=== PATIENT | female | born 1955 | race Caucasian/White ===

== ENCOUNTER 2017-06-24 15:02 | Emergency (ER) | payer MEDICARE, OTHER ==
[~2017-06-24] VITALS: Ht 167.6 cm; Wt 83.9 kg
[~2017-06-24 15:02] MED LIST: ADVAIR 250/501 EA INH; ALPRAZOLAM; GUIATUSS AC SY120 ML PO; LORTAB 7.51 EA GT; MEDROL4 MG PO; OMEPRAZOLE40 MG PO; PLAQUENIL200 MG PO; PREVACID30 M2 PO; PROAIR HFA8.5 G1 INH; Z.0.AMBIEN10 MG PO; Z.0.KEFLEX500 MG PO; Z.0.SINGULAIR10 MG PO; Z.0.VALTREX500 MG PO; Z.0.XANAX0.25 MG PO; ZITHROMAX500 MG PO
--- OUTSIDE RECORDS SUMMARY | 2017-06-24 15:05 | XMS REPORT ---
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 Allergies, Adverse Reactions, Alerts This patient has no known allergies or adverse reactions. Medications This patient has no known medications. Results Test Description Test Time Test Comments Text Results Atomic Results Result Comments RESPIRATORY PANEL [facility] 2016-10-18 18:22:00 HUMAN METAPNEUMOVIRUS (BEAKER) (test cajk=6703) Not detected Not detected, Inconclusive RHINOVIRUS (BEAKER) (test xqdq=0366) Not detected Not detected, Inconclusive INFLUENZA A (BEAKER) (test jzzo=2345) Not detected Not detected, Inconclusive INFLUENZA A SUBTYPE H1 (BEAKER) (test nojq=1737) Not detected Not detected, Inconclusive INFLUENZA A SUBTYPE H3 (BEAKER) (test axkc=4758) Not detected Not detected, Inconclusive INFLUENZA A SUBTYPE H1-2009 (BEAKER) (test xjlb=1434) Not detected Not detected, Inconclusive INFLUENZA B (BEAKER) (test iexq=9915) Not detected Not detected, Inconclusive RESPIRATORY SYNCYTIAL VIRUS (BEAKER) (test nrby=0953) Not detected Not detected, Inconclusive PARAINFLUENZA VIRUS 1 (BEAKER) (test fsaz=8292) Not detected Not detected, Inconclusive PARAINFLUENZA VIRUS 2 (BEAKER) (test lphm=9990) Not detected Not detected, Inconclusive PARAINFLUENZA VIRUS 3 (BEAKER) (test iuwp=7661) Not detected Not detected, Inconclusive PARAINFLUENZA VIRUS 4 (BEAKER) (test mquy=0536) Not detected Not detected, Inconclusive ADENOVIRUS (BEAKER) (test npls=6894) Not detected Not detected, Inconclusive CORONAVIRUS 229E (BEAKER) (test dexd=2874) Not detected Not detected, Inconclusive CORONAVIRUS HKU1 (BEAKER) (test ceup=4899) Not detected Not detected, Inconclusive CORONAVIRUS NL63 (BEAKER) (test cliu=3444) Not detected Not detected, Inconclusive CORONAVIRUS OC43 (BEAKER) (test ngmj=4331) Not detected Not detected, Inconclusive BORDETELLA PERTUSSIS (BEAKER) (test qdgt=1813) Not detected Not detected, Inconclusive CHLAMYDOPHILA PNEUMONIAE (BEAKER) (test xfrf=8802) Not detected Not detected , Inconclusive MYCOPLASMA PNEUMONIAE (BEAKER) (test kdkt=3590) Not detected Not detected, Inconclusive CHEST [address] [facility] [address] [address] Patient Name: BOBBI BILL MR #: [id number] : 1955 Age/Sex: 62/F Req #: [id number] Adm Physician: Ordered by: BRYANNA RUIZ MD Report #: [id number] Location: [facility] Room/Bed: Procedure: [id number] DX/ CHEST 2 VIEWS Exam Date: 04/26/17 Exam Time: 1000 REPORT STATUS: Signed PROCEDURE: Frontal and lateral views of the chest. COMPARISON: [facility], DX, CHEST SINGLE (PORTABLE), 04/10/2016, 9:58. INDICATIONS: BRONCHITIS FINDINGS: Lines /tubes: None. Lungs: The lungs are well inflated. Patchy bibasilar and infrahilar opacities, right greater than left. Mild bronchial wall thickening in the lower lobes. There is no evidence of consolidation or pulmonary edema. Pleura: There is no pleural effusion or pneumothorax. Heart and mediastinum: The heart and the mediastinum are normal. Bones: No acute bony abnormality. IMPRESSION: 1. mild bronchial wall thickening in the lower lobes, likely represent bronchitis. Patchy bibasilar and infrahilar opacities may reflect atelectasis or developing pneumonia. Recommend chest PA and lateral 4-6 weeks after appropriate treatment to document resolution. Jomar River M.D. Dictated by: Jomar River M.D. on 04/26/2017 at 12:12 Electronically approved by: Jomar River M.D. on 04/26/2017 at 12:12 Dictated By: JOMAR RIVER MD 1212 Transcribed By: KOLBY on 04/26/17 1212 COPY TO: BRYANNA RUIZ MD
[2017-06-24] MEDS ORDERED: KETOROLAC TROMETHAMINE 60 MG/2 ML VIAL IM ONE (16:00)
[2017-06-24 19:44] VITALS: BP 155/90
== END 2017-06-24 16:20 | disposition home or self-care (01) ==
LOC: FSED 15:02
DX: M54.2 Cervicalgia (principal); M62.838 Other muscle spasm; R03.0 Elevated blood-pressure reading, without diagnosis of hypertension
CPT/HCPCS: 99282; J1885

== ENCOUNTER → 2017-08-06 | Outpatient (CLI) | payer MEDICARE, OTHER ==
--- NOTE | 2017-08-06 16:30 | Diagnostic Imaging Report ---
PROCEDURE: Frontal and lateral views of the chest. COMPARISON: Patients [facility], , CHEST 2 VIEWS, 04/26/2017, 9:41. INDICATIONS: COUGH, COPD FINDINGS: Lines/tubes: None. Lungs: The lungs are well inflated. Improved previously visualized lower lobe bronchial wall thickening. There is no evidence of consolidation or pulmonary edema. Pleura: There is no pleural effusion or pneumothorax. Heart and mediastinum: Cardiac silhouette is borderline enlarged. Pulmonary vasculature is normal. Bones: No acute bony abnormality. IMPRESSION: 1. borderline enlarged cardiac silhouette, without acute cardiopulmonary abnormalities. Nino River M.D. Dictated by: Nino River M.D. on 08/06/2017 at 16:30 Electronically approved by: Nino River M.D. on 08/06/2017 at 16:30
== END ==
LOC: RAD 15:34
PROVIDERS: ATTEND Internal Medicine Pulmonary Disease
DX: J44.9 Chronic obstructive pulmonary disease, unspecified (principal)
CPT/HCPCS: 71046

== ENCOUNTER 2017-08-07 10:27 | Inpatient (IN) | payer MEDICARE, OTHER ==
[~2017-08-07] VITALS: Ht 167.6 cm; Wt 90.9 kg
--- OUTSIDE RECORDS SUMMARY | 2017-08-07 10:31 | XMS REPORT ---
Author Organization Unknown Address [address] [place] [address] Phone [phone] Care Team Providers [facility] [employer] Name Role Phone BRYANNA RUIZ MD 114 [phone] GUALBERTO DOVE MD 121 [phone] JARROD CERVANTES MD 105 [phone] BRYANNA HERRING MD 2 [phone] DIPIKA BEATTY MD 183 [phone] ERIC BOTELLO MD 3 [phone] Allergies Code Code System Name Reaction Severity Status Onset Declomycin Active 8640 RxNorm Prednisone Active Medications Name Status Start Date Stop Date acetaminophen 300 mg-codeine 30 mg tablet Active Not available acyclovir 5 % topical ointment apply tid prn Active Not available Adacel (Tdap Adolesn/Adult)(PF)2 Lf-(2.5-5-3-5)-5 Lf/0.5 mL IM syringe Completed 11/07/2016 Adacel (Tdap Adolesn/Adult)(PF)2Lf-(2.5-5-3-5mcg)-5 Lf/0.5 mL IM susp Completed 01/31/2016 Advair Diskus 250 mcg-50 mcg/dose powder for inhalation Active Not available albuterol sulfate 2 mg tablet Active Not available alprazolam 0.5 mg tablet Active Not available amlodipine 2.5 mg tablet Completed 01/31/2016 amoxicillin 500 mg capsule Take 1 capsule 3 times a day by oral route. Completed 08/28/2016 azithromycin 250 mg tablet TAKE 2 TABLETS (500 MG) BY ORAL ROUTE ONCE DAILY FOR 1 DAY THEN 1 TABLET (250 MG) BY ORAL ROUTE ONCE DAILY FOR 4 DAYS Active Not available betamethasone dipropionate 0.05 % topical cream Completed 07/12/2016 bupropion HCl XL 150 mg 24 hr tablet, extended release Active Not available Cheratussin AC 10 mg-100 mg/5 mL oral liquid Take 10 mL every 4 hours by oral route. Active Not available clindamycin HCl 300 mg capsule Completed 04/22/2017 clobetasol 0.05 % topical ointment applt twice daily prn Completed 07/12/2016 cyclobenzaprine 5 mg tablet 1 tablet prn Completed 07/12/2016 dextroamphetamine-amphetamine 20 mg tablet Take 1 tablet every day by oral route as needed. Active Not available fluocinonide 0.05 % topical ointment apply daily as needed Completed 04/22/2017 fluticasone 50 mcg/actuation nasal spray,suspension 2 sprays each nostril once daily prn Active Not available furosemide 20 mg tablet Active Not available gabapentin 300 mg capsule Active Not available gentamicin 0.3 % eye drops Completed 01/31/2016 hydrochlorothiazide 12.5 mg capsule Take 1 capsule every day by oral route for 90 days. Completed 05/21/2016 hydroxychloroquine 200 mg tablet Take 2 tablets every day by oral route for 30 days. Completed 05/21/2016 IBU 800 mg tablet Active Not available Kenalog 40 mg/mL suspension for injection Take 40 mg by injection route. Completed 03/14/2017 ketoconazole 2 % topical cream apply daily prn Completed 07/12/2016 ketorolac 30 mg/mL (1 mL) injection solution Inject 2 mL by intramuscular route. Completed 04/22/2017 ketorolac 60 mg/2 mL intramuscular solution 2 ml Completed 07/16/2017 Klor-Con Sprinkle 10 mEq capsule,extended release Active Not available Lasix 40 mg tablet Take 1 tablet every other day by oral route. Completed 07/12/2016 levocetirizine 5 mg tablet once daily Completed 07/12/2016 levofloxacin 500 mg tablet Take 1 tablet every day by oral route. Completed 10/26/2016 lidocaine 5 % topical ointment Completed 01/31/2016 lorazepam 1 mg tablet TAKE 1 TABLET 1-1 1/2 tablets BY ORAL ROUTE 3 TIMES PER DAY NEEDED Completed 07/12/2016 Lyrica 50 mg capsule Completed 08/28/2016 Medrol (Johnny) 4 mg tablets in a dose pack takes as needed Completed 07/12/2016 meloxicam 15 mg tablet TAKE ONE TABLET DAILY NEEDED FOR PAIN Completed 04/22/2017 methocarbamol 500 mg tablet Active Not available methocarbamol 750 mg tablet QD PRN Active Not available methylprednisolone 4 mg tablet Active Not available metronidazole 1 % topical gel Completed 01/31/2016 montelukast 10 mg tablet Active Not available mupirocin 2 % topical ointment Completed 07/12/2016 naproxen 500 mg tablet Completed 07/17/2016 Nitro-Bid 2 % transdermal ointment Apply 1 inch as needed by transdermal route. Completed 11/07/2016 Nuvail 16 % nail film solution Completed 01/31/2016 omeprazole 40 mg capsule,delayed release Active Not available oseltamivir 75 mg capsule Completed 06/25/2017 potassium chloride ER 10 mEq tablet,extended release(part/cryst) Completed 07/12/2016 Premarin 0.3 mg tablet Active Not available ProAir HFA 90 mcg/actuation aerosol inhaler Active Not available promethazine 25 mg/mL injection solution Take 25 mg by injection route. Completed 02/21/2017 sumatriptan 100 mg tablet one tablet at onset of headache, one tablet 2 hours later if needed Completed 04/22/2017 terbutaline 2.5 mg tablet Take 1 tablet 3 times a day by oral route for 30 days. Completed 2016 tizanidine 2 mg tablet Completed 07/17/2016 tizanidine 4 mg tablet Completed 04/22/2017 tramadol 50 mg tablet take one tablet tid prn Completed 05/21/2016 triamcinolone acetonide 0.1 % dental paste Active Not available triamcinolone acetonide 0.1 % topical cream Completed 05/21/2016 triamcinolone acetonide 0.5 % topical ointment APPLY A THIN LAYER TO THE AFFECTED AREA(S) BY TOPICAL ROUTE 2 TIMES PER DAY Active Not available Tudorza Pressair 400 mcg/actuation breath activated Active Not available valacyclovir 500 mg tablet Active Not available Zofran 8 mg tablet Take 1 tablet twice a day by oral route as needed for 3 days. Completed zolpidem 10 mg tablet Active Not available Zostavax (PF) 19,400 unit/0.65 mL subcutaneous suspension Completed 2016 Notes: LOW DOSE IRON QD Cervical Injections Some medications listed in Document: #[id number] could not be added to this patient 's chart. Please review this document and add these medications to the patient' s chart manually as needed. 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 Please review this document and add these problems to the patient's chart manually as needed. Procedures Date Name Performed by Appendectomy Information not available Knee Surgery Information not available Cholecystectomy Information not available Eye Surgery Information not available Hysterectomy (Partial) Information not available Gastrointestinal Surgery Information not available 05/21/2016 MAMMO, Screening, Digital, Bilateral [facility] [address] [place] [address] (Work Place) 05/21/2016 Bone Density [facility] [address] [place] [address] (Work Place) 07/17/2016 XR, Cervical Spine [facility] [address] [address] (Work Place) 08/28/2016 XR, Shoulder [facility] [address] [address] (Work Place) 10/18/2016 MRI, Shoulder, W/o Contrast [facility] [address] [facility] [address] [place] [address] (Work Place) 10/18/2016 MRI, Cervical Spine, W/o Contrast [facility] [address] [facility] [address] [place] [address] (Work Place) 03/14/2017 XR, Chest, 2 View [facility] [address] [place] [address] (Work Place) 03/14/2017 Electrocardiogram [facility] [address] [place] [address] (Work Place) Lab Results Date Name Specimen Result Interpretation Description Value Range Status Address 04/22/2017 CMP, Serum or Plasma Alt 16 U/L 0-55 U/L Final [facility]: [address] Ast 15 U/L 5-34 U/L Final [facility]: [address] Bun 13.2 mg/dL 9.8-20.1 mg/dL Final [facility]: [address] Alk Phos 88 unit/L 40-150 unit/L Final [facility]: [address] High Glucose 109 mg/dL 70-99 mg/dL Final [facility]: [address] Albumin 3.5 g/dL 3.5-5.0 g/dL Final [facility]: [address] Creatinine 0.76 mg/dL 0.57-1.11 mg/dL Final [facility]: [address] eGFR Non- >60 mL/min/1.73m2 >60 mL/min/ 1.73m2 Final [facility]: [address] Total Bilirubin 0.2 mg/dL 0.2-1.2 mg/dL Final [facility]: [address] eGFR - >60 mL/min/1.73m2 >60 mL/min/1.73m2 Final [facility]: [address] Sodium 141 mEq/L 136-145 mEq/L Final [facility]: [address] Potassium 4.2 mEq/L 3.5-5.1 mEq/L Final [facility]: [address] Chloride 103 mmol/L 98-107 mmol/L Final [facility]: [address] Total Protein 6.6 g/dL 6.4-8.3 g/dL Final [facility]: [address] Calcium 9.9 mg/dL 8.4-10.2 mg/dL Final [facility]: [address] Co2 30.5 mmol/L 23.0-31.0 mmol/L Final [facility]: [address] Anion Gap 8 calc Final [facility]: [address] [place] [address], [place] 04/22/2017 Lipid Panel, Serum High Hdl 72 mg/dL 40-60 mg/dL Final [facility]: [address] Triglyceride 109 mg/dL 0-149 mg/dL Final [facility]: [address] VLDL Calc. 22 mg/dL Final [facility]: [address] cholesterol/HDL Ratio 2.9 mg/dL Final [facility]: [address] non-HDL Cholesterol Calc. 135 mg/dL 0-160 mg/dL Final [facility]: [address] High Cholesterol 207 mg/dL 0-199 mg/dL Final [facility]: [address] LDL Calc. 113 mg/dL 0-130 mg/dL Final [facility]: [address] [address], [place] 04/22/2017 TSH, Serum or Plasma Tsh 2.425 uIU/mL 0.350-4.940 uIU /mL Final [facility]: [address] [place] [address], [place] 10/18/2015 CBC W/ Auto Diff No observation recorded. 12/30/2014 Iron Panel, Serum or Plasma No observation recorded. 12/28/2014 CBC W/ Auto Diff No observation recorded. Electrocardiogram No observation recorded. [facility] : [address] [place] [address] Past Encounters 08/05/2017 Acute Exacerbation of Chronic Obstructive Airways Disease; Impairment of Balance Julio Bansal MD: [address] [place] [phone], Ph. 07/16/2017 Neck Pain; Spinal Stenosis in Cervical Region; Renewal of Prescription Eric Alva MD: [address] [place] [phone], Ph. 06/25/2017 Spinal Stenosis in Cervical Region; Undifferentiated Connective Tissue Disease; Chronic Obstructive Lung Disease; Atherosclerosis of Aorta; Moderate Depression Eric Alva MD: [address] [place] [phone], Ph. 05/27/2017 Lateral Epicondylitis; Impingement Syndrome of Shoulder Region Eric Alva MD: [address] [place] [phone], Ph. 04/22/2017 Adult Health Examination; Stenosis of Spinal Canal Due to Intervertebral Disc; Depression Screening; Insomnia; Advance Directive Discussed with Patient; Body Mass Index 25-29 - Overweight; Rotator Cuff Syndrome; Chronic Obstructive Lung Disease Eric Alva MD: [address] [place] [phone], Ph. [phone] 03/14/2017 Thoracic Back Pain; Spinal Stenosis in Cervical Region; Pain Radiating to Left Side of Chest Ashley Contreras [employer]: [address] [place] [phone], Ph. [phone] 02/21/2017 Impingement Syndrome of Shoulder Region Eric Alva MD: [address] [place] [phone], Ph. 02/04/2017 Migraine; Stenosis of Spinal Canal Due to Intervertebral Disc; Rotator Cuff Syndrome; Atherosclerosis of Aorta; Influenza Vaccination Eric Alva MD: [address] [place] [address], Ph. [phone] 01/01/2017 Migraine Eric Alva MD: [address] [place] [phone], Ph. [phone] 11/26/2016 Rotator Cuff Syndrome; Spinal Stenosis in Cervical Region Eric Alva MD: [address] [place] [phone], Ph. [phone] 11/12/2016 Rotator Cuff Syndrome; Prolapsed Cervical Intervertebral Disc; Stenosis of Spinal Canal Due to Intervertebral Disc; Chronic Obstructive Lung Disease; Body Mass Index 25-29 - Overweight; Adult Health Examination Cheryl Sood MD: [address] [place] [address], Ph. 11/07/2016 Ulcer of Mouth; Shoulder Joint Pain; Neck Pain; Pruritic Rash Ericgladys Alva MD: [address] [place] [phone], Ph. [phone] 10/26/2016 Lateral Epicondylitis; Undifferentiated Connective Tissue Disease Afia Michel MD: [address] [place] [phone], Ph. 10/22/2016 Lateral Epicondylitis; Undifferentiated Connective Tissue Disease Eric Alva MD: [address] [place] [address], Ph. [phone] 10/18/2016 Shoulder Joint Pain; Neck Pain Eric Alva MD: [address] [place] [phone], Ph. [phone] 10/10/2016 Bilateral Shoulder Joint Pain; Strain of Neck Muscle; Edema of Lower Extremity Ericgladys Alva MD: [address] [place] [phone], Ph. 08/28/2016 Neck Pain; Cervical Spondylosis; Chronic Obstructive Lung Disease; Gastroesophageal Reflux Disease; Raynaud's Phenomenon; Insomnia; Shoulder Joint Pain Eric Alva MD: [address] [place] [phone], Ph. 07/31/2016 Neck Pain; Cervical Spondylosis Eric Alva MD: [address] [place] [phone], Ph. 07/17/2016 Neck Pain Ericgladys Alva MD: [address] [place] [phone], Ph. 07/12/2016 Edema of Lower Extremity; Neck Pain; Shoulder Joint Pain Eric Alva MD: [address] [place] [phone], Ph. 05/21/2016 Ulcer of Mouth; Degenerative Joint Disease Involving Multiple Joints; Edema of Lower Extremity; Screening Mammography; Screening for Osteoporosis Ericgladys Alva MD: [address] [place] [phone], Ph. 01/31/2016 Atopic Dermatitis; Ulcer of Mouth; Influenza Vaccination Eric Alva MD: [address] [place] [phone], Ph. [phone] Social History Smoking Status Former Smoker (1 1/2 PPD) Notes: quit 12 yrears ago Vaccine List Vaccine Type Influenza, injectable, MDCK, preservative free, quadrivalent 01/31/20160.5 mL influenza, injectable, quadrivalent 01/28/2015 influenza, unspecified formulation 02/05/2017 pneumococcal conjugate PCV 13 02/22/2017 Pneumococcal Conjugate, unspecified formulation 05/13/2014 Tdap 12/12/2015 zoster 02/11/2016 Plan of Care Patient Instructions Screening Recommendations 1. Vaccines Pneumococcal: discussed today and information sent with patient in their [facility] health folder Influenza: discussed today and information sent with patient in their [facility] health folder Shingles: discussed today and information sent with patient in their [facility] health folder Tetanus: discussed today and information sent with patient in their [facility] health folder 2. Mammography Screening: discussed today and information sent with patient in their [facility] health folder 3. Colorectal cancer Screening Colonoscopy: discussed today and information sent with patient in their [facility] health folder Fecal Occult Blood: discussed today and information sent with patient in their [facility] health folder 4. Bone Mass Measurement: discussed today 5. Pap test / Pelvic Exam Screening: discussed today 6. Eye Exam Screening: discussed today 7. Cholesterol Screening: discussed today 8. Diabetes Screening: discussed today It was good to see you in the office today for your Medicare Annual Wellness Visit. You have been provided some information on healthy nutrition, including a diet rich in fruits and vegetables, minimizing simple carbohydrates, salt, and saturated fats. I want to encourage regular cardiovascular exercise such as walking at least 30 minutes daily, 5 times per week. Please remember to schedule any preventive health measures that we talked about today. You have also been provided education on fall prevention and community- based lifestyle interventions to help reduce health risks and promote healthy living in your [facility] folder. Reminders Provider Appointments None recorded. Lab None recorded. Referral None recorded. Procedures None recorded. Surgeries None recorded. Imaging None recorded. Vitals 08/05/2017 02:45PM Est Patient Height Weight Blood Pressure 5 ft 7 in 136/74 mm[Hg] 07/16/2017 09:00AM Est Patient Height Weight Blood Pressure 5 ft 7 in 116/72 mm[Hg] 06/25/2017 01:45PM Work In Same Day Height Weight Blood Pressure 5 ft 7 in 116/72 mm[Hg] 05/27/2017 04:00PM Est Patient Height Weight Blood Pressure 5 ft 7 in 130/70 mm[Hg] 04/22/2017 08:15AM Est Patient Height Weight BMI Blood Pressure 5 ft 7 in 180 lbs 28.2 kg/m2 124/70 mm[Hg] 03/14/2017 03:15PM Est Patient Height Weight BMI Blood Pressure 5 ft 7 in 180 lbs 28.2 kg/m2 (1) 160/90 mm[Hg] (2) 162/86 mm[Hg] 02/21/2017 04:15PM Est Patient Height Weight BMI Blood Pressure 5 ft 7 in 179 lbs 28 kg/m2 (1) 144/78 mm[Hg] (2) 126/72 mm[Hg] 02/04/2017 08:15AM Est Patient Height Weight BMI Blood Pressure 5 ft 7 in 181 lbs 28.3 kg/m2 130/80 mm[Hg] 01/01/2017 10:15AM Est Patient Height Weight BMI Blood Pressure 5 ft 7 in 180 lbs 28.2 kg/m2 120/70 mm[Hg] 11/26/2016 04:00PM Est Patient Height Weight BMI Blood Pressure 5 ft 7 in 190 lbs 29.8 kg/m2 134/84 mm[Hg] 11/12/2016 01:45PM Work In Same Day Height Weight BMI Blood Pressure 5 ft 7 in 188 lbs 29.4 kg/m2 134/82 mm[Hg] 11/07/2016 11:00AM Est Patient Height Weight BMI Blood Pressure 5 ft 7 in 186 lbs 29.1 kg/m2 136/78 mm[Hg] 10/26/2016 11:00AM Est Patient Height Weight Blood Pressure 5 ft 7 in 120/68 mm[Hg] 10/22/2016 10:15AM Work In Same Day Height Weight BMI Blood Pressure 5 ft 7 in 193 lbs 30.2 kg/m2 138/80 mm[Hg] 10/18/2016 04:30PM Est Patient Height Weight Blood Pressure 5 ft 7 in 118/68 mm[Hg] 10/10/2016 03:30PM Work In Same Day Height Weight BMI Blood Pressure 5 ft 7 in 195 lbs 30.5 kg/m2 (1) 150/92 mm[Hg] (2) 146/88 mm[Hg] 08/28/2016 09:00AM Est Patient Height Weight BMI Blood Pressure 5 ft 7 in 188 lbs 29.4 kg/m2 118/70 mm[Hg] 07/31/2016 11:30AM Est Patient Height Weight BMI Blood Pressure 5 ft 7 in 194 lbs 30.4 kg/m2 132/78 mm[Hg] 07/17/2016 04:15PM Est Patient Height Weight Blood Pressure 5 ft 7 in 139/85 mm[Hg] 07/12/2016 04:15PM Est Patient Height Weight BMI Blood Pressure 5 ft 7 in 192 lbs 30.1 kg/m2 127/89 mm[Hg] 05/21/2016 11:15AM Est Patient Height Weight BMI Blood Pressure 5 ft 7 in 186 lbs 29.1 kg/m2 131/77 mm[Hg] 01/31/2016 08:00AM Est Patient Height Weight BMI Blood Pressure 5 ft 7 in 183 lbs 28.7 kg/m2 127/86 mm[Hg]
--- OUTSIDE RECORDS SUMMARY | 2017-08-07 10:31 | XMS REPORT | Clinical Summary ---
Author Author STEPHANIE [facility] Address Unknown Phone Unavailable Care Team Providers Care Crystallographer Name Role Phone PCP Unavailable Allergies Active Allergy Reactions Severity Noted Date Comments Prednisone Other (See Comments) High 02/08/2016 Pt states "I get really crazy, hallucinations" Demeclocycline Hives 02/08/2016 Current Medications Prescription Sig. Disp. Refills Start End Date Status Date albuterol HFA (VENTOLIN Inhale 2 puffs by mouth Active HFA) 90 mcg/actuation via inhaler every 4 inhaler (four) hours as needed for Wheezing. fluticasone-salmeterol Inhale 1 puff by mouth Active (ADVAIR DISKUS) 250-50 via inhaler every 12 mcg/dose diskus inhaler (twelve) hours. montelukast (SINGULAIR) Take 10 mg by mouth Active 10 mg tablet nightly. albuterol (ACCUNEB) 0.63 Take 1 ampule by Active mg/3 mL nebulizer nebulization every 6 solution (six) hours as needed for Wheezing. omeprazole (PRILOSEC) 40 Take 40 mg by mouth Active MG capsule daily. estrogens, conjugated, Take 0.3 mg by mouth 3 Active (PREMARIN) 0.3 MG tablet (three) times a week . zolpidem (AMBIEN) 10 mg Take 10 mg by mouth every Active tablet night as needed for Insomnia. ALPRAZolam (XANAX) 0.5 MG Take 0.5 mg by mouth 3 Active tablet (three) times daily as needed for Anxiety. Missing or Non-Formulary Nitrogel applied to Active Medication fingers. aclidinium (TUDORZA) 400 Inhale 1 puff by mouth Active mcg/actuation powder via inhaler 2 (two) times inhaler daily. dextroamphetamine-ampheta Take 5 mg by mouth daily. Active mine (AMPHETAMINE-DEXTROAMPHET AMINE) 10 mg Tab tablet meloxicam (MOBIC) 15 MG Take 15 mg by mouth as Active tablet needed for Pain. albuterol (PROVENTIL) 2 Take 2 mg by mouth 3 Active MG tablet (three) times daily. mupirocin (BACTROBAN) 2 % Apply 1 application Active ointment topically 2 (two) times daily. furosemide (LASIX) 20 MG Take 20 mg by mouth Active tablet daily. tiZANidine (ZANAFLEX) 4 Take 4 mg by mouth every Active MG tablet 8 (eight) hours as needed. levoFLOXacin (LEVAQUIN) Take 500 mg by mouth 10/19/19 10/18/19 Discontin 500 MG tablet daily. 17 17 ued levoFLOXacin (LEVAQUIN) Take 1 tablet (500 mg 7 tablet 0 10/19/19 500 MG tablet total) by mouth daily for 17 17 7 days. Active Problems Not on file Encounters Date Type Specialty Care Team Description 01/15/2017 Telephone Transplant Hazel Gill Appointment 01/11/2017 Orders Only Transplant Celestino So, TERRIE Centrilobular emphysema (HCC) (Primary Dx) 11/19/2016 Telephone Transplant Celestino So, TERRIE Follow-up (Lung txp eval) 10/19/2016 Telephone Transplant Bailey Monte RN Labs Only; Medication Management 10/17/2016 Hospital Respiratory Therapy Afia Berger MD Encounter 10/17/2016 Office Visit Transplant Afia Berger MD Fever, unspecified fever Liang Burr MD cause (Primary Dx);Chronic obstructive pulmonary disease, unspecified COPD type (HCC);Physical deconditioning 10/01/2016 Telephone Transplant Hazel Gill Appointment 09/21/2016 Telephone Transplant Hazel Gill Appointment after 08/06/2016 Social History Tobacco Use Types Packs/Day Years Used Date Former Smoker Cigarettes 1.5 05/13/1969 - 05/13/2005 Alcohol Use Drinks/Week oz/Week Comments No Sex Assigned at Date Recorded Not on file Last Filed Vital Signs Vital Sign Reading Time Taken Blood Pressure 140/80 10/17/2016 1:17 PM CDT Pulse 118 10/17/2016 1:50 PM CDT Temperature 37.6 C (99.6 F) 10/17/2016 1:17 PM CDT Respiratory Rate 16 10/17/2016 1:17 PM CDT Oxygen Saturation 96% 10/17/2016 1:50 PM CDT Inhaled Oxygen - - Concentration Weight 88.6 kg (195 lb 6.4 oz) 10/17/2016 1:17 PM CDT Height 165.1 cm (5' 5") 10/17/2016 1:17 PM CDT Body Mass Index 32.52 10/17/2016 1:17 PM CDT Plan of Treatment Health Maintenance Due Date Last Done Comments INFLUENZA VACCINE 02/10/2017 Results * PULMONARY FUNCTION - SCAN (10/26/2016 1:02 PM) * Respiratory Panel [facility] (10/17/2016 3:28 PM) Component Value Ref Range Human Metapneumovirus Not detected Not detected, Inconclusive Rhinovirus Not detected Not detected, Inconclusive Influenza A Not detected Not detected, Inconclusive Influenza A subtype H1 Not detected Not detected, Inconclusive Influenza A Subtype H3 Not detected Not detected, Inconclusive Influenza A Subtype Not detected Not detected, H1-2009 Inconclusive Influenza B Not detected Not detected, Inconclusive Respiratory Syncytial Not detected Not detected, Virus Inconclusive Parainfluenza Virus 1 Not detected Not detected, Inconclusive Parainfluenza Virus 2 Not detected Not detected, Inconclusive Parainfluenza virus 3 Not detected Not detected, Inconclusive Parainfluenza Virus 4 Not detected Not detected, Inconclusive Adenovirus Not detected Not detected, Inconclusive Coronavirus 229E Not detected Not detected, Inconclusive Coronavirus HKU1 Not detected Not detected, Inconclusive Coronavirus NL63 Not detected Not detected, Inconclusive Coronavirus OC43 Not detected Not detected, Inconclusive Bordetella Pertussis Not detected Not detected, Inconclusive Chlamydophila Pneumoniae Not detected Not detected, Inconclusive Mycoplasma Pneumoniae Not detected Not detected, Inconclusive Specimen Performing Laboratory Nasal - Nasal, Right [address] [address] after 08/06/2016
--- OUTSIDE RECORDS SUMMARY | 2017-08-07 10:31 | XMS REPORT | Continuity of Care Document ---
Author Author [facility] Organization [facility] Address [address] [place] [address] Phone Unavailable Care Team Providers Care Banking Specialist Name Role Phone NONSTAFF PCP Unavailable Insurance Providers Guarantor Hui Galvez Address [address] [place] [address] Email Payer [facility] Policy Number [id number] Subscriber's Name Hui Galvez Relationship 18 Self / Same As Patient Group Number PLANN Group Name RETIRED Effective Date 13 Payer Medicare A & B Policy Number [id number] Subscriber's Name Hui Galvez Relationship 18 Self / Same As Patient Group Number [id number] Group Name RETIRED Effective Date 11 Advance Directives Directive Response Recorded Date/Time Does the patient have an advance directive? Yes 01/27/16 3:43pm If yes, is advance directive on file with [facility]? No 11/27/12 11:00pm If not on file with [facility] will patient provide a copy? Yes 04/26/17 9:47am Do you have a Directive to Physician? No 06/24/17 3:14pm Do you have a Medical Power of Bolt Threader? No 06/24/17 3:14pm Do you have an out of hospital Do Not Resuscitate Order? No 06/24/17 3:14pm Do you have any special needs we should be aware of? No 06/24/17 3:14pm Do you have a support person here with you today? Yes 06/24/17 3:14pm Did patient receive Notice of Privacy Practices? Yes 06/24/17 3:14pm Did patient receive patient rights and responsibilities? Yes 06/24/17 3:14pm Problems No problem information available. Medications Current Home Medications Medication Dose Units Route Directions Days Qty Instructions Start Date Albuterol Sulfate (Proair Hfa) 8.5 Gm Hfa.aer.ad 2 Inh Inhalation as needed Alprazolam (Xanax) 0.25 Mg Tablet 0.25 Mg Oral As Needed Hydroxychloroquine Sulfate (Plaquenil) 200 Mg Tab 200 Mg Oral Bedtime Methylprednisolone (Medrol) 4 Mg Tablet 4 Mg Oral Daily Montelukast Sodium (Singulair) 10 Mg Tablet 10 Mg Oral Bedtime Salmeterol Xinaf/Fluticasone (Advair 250/50) 1 Ea Disk 1 Ea Inhalation Twice A Day Zolpidem Tartrate (Ambien) 10 Mg Tablet 10 Mg Oral Bedtime Past Home Medications Medication Directions Ordered Status Acetaminophen/Hydrocodone (Lortab 7.5) 1 Ea Tab, 1 Ea G Tube Every 4 Hours as needed Discontinued Azithromycin (Zithromax) 500 Mg Tablet, 500 Mg Oral Daily Discontinued Cephalexin Monohydrate (Keflex) 500 Mg Capsule, 500 Mg Oral Three Times A Day Discontinued Guaifenesin/Codeine Phosphate (Robitussin Ac) 120 Ml Liquid, 10 Ml Oral Three Times A Day Discontinued Lansoprazole (Prevacid) 30 Mg Tab.rap.dr, 30 Mg Oral Daily Discontinued Omeprazole 40 Mg Capsule.dr, 40 Mg Oral Daily Discontinued Valacyclovir Hcl (Valtrex) 500 Mg Tablet, 500 Mg Oral Daily Discontinued Social History Social History Problem Response Recorded Date/Time Onset Date Status Hx Psychiatric Problems Yes 11/27/2012 11:00pm Not Applicable Not Applicable Hx Eating Disorder No 11/27/2012 11:00pm Not Applicable Not Applicable Hx Substance Use Disorder No 11/27/2012 11:00pm Not Applicable Not Applicable Hx Depression Y - when SOB 11/27/2012 11:00pm Not Applicable Not Applicable Smoking Status Start Date Stop Date Former smoker Hospital Discharge Instructions No hospital discharge instruction information available. Plan of Care Discharge Date 06/24/17 4:20pm Disposition HOME, SELF-CARE Condition at Discharge Stable Prescriptions See Medication Section Additional Instructions/Education Return to the closest emergency room if symptoms worsen. Drink plenty of fluids and stay well hydrated. Alternate with water and sports drink (Gatorade and Powerade etc.) You know you are well hydrated when your urine is clear. Ice muscle for 20 minutes, every 2 hours while awake. Massage muscles. Take medication as prescribed. Fill your prescription immediately after leaving the ER. Do not drive or operate any heavy machinery while taking your muscle relaxant prescriptions. Follow up with Primary Care Physician tomorrow. Functional Status No functional status information available. Allergies, Adverse Reactions, Alerts Allergen Type Severity Reaction Status Last Updated Prednisone Allergy Intermediate MAKES HER MEAN Active 06/24/17 Demeclocycline Allergy Intermediate HIVES Active 06/24/17 Immunizations No immunization information available. Vital Signs Acute Vital Signs Vital Response Date/Time Height 5 ft 6 in 06/24/2017 3:18pm Weight 185 lb 06/24/2017 3:18pm Body Mass Index 29.9 kg/m^2 06/24/2017 3:18pm Results No relevant diagnostic test, laboratory data and/or discharge summary information available. Procedures Procedure Status Date Provider(s) X-ray of chest, two views Active 04/26/17 BRYANNA RUIZ MD Encounters Encounter Location Arrival/Admit Date Discharge/Depart Date Attending Provider Departed Emergency Room [facility] 06/24/17 3:02pm 4:20pm GRIS GAMBINO MD Registered Clinic [facility] 04/26/17 9:49am BRYANNA RUIZ MD Discharged Recurring [facility] 12/12/16 9:19am 01/10/17 11:59pm BRYANNA RUIZ MD Discharged Rec[facility]ring [facility] 11/21/16 9:15am 12/10/16 11:59pm BRYANNA RUIZ MD Discharged [facility] 10/12/16 9:28am 11/09/16 11:59pm BRYANNA RUIZ MD Discharged [facility]ring [facility] 09/12/16 9:25am 10/10/16 11:59pm BRYANNA RUIZ MD Discharged [facility]ring [facility] 08/15/16 10:22am 11:59pm BRYANNA RUIZ MD
[2017-08-07] MEDS ORDERED: ALBUTEROL/IPRATROPIUM 3 ML NEB NEB ONE (10:45)
--- NOTE | 2017-08-07 11:23 | Diagnostic Imaging Report ---
PROCEDURE: Frontal and lateral views of the chest. COMPARISON: None. INDICATIONS: COUGH/SHORTNESS OF BREATH FINDINGS: Lines/tubes: None. Lungs: Bibasilar airspace opacities. No parenchymal mass. Pleura: There is no pleural effusion or pneumothorax. Heart and mediastinum: The heart and the mediastinum are normal. Bones: No acute bony abnormality. Degenerative changes in thoracic spine. IMPRESSION: Bibasilar airspace opacities may represent atelectasis or developing pneumonia. Dictated by: Jay Rocha M.D. on 08/07/2017 at 11:23 Electronically approved by: Jay Rocha M.D. on 08/07/2017 at 11:23
[2017-08-07 12:08] LABS: BASOPHILS % 0.5 % (0.0-1.0); EOSINOPHILS # (AUTO) 0.2 (0.0-0.4); EOSINOPHILS % 2.7 % (0.0-6.0); HEMATOCRIT 38.7 % (34.2-44.1); HEMOGLOBIN 11.9 g/dL (12.0-16.0); LYMPHOCYTES # (AUTO) 0.7 (1.0-3.2); LYMPHOCYTES % 10.7 % (18.0-39.1); MEAN CORPUSCULAR HEMOGLOBIN 29.2 pg (28-32); MEAN CORPUSCULAR HGB CONC 30.7 g/dL (31-35); MEAN CORPUSCULAR VOLUME 95.1 fL (81-99); MONOCYTES # (AUTO) 0.5 (0.2-0.8); MONOCYTES % 8.7 % (4.4-11.3); NEUTROPHILS # (AUTO) 4.8 (2.1-6.9); NEUTROPHILS % 76.9 % (38.7-80.0); PLATELET COUNT 210 x10e3/uL (140-360); RED BLOOD COUNT 4.07 x10e6/uL (3.6-5.1); RED CELL DISTRIBUTION WIDTH 15.6 % (11.7-14.4)
[2017-08-07 12:27] LABS: ALANINE AMINOTRANSFERASE 25 IU/L (0-55); ALBUMIN 3.7 g/dL (3.5-5.0); ALBUMIN/GLOBULIN RATIO 1.1 (0.8-2.0); ALKALINE PHOSPHATASE 83 IU/L (40-150); ANION GAP 13.2 mmol/L (8-16); BLOOD UREA NITROGEN 12 mg/dL (7-26); BUN/CREATININE RATIO 13 (6-25); CALCIUM 9.7 mg/dL (8.4-10.2); CARBON DIOXIDE 30 mmol/L (22-29); CHLORIDE 101 mmol/L (98-107); CREATINE KINASE 104 IU/L (29-168); CREATININE, SERUM 0.91 mg/dL (0.57-1.11); EST GLOMERULAR FILTRATION RATE > 60 ML/MIN (60-); GLUCOSE 112 mg/dL (74-118); POTASSIUM 4.2 mmol/L (3.5-5.1); SODIUM 140 mmol/L (136-145)
[2017-08-07] MEDS ORDERED: LEVOFLOXACIN 500MG/D5W 100ML IV SCH (13:00)
[2017-08-07] MEDS: ALBUTEROL/IPRATROPIUM 3 ML NEB NEB SCH ×2 (13:39→19:30)
[2017-08-07] MEDS ORDERED: METHYLPREDNISOLONE SOD SUCC 125 MG/2ML VIAL IV SCH ×3 (14:00→22:00)
[2017-08-07] MEDS: LEVOFLOXACIN 500MG/D5W 100ML 100 ML IV SCH (14:12)
--- OUTSIDE RECORDS SUMMARY | 2017-08-07 15:53 | XMS REPORT | Clinical Summary ---
Author Author STEPHANIE [facility] Address Unknown Phone Unavailable Care Team Providers Care Infertility Medical Assistant Name Role Phone PCP Unavailable Allergies Active [...] Specimen Performing Laboratory Nasal - Nasal, Right [address] [address] after 08/06/2016
[2017-08-07] MEDS ORDERED: ACETAMINOPHEN 325 MG TAB PO PRN (18:15)
[2017-08-07] MEDS ORDERED: ACETAMINOPHEN/CODEINE 300MG - 30MG TAB PO PRN (18:15)
[2017-08-07] MEDS ORDERED: MAGNESIUM HYDROXIDE 30 ML UDC PO PRN (18:15)
[2017-08-07] MEDS ORDERED: DEXTROSE 50% SYRINGE 50 ML IV PRN (18:15)
[2017-08-07] MEDS: CEFEPIME HCL 1 GM VIAL IV SCH (18:42)
[2017-08-07] MEDS: SALMETEROL/FLUTICASONE 250/50 INH SCH (19:00)
[2017-08-07 20:00] VITALS: BP 158/76
--- NOTE | 2017-08-07 20:17 | History and Physical ---
HISTORY: A charming but unfortunate 62-year-old woman with history of end-stage COPD, history of chronic edema, history of depression, history of severe gastroesophageal reflux, hypertension, edema, lupus, arthritis, insomnia, and Raynaud's phenomenon. She is admitted with cough approximately 4 days duration, at first productive. She was treated with Zithromax apparently without improvement. She is dyspneic on slight exertion, usually she is active. She has history of radicular pain at times, . FAMILY HISTORY: Positive for diabetes, coronary artery disease and strokes. She is retired, disabled, , but now remarried. Ex-smoker. Quit over 10 years ago. PAST SURGICAL HISTORY: She has had appendectomy, cataract surgery, gastric segmentation, hysterectomy. ALLERGIES: NO KNOWN DRUG ALLERGIES. PHYSICAL EXAMINATION: HEENT: Head is normocephalic and atraumatic. Extraocular movements intact. LUNGS: Wheezing in all lung bella. CARDIOVASCULAR: Heart regular rhythm. RESPIRATORY: Wheezing all lung bella. ABDOMEN: Nontender. EXTREMITIES: Trace edema. IMPRESSION: Acute exacerbation of chronic obstructive pulmonary disease, vague bibasilar infiltrates or scars. PLAN: The plan is to resume her home medications, antibiotics and corticosteroids. She uses Trilogy at home, albuterol tablets p.r.n., Xanax, amlodipine, Bupropion, iron, Lasix, Motrin, DuoNeb, Robaxin p.r.n., , Nitro-Bid, omeprazole, ProAir, Trilogy. She has supplemental oxygen at home. She also uses Ambien 10. She is admitted for therapy. Job#: [id number]
[2017-08-07 20:30] VITALS: BP 117/73
[2017-08-07] MEDS: INSULIN LISPRO 100 UNIT/1 ML 3ML VIAL SQ SCH (20:42)
[2017-08-07] MEDS ORDERED: HYDROXYCHLOROQUINE SULFATE 200 MG TAB PO SCH (21:00)
[2017-08-07] MEDS: ALPRAZOLAM 0.25 MG TAB PO PRN (21:52)
[2017-08-07] MEDS: METHYLPREDNISOLONE SOD SUCC 40 MG/ML VIAL IV SCH (21:52)
[2017-08-07] MEDS: ZOLPIDEM TARTRATE 10 MG TAB PO SCH (21:52)
[2017-08-07] MEDS: MONTELUKAST SODIUM 10 MG TAB PO SCH (21:52)
[2017-08-07] MEDS: HEPARIN SOD (PORCINE) 5,000 UNIT/ML VIAL SC SCH (21:53)
[2017-08-07 22:35] VITALS: BP 117/73
[2017-08-08] VITALS (7 sets, daily range): BP systolic 136–168; BP diastolic 69–79
[2017-08-08] MEDS: METHYLPREDNISOLONE SOD SUCC 40 MG/ML VIAL IV SCH ×3 (05:05→18:22)
[2017-08-08] MEDS: ESTROGENS CONJUGATED 0.3 MG TAB PO SCH (05:06)
[2017-08-08] MEDS: CEFEPIME HCL 1 GM VIAL IV SCH ×2 (05:48→17:31)
--- NOTE | 2017-08-08 06:11 | Diagnostic Imaging Report ---
CHEST SINGLE (PORTABLE), 08/08/2017 7:00 AM Technique: CHEST SINGLE (PORTABLE) Comparison: None available. Clinical history: Shortness of breath Findings: See Impression Impression: Somewhat limited by portable technique and motion artifact. 1. Normal cardiomediastinal silhouette. 2. Mild bibasilar opacity which could be due to vascular crowding/atelectasis. 3. No effusion or pneumothorax. Signed by: Dr Adelaide West MD on 08/08/2017 6:08 AM
[2017-08-08 07:12] LABS: HEMATOCRIT 32.7 % (34.2-44.1); HEMOGLOBIN 10.2 g/dL (12.0-16.0); LYMPHOCYTES # (AUTO) 0.4 (1.0-3.2); LYMPHOCYTES % 8.3 % (18.0-39.1); MEAN CORPUSCULAR HEMOGLOBIN 29.8 pg (28-32); MEAN CORPUSCULAR HGB CONC 31.2 g/dL (31-35); MEAN CORPUSCULAR VOLUME 95.6 fL (81-99); MONOCYTES # (AUTO) 0.2 (0.2-0.8); MONOCYTES % 3.6 % (4.4-11.3); NEUTROPHILS # (AUTO) 4.1 (2.1-6.9); NEUTROPHILS % 87.7 % (38.7-80.0); PLATELET COUNT 220 x10e3/uL (140-360); RED BLOOD COUNT 3.42 x10e6/uL (3.6-5.1); RED CELL DISTRIBUTION WIDTH 15.1 % (11.7-14.4)
[2017-08-08 07:33] LABS: ANION GAP 12.6 mmol/L (8-16); BLOOD UREA NITROGEN 11 mg/dL (7-26); BUN/CREATININE RATIO 15 (6-25); CALCIUM 9.5 mg/dL (8.4-10.2); CARBON DIOXIDE 31 mmol/L (22-29); CHLORIDE 103 mmol/L (98-107); CREATININE, SERUM 0.72 mg/dL (0.57-1.11); EST GLOMERULAR FILTRATION RATE > 60 ML/MIN (60-); GLUCOSE 150 mg/dL (74-118); POTASSIUM 4.6 mmol/L (3.5-5.1); SODIUM 142 mmol/L (136-145)
[2017-08-08] MEDS: ALBUTEROL/IPRATROPIUM 3 ML NEB NEB SCH ×5 (07:43→23:00)
[2017-08-08] MEDS: INSULIN LISPRO 100 UNIT/1 ML 3ML VIAL SQ SCH ×4 (08:00→20:39)
[2017-08-08] MEDS: SALMETEROL/FLUTICASONE 250/50 INH SCH ×2 (08:00→20:30)
[2017-08-08] MEDS: AMLODIPINE BESYLATE 5 MG TAB PO SCH (09:00)
[2017-08-08] MEDS: PANTOPRAZOLE SOD 40 MG TABEC PO SCH (09:02)
[2017-08-08] MEDS: GABAPENTIN 300 MG CAP PO SCH ×2 (09:04→18:22)
[2017-08-08] MEDS: BUPROPION HCL 150 MG TABCR PO SCH (09:04)
[2017-08-08] MEDS: HEPARIN SOD (PORCINE) 5,000 UNIT/ML VIAL SC SCH ×2 (09:05→22:43)
[2017-08-08] MEDS: ALPRAZOLAM 0.25 MG TAB PO PRN ×2 (10:20→19:54)
[2017-08-08] MEDS: LEVOFLOXACIN 500MG/D5W 100ML 100 ML IV SCH (13:30)
[2017-08-08 14:59] LABS: % IRON SATURATION 12 % (15-50); IRON 39 ug/dL (50-170); TOTAL IRON BINDING CAPACITY 323 ug/dL (261-478); TRANSFERRIN 231 mg/dL (180-382)
[2017-08-08] MEDS ORDERED: SODIUM CHLORIDE 0.9% 250ML 0 ML ONE (16:52)
[2017-08-08] MEDS: GUAIFENESIN/CODEINE 10 ML CUP PO PRN (18:22)
[2017-08-08] MEDS: ZOLPIDEM TARTRATE 10 MG TAB PO SCH (22:23)
[2017-08-08] MEDS: MONTELUKAST SODIUM 10 MG TAB PO SCH (22:23)
[2017-08-09] VITALS (8 sets, daily range): BP systolic 139–171; BP diastolic 67–98
[2017-08-09] MEDS: GUAIFENESIN/CODEINE 10 ML CUP PO PRN ×3 (00:32→16:21)
[2017-08-09] MEDS: CEFEPIME HCL 1 GM VIAL IV SCH ×2 (01:52→15:13)
[2017-08-09] MEDS: ALBUTEROL/IPRATROPIUM 3 ML NEB NEB SCH ×6 (03:00→23:50)
[2017-08-09] MEDS: ESTROGENS CONJUGATED 0.3 MG TAB PO SCH (05:40)
[2017-08-09] MEDS: INSULIN LISPRO 100 UNIT/1 ML 3ML VIAL SQ SCH ×4 (07:30→20:27)
[2017-08-09] MEDS: SALMETEROL/FLUTICASONE 250/50 INH SCH ×2 (07:45→20:16)
[2017-08-09] MEDS: GABAPENTIN 300 MG CAP PO SCH ×2 (10:16→16:21)
[2017-08-09] MEDS: AMLODIPINE BESYLATE 5 MG TAB PO SCH (10:16)
[2017-08-09] MEDS: PANTOPRAZOLE SOD 40 MG TABEC PO SCH (10:16)
[2017-08-09] MEDS: BUPROPION HCL 150 MG TABCR PO SCH (10:16)
[2017-08-09] MEDS: METHYLPREDNISOLONE SOD SUCC 40 MG/ML VIAL IV SCH ×2 (10:16→16:20)
[2017-08-09] MEDS: HEPARIN SOD (PORCINE) 5,000 UNIT/ML VIAL SC SCH ×2 (10:22→21:00)
[2017-08-09] MEDS ORDERED: ALBUTEROL SULFATE HFA 8GM INHALATION AEROSOL INH PRN (10:30)
[2017-08-09] MEDS: ACETYLCYSTEINE 20% INHAL SOLN 30 ML VIAL INH SCH ×2 (13:00→20:16)
[2017-08-09] MEDS: ZOLPIDEM TARTRATE 10 MG TAB PO SCH (20:59)
[2017-08-09] MEDS: ALPRAZOLAM 0.25 MG TAB PO PRN (20:59)
[2017-08-09] MEDS: MONTELUKAST SODIUM 10 MG TAB PO SCH (20:59)
[2017-08-10] VITALS (7 sets, daily range): BP systolic 128–159; BP diastolic 64–78
[2017-08-10] MEDS: CEFEPIME HCL 1 GM VIAL IV SCH ×2 (02:44→13:39)
[2017-08-10] MEDS: GUAIFENESIN/CODEINE 10 ML CUP PO PRN ×3 (03:27→22:42)
[2017-08-10] MEDS: ALBUTEROL/IPRATROPIUM 3 ML NEB NEB SCH ×6 (04:06→23:10)
[2017-08-10] MEDS: ACETYLCYSTEINE 20% INHAL SOLN 30 ML VIAL INH SCH ×5 (06:30→23:10)
[2017-08-10] MEDS: SALMETEROL/FLUTICASONE 250/50 INH SCH ×2 (06:30→19:19)
[2017-08-10] MEDS: INSULIN LISPRO 100 UNIT/1 ML 3ML VIAL SQ SCH ×4 (07:30→21:43)
[2017-08-10] MEDS: GABAPENTIN 300 MG CAP PO SCH ×2 (08:31→16:27)
[2017-08-10] MEDS: ESTROGENS CONJUGATED 0.3 MG TAB PO SCH (08:31)
[2017-08-10] MEDS: PANTOPRAZOLE SOD 40 MG TABEC PO SCH (08:31)
[2017-08-10] MEDS: BUPROPION HCL 150 MG TABCR PO SCH (08:31)
[2017-08-10] MEDS: AMLODIPINE BESYLATE 5 MG TAB PO SCH (08:31)
[2017-08-10] MEDS: METHYLPREDNISOLONE SOD SUCC 40 MG/ML VIAL IV SCH ×2 (08:31→16:27)
[2017-08-10] MEDS: HEPARIN SOD (PORCINE) 5,000 UNIT/ML VIAL SC SCH ×2 (08:32→21:46)
[2017-08-10] MEDS: ALPRAZOLAM 0.25 MG TAB PO PRN (19:53)
[2017-08-10] MEDS: MONTELUKAST SODIUM 10 MG TAB PO SCH (21:41)
[2017-08-10] MEDS: ZOLPIDEM TARTRATE 10 MG TAB PO SCH (21:41)
[2017-08-11] VITALS (8 sets, daily range): BP systolic 113–149; BP diastolic 61–82
[2017-08-11] MEDS: ALBUTEROL/IPRATROPIUM 3 ML NEB NEB SCH ×6 (02:50→23:55)
[2017-08-11] MEDS: CEFEPIME HCL 1 GM VIAL IV SCH ×2 (03:48→14:54)
[2017-08-11] MEDS: ESTROGENS CONJUGATED 0.3 MG TAB PO SCH (06:10)
[2017-08-11] MEDS: ACETYLCYSTEINE 20% INHAL SOLN 30 ML VIAL INH SCH ×3 (06:30→19:35)
[2017-08-11] MEDS: SALMETEROL/FLUTICASONE 250/50 INH SCH ×2 (07:00→19:35)
[2017-08-11] MEDS: INSULIN LISPRO 100 UNIT/1 ML 3ML VIAL SQ SCH ×4 (07:30→20:49)
[2017-08-11] MEDS: AMLODIPINE BESYLATE 5 MG TAB PO SCH (08:31)
[2017-08-11] MEDS: BUPROPION HCL 150 MG TABCR PO SCH (08:31)
[2017-08-11] MEDS: GABAPENTIN 300 MG CAP PO SCH ×2 (08:31→16:44)
[2017-08-11] MEDS: PANTOPRAZOLE SOD 40 MG TABEC PO SCH (08:31)
[2017-08-11] MEDS: METHYLPREDNISOLONE SOD SUCC 40 MG/ML VIAL IV SCH (08:31)
[2017-08-11] MEDS: ALPRAZOLAM 0.25 MG TAB PO PRN (08:32)
[2017-08-11] MEDS: HEPARIN SOD (PORCINE) 5,000 UNIT/ML VIAL SC SCH ×2 (08:38→21:16)
[2017-08-11] MEDS ORDERED: ALBUTEROL SULFATE HFA 8GM INHALATION AEROSOL INH PRN (14:00)
[2017-08-11] MEDS: ZOLPIDEM TARTRATE 10 MG TAB PO SCH (21:15)
[2017-08-11] MEDS: MONTELUKAST SODIUM 10 MG TAB PO SCH (21:15)
[2017-08-12] VITALS: BP 147/76
[2017-08-12 04:00] VITALS: BP 105/67
[2017-08-12] MEDS: CEFEPIME HCL 1 GM VIAL IV SCH (04:31)
[2017-08-12] MEDS: ESTROGENS CONJUGATED 0.3 MG TAB PO SCH (05:46)
[2017-08-12 06:59] LABS: BASOPHILS % 0.4 % (0.0-1.0); EOSINOPHILS # (AUTO) 0.1 (0.0-0.4); EOSINOPHILS % 0.8 % (0.0-6.0); HEMATOCRIT 34.3 % (34.2-44.1); HEMOGLOBIN 10.5 g/dL (12.0-16.0); LYMPHOCYTES # (AUTO) 1.8 (1.0-3.2); LYMPHOCYTES % 21.4 % (18.0-39.1); MEAN CORPUSCULAR HEMOGLOBIN 28.8 pg (28-32); MEAN CORPUSCULAR HGB CONC 30.6 g/dL (31-35); MEAN CORPUSCULAR VOLUME 94.2 fL (81-99); MONOCYTES # (AUTO) 0.7 (0.2-0.8); MONOCYTES % 8.9 % (4.4-11.3); NEUTROPHILS # (AUTO) 5.5 (2.1-6.9); NEUTROPHILS % 66.1 % (38.7-80.0); PLATELET COUNT 230 x10e3/uL (140-360); RED BLOOD COUNT 3.64 x10e6/uL (3.6-5.1); RED CELL DISTRIBUTION WIDTH 15.2 % (11.7-14.4)
[2017-08-12] MEDS: ALBUTEROL/IPRATROPIUM 3 ML NEB NEB SCH (07:15)
[2017-08-12] MEDS: ACETYLCYSTEINE 20% INHAL SOLN 30 ML VIAL INH SCH (07:15)
[2017-08-12] MEDS: SALMETEROL/FLUTICASONE 250/50 INH SCH (07:15)
[2017-08-12 07:18] VITALS: BP 105/59
[2017-08-12 07:28] VITALS: BP 105/59
[2017-08-12] MEDS: INSULIN LISPRO 100 UNIT/1 ML 3ML VIAL SQ SCH (07:30)
[2017-08-12 07:32] LABS: ANION GAP 10.4 mmol/L (8-16); BLOOD UREA NITROGEN 20 mg/dL (7-26); BUN/CREATININE RATIO 24 (6-25); CALCIUM 9.5 mg/dL (8.4-10.2); CARBON DIOXIDE 36 mmol/L (22-29); CHLORIDE 99 mmol/L (98-107); CREATININE, SERUM 0.84 mg/dL (0.57-1.11); EST GLOMERULAR FILTRATION RATE > 60 ML/MIN (60-); GLUCOSE 95 mg/dL (74-118); POTASSIUM 4.4 mmol/L (3.5-5.1); SODIUM 141 mmol/L (136-145)
[2017-08-12] MEDS: AMLODIPINE BESYLATE 5 MG TAB PO SCH (09:00)
[2017-08-12] MEDS ORDERED: METHYLPREDNISOLONE SOD SUCC 40 MG/ML VIAL IV SCH (09:00)
[2017-08-12] MEDS: PANTOPRAZOLE SOD 40 MG TABEC PO SCH (09:08)
[2017-08-12] MEDS: GABAPENTIN 300 MG CAP PO SCH (09:08)
[2017-08-12] MEDS: BUPROPION HCL 150 MG TABCR PO SCH (09:08)
[2017-08-12] MEDS: HEPARIN SOD (PORCINE) 5,000 UNIT/ML VIAL SC SCH (09:56)
[2017-08-12 11:12] VITALS: BP 142/72
--- NOTE | 2017-08-13 10:58 | Discharge Summary ---
FINAL DIAGNOSES 1. Chronic obstructive pulmonary disease exacerbation. 2. Severe chronic obstructive pulmonary disease. 3. Hypertension. 4. Coronary artery disease. ADMISSION HISTORY AND HOSPITAL COURSE: Ms. Galvez is a regular patient of Dr. Armin Little. She is a 62 year old admitted with COPD exacerbation. She has end-stage COPD. She is on home oxygen. IV steroids and IV antibiotics were started. The patient started feeling better. She was near baseline. She has home oxygen and nebulizer treatment at home. She will be discharged home to follow up with Dr. Armin Little. DISCHARGE MEDICATIONS: Include nebulizer treatment. The patient does not need prescription for Medrol Dosepak as she has steroids at home. She will be taking it. She will follow up with Dr. Little in 1-2 weeks. LATA JAMES MD Job#: [id number] [place]
== END 2017-08-12 12:25 | disposition home or self-care (01) | DRG 190 ==
LOC: ER 10:27 → ERHOLD 15:51 → OBSVTOIN 18:17 → IMCU 19:37
PROVIDERS: ADMIT Internal Medicine Pulmonary Disease; ATTEND Internal Medicine Pulmonary Disease
DX: J44.1 Chronic obstructive pulmonary disease with (acute) exacerbation (principal); J96.20 Acute and chronic respiratory failure, unspecified whether with hypoxia or hypercapnia; Z99.81 Dependence on supplemental oxygen; I10 Essential (primary) hypertension; E11.9 Type 2 diabetes mellitus without complications; I25.10 Atherosclerotic heart disease of native coronary artery without angina pectoris
CPT/HCPCS: 36415; 71045; 71046; 80048; 80053; 82550; 82553; 82948; 83540; 83880; 84466; 84484; 85025; 87040; 87070; 87205; 93005; 94640; 94667; 99284; J0692; J1644; J1956; J2920; J2930; J7050

== ENCOUNTER 2017-08-21 21:27 | Emergency (ER) | payer MEDICARE, OTHER ==
[~2017-08-21] VITALS: Ht 170.2 cm; Wt 86.2 kg
--- OUTSIDE RECORDS SUMMARY | 2017-08-21 21:30 | XMS REPORT | Continuity of Care Document ---
Author Author [facility] Organization [facility] Address [address] [place] [address] Phone Unavailable Care Team Providers Care Land Surveying Party Chief Name Role Phone NONSTAFF PCP Unavailable Insurance Providers Guarantor Hui Galvez Address [address] [address] Email [email or web address] Payer [employer] Policy Number [id number] Subscriber's Name Hui Galvez Relationship 18 Self / Same As Patient Group Number PLANN Group Name RETIRED Effective Date 13 Payer Medicare A & B Policy Number [id number] Subscriber's Name Hui Galvez Relationship 18 Self / Same As Patient Group Number [id number] Group Name RETIRED Effective Date 11 Advance Directives Directive Response Recorded Date/Time Does the patient have an advance directive? No 08/07/17 8:01pm If yes, is advance directive on file with [facility]? No 08/07/17 8:01pm If not on file with [facility] will patient provide a copy? Yes 08/07/17 8:01pm Do you have a Directive to Physician? No 08/07/17 11:27am Do you have a Medical Power of Mill Roll Rewinder? No 08/07/17 11:27am Do you have an out of hospital Do Not Resuscitate Order? No 08/07/17 11:27am Do you have any special needs we should be aware of? No 08/07/17 11:27am Do you have a support person here with you today? Yes 08/07/17 11:27am Did patient receive Notice of Privacy Practices? Yes 08/07/17 11:27am Did patient receive patient rights and responsibilities? Yes 08/07/17 11:27am Problems No problem information available. Medications Current [...] Onset Date Status Hx Psychiatric Problems Yes 08/07/2017 8:01pm Not Applicable Not Applicable Hx Eating Disorder No 08/07/2017 8:01pm Not Applicable Not Applicable Hx Substance Use Disorder No 08/07/2017 8:01pm Not Applicable Not Applicable Hx Depression Y - when SOB 08/07/2017 8:01pm Not Applicable Not Applicable Smoking Status Start Date Stop Date Former smoker Hospital Discharge Instructions No hospital discharge instruction information available. Plan of Care Discharge Date 08/12/17 12:25pm Disposition HOME, SELF-CARE Instructions/Education Provided COPD Prescriptions See Medication Section Referrals BRYANNA RUIZ MD (Pulmonary) Order Date: 3 Weeks Entered Date: 08/12/2017 11:45am Address: [address] [place] [address] [place] [address] Functional Status Query Response Date Recorded FUNCTIONAL STATUS . August 08, 2017 11:49am Assistive Devices None August 07, 2017 8:30pm Ambulation Ability Standby Assistance August 07, 2017 8:30pm Toileting Ability Independent August 07, 2017 8:30pm Allergies, Adverse Reactions, Alerts Allergen Type Severity Reaction Status Last Updated Prednisone Allergy Intermediate MAKES HER MEAN Active 06/24/17 Demeclocycline Allergy Intermediate HIVES Active 06/24/17 Immunizations No immunization information available. Vital Signs Acute Vital Signs Vital Response Date/Time Temperature (Fahrenheit) 97.8 degrees F (97.6 - 99.5) 08/12/2017 11:12am Pulse Pulse Rate (adult) 81 bpm (60 - 90) 08/12/2017 11:12am Respiratory Rate 19 bpm (12 - 24) 08/12/2017 11:12am Blood Pressure 142/72 mm Hg 08/12/2017 11:12am Height 5 ft 6 in 08/07/2017 10:34am Weight 200.38 lb 08/12/2017 12:31am Body Mass Index 32.3 kg/m^2 08/12/2017 12:31am Results Laboratory Results Test Name Result Units Flags Reference Collection Date/Time Result Date/ Time Comments White Blood Count 8.33 x10e3/uL # 4.8-10.8 08/12/2017 6:20am 08/12/2017 7 :03am Red Blood Count 3.64 x10e6/uL 3.6-5.1 08/12/2017 6:20am 08/12/2017 7: 03am Hemoglobin 10.5 g/dL L 12.0-16.0 08/12/2017 6:20am 08/12/2017 7:03am Hematocrit 34.3 % 34.2-44.1 08/12/2017 6:08/12/2017 7:03am Mean Corpuscular Volume 94.2 fL 81-99 08/12/2017 6:08/12/2017 7: 03am Mean Corpuscular Hemoglobin 28.8 pg 28-32 08/12/2017 6:08/12/2017 7:03am Mean Corpuscular Hemoglobin Concent 30.6 g/dL L 31-35 08/12/2017 6:08/12/2017 7:03am Red Cell Distribution Width 15.2 % H 11.7-14.4 08/12/2017 6:2017 7:03am Platelet Count 230 x10e3/uL 140-360 08/12/2017 6:08/12/2017 7: 03am Neutrophils (%) (Auto) 66.1 % 38.7-80.0 08/12/2017 6:08/12/2017 7: 03am Lymphocytes (%) (Auto) 21.4 % 18.0-39.1 08/12/2017 6:08/12/2017 7: 03am Monocytes (%) (Auto) 8.9 % 4.4-11.3 08/12/2017 6:08/12/2017 7: 03am Eosinophils (%) (Auto) 0.8 % 0.0-6.0 08/12/2017 6:08/12/2017 7: 03am Basophils (%) (Auto) 0.4 % 0.0-1.0 08/12/2017 6:08/12/2017 7:03am IM GRANULOCYTES % 2.4 % H 0.0-1.0 08/12/2017 6:08/12/2017 7:03am Neutrophils # (Auto) 5.5 2.1-6.9 08/12/2017 6:am 08/12/2017 7:03am Lymphocytes # (Auto) 1.8 1.0-3.2 08/12/2017 6:08/12/2017 7:03am Monocytes # (Auto) 0.7 0.2-0.8 08/12/2017 6:am 08/12/2017 7:03am Eosinophils # (Auto) 0.1 0.0-0.4 08/12/2017 6:20am 08/12/2017 7:03am Basophils # (Auto) 0.0 0.0-0.1 08/12/2017 6:20am 08/12/2017 7:03am Absolute Immature Granulocyte (auto 0.20 x10e3/uL H 0-0.1 08/12/2017 6: 20am 08/12/2017 7:03am Sodium Level 141 mmol/L 136-145 08/12/2017 6:20am 08/12/2017 7:33am Potassium Level 4.4 mmol/L 3.5-5.1 08/12/2017 6:20am 08/12/2017 7:33am Chloride Level 99 mmol/L 98-107 08/12/2017 6:20am 08/12/2017 7:33am Carbon Dioxide Level 36 mmol/L H 22-29 08/12/2017 6:20am 08/12/2017 7: 33am Anion Gap 10.4 mmol/L 8-16 08/12/2017 6:20am 08/12/2017 7:33am Blood Urea Nitrogen 20 mg/dL 7-08/12/2017 6:2008/12/2017 7:33am Creatinine 0.84 mg/dL 0.57-1.11 08/12/2017 6:20am 08/12/2017 7:33am BUN/Creatinine Ratio 24 6-25 08/12/2017 6:20am 08/12/2017 7:33am Estimat Glomerular Filtration Rate > 60 ML/MIN 60- 08/12/2017 6:20am 7:33am Ranges were taken from the National Kidney Disease Education Program and the National Kidney Foundation literature. Reference ranges: 60 or greater: Normal 16-59 (for 3 consecutive months): Chronic kidney disease 15 or less: Kidney failure Glucose Level 95 mg/dL 74-118 08/12/2017 6:20am 08/12/2017 7:33am Calcium Level 9.5 mg/dL 8.4-10.2 08/12/2017 6:20am 08/12/2017 7:33am Bedside Glucose 89 mg/dL 70-120 08/12/2017 7:0108/12/2017 7:20am Meter ID: [id number] Iron Level 39 ug/dL L 50-170 08/08/2017 6:25am 08/08/2017 3:01pm Total Iron Binding Capacity 323 ug/dL 261-478 08/08/2017 6:25am 2017 3:01pm Percent Iron Saturation 12 % L 15-50 08/08/2017 6:25am 08/08/2017 3: 01pm Transferrin 231 mg/dL 180-382 08/08/2017 6:25am 08/08/2017 3:01pm Total Bilirubin < 0.3 mg/dL 0.2-1.2 08/07/2017 12:00pm 08/07/2017 12: 27pm Aspartate Amino Transf (AST/SGOT) 28 IU/L 5-34 08/07/2017 12:00pm 08/07 12:27pm Alanine Aminotransferase (ALT/SGPT) 25 IU/L 0-55 08/07/2017 12:00pm 12:27pm Total Protein 7.1 g/dL 6.5-8.1 08/07/2017 12:00pm 08/07/2017 12:27pm Albumin 3.7 g/dL 3.5-5.0 08/07/2017 12:00pm 08/07/2017 12:27pm Globulin 3.4 g/dL 2.3-3.5 08/07/2017 12:00pm 08/07/2017 12:27pm Albumin/Globulin Ratio 1.1 0.8-2.0 08/07/2017 12:00pm 08/07/2017 12: 27pm Alkaline Phosphatase 83 IU/L 40-150 08/07/2017 12:00pm 08/07/2017 12: 27pm B-Type Natriuretic Peptide 26.9 pg/mL 0-100 08/07/2017 12:00pm 2017 12:30pm Creatine Kinase 104 IU/L 29-168 08/07/2017 12:00pm 08/07/2017 12:27pm Creatine Kinase MB 5.60 ng/mL H 0-5.0 08/07/2017 12:00pm 08/07/2017 12: 33pm Troponin I 0.006 ng/mL 0-0.300 08/07/2017 12:00pm 08/07/2017 12:33pm Microbiology Results Procedure Source Organism/Result Collection Date/Time Result Date/Time Result Status Blood Culture Blood NO GROWTH AFTER 72 HOURS 1:10pm 08/10/2017 1:35pm Preliminary Procedures Procedure Status Date Provider(s) X-ray of chest, two views Active 04/26/17 BRYANNA RUIZ MD X-ray of chest, two views Active 08/06/17 BRYANNA RUIZ MD X-ray of chest, two views Active 08/07/17 JESSE DILLARD MD Encounters Encounter Location Arrival/Admit Date Discharge/Depart Date Attending Provider Discharged Inpatient [facility] 08/07/17 6:17pm 08/12/17 12:25pm BRYANNA RUIZ MD Registered Clinic [facility] 08/06/17 3:34pm BRYANNA RUIZ MD Departed Emergency Room [facility] 06/24/17 3:02pm 4:20pm GRIS GAMBINO MD Registered Clinic [facility] 04/26/17 9:49am BRYANNA RUIZ MD Discharged Recurring [facility] 12/12/16 9:19am 01/10/17 11:59pm BRYANNA RUIZ MD Discharged [facility]ring [facility] 11/21/16 9:15am 12/10/16 11:59pm BRYANNA RUIZ MD Discharged [facility]ring [facility] 10/12/16 9:28am 11/09/16 11:59pm BRYANNA RUIZ MD
--- OUTSIDE RECORDS SUMMARY | 2017-08-21 21:30 | XMS REPORT ---
Author Organization Unknown Address [address] [place] [address] Phone [phone] Care Team Providers Care Ladies' Hat Trimmer Name Role Phone BRYANNA RUIZ MD 114 [phone] GUALBERTO DOVE MD 121 [phone] JARROD CERVANTES MD 105 [phone] BRYANNA HERRING MD 2 [phone] DIPIKA BEATTY MD 183 [phone] ERIC BOTELLO MD 3 [phone] Allergies Code Code System Name Reaction Severity [...] ORAL ROUTE ONCE DAILY FOR 4 DAYS Completed 08/20/2017 betamethasone dipropionate 0.05 % topical cream Completed 07/12/2016 bupropion HCl XL 150 mg 24 hr tablet, extended release Active Not available ceftriaxone 1 gram solution for injection Take 1 g by injection route. Active Not available Cheratussin AC 10 mg-100 mg/5 mL oral liquid Take 10 mL every 4 hours by oral route. Active Not available clindamycin HCl 300 mg capsule Completed 04/22/2017 clobetasol 0.05 % topical ointment applt twice daily prn Completed 07/12/2016 cyclobenzaprine 5 mg tablet 1 tablet prn Completed 07/12/2016 Depo-Medrol 80 mg/mL suspension for injection Take 1 mL by injection route. Completed 08/20/2017 dextroamphetamine-amphetamine 20 mg tablet Take 1 tablet [...] Cervical Injections Some medications listed in Document: #[id number] could not be added to this patient [...] Cuff Syndrome Active 11/12/2016 Migraine Active 01/01/2017 Moderate Major Depression Active 08/09/2017 Atherosclerosis of Aorta Active 08/09/2017 Notes: Some problems listed in Document: #[id number] could not be added to this patient's chart. Please review this document and add these problems to the patient's chart manually as needed. Procedures Date Name Performed by Appendectomy Information not available Knee Surgery Information not available Cholecystectomy Information not available Eye Surgery Information not available Hysterectomy (Partial) Information not available Gastrointestinal Surgery Information not available 05/21/2016 MAMMO, Screening, Digital, Bilateral [facility] [address] [place] [address] (Work [address]) 05/21/2016 Bone Density [facility] [address] [place] [address] (Work Place) 07/17/2016 XR, Cervical Spine [facility] [address] [address] (Work Place) 08/28/2016 XR, Shoulder [facility] [address] [address] (Work Place) 10/18/2016 MRI, Shoulder, W/o Contrast [facility] [address] [facility] [address] [place] [address] (Work Place) 10/18/2016 MRI, Cervical Spine, W/o Contrast [facility] [address] [place] [address] (Work Place) 03/14/2017 XR, Chest, 2 View [facility] [place] [facility] [address] [place] [address] (Work Place) 03/14/2017 Electrocardiogram [facility] [address] [place] [address] (Work Place) Lab Results Date Name Specimen Result Interpretation Description Value Range Status Address 04/22/2017 CMP, Serum or Plasma Alt 16 U/L 0-55 U/L Final [facility]: [address] [place] [address], [place] Ast 15 U/L 5-34 U/L Final [facility]: [address] Bun 13.2 mg/dL 9.8-20.1 mg/dL Final [facility]: [address] Alk Phos 88 unit/L 40-150 unit/L Final [facility]: [address] [place] [address], [place] High Glucose 109 mg/dL 70-99 mg/dL Final [facility]: [address] [place] [address], [place] Albumin 3.5 g/dL 3.5-5.0 g/dL Final [facility]: [address] Creatinine 0.76 mg/dL 0.57-1.11 mg/dL Final [facility]: [address] eGFR Non- >60 mL/min/1.73m2 >60 mL/min/ 1.73m2 Final [facility]: [address] Total Bilirubin 0.2 mg/dL 0.2-1.2 mg/dL Final [facility]: [address] eGFR - >60 mL/min/1.73m2 >60 mL/min/1.73m2 Final [facility] Laboratory: [address] Sodium 141 mEq/L 136-145 mEq/L Final [facility]: [address] Potassium 4.2 mEq/L 3.5-5.1 mEq/L Final [facility] Laboratory: [address] Chloride 103 mmol/L 98-107 mmol/L Final [facility] Laboratory: [address] Total Protein 6.6 g/dL 6.4-8.3 g/dL Final [facility] Laboratory: [address] Calcium 9.9 mg/dL 8.4-10.2 mg/dL Final [facility] Laboratory: [address] Co2 30.5 mmol/L 23.0-31.0 mmol/L Final [facility] Laboratory: [address] Anion Gap 8 calc Final [facility]: [address] 04/22/2017 Lipid Panel, Serum High Hdl 72 mg/dL 40-60 mg/dL Final [facility] Laboratory: [address] Triglyceride 109 mg/dL 0-149 mg/dL Final [facility] Laboratory: [address] VLDL Calc. 22 mg/dL Final [facility] Laboratory: [address] cholesterol/HDL Ratio 2.9 mg/dL Final [facility] Laboratory: [address] non-HDL Cholesterol Calc. 135 mg/dL 0-160 mg/dL Final [facility] Laboratory: [address] High Cholesterol 207 mg/dL 0-199 mg/dL Final [facility] Laboratory: [address] LDL Calc. 113 mg/dL 0-130 mg/dL Final [facility] Laboratory: [address] [place] [address], [place] 04/22/2017 TSH, Serum or Plasma Tsh 2.425 uIU/mL 0.350-4.940 uIU /mL Final [facility] Laboratory: [address] 10/18/2015 CBC W/ Auto Diff No observation recorded. 12/30/2014 Iron Panel, Serum or Plasma No observation recorded. 12/28/2014 CBC W/ Auto Diff No observation recorded. Electrocardiogram No observation recorded. [facility] : [address] [facility] Past Encounters 08/20/2017 Cervical Radiculopathy Thelma Carter MD: [address], [address] [address], Ph. [phone] 08/05/2017 Acute Exacerbation of Chronic Obstructive Airways Disease; Impairment of Balance Julio Bansal MD: [address] [place] [address], Ph. 07/16/2017 Neck Pain; Spinal Stenosis in Cervical Region; Renewal of Prescription Eric Alva MD: [address] [place] [phone], Ph. 06/25/2017 Spinal Stenosis in Cervical Region; Undifferentiated Connective Tissue Disease; Chronic Obstructive Lung Disease; Atherosclerosis of Aorta; Moderate Depression Eric Alva MD: [address] [place] [phone], Ph. 05/27/2017 Lateral Epicondylitis; Impingement Syndrome of Shoulder Region Eric Alva MD: [address] [place] [address], Ph. 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 [phone] 03/14/2017 Thoracic Back Pain; Spinal Stenosis in Cervical Region; Pain Radiating to Left Side of Chest Ashley Contreras LAWN TECHNICIAN: [address] [place] [address], Ph. 02/21/2017 Impingement Syndrome of Shoulder Region Eric Alva MD: [address] [place] [address], Ph. 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 01/01/2017 Migraine Ericgladys Alva MD: [address] [place] [address], Ph. [phone] 11/26/2016 Rotator Cuff Syndrome; Spinal Stenosis in Cervical Region Ericgladys Alva MD: [address] [place] [address], Ph. 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 11/07/2016 Ulcer of Mouth; Shoulder Joint Pain; Neck Pain; Pruritic Rash Ericgladys Alva MD: [address] [place] [phone], Ph. 10/26/2016 Lateral Epicondylitis; Undifferentiated Connective Tissue Disease Afia Michel MD: [address] [place] [phone], Ph. 10/22/2016 Lateral Epicondylitis; Undifferentiated Connective Tissue Disease Eric Roxana Alva MD: [address] [place] [phone], Ph. 10/18/2016 Shoulder Joint Pain; Neck Pain Eric Alva MD: [address] [place] [address], Ph. [phone] 10/10/2016 Bilateral Shoulder Joint Pain; Strain of Neck Muscle; Edema of Lower Extremity Ericgladys Alva MD: [address] [place] [address], Ph. [phone] 08/28/2016 Neck Pain; Cervical Spondylosis; Chronic Obstructive Lung Disease; Gastroesophageal Reflux Disease; Raynaud's Phenomenon; Insomnia; Shoulder Joint Pain Eric Alva MD: [address] [place] [phone], Ph. 07/31/2016 Neck Pain; Cervical Spondylosis Eric Alva MD: [address] [place] [address], Ph. [phone] 07/17/2016 Neck Pain Eric Alva MD: [address] [place] [address], Ph. [phone] 07/12/2016 Edema of Lower Extremity; Neck Pain; Shoulder Joint Pain Eric Alva MD: [address] [place] [phone], Ph. 05/21/2016 Ulcer of Mouth; Degenerative Joint Disease Involving Multiple Joints; Edema of Lower Extremity; Screening Mammography; Screening for Osteoporosis Eric Alva MD: [address] [place] [address], Ph. [phone] 01/31/2016 Atopic Dermatitis; Ulcer of Mouth; Influenza Vaccination Eric Alva MD: [address] [place] [phone], Ph. [phone] Social History Smoking Status Former Smoker (1 [...] and information sent with patient in their [facility] health folder Influenza: discussed today and information sent with patient in their [facility] health folder Shingles: discussed today and information sent with patient in their [facility] health folder Tetanus: discussed today and information sent with patient in their [facility] health folder 2. Mammography Screening: discussed today and information sent with patient in their [facility] health folder 3. Colorectal cancer Screening Colonoscopy: discussed today and information sent with patient in their [facility] health folder Fecal Occult Blood: discussed today and information sent with patient in their [facility] health folder 4. Bone Mass Measurement: discussed [...] risks and promote healthy living in your [facility] folder. Reminders Provider Appointments None recorded. Lab None recorded. Referral None recorded. Procedures None recorded. Surgeries None recorded. Imaging None recorded. Vitals 08/20/2017 09:45AM Work In Same Day Height Weight BMI Blood Pressure 5 ft 5.5 in 195 lbs 32 kg/m2 132/86 mm[Hg] 08/05/2017 02:45PM Est Patient Height Weight Blood [...]
--- OUTSIDE RECORDS SUMMARY | 2017-08-21 21:30 | XMS REPORT | Clinical Summary ---
Author Author STEPHANIE [facility] Address Unknown Phone Unavailable Care Team Providers Care Temperature Control Inspector Name Role Phone PCP Unavailable Allergies Active [...] 09/21/2016 Telephone Transplant Hazel Gill Appointment after 08/20/2016 Social History Tobacco Use Types Packs/Day Years [...] Due Date Last Done Comments INFLUENZA VACCINE 02/10/2018 Results * PULMONARY FUNCTION - SCAN (10/26/2016 [...] Specimen Performing Laboratory Nasal - Nasal, Right [address] [address] after 08/20/2016
[2017-08-21] MEDS ORDERED: PEPCID20 MG PO (21:57)
[2017-08-21] MEDS ORDERED: KETOROLAC TROME10 MG PO (21:57)
[2017-08-21] MEDS ORDERED: ROBAXIN-750750 MG PO (21:58)
[2017-08-21] MEDS ORDERED: KETOROLAC TROMETHAMINE 60 MG/2 ML VIAL IM ONE (22:00)
== END 2017-08-21 22:07 | disposition home or self-care (01) ==
LOC: FSED 21:27
DX: S16.1XXA Strain of muscle, fascia and tendon at neck level, initial encounter (principal); M50.10 Cervical disc disorder with radiculopathy, unspecified cervical region; J44.9 Chronic obstructive pulmonary disease, unspecified; Z88.8 Allergy status to other drugs, medicaments and biological substances
CPT/HCPCS: 96372; 99282

== ENCOUNTER 2017-08-22 18:45 | Emergency (ER) | payer MEDICARE, OTHER ==
[~2017-08-22] VITALS: Ht 170.2 cm; Wt 89.6 kg
[~2017-08-22 18:45] MED LIST changes: +KETOROLAC TROME10 MG PO; +PEPCID20 MG PO; +ROBAXIN-750750 MG PO
[2017-08-22] MEDS ORDERED: KETOROLAC TROMETHAMINE 60 MG/2 ML VIAL IM ONE (19:30)
== END 2017-08-22 19:35 | disposition home or self-care (01) ==
LOC: FSED 18:45
DX: S16.1XXA Strain of muscle, fascia and tendon at neck level, initial encounter (principal); M50.10 Cervical disc disorder with radiculopathy, unspecified cervical region; J44.9 Chronic obstructive pulmonary disease, unspecified; V43.02XA Car driver injured in collision with other type car in nontraffic accident, initial encounter; Y93.89 Activity, other specified; Y92.410 Unspecified street and highway as the place of occurrence of the external cause
CPT/HCPCS: 96372; 99282; J1885

== ENCOUNTER → 2018-04-09 | Outpatient (CLI) | payer MEDICARE, OTHER ==
[2018-04-09 11:28] LABS: ABG HCO3 31 mmol/L (23-28); ABG PCO2 49 mmHg (41-51); ABG PH 7.41 (7.31-7.41); ABG PO2 83 mmHg (80-105)
== END ==
LOC: RESP 10:16
PROVIDERS: ATTEND Internal Medicine Pulmonary Disease
DX: R06.02 Shortness of breath (principal)
CPT/HCPCS: 36415; 82805

== ENCOUNTER 2018-09-17 12:30 | Emergency (ER) | payer OTHER, MEDICARE ==
--- OUTSIDE RECORDS SUMMARY | 2018-09-17 12:36 | XMS REPORT | Clinical Summary ---
Author Author STEPHANIE [facility] Address Unknown Phone Unavailable Care Team Providers Care Departmental Secretary Name Role Phone Armin Little MD PCP Allergies Comments Active Allergy Reactions Severity Noted Date Demeclocycline Hives 02/08/2016 Prednisolone 04/01/2018 Pt states "I get really crazy, hallucinations" Prednisone Other (See High 02/08/2016 Comments) Medications End Date Status Medication Sig Dispensed Refills Start Date Active albuterol HFA (VENTOLIN Inhale 2 0 HFA) 90 mcg/actuation puffs by inhaler mouth via inhaler every 4 (four) hours as needed for Wheezing. Active montelukast (SINGULAIR) Take 10 mg by 0 10 mg tablet mouth nightly. Active omeprazole (PRILOSEC) 40 Take 40 mg by 0 MG capsule mouth daily. Active zolpidem (AMBIEN) 10 mg Take 10 mg by 0 tablet mouth every night as needed for Insomnia. Active ALPRAZolam (XANAX) 0.5 MG Take 0.5 mg 0 tablet by mouth as needed for Anxiety . Active Missing or Non-Formulary Nitrogel 0 Medication applied to fingers. Active albuterol (PROVENTIL) 2 Take 4 mg by 0 MG tablet mouth daily . Active furosemide (LASIX) 20 MG Take 20 mg by 0 tablet mouth daily. Active amLODIPine (NORVASC) 2.5 Take 2.5 mg 0 MG tablet by mouth 2 (two) times daily . Active buPROPion (WELLBUTRIN XL) Take 150 mg 0 150 MG 24 hr tablet by mouth daily. Active gabapentin (NEURONTIN) Take 600 mg 0 600 MG tablet by mouth nightly. Active methocarbamol (ROBAXIN) Take 500 mg 0 500 MG tablet by mouth every 8 (eight) hours as needed. Active acetaminophen-codeine Take 1 tablet 0 (TYLENOL #3) 300-30 mg by mouth per tablet every 8 (eight) hours as needed for Pain. Active potassium chloride SA Take 10 mEq 0 (K-DUR,KLOR-CON) 20 MEQ by mouth tablet daily . Active methylPREDNISolone Take 4 mg by 0 (MEDROL) 4 MG tablet mouth 2 (two) times daily as needed. Active valGANciclovir (VALCYTE) Take 500 mg 0 450 mg tablet by mouth daily On , , and sat . Active triamcinolone (KENALOG) Use as 0 0.1 % dental paste directed in the mouth or throat as needed. Active tiotropium Br/olodaterol Inhale 1 puff 0 HCl (STIOLTO RESPIMAT by mouth via INHL) inhaler 2 (two) times daily. Active ferrous sulfate 325 (65 Take 325 mg 0 FE) MG tablet by mouth daily with breakfast. Active vit A/vit C/vit Take 1 0 E/zinc/copper (ICAPS capsule by AREDS ORAL) mouth 2 (two) times daily. 03/12/2018 Discontinued fluticasone-salmeterol Inhale 1 puff 0 (ADVAIR DISKUS) 250-50 by mouth via mcg/dose diskus inhaler inhaler every 12 (twelve) hours. 04/01/2018 Discontinued albuterol (ACCUNEB) 0.63 Take 1 ampule 0 mg/3 mL nebulizer by solution nebulization every 6 (six) hours as needed for Wheezing. 04/01/2018 Discontinued estrogens, conjugated, Take 0.3 mg 0 (PREMARIN) 0.3 MG tablet by mouth 3 (three) times a week . 12/11/2017 Discontinued aclidinium (TUDORZA) 400 Inhale 1 puff 0 mcg/actuation powder by mouth via inhaler inhaler 2 (two) times daily. 03/12/2018 Discontinued dextroamphetamine-ampheta Take 5 mg by 0 mine mouth daily. (AMPHETAMINE-DEXTROAMPHET AMINE) 10 mg Tab tablet 03/12/2018 Discontinued meloxicam (MOBIC) 15 MG Take 15 mg by 0 tablet mouth as needed for Pain. 04/01/2018 Discontinued mupirocin (BACTROBAN) 2 % Apply 1 0 ointment application topically 2 (two) times daily. 04/01/2018 Discontinued tiZANidine (ZANAFLEX) 4 Take 4 mg by 0 MG tablet mouth every 8 (eight) hours as needed. 05/28/2018 Discontinued takvnbbnkyb-nnvlisuwc-flv Inhale by 0 anter (TRELEGY ELLIPTA) mouth via 100-62.5-25 mcg DsDv inhaler daily. Active Problems Problem Noted Date Knee pain 05/28/2018 Allergic rhinitis 05/28/2018 Anxiety state 05/28/2018 Cough 05/28/2018 Dyspnea 05/28/2018 Edema of lower extremity 05/28/2018 Physical deconditioning 12/11/2017 Pre-transplant evaluation for lung transplant 12/11/2017 Obesity (BMI 30-39.9) 12/11/2017 Hardening of the aorta (main artery of the heart) 08/09/2017 Moderate major depression 08/09/2017 Migraine 01/01/2017 Intervertebral disc stenosis of neural canal 11/12/2016 Prolapsed cervical intervertebral disc 11/12/2016 Rotator cuff syndrome 11/12/2016 Carcinoma of skin of lower extremity 05/30/2016 Chronic obstructive lung disease 01/31/2016 Gastroesophageal reflux disease 01/31/2016 Insomnia 01/31/2016 Raynaud's phenomenon 01/31/2016 Encounters Care Team Description Date Type Specialty Rocky Daley RN Follow-up 08/19/2018 Telephone Transplant Penny Ahumada Appointment 07/28/2018 Telephone Transplant Penny Ahumada Appointment 06/26/2018 Telephone Transplant Trent Ramirez Alexis Edward, MD Panlobular emphysema (HCC) (Primary Dx) 05/28/2018 Office Visit Transplant Armin Little MD Kao, Christina C, MD Centrilobular emphysema (HCC) (Primary Dx) 05/28/2018 Office Visit Transplant Enoch Luther MD Centrilobular emphysema (HCC); Pre-transplant evaluation for lung transplant 05/28/2018 Orders Only Lab Afia Berger MD Centrilobular emphysema (HCC) 05/28/2018 Hospital Respiratory Therapy Encounter Afai Berger MD Centrilobular emphysema (HCC) 05/28/2018 Hospital Respiratory Therapy Encounter Enoch Luther MD Centrilobular emphysema (HCC); Pre-transplant evaluation for lung transplant 04/25/2018 Hospital Radiology Encounter Enoch Luther MD Centrilobular emphysema (HCC); Pre-transplant evaluation for lung transplant 04/25/2018 Hospital Radiology Encounter Enoch Luther MD Centrilobular emphysema (HCC); Pre-transplant evaluation for lung transplant 04/25/2018 Hospital Encounter Enoch Luther MD Centrilobular emphysema (HCC); Pre-transplant evaluation for lung transplant 04/25/2018 Hospital Encounter Enoch Luther MD Centrilobular emphysema (HCC); Pre-transplant evaluation for lung transplant 04/25/2018 Hospital Encounter Alina Lopez 04/25/2018 Documentation Transplant Enoch Luther MD Centrilobular emphysema (HCC); Pre-transplant evaluation for lung transplant 04/24/2018 Hospital Cardiology Encounter Enoch Luther MD Centrilobular emphysema (HCC); Pre-transplant evaluation for lung transplant 04/24/2018 Hospital Cardiology Encounter Liang Burr MD Lung transplant candidate 04/24/2018 Hospital Radiology Encounter Enoch Luther MD Centrilobular emphysema (HCC); Pre-transplant evaluation for lung transplant 04/24/2018 Hospital Radiology Encounter Liang Burr MD Centrilobular emphysema (HCC); Pre-transplant evaluation for lung transplant 04/24/2018 Hospital Respiratory Therapy Encounter Enoch Luther MD Manson, Melissa J, [facility] Celestino So RN Blanchard, Kathryn S, [facility] Mima Maloney, RD Alina Lopez Osteopenia, unspecified location (Primary Dx); Centrilobular emphysema (HCC); Pre-transplant evaluation for lung transplant; Screening cholesterol level; Bleeding disorder (HCC); Diabetes mellitus screening; Need for hepatitis B screening test; Lung transplant planned 04/24/2018 Office Visit Transplant Enoch Luther MD 04/24/2018 Outside Orders Celestino So RN Lung transplant candidate (Primary Dx) 04/09/2018 Orders Only Transplant Thor Morales MD R & L CATH / CORONARY ANGIOS / PCI 04/01/2018 Surgery Thor Morales MD Obesity (BMI 30-39.9); Pre-transplant evaluation for lung transplant 04/01/2018 Hospital Encounter Penny Ahumada Appointment 03/17/2018 Telephone Transplant Liang Burr MD Centrilobular emphysema (HCC) 03/12/2018 Hospital Respiratory Therapy Encounter Liang Burr MD Centrilobular emphysema (HCC) 03/12/2018 Hospital Respiratory Therapy Encounter Liang Burr MD Dronavalli, Goutham, MD Centrilobular emphysema (HCC) (Primary Dx); Pre-transplant evaluation for lung transplant; Exercise hypoxemia; Physical deconditioning; Left knee pain, unspecified chronicity; Obesity (BMI 30.0-34.9) 03/12/2018 Office Visit Transplant Celestino So RN 03/12/2018 Abstract Transplant Celestino So RN Centrilobular emphysema (HCC) (Primary Dx) 03/10/2018 Orders Only Transplant Liang Burr MD Centrilobular emphysema (HCC) 12/11/2017 Hospital Respiratory Therapy Encounter Liang Burr MD Centrilobular emphysema (HCC) 12/11/2017 Hospital Respiratory Therapy Encounter Liang Burr MD Pre-transplant evaluation for lung transplant (Primary Dx); Centrilobular emphysema (HCC); Physical deconditioning; Obesity (BMI 30-39.9) 12/11/2017 Office Visit Transplant Celestino So RN Centrilobular emphysema (HCC) (Primary Dx) 11/20/2017 Orders Only Transplant after 09/16/2017 Social History Date Tobacco Use Types Packs/Day Years Used 05/13/1969 - 05/13/2005 Former Smoker Cigarettes 1.5 Smokeless Tobacco: Never Used Alcohol Use Drinks/Week oz/Week Comments No Sex Assigned at Date Recorded Not on file Industry Job Start Date Occupation Not on file Not on file Not on file Travel End Travel History Travel Start No recent travel history available. Last Filed Vital Signs Time Taken Vital Sign Reading 05/28/2018 3:12 PM [employer] Blood Pressure 142/77 05/28/2018 3:12 PM [employer] OFFICER Pulse 103 05/28/2018 3:12 PM [employer]ANCE OFFICER Temperature 37.1 C (98.8 F) 05/28/2018 3:12 PM [employer]ANCE OFFICER Respiratory Rate 16 05/28/2018 3:12 PM [employer]ANCE OFFICER Oxygen Saturation 94% 04/24/2018 8:20 AM [employer]ANCE OFFICER Inhaled Oxygen 21% Concentration 05/28/2018 3:12 PM [employer]ANCE OFFICER Weight 96.5 kg (212 lb 11.2 oz) 05/28/2018 3:12 PM [employer]AL[employer]ANCE OFFICER Height 165.1 cm (5' 5") 05/28/2018 3:12 PM [employer]AL[employer] ASS[employer]ANCE OFFICER Body Mass Index 35.4 Plan of Treatment Care Team Description Date Type Specialty 10/08/2018 Appointment Respiratory Therapy 10/08/2018 Appointment Respiratory Therapy Alina Solitario RN 10/08/2018 Office Visit Transplant Liang Burr MD [address] [address] [phone] 10/08/2018 Office Visit Transplant Procedures Comments Procedure Name Priority Date/Time Associated Diagnosis VASCULAR DIAGRAM -SCAN 08/20/2018 12:25 PM CDT PULMONARY FUNCTION - SCAN 06/02/2018 8:00 AM [employer]ANCE OFFICER SPIROMETRY Routine 05/28/2018 Centrilobular emphysema 4:01 PM DAIRY QUALITY ASSURANCE OFFICER ([facility]) CREATININE CLEARANCE Routine 05/28/2018 Centrilobular emphysema 1:45 PM DAIRY QUALITY ASSURANCE OFFICER (HCC) Pre-transplant evaluation for lung transplant CREATININE Routine 05/28/2018 Centrilobular emphysema 1:45 PM DAIRY QUALITY ASSURANCE OFFICER (HCC) Pre-transplant evaluation for lung transplant PROTEIN, 24 HOUR URINE Routine 05/28/2018 Centrilobular emphysema 1:45 PM DA[employer] QUALITY ASSURANCE OFFICER (HCC) Pre-transplant evaluation for lung transplant TRANSFUSION SERVICE 04/25/2018 REPORT - SCAN 5:54 PM [employer] ASS[employer]ANCE OFFICER FL ESOPHAGUS PHARNYX Routine 04/25/2018 Centrilobular emphysema AND/OR CERVICAL 11:59 AM DA[employer] QUAL[employer] ASSURANCE OFFICER (HCC) Pre-transplant evaluation for lung transplant XR CHEST 2 VIEWS Routine 04/25/2018 Centrilobular emphysema 11:30 AM DA[employer] QUAL[employer] ASSURANCE OFFICER (HCC) Pre-transplant evaluation for lung transplant XR MANDIBLE MIN 4 VIEWS Routine 04/25/2018 Centrilobular emphysema 11:25 AM DAIRY QUALITY ASSURANCE OFFICER ([facility]) Pre-transplant evaluation for lung transplant CT CHEST WITHOUT IV Routine 04/25/2018 Centrilobular emphysema CONTRAST 11:17 AM DAIRY QUALITY ASSURANCE OFFICER ([facility]) Pre-transplant evaluation for lung transplant CT ABDOMEN/PELVIS WITHOUT Routine 04/25/2018 Centrilobular emphysema IV CONTRAST 11:17 AM DA[employer] QUAL[employer] ASSURANCE OFFICER ([facility]) Pre-transplant evaluation for lung transplant ECHOCARDIOGRAM REPORT - 04/24/2018 SCAN 6:20 PM [employer] ASS[employer]ANCE OFFICER CAROTID DOPPLER BILATERAL Routine 04/24/2018 Centrilobular emphysema 4:46 PM DAIRY QUALITY ASSURANCE OFFICER ([facility]) Pre-transplant evaluation for lung transplant ECHO W CONTRAST & DOPPLER Routine 04/24/2018 Centrilobular emphysema 3:53 PM DAIRY QUALITY ASSURANCE OFFICER ([facility]) Pre-transplant evaluation for lung transplant PUL QUANT DIFFERENTIAL Routine 04/24/2018 Centrilobular emphysema FUNCT VENT/PERF 3:37 PM DA[employer] QUAL[employer] ASSURANCE OFFICER ([facility]) Pre-transplant evaluation for lung transplant FL SNIFF TEST Routine 04/24/2018 Lung transplant candidate 2:42 PM [employer]ANCE OFFICER BLOOD TYPING, AUTOMATED Routine 04/24/2018 Centrilobular emphysema 9:54 AM DAIRY QUALITY ASSURANCE OFFICER ([facility]) Pre-transplant evaluation for lung transplant HLA TYPING CII Routine 04/24/2018 Centrilobular emphysema 9:35 AM DA[employer] QUAL[employer] ASSURANCE OFFICER (HCC) Pre-transplant evaluation for lung transplant HLA TYPING CI Routine 04/24/2018 Centrilobular emphysema 9:35 AM DA[employer] QUAL[employer] ASSURANCE OFFICER (HCC) Pre-transplant evaluation for lung transplant T SPOT TB Routine 04/24/2018 Centrilobular emphysema 9:35 AM DAIR[employer] QUAL[employer] ASSURANCE OFFICER (HCC) Pre-transplant evaluation for lung transplant URINALYSIS W/ MICROSCOPIC STAT 04/24/2018 Centrilobular emphysema 9:35 AM DA[employer] QUAL[employer] ASSURANCE OFFICER (HCC) Pre-transplant evaluation for lung transplant DRUG SCREEN, URINE, Routine 04/24/2018 Centrilobular emphysema TRANSPLANT 9:35 AM DAIRY QUALITY ASSURANCE OFFICER ([facility]) Pre-transplant evaluation for lung transplant CBC W/PLT COUNT & AUTO Routine 04/24/2018 Centrilobular emphysema DIFFERENTIAL 9:34 AM DAIRY QUALITY ASSURANCE OFFICER ([facility]) Pre-transplant evaluation for lung transplant TYPE AND SCREEN, STAT 04/24/2018 Centrilobular emphysema AUTOMATED 9:34 AM DAIRY QUALITY ASSURANCE OFFICER ([facility]) Pre-transplant evaluation for lung transplant AB SPECIFICITY CLASS II Routine 04/24/2018 Centrilobular emphysema 9:34 AM DAIRY QUALITY ASSURANCE OFFICER ([facility]) Pre-transplant evaluation for lung transplant FLOW PRA CLASS II WITH Routine 04/24/2018 Centrilobular emphysema REFLEX TO ANTIBODY 9:34 AM DA[employer] QUAL[employer] ASSURANCE OFFICER ([facility]) SPECIFICITY Pre-transplant evaluation for lung transplant FLOW PRA CLASS I WITH Routine 04/24/2018 Centrilobular emphysema REFLEX TO ANTIBODY 9:34 AM DA[employer] QUAL[employer] ASSURANCE OFFICER ([facility]) SPECIFICITY Pre-transplant evaluation for lung transplant HEPATITIS B SURFACE Routine 04/24/2018 Centrilobular emphysema ANTIBODY 9:34 AM DAIRY QUALITY ASSURANCE OFFICER ([facility]) Pre-transplant evaluation for lung transplant HIV-1 ANTIGEN WITH Routine 04/24/2018 Centrilobular emphysema HIV-1/2 ANTIBODY 9:34 AM DA[employer] QUAL[employer] ASSURANCE OFFICER ([facility]) Pre-transplant evaluation for lung transplant VARICELLA ZOSTER STAT 04/24/2018 Centrilobular emphysema ANTIBODY, IGG 9:34 AM DAIR[employer] QUAL[employer] ASSURANCE OFFICER ([facility]) Pre-transplant evaluation for lung transplant TSH/FREE T4 IF INDICATED Routine 04/24/2018 Centrilobular emphysema 9:34 AM DAIR[employer] QUALITY ASSURANCE OFFICER ([facility]) Pre-transplant evaluation for lung transplant TOXOPLASMA GONDII Routine 04/24/2018 Centrilobular emphysema ANTIBODY, IGG 9:34 AM DAIRY QUALITY ASSURANCE OFFICER ([facility]) Pre-transplant evaluation for lung transplant PT/APTT Routine 04/24/2018 Centrilobular emphysema 9:34 AM DAIR[employer] QUAL[employer] ASSURANCE OFFICER (HCC) Pre-transplant evaluation for lung transplant LIPID PANEL Routine 04/24/2018 Centrilobular emphysema 9:34 AM DA[employer] QUALITY ASSURANCE OFFICER (HCC) Pre-transplant evaluation for lung transplant HEPATITIS B CORE Routine 04/24/2018 Centrilobular emphysema ANTIBODY, TOTAL 9:34 AM DA[employer]AL[employer] ASSURANCE OFFICER (HCC) Pre-transplant evaluation for lung transplant HEPATITIS PANEL, ACUTE Routine 04/24/2018 Centrilobular emphysema 9:34 AM DA[employer] QUAL[employer] ASSURANCE OFFICER (HCC) Pre-transplant evaluation for lung transplant HEMOGLOBIN A1C Routine 04/24/2018 Centrilobular emphysema 9:34 AM DA[employer] QUAL[employer] ASSURANCE OFFICER (HCC) Pre-transplant evaluation for lung transplant EBV ANTIBODY, IGG Routine 04/24/2018 Centrilobular emphysema 9:34 AM DA[employer] QUALITY ASSURANCE OFFICER (HCC) Pre-transplant evaluation for lung transplant CYTOMEGALOVIRUS ANTIBODY, Routine 04/24/2018 Centrilobular emphysema IGG 9:34 AM DA[employer] QUAL[employer] ASSURANCE OFFICER (HCC) Pre-transplant evaluation for lung transplant COMPREHENSIVE METABOLIC Routine 04/24/2018 Centrilobular emphysema PANEL 9:34 AM DA[employer] QUAL[employer] ASSURANCE OFFICER (HCC) Pre-transplant evaluation for lung transplant CBC W/PLT COUNT & AUTO Routine 04/24/2018 Centrilobular emphysema DIFFERENTIAL 9:34 AM DA[employer] QUAL[employer] ASSURANCE OFFICER (HCC) Pre-transplant evaluation for lung transplant RPR Routine 04/24/2018 Centrilobular emphysema 9:33 AM DAIR[employer] QUALITY ASSURANCE OFFICER (HCC) Pre-transplant evaluation for lung transplant BLOOD GAS, ARTERIAL Routine 04/24/2018 Centrilobular emphysema 8:20 AM DA[employer] QUALITY ASSURANCE OFFICER (HCC) Pre-transplant evaluation for lung transplant VASCULAR DIAGRAM -SCAN 04/02/2018 1:13 PM DA[employer] ASSURANCE OFFICER CARDIAC CATH REPORT - 04/02/2018 SCAN 1:13 PM DA[employer] QUAL[employer] ASSURANCE OFFICER R & L CATH / CORONARY 04/01/2018 Encounter for ANGIOS / PCI 5:01 PM [employer]ANCE OFFICER pre-transplant evaluation for lung transplant Case Notes POP6 BLOOD GAS, ARTERIAL STAT 04/01/2018 4:07 PM DA[employer] QUAL[employer] ASSURANCE OFFICER PT/APTT STAT 04/01/2018 10:56 AM DAIR[employer] QUAL[employer] ASSURANCE OFFICER CBC W/PLT COUNT & AUTO STAT 04/01/2018 DIFFERENTIAL 10:01 AM DAIR[employer] QUAL[employer] ASSURANCE OFFICER CBC W/PLT COUNT & AUTO STAT 04/01/2018 DIFFERENTIAL 10:01 AM DA[employer] QUAL[employer] ASSURANCE OFFICER BASIC METABOLIC PANEL (7) STAT 04/01/2018 10:00 AM DAIR[employer] QUALITY ASSURANCE OFFICER ECG 12-LEAD Routine 04/01/2018 9:19 AM DAIRY QUALITY ASSURANCE OFFICER Procedure Note - Interface, External Ris In - 04/01/2018 9:28 AM DA[employer] QUALITY ASSURANCE OFFICER Ventricula r Rate 90 BPM Atrial Rate 90 BPM P-R Interval 160 ms QRS Duration 86 ms Q-T Interval 382 ms QTC Calculatio n(Bazett) 467 ms P Napoleon 73 degrees R Napoleon 60 degrees T Napoleon 69 degrees Normal sinus rhythm Normal ECG No previous ECGs available ECG 12-LEAD Routine 04/01/2018 9:19 AM DAIR[employer] QUALITY ASSURANCE OFFICER PULMONARY FUNCTION - SCAN 03/24/2018 2:00 PM DA[employer] QUAL[employer] ASSURANCE OFFICER PULMONARY FUNCTION - SCAN 03/13/2018 2:51 PM CDT SPIROMETRY Routine 03/12/2018 Centrilobular emphysema 1:58 PM CDT ([facility]) 6 MINUTE WALK(FOR LUNG Routine 03/12/2018 Centrilobular emphysema TRANSPLANT ONLY) 1:58 PM CDT (HCC) PULMONARY FUNCTION - SCAN 12/13/2017 11:40 AM CDT 6 MINUTE WALK(FOR LUNG Routine 12/11/2017 Centrilobular emphysema TRANSPLANT ONLY) 2:02 PM CDT ([facility]) LUNG VOLUMES Routine 12/11/2017 Centrilobular emphysema 1:08 PM CDT ([facility]) after 09/16/2017 Results * VASCULAR DIAGRAM -SCAN (08/20/2018 12:25 PM CDT) Only the most recent of 2 results within the time period is included. Narrative Performed At * PULMONARY FUNCTION - SCAN (06/02/2018 8:00 AM [employer] ASSURANCE OFFICER) Only the most recent of 4 results within the time period is included. Narrative Performed At * Pulmonary Funct Lab Spirometry (05/28/2018 4:01 PM DAIRY QUALITY ASSURANCE OFFICER) Narrative Performed At Toma Jenkins RRT, RACKER OCTAVE BOARD 05/28/20184:03 PM [facility] PFT CHARTING REPORT Infection Control/Hand Hygiene procedures followed throughout the encounter with patient: Yes Patient Identification Method: Patient name verified on armband, and Medical record on armband, Is the order complete?: Yes Account ID#: [id number] Patient Name: Hui Galvez Birthdate: 1955 Age: 63 y.o.Sex: female Admission Date: 05/28/2018Patient Status: Outpatient Reasons/Symptom for having the Test?: the need of pre-op transplant evaluation Type of study/treatment ordered by physician: Spirometry, Patient refused 6 minute walk due to injury Lab Results Component Value Date HGB 11.3 04/24/2018 Ranges: Adult Male 13 - 16.8 g/dlAdult Female 12 - 15 g/dl 6 Minute Walk (read only) 04/01/2018 04/01/2018 05/28/2018 BP Pre - - - Start Time - - - Edmundo Perceived Exertion Scale Pre - - - Ordering Physician - - - Interval - - - Pulse 95 98 103 SpO2 - - 94 Supplemental O2 Flow Activity - - - Activity - - - Total Distance (in mts) - - - BP Post - - - Tank Pulled? - - - Tank Carried? - - - End Time - - - Edmundo Perceived Exertion Scale Post - - - Study Date: 05/28/2018Study Time: 1544 ASSESSMENT History & Physical Mode of Arrival: Wheel chair Pulse: 103 Resp: 20SPO2: 95 %on 3LPM NC Pain Assessment Pain:None TESTING/THERAPEUTICS Medications ordered or required for procedure: N/A PT EDUCATION/INSTRUCTIONS Barriers to learning: No known barriers to learning. Learning need identified: Yes, Patient/Family/Guradian was informed of the ordered study by the physician Barriers to performing study or treatment: Patient has no known disability to perform the study or treatment. DISCHARGE The study was completed in accordance with the physician's order and patient released from the lab without adverse outcome. without adverse outcome * Creatinine clearance (24hr Urine) (05/28/2018 1:45 PM [employer]AL[employer] ASSURANCE OFFICER) Creatinine Clearance 52.0 (L) 70.0 - 140.0 mL/min [facility] Volume, Urine 1,900 ml [facility] Creatinine, Ur 37.0 mg/dL [facility] Patient Height 165.1 cm [facility] Patient Weight 92.200 kg [facility] Specimen Urine Performing Organization Address City/[facility] Phone Number [facility] [address] [place] [address] [phone] * Protein, 24 hour urine (05/28/2018 1:45 PM DA[employer] QUAL[employer] ASSURANCE OFFICER) Protein, 24hr Urine <133 0 - 300 mg/24hr [facility] Volume, Urine 1,900 ml [facility] Protein, Urine <7 0 - 14 mg/dL [facility] Specimen Urine Performing Organization Address [facility] [place] [phone] * Creatinine Serum (05/28/2018 1:45 PM DAIRY QUALITY ASSURANCE OFFICER) Creatinine 0.79 0.57 - 1.25 mg/dL [facility] EGFR 73Comment: ESTIMATED GFR IS mL/min/1.73 sq m [facility] NOT ACCURATE CREATININE [facility] CLEARANCE IN PREDICTING GLOMERULAR FILTRATION RATE. ESTIMATED GFR IS NOT APPLICABLE FOR DIALYSIS PATIENTS. Specimen Blood Performing Organization Address [facility] Phone Number [address] [address] [phone] [place] [address] * TRANSFUSION SERVICE REPORT - SCAN (04/25/2018 5:54 PM DAIRY QUALITY ASSURANCE OFFICER) Narrative Performed At * FL esophagus (04/25/2018 11:59 AM DAIRY QUALITY ASSURANCE OFFICER) Specimen Narrative Performed At [facility]. History: Lung transplant evaluation. Discussion: The patient was given air crystals, thick barium, and thin barium to drink in upright and prone positions. Multiple images of the hypopharynx, esophagus, and proximal stomach were obtained. Fluoro Time: 63 sec. 16 films are obtained. The valleculae and piriform sinuses are normal. There is moderate esophageal dysmotility. Otherwise, the esophagus is normal in appearance without evidence of mucosal abnormality, stricture, or hernia.No reflux was visualized during the examination. The stomach fundus is normal. IMPRESSION: Moderate esophageal dysmotility. Otherwise, normal esophagram. Signed: Annette Patel MD Report Verified Date/Time:04/25/2018 12:25:11 Reading Location: [address] Radiology Reading Room Procedure Note Interface, External Ris In - 04/25/2018 12:27 PM DAIRY QUALITY ASSURANCE OFFICER FINAL REPORT Esophagram. History: Lung transplant evaluation. Discussion: The patient was given air crystals, thick barium, and thin barium to drink in upright and prone positions. Multiple images of the hypopharynx, esophagus, and proximal stomach were obtained. Fluoro Time: 63 sec. 16 films are obtained. The valleculae and piriform sinuses are normal. There is moderate esophageal dysmotility. Otherwise, the esophagus is normal in appearance without evidence of mucosal abnormality, stricture, or hernia. No reflux was visualized during the examination. The stomach fundus is normal. IMPRESSION: Moderate esophageal dysmotility. Otherwise, normal esophagram. Signed: Annette Patel MD Report Verified Date/Time: 04/25/2018 12:25:11 Reading Location: [address] Radiology Reading Room Performing Organization Address City/State/Zipcode Phone Number GE RIS * XR chest 2 views (04/25/2018 11:30 AM DAIRY QUALITY ASSURANCE OFFICER) Specimen Narrative Performed At FINAL REPORT GE Recorded Future Chest, PA and lateral. History: Lung transplant evaluation. Comparison: None available. Discussion:The cardiomediastinal silhouette and pulmonary vasculature are within normal limits. The lungs are clear without evidence of consolidation or effusion.There are no acute osseous abnormalities. The soft tissues are unremarkable. IMPRESSION: No acute cardiopulmonary abnormality. Signed: Annette Patel MD Report Verified Date/Time:04/25/2018 12:32:38 Reading Location: [address] Radiology Reading Room Procedure Note Interface, External Ris In - 04/25/2018 12:34 PM DAIRY QUALITY ASSURANCE OFFICER FINAL REPORT Chest, PA and lateral. History: Lung transplant evaluation. Comparison: None available. Discussion: The cardiomediastinal silhouette and pulmonary vasculature are within normal limits. The lungs are clear without evidence of consolidation or effusion. There are no acute osseous abnormalities. The soft tissues are unremarkable. IMPRESSION: No acute cardiopulmonary abnormality. Signed: Annette Patel MD Report Verified Date/Time: 04/25/2018 12:32:38 Reading Location: [address] Radiology Reading Room Performing Organization Address [facility] Phone Number GE RIS * XR mandible 4 views min (04/25/2018 11:25 AM DAIRY QUALITY ASSURANCE OFFICER) Specimen Narrative Performed At FINAL REPORT GE RIS Mandible series, five images HISTORY: Lung transplant evaluation COMPARISON: None IMPRESSION: Suboptimal positioning. No fracture. Temporomandibular joints intact. Soft tissues appear unremarkable. No evidence for lytic or blastic lesion. Signed: Annette Patel MD Report Verified Date/Time:04/25/2018 12:20:57 Reading Location: [address] Radiology Reading Room Procedure Note Interface, External Ris In - 04/25/2018 12:23 PM DAIRY QUALITY ASSURANCE OFFICER FINAL REPORT Mandible series, five images HISTORY: Lung transplant evaluation COMPARISON: None IMPRESSION: Suboptimal positioning. No fracture. Temporomandibular joints intact. Soft tissues appear unremarkable. No evidence for lytic or blastic lesion. Signed: Annette Patel MD Report Verified Date/Time: 04/25/2018 12:20:57 Reading Location: [address] Radiology Reading Room Performing Organization Address [facility] Phone Number GE RIS * CT chest without IV contrast (04/25/2018 11:17 AM DAIRY QUALITY ASSURANCE OFFICER) Specimen Narrative Performed At FINAL REPORT [facility] Exam: CT chest, abdomen and pelvis without contrast. Date: 04/25/2018 History: Lung transplant evaluation Comparison: CT chest, 02/08/2016 Technique: Multidetector helical CT imaging of the chest, abdomen and pelvis was performed without intravenous contrast. Oral contrast was utilized. Sagittal and coronal reconstructions were created from the axial data set. This examination was performed in accordance with a departmental dose optimization program which includes automated exposure control, adjustment of the mA and/or kV according to patient size, and use of iterative reconstruction techniques. Findings: No axillary or mediastinal adenopathy. Cardiac chambers normal in size. Thoracic aorta normal in caliber. Coronary and thoracic aortic atherosclerosis. Central airways patent. Emphysematous changes and basilar scarring. No worrisome nodule or mass. No effusions. Solid abdominal organs unremarkable. Gallbladder absent. No biliary ductal dilatation. Aortoiliac atherosclerosis. Renal artery calcifications are noted. Large and small bowel unremarkable. Appendix is normal. Uterus absent. No adnexal lesions. Urinary bladder decompressed. No worrisome skeletal findings. Impression: No acute findings. Signed: Annette Patel MD Report Verified Date/Time:04/25/2018 17:29:59 Reading Location: [address] Radiology Reading Room Procedure Note Interface, External Ris In - 04/25/2018 5:32 PM DAIRY QUALITY ASSURANCE OFFICER FINAL REPORT Exam: CT chest, abdomen and pelvis without contrast. Date: 04/25/2018 History: Lung transplant evaluation Comparison: CT chest, 02/08/2016 Technique: Multidetector helical CT imaging of the chest, abdomen and pelvis was performed without intravenous contrast. Oral contrast was utilized. Sagittal and coronal reconstructions were created from the axial data set. This examination was performed in accordance with a departmental dose optimization program which includes automated exposure control, adjustment of the mA and/or kV according to patient size, and use of iterative reconstruction techniques. Findings: No axillary or mediastinal adenopathy. Cardiac chambers normal in size. Thoracic aorta normal in caliber. Coronary and thoracic aortic atherosclerosis. Central airways patent. Emphysematous changes and basilar scarring. No worrisome nodule or mass. No effusions. Solid abdominal organs unremarkable. Gallbladder absent. No biliary ductal dilatation. Aortoiliac atherosclerosis. Renal artery calcifications are noted. Large and small bowel unremarkable. Appendix is normal. Uterus absent. No adnexal lesions. Urinary bladder decompressed. No worrisome skeletal findings. Impression: No acute findings. Signed: Annette Patel MD Report Verified Date/Time: 04/25/2018 17:29:59 Reading Location: [address] Radiology Reading Room Performing Organization Address City/State/Zipcode Phone Number Recorded Future * CT abdomen pelvis without contrast (04/25/2018 11:17 AM DAIRY QUALITY ASSURANCE OFFICER) Specimen Narrative Performed At FINAL REPORT [facility] Exam: CT chest, abdomen and pelvis without contrast. Date: 04/25/2018 History: Lung transplant evaluation Comparison: CT chest, 02/08/2016 Technique: Multidetector helical CT imaging of the chest, abdomen and pelvis was performed without intravenous contrast. Oral contrast was utilized. Sagittal and coronal reconstructions were created from the axial data set. This examination was performed in accordance with a departmental dose optimization program which includes automated exposure control, adjustment of the mA and/or kV according to patient size, and use of iterative reconstruction techniques. Findings: No axillary or mediastinal adenopathy. Cardiac chambers normal in size. Thoracic aorta normal in caliber. Coronary and thoracic aortic atherosclerosis. Central airways patent. Emphysematous changes and basilar scarring. No worrisome nodule or mass. No effusions. Solid abdominal organs unremarkable. Gallbladder absent. No biliary ductal dilatation. Aortoiliac atherosclerosis. Renal artery calcifications are noted. Large and small bowel unremarkable. Appendix is normal. Uterus absent. No adnexal lesions. Urinary bladder decompressed. No worrisome skeletal findings. Impression: No acute findings. Signed: Annette Patel MD Report Verified Date/Time:04/25/2018 17:29:59 Reading Location: [address] Radiology Reading Room Procedure Note Interface, External Ris In - 04/25/2018 5:32 PM DAIRY QUALITY ASSURANCE OFFICER FINAL REPORT Exam: CT chest, abdomen and pelvis without contrast. Date: 04/25/2018 History: Lung transplant evaluation Comparison: CT chest, 02/08/2016 Technique: Multidetector helical CT imaging of the chest, abdomen and pelvis was performed without intravenous contrast. Oral contrast was utilized. Sagittal and coronal reconstructions were created from the axial data set. This examination was performed in accordance with a departmental dose optimization program which includes automated exposure control, adjustment of the mA and/or kV according to patient size, and use of iterative reconstruction techniques. Findings: No axillary or mediastinal adenopathy. Cardiac chambers normal in size. Thoracic aorta normal in caliber. Coronary and thoracic aortic atherosclerosis. Central airways patent. Emphysematous changes and basilar scarring. No worrisome nodule or mass. No effusions. Solid abdominal organs unremarkable. Gallbladder absent. No biliary ductal dilatation. Aortoiliac atherosclerosis. Renal artery calcifications are noted. Large and small bowel unremarkable. Appendix is normal. Uterus absent. No adnexal lesions. Urinary bladder decompressed. No worrisome skeletal findings. Impression: No acute findings. Signed: Annette Patel MD Report Verified Date/Time: 04/25/2018 17:29:59 Reading Location: [address] Radiology Reading Room Performing Organization Address City/State/Zipcode Phone Number GE RIS * ECHOCARDIOGRAM REPORT - SCAN (04/24/2018 6:20 PM DAIRY QUALITY ASSURANCE OFFICER) Narrative Performed At * Carotid doppler bilateral (04/24/2018 4:46 PM DAIRY QUALITY ASSURANCE OFFICER) Ejection Fraction [facility] Specimen Impressions Performed At Right Impression [facility] 1. There is <50% diameter reduction (approximately 29% by 2-D measurement) MKCK[facility]ON CPACS in the internal carotid artery with a peak velocity of 88.4 cm/sec and heterogeneous plaque. 2. The external carotid artery is within normal limits. 3. There is non-occluding plaque in the common carotid artery. 4. The vertebral artery flow is antegrade and normal. 5. The subclavian artery is within normal limits where visualized. Left Impression 1. There is <50% diameter reduction (approximately 16% by 2-D measurement) in the internal carotid artery with a peak velocity of 104 cm/sec and heterogeneous plaque. 2. There is non-occluding plaque in the external carotid artery. 3. There is non-occluding plaque in the common carotid artery. 4. The vertebral artery flow is antegrade and normal. 5. The subclavian artery is within normal limits where visualized. Conclusions Summary Carotid duplex scanning and color flow imaging were performed bilaterally. The arteries were adequately visualized. The bilateral internal carotid arteries had <50% hemodynamically insignificant stenosis (approximately 29% by 2-D measurement on the right, approximately 16% by 2-D measurement on the left) with heterogeneous plaque. The vertebral artery flow was antegrade and normal bilaterally. The subclavian arteries were patent with normal flow bilaterally where visualized. Signature Velocities are measured in cm/s ; Diameters are measured in cm Carotid Right Measurements + +----+----+-----+ + + + !Location !PSV !EDV !Angle!%Stenosis 2D!%Stenosis Doppler!Tortuosity ! + +----+----+-----+ + + + !Prox CCA !125 !32.4!60 !! ! ! + +----+----+-----+ + + + !Dist CCA !87.4!29.5!60 !! ! ! + +----+----+-----+ + + + !Prox ICA !88.4!27.5!60 !! ! ! + +----+----+-----+ + + + !Dist ICA !87.4!32.4!60 !! ! ! + +----+----+-----+ + + + !Prox ECA !100 !25.5!60 !! ! ! + +----+----+-----+ + + + !Vertebral!58!23.5!60 !! ! ! + +----+----+-----+ + + + !Prox Subclavian!145 !0 !60 !! ! ! + +----+----+-----+ + + + - There is antegrade vertebral flow noted on the right side. - Additional Measurements:ICAPSV/CCAPSV 1.01.ICAEDV/CCAEDV 1. Carotid Left Measurements + +----+----+-----+ + + + !Location !PSV !EDV !Angle!%Stenosis 2D!%Stenosis Doppler!Tortuosity ! + +----+----+-----+ + + + !Prox CCA !138 !40.3!60 !! ! ! + +----+----+-----+ + + + !Dist CCA !98.5!35.2!60 !! ! ! + +----+----+-----+ + + + !Prox ICA !70.4!22.3!60 !! ! ! + +----+----+-----+ + + + !Dist ICA !104 !38.5!60 !! ! ! + +----+----+-----+ + + + !Prox ECA !190 !48.5!60 !! ! ! + +----+----+-----+ + + + !Vertebral!88.8!34.6!60 !! ! ! + +----+----+-----+ + + + !Prox Subclavian!190 !0 !60 !! ! ! + +----+----+-----+ + + + - There is antegrade vertebral flow noted on the left side. - Additional Measurements:ICAPSV/CCAPSV 1.06.ICAEDV/CCAEDV 0.96. Narrative Performed At [facility] - Carotid Duplex Study [facility] Demographics [facility] CPA Patient NameHUI GALVEZ Date of Study04/24/2018 LENARD Age63 Visit [id number] Gender Female Date of Birth1955 Referring [facility] Room Number Physician Enoch MD Geologic Technician Rita Horvath T Interpreting Sabino Cooper Procedure Type of Study: Cerebral: Carotid, CAROTID DOPPLER, BILATERAL. Indications for Study:Lung transplant evaluation . Patient Status:Routine. Study Location:Vascular Lab. Technical Quality:Adequate visualization. Risk Factors History of Disease + +----+ + !Diagnosis !Date!Comments! + +----+ + !History/Risk Factors: !!COPD, Raynauds, SLE ! + +----+ + Procedure Note Interface, External Ris In - 04/25/2018 7:26 AM [facility] - Carotid Duplex Study Demographics Patient Name HUI GALVEZ Date of Study 04/24/2018 LENARD Age 63 Visit Number [id number] Gender Female Accession Number [id number] Date of 1955 Referring [facility] Room Number Physician Enoch MD Geologic Technician Rita Horvath T Interpreting Alina Rosenthal, Physician Procedure Type of Study: Cerebral: Carotid, CAROTID DOPPLER, BILATERAL. Indications for Study:Lung transplant evaluation . Patient Status:Routine. Study Location:Vascular Lab. Technical Quality:Adequate visualization. Risk Factors History of Disease + +----+ + !Diagnosis !Date!Comments ! + +----+ + !History/Risk Factors: ! !COPD, Raynauds, SLE ! + +----+ + Impressions Right Impression 1. There is <50% diameter reduction (approximately 29% by 2-D measurement) in the internal carotid artery with a peak velocity of 88.4 cm/sec and heterogeneous plaque. 2. The external carotid artery is within normal limits. 3. There is non-occluding plaque in the common carotid artery. 4. The vertebral artery flow is antegrade and normal. 5. The subclavian artery is within normal limits where visualized. Left Impression 1. There is <50% diameter reduction (approximately 16% by 2-D measurement) in the internal carotid artery with a peak velocity of 104 cm/sec and heterogeneous plaque. 2. There is non-occluding plaque in the external carotid artery. 3. There is non-occluding plaque in the common carotid artery. 4. The vertebral artery flow is antegrade and normal. 5. The subclavian artery is within normal limits where visualized. Conclusions Summary Carotid duplex scanning and color flow imaging were performed bilaterally. The arteries were adequately visualized. The bilateral internal carotid arteries had <50% hemodynamically insignificant stenosis (approximately 29% by 2-D measurement on the right, approximately 16% by 2-D measurement on the left) with heterogeneous plaque. The vertebral artery flow was antegrade and normal bilaterally. The subclavian arteries were patent with normal flow bilaterally where visualized. Signature Velocities are measured in cm/s ; Diameters are measured in cm Carotid Right Measurements + +----+----+-----+ + + + !Location !PSV !EDV !Angle!%Stenosis 2D!%Stenosis Doppler!Tortuosity ! + +----+----+-----+ + + + !Prox CCA !125 !32.4!60 ! ! ! ! + +----+----+-----+ + + + !Dist CCA !87.4!29.5!60 ! ! ! ! + +----+----+-----+ + + + !Prox ICA !88.4!27.5!60 ! ! ! ! + +----+----+-----+ + + + !Dist ICA !87.4!32.4!60 ! ! ! ! + +----+----+-----+ + + + !Prox ECA !100 !25.5!60 ! ! ! ! + +----+----+-----+ + + + !Vertebral !58 !23.5!60 ! ! ! ! + +----+----+-----+ + + + !Prox Subclavian!145 !0 !60 ! ! ! ! + +----+----+-----+ + + + - There is antegrade vertebral flow noted on the right side. - Additional Measurements:ICAPSV/CCAPSV 1.01.ICAEDV/CCAEDV 1. Carotid Left Measurements + +----+----+-----+ + + + !Location !PSV !EDV !Angle!%Stenosis 2D!%Stenosis Doppler!Tortuosity ! + +----+----+-----+ + + + !Prox CCA !138 !40.3!60 ! ! ! ! + +----+----+-----+ + + + !Dist CCA !98.5!35.2!60 ! ! ! ! + +----+----+-----+ + + + !Prox ICA !70.4!22.3!60 ! ! ! ! + +----+----+-----+ + + + !Dist ICA !104 !38.5!60 ! ! ! ! + +----+----+-----+ + + + !Prox ECA !190 !48.5!60 ! ! ! ! + +----+----+-----+ + + + !Vertebral !88.8!34.6!60 ! ! ! ! + +----+----+-----+ + + + !Prox Subclavian!190 !0 !60 ! ! ! ! + +----+----+-----+ + + + - There is antegrade vertebral flow noted on the left side. - Additional Measurements:ICAPSV/CCAPSV 1.06.ICAEDV/CCAEDV 0.96. Performing Organization Address City/State/Zipcode Phone Number [facility] * ECHO W CONTRAST & DOPPLER (04/24/2018 3:53 PM DAIRY QUALITY ASSURANCE OFFICER) Ejection Fraction [facility] Specimen Narrative Performed At Transthoracic Echocardiography Report (TTE) [facility] Demographics [facility] Patient Name Ching GALVEZ of Study 04/24/2018 LENARD [id number] Female Visit Number [id number] [id number] Room Number Number Date of Birth4Referring Physician Homa Kendall MD Age63 year(s)Geologic Technician Arik Flores [facility] AnalystAlex Joceline InterpretingRaPhysician MELIDA Walker Procedure Type of Study TTE procedure:2DECHO W/CONTRAST & DOPPLER (Routine) Indications:Lung transplant evaluation . Clinical History COPD, RAYNAUDS DISEASE,PCI 04/01/18, HX OF SMOKING, OBESE, O2 USE Contrast Medium: Definity. Amount - 2 ml Height: 65 inches Weight: 90.72 kg (200 lbs) BSA: 1.98 m^2 BMI: 33.28 kg/m^2 HR: 87 bpm BP: 156/77 mmHg Summary LV endocardium is adequately visualized with IV ultrasound enhancing agent. The left ventricle is chamber size (by vol index) is small. Normal LV wall thickness. All of the LV segments contract normally . Estimated LVEF by qualitative assessment is normal (>60%) . Grade 1 diastolic dysfunction (impaired relaxation and low-normal LA pressure). Normal right ventricle structure and function. A trace of tricuspid regurgitation. Unable to estimate peak systolic PA pressure; inadequate TR velocity signal. IV saline contrast injection was negative for a PFO (patent foramen ovale) at rest and post Valsalva . IV saline contrast with delayed imaging is negative for intra pulmonic shunting. Signature Findings Left Ventricle LV endocardium is adequately visualized with IV ultrasound enhancing agent. The left ventricle is chamber size (by vol index) is small. Normal LV wall thickness. All of the LV segments contract normally . Estimated LVEF by qualitative assessment is normal (>60%) . Grade 1 diastolic dysfunction (impaired relaxation and low-normal LA pressure). Left AtriumLA size is normal . Right VentricleNormal right ventricle structure and function. Right Atrium Normal right atrium. Atrial SeptumIV saline contrast injection was negative for a PFO (patent foramen ovale) at rest and post Valsalva . IV saline contrast with delayed imaging is negative for intra pulmonic shunting. Aortic Valve Normal AoV structure. Mitral Valve Normal MV structure. Tricuspid ValveA trace of tricuspid regurgitation. Unable to estimate peak systolic PA pressure; inadequate TR velocity signal. Pulmonic Valve PV is not well visualized. AortaAortic root size (SInus of Valsalva diameter) is normal . PericardiumNo evidence of pericardial effusion. IVC/SVC/PA/PV/PleuralThe estimated RA pressure by IVC dynamics 0-5mmHg . Chambers/Structures Left Atrium LA Dimension: 2.83 cmLA Area: 20.45 cm^2 LA Volume: 61.71 ml LA Vol. Index: 31 ml/m^2 Left Ventricle LVIDd: 3.68 cm LV Septum Diastolic: 1.01 cm LV PW Diastolic: 1.03 cm LVEDV Morales's:54.38 ml LVEDVI: 27 ml/m^2 LVOT Diameter: 2.09 cm Aorta Ao Root S of Evelia.: 3.12 cm Doppler/Quantitative Measurements LVOT Peak Velocity: 1.1 m/sPeak Gradient: 4.81 mmHg Mean Velocity: 0.58 m/s Mean Gradient: 1.78 mmHg LVOT Diameter: 2.09 cmLVOT VTI: 18.36 cm LVOT Area: 3.43 cm^2LVOT SV:62.96 ml LVOT CO: 5.48 l/min LVOT CI: 2.77 l/min/m^2 Procedure Note Interface, External Ris In - 04/24/2018 5:47 PM DAIRY QUALITY ASSURANCE OFFICER Transthoracic Echocardiography Report (TTE) Demographics Patient Name HUI GALVEZ Date of Study 04/24/2018 LENARD Gender Female Visit Number [id number] Race Unknown Room Number Number Date of 1955 Referring Physician Homa Kendall MD Age 63 year(s) Geologic Technician Arik Flores [facility] Jacquard Card Lacer Eulalio Car Interpreting Physician MELIDA Humphreys Procedure Type of Study TTE procedure:2DECHO W/CONTRAST & DOPPLER (Routine) Indications:Lung transplant evaluation . Clinical History COPD, RAYNAUDS DISEASE,PCI 04/01/18, HX OF SMOKING, OBESE, O2 USE Contrast Medium: Definity. Amount - 2 ml Height: 65 inches Weight: 90.72 kg (200 lbs) BSA: 1.98 m^2 BMI: 33.28 kg/m^2 HR: 87 bpm BP: 156/77 mmHg Summary LV endocardium is adequately visualized with IV ultrasound enhancing agent. The left ventricle is chamber size (by vol index) is small. Normal LV wall thickness. All of the LV segments contract normally . Estimated LVEF by qualitative assessment is normal (>60%) . Grade 1 diastolic dysfunction (impaired relaxation and low-normal LA pressure). Normal right ventricle structure and function. A trace of tricuspid regurgitation. Unable to estimate peak systolic PA pressure; inadequate TR velocity signal. IV saline contrast injection was negative for a PFO (patent foramen ovale) at rest and post Valsalva . IV saline contrast with delayed imaging is negative for intra pulmonic shunting. Signature Findings Left Ventricle LV endocardium is adequately visualized with IV ultrasound enhancing agent. The left ventricle is chamber size (by vol index) is small. Normal LV wall thickness. All of the LV segments contract normally . Estimated LVEF by qualitative assessment is normal (>60%) . Grade 1 diastolic dysfunction (impaired relaxation and low-normal LA pressure). Left Atrium LA size is normal . Right Ventricle Normal right ventricle structure and function. Right Atrium Normal right atrium. Atrial Septum IV saline contrast injection was negative for a PFO (patent foramen ovale) at rest and post Valsalva . IV saline contrast with delayed imaging is negative for intra pulmonic shunting. Aortic Valve Normal AoV structure. Mitral Valve Normal MV structure. Tricuspid Valve A trace of tricuspid regurgitation. Unable to estimate peak systolic PA pressure; inadequate TR velocity signal. Pulmonic Valve PV is not well visualized. Aorta Aortic root size (SInus of Valsalva diameter) is normal . Pericardium No evidence of pericardial effusion. IVC/SVC/PA/PV/Pleural The estimated RA pressure by IVC dynamics 0-5mmHg . Chambers/Structures Left Atrium LA Dimension: 2.83 cm LA Area: 20.45 cm^2 LA Volume: 61.71 ml LA Vol. Index: 31 ml/m^2 Left Ventricle LVIDd: 3.68 cm LV Septum Diastolic: 1.01 cm LV PW Diastolic: 1.03 cm LVEDV Morales's:54.38 ml LVEDVI: 27 ml/m^2 LVOT Diameter: 2.09 cm Aorta Ao Root S of Evelia.: 3.12 cm Doppler/Quantitative Measurements LVOT Peak Velocity: 1.1 m/s Peak Gradient: 4.81 mmHg Mean Velocity: 0.58 m/s Mean Gradient: 1.78 mmHg LVOT Diameter: 2.09 cm LVOT VTI: 18.36 cm LVOT Area: 3.43 cm^2 LVOT SV:62.96 ml LVOT CO: 5.48 l/min LVOT CI: 2.77 l/min/m^2 Performing Organization Address City/State/Zipcode Phone Number [facility] * NM Pul quant diff funct vent/perf (04/24/2018 3:37 PM DAIRY QUALITY ASSURANCE OFFICER) Specimen Narrative Performed At FINAL REPORT [facility] PROCEDURE: V/Q LUNG SCAN w/differential function (xenon) CPT CODE:[id number] INDICATION:Lung transplant evaluation PROTOCOL:10.1 mCi ofXe-133 gas was administered by inhalation. Single breath and rebreathing images and washout images were obtained in the anterior and the posterior projections.4.2 mCi of Tc-99m MAA was then injected intravenously, and static perfusion images were obtained in multiple projections.Relative tracer distributions were determined using the geometric mean method for the anterior and posterior projections. FINDINGS: Ventilation:Initial tracer distribution is decreased in the mid lung zones. Tracer is divided 48% to the left lung (18, 21, and 9% to the upper, mid, and lower lung bella respectively) and 52% to the right lung (17, 23, and 12% to the upper, mid, and lower lung bella respectively). Washout is delayed in the mid lung zones. Perfusion: Tracer distribution is decreased in the mid lung zones. Pulmonary artery flow is divided 45% to the left lung (13, 21, and 11% to the upper, mid, and lower lung bella respectively) and 55% to the right lung (14, 24, and 17% to the upper, mid, and lower lung bella respectively). IMPRESSION: Lung function as described above. Signed: Juventino Coughlin MD Report Verified Date/Time:04/24/2018 15:49:00 Reading Location: [address] Reading Room Procedure Note Interface, External Ris In - 04/24/2018 3:51 PM DAIRY QUALITY ASSURANCE OFFICER FINAL REPORT PROCEDURE: V/Q LUNG SCAN w/differential function (xenon) CPT CODE: [id number] INDICATION: Lung transplant evaluation PROTOCOL: 10.1 mCi of Xe-133 gas was administered by inhalation. Single breath and rebreathing images and washout images were obtained in the anterior and the posterior projections. 4.2 mCi of Tc-99m MAA was then injected intravenously, and static perfusion images were obtained in multiple projections. Relative tracer distributions were determined using the geometric mean method for the anterior and posterior projections. FINDINGS: Ventilation: Initial tracer distribution is decreased in the mid lung zones. Tracer is divided 48% to the left lung (18, 21, and 9% to the upper, mid, and lower lung bella respectively) and 52% to the right lung (17, 23, and 12% to the upper, mid, and lower lung bella respectively). Washout is delayed in the mid lung zones. Perfusion: Tracer distribution is decreased in the mid lung zones. Pulmonary artery flow is divided 45% to the left lung (13, 21, and 11% to the upper, mid, and lower lung bella respectively) and 55% to the right lung (14, 24, and 17% to the upper, mid, and lower lung bella respectively). IMPRESSION: Lung function as described above. Signed: Juventino Coughlin MD Report Verified Date/Time: 04/24/2018 15:49:00 Reading Location: [facility] Reading Room Performing Organization Address City/State/Zipcode Phone Number [facility] * [place] sniff test (04/24/2018 2:42 PM DAIRY QUALITY ASSURANCE OFFICER) Specimen Narrative Performed At FINAL REPORT Recorded Future Fluoroscopy sniff test Technique: Fluoroscopy was utilized to visualized the movement of the diaphragm real-time with routine respiration, during deep inspiration and expiration, and during sniffing. Total fluoroscopy time: 0.3 minutes Total number of films: 2 Findings: There is symmetric movement of the bilateral hemidiaphragms upon deep and shallow respiration. There is no paradoxical movement upon sniffing. Impression: 1. No diaphragmatic paralysis. Signed: Jarrod Alcazar MD Report Verified Date/Time:04/24/2018 14:40:07 Reading Location: [facility] B1 C013X [facility] Consult Reading Room Procedure Note Interface, External Ris In - 04/24/2018 2:47 PM DAIRY QUALITY ASSURANCE OFFICER FINAL REPORT Fluoroscopy sniff test Technique: Fluoroscopy was utilized to visualized the movement of the diaphragm real-time with routine respiration, during deep inspiration and expiration, and during sniffing. Total fluoroscopy time: 0.3 minutes Total number of films: 2 Findings: There is symmetric movement of the bilateral hemidiaphragms upon deep and shallow respiration. There is no paradoxical movement upon sniffing. Impression: 1. No diaphragmatic paralysis. Signed: Jarrod Alcazar MD Report Verified Date/Time: 04/24/2018 14:40:07 Reading Location: [facility] B1 C013X Orth[facility] Consult Reading Room Performing Organization Address City/State/Zipcode Phone Number GE RIS * Blood typing, automated (04/24/2018 9:54 AM DAIRY QUALITY ASSURANCE OFFICER) ABO/RH AUTOMATED (BEAKER) A POSITIVE [facility] Specimen Blood Performing Organization Address City/[facility] Phone Number [facility] [address] [place] [address] [facility] * HLA TYPING CII (04/24/2018 9:35 AM DAIRY QUALITY ASSURANCE OFFICER) HLA-DR AG1 17 [facility] HLA-DR AG2 4 [facility] HLA-DR AG3-1 52 [facility] HLA-DR AG3-2 [facility] HLA-DR AG4-1 [facility] HLA-DR AG4-2 53 [facility] HLA-DR AG5-1 [facility] HLA-DR AG5-2 [facility] HLA-DQA1 AG 1-1 05 [facility] HLA-DQA1 AG 1-2 03 [facility] HLA-DQB1 AG 1-1 2 [facility] HLA-DQB1 AG 1-2 8 [facility] HLA-DPA1 AG 1-1 02 [facility] HLA-DPA1 AG 1-2 02 [facility] HLA-DPB1 AG 1-1 01:01 [facility] HLA-DPB1 AG 1-2 05:01 [facility] HLA-AG Notes [facility] HLA-AG Report Comments [facility] Specimen Blood Narrative Performed At Disclaimer: [facility] This test was developed and its performance characteristics determined by the [facility] Laboratory. It has not been cleared or approved by the U.S. Food and Drug Administration. The FDA has determined that such clearance or approval is not necessary. This test is used for clinical purposes. It should not be regarded as investigational or for research. This laboratory is certified under the Clinical Laboratory Improvement Amendments of 1988 (CLIA-88) as qualified to perform high complexity clinical laboratory testing. Performing Organization Address City/State/[facility] Phone Number [facility] ONE Esteban Anastasiia, MS: [id number], [place] [address] CLIA#[id number] CAP#[id number] UNOS#[id number] * HLA TYPING CI (04/24/2018 9:35 AM DAIRY QUALITY ASSURANCE OFFICER) HLA-A AG1 1 [facility] HLA-A AG2 31 [facility] HLA-B AG1 8 [facility] HLA-B AG2 60 [facility] HLA-C AG1 7 [facility] HLA-C AG2 10 [facility] HLA-B BW1 6 [facility] HLA-B BW2 6 [facility] HLA-AG Notes [facility] HLA-AG Report Comments [facility] Specimen Blood Narrative Performed At Disclaimer: [facility] This test was developed and its performance characteristics determined by the [facility] Laboratory. It has not been cleared or approved by the U.S. Food and Drug Administration. The FDA has determined that such clearance or approval is not necessary. This test is used for clinical purposes. It should not be regarded as investigational or for research. This laboratory is certified under the Clinical Laboratory Improvement Amendments of 1988 (CLIA-88) as qualified to perform high complexity clinical laboratory testing. Performing Organization Address City/State/Zipcode Phone Number [facility] ONE Esteban Laurent, MS: [id number], [place] [address] CLIA#[id number] CAP#[id number] [facility]#[id number] * Drug screen, urine, transplant (04/24/2018 9:35 AM DAIRY QUALITY ASSURANCE OFFICER) Specimen Urine Narrative Performed At Performing Organization Address City/State/Zipcode Phone Number [address] [phone] * T Spot TB (04/24/2018 9:35 AM DAIRY QUALITY ASSURANCE OFFICER) T-Spot TB Negative [facility] Neg Ctrl Spot Count 0 [facility] Panel A Spot 0 [facility] Panel B Spot 0 [facility] Pos Ctrl Spot Ct 0 [facility] Scan Result [facility] Specimen Blood Narrative Performed At Performing Organization Address City/State/Zipcode Phone Number [facility] [address] [place] [address] LABORATORIES 100 * Urinalysis, Routine (04/24/2018 9:35 AM DAIRY QUALITY ASSURANCE OFFICER) Color, UA Light Yellow [facility] Clarity, UA Clear [facility] Specific [place], UA 1.008 1.001 - 1.035 [facility] pH, UA 7.5 5.0 - 8.0 [facility] Protein, UA Negative Negative [facility] Glucose, UA Negative Negative [facility] Ketones, UA Negative Negative [facility] Bilirubin, UA Negative Negative [facility] Blood, UA Negative Negative [facility] Nitrite, UA Negative Negative [facility] Leukocytes, UA Negative Negative [facility] Urobilinogen, UA 0.2 0.2 - 1.0 mg/dL [facility] RBC, UA 0 /HPF [facility] WBC, UA 1 /HPF [facility] Squam Epithel, UA <1 /HPF [facility] Specimen Source [facility] Specimen Urine Performing Organization Address City/State/[facility] Phone Number [facility] [address] [place] [address] [facility] * FLOW PRA CLASS II WITH REFLEX TO ANTIBODY SPECIFICITY (04/24/2018 9:34 AM DAIRY QUALITY ASSURANCE OFFICER) Flow Class II Percent 13 [facility] Positive Flow Class Report [facility] Comments Specimen Blood Narrative Performed At Disclaimer: [facility] This test was developed and its performance characteristics determined by the [facility] Laboratory. It has not been cleared or approved by the U.S. Food and Drug Administration. The FDA has determined that such clearance or approval is not necessary. This test is used for clinical purposes. It should not be regarded as investigational or for research. This laboratory is certified under the Clinical Laboratory Improvement Amendments of 1988 (CLIA-88) as qualified to perform high complexity clinical laboratory testing. Performing Organization Address City/State/[facility] Phone Number [facility] Esteban Laurent, MS: [id number], [place] [address] CLIA#[id number] CAP#[id number] [facility]#[id number] * FLOW PRA CLASS I WITH REFLEX TO ANTIBODY SPECIFICITY (04/24/2018 9:34 AM DAIRY QUALITY ASSURANCE OFFICER) Flow Class I Percent 0 [facility] Positive Flow Class Report [facility] Comments Specimen Blood Narrative Performed At Disclaimer: [facility] This test was developed and its performance characteristics determined by the [facility] Laboratory. It has not been cleared or approved by the U.S. Food and Drug Administration. The FDA has determined that such clearance or approval is not necessary. This test is used for clinical purposes. It should not be regarded as investigational or for research. This laboratory is certified under the Clinical Laboratory Improvement Amendments of 1988 (CLIA-88) as qualified to perform high complexity clinical laboratory testing. Performing Organization Address [facility] Phone Number [facility] ONE Esteban Laurent, MS: [id number], [place] [address] CLIA#[id number] CAP#[id number] [facility]#[id number] * AB SPECIFICITY CLASS II (04/24/2018 9:34 AM DAIRY QUALITY ASSURANCE OFFICER) AB Specificity Class II NO CLASS II ANTIBODY DETECTED [facility] WITH MFIs > 4000 AB Specificity Titr Class [facility] Report Specimen Blood Narrative Performed At Disclaimer: [facility] This test was developed and its performance characteristics determined by the [facility] Laboratory. It has not been cleared or approved by the U.S. Food and Drug Administration. The FDA has determined that such clearance or approval is not necessary. This test is used for clinical purposes. It should not be regarded as investigational or for research. This laboratory is certified under the Clinical Laboratory Improvement Amendments of 1988 (CLIA-88) as qualified to perform high complexity clinical laboratory testing. Performing Organization Address [facility] Phone Number [facility] Esteban Laurent, MS: [id number], [place] [address] CLIA#[id number] CAP#[id number] [facility]#[id number] * Type and screen, automated (04/24/2018 9:34 AM DAIRY QUALITY ASSURANCE OFFICER) ABO/RH AUTOMATED (BEAKER) A POSITIVE [facility] Ab Scrn NEGATIVE [facility] Specimen Blood Performing Organization Address City/[facility] Phone Number [address] [address] [facility] * TSH/T4 if indicated (04/24/2018 9:34 AM DAIRY QUALITY ASSURANCE OFFICER) TSH 0.98 0.35 - 4.94 uIU/mL [facility] Specimen Blood Performing Organization Address [facility] Phone Number [address] [address] [facility] * PT/PTT (04/24/2018 9:34 AM DAIRY QUALITY ASSURANCE OFFICER) Only the most recent of 2 results within the time period is included. Protime 13.1 11.7 - 14.7 seconds [facility] INR 1.0 <=5.9 [facility] PTT 24.2 22.5 - 36.0 seconds [facility] Specimen Blood Narrative Performed At RECOMMENDED COUMADIN/WARFARIN INR THERAPY RANGES [facility] STANDARD DOSE: 2.0 - 3.0 Includes: PROPHYLAXIS for venous thrombosis, [facility] systemic embolization; TREATMENT for venous thrombosis and/or pulmonary embolus. HIGH RISK: Target INR is 2.5-3.5 for patients with mechanical heart valves. Performing Organization Address [facility] Phone Number [address] [address] [facility] * HIV-1 Antigen with HIV-1/2 Antibody (04/24/2018 9:34 AM DAIRY QUALITY ASSURANCE OFFICER) HIV-1 Antigen with HIV NON-REACTIVE Nonreactive [facility] 1&2 Antibody [facility] Specimen Blood Performing Organization Address [facility] Phone Number [address] [address] [facility] * CBC with platelet count + automated diff (04/24/2018 9:34 AM DAIRY QUALITY ASSURANCE OFFICER) Only the most recent of 2 results within the time period is included. WBC 7.1 3.5 - 10.5 K/L [facility] RBC 4.00 3.93 - 5.22 M/L [facility] Hemoglobin 11.3 11.2 - 15.7 GM/DL [facility] Hematocrit 39.0 34.1 - 44.9 % [facility] MCV 97.5 (H) 79.4 - 94.8 fL [facility] MCH 28.3 25.6 - 32.2 pg [facility] MCHC 29.0 (L) 32.2 - 35.5 GM/DL [facility] RDW 16.0 (H) 11.7 - 14.4 % [facility] Platelets 259 150 - 450 K/CU MM [facility] MPV 9.8 9.4 - 12.3 fL [facility] nRBC 0 0 - 0 /100 WBC [facility] % Neutros 91 % [facility] % Lymphs 6 % [facility] % Monos 3 % [facility] % Eos 0 % [facility] % Baso 0 % [facility] # Neutros 6.38 (H) 1.56 - 6.13 K/L [facility] # Lymphs 0.40 (L) 1.18 - 3.74 K/L [facility] # Monos 0.20 (L) 0.24 - 0.36 K/L [facility] # Eos 0.00 (L) 0.04 - 0.36 K/L [facility] # Baso 0.02 0.01 - 0.08 K/L [facility] Immature 1 0 - 1 % [facility] Granulocytes-Relative [facility] Specimen Blood Performing Organization Address City/[facility]/Zipcode Phone Number [address] [place] [address] * Hepatitis panel (04/24/2018 9:34 AM DAIRY QUALITY ASSURANCE OFFICER) Hep A IgM HEPATITIS A TEST NEGATIVE Nonreactive [facility] Hep B C IgM NON-REACTIVE Nonreactive [facility] Hepatitis C Ab NON-REACTIVE Nonreactive [facility] hepatitis B Surface Ag NON-REACTIVE Nonreactive [facility] Specimen Blood Performing Organization Address City/[facility] Phone Number [address] * EBV-VCA antibody, IgG (04/24/2018 9:34 AM DAIRY QUALITY ASSURANCE OFFICER) TAMIKA FELDER VIRAL CAPSID Positive (A) Negative, Equivocal [facility] ANTIGEN IGG [facility] Specimen Blood Narrative Performed At Tamika Felder Viral Capsid Antigen IgG Result Interpretation: [facility] </=0.8 Al Negative [facility] 0.9-1.0 Al Equivocal >/=1.1 Al Positive Performing Organization Address City/[facility]/Zipcode Phone Number [address] [place] [address] * Hepatitis B core, total (04/24/2018 9:34 AM DAIRY QUALITY ASSURANCE OFFICER) Hep B Core Total Ab NON-REACTIVE Nonreactive [facility] Specimen Blood Performing Organization Address City/[facility]/Zipcode Phone Number [address] [place] [address] * Toxoplasma gondii antibody, IgG (04/24/2018 9:34 AM DAIRY QUALITY ASSURANCE OFFICER) TOXOPLASMA GONDII IGG <3.0 <10.0 IU/mL [facility] QUANTITATIVE [facility] Specimen Blood Narrative Performed At Toxoplasma Gondii IgG Result Interpretation: [facility] </=9.9 IU/mLNormal [facility] 10-11 IU/mLEquivocal >/=12 IU/mL Positive Performing Organization Address City/[facility] Phone Number [address] * Hepatitis B surface antibody (04/24/2018 9:34 AM DAIRY QUALITY ASSURANCE OFFICER) Hep B S Ab <8.0 <8.0 mIU/mL [facility] Specimen Blood Performing Organization Address City/[facility] Phone Number [phone] [place] [address] [phone] * Cytomegalovirus antibody, IgG (04/24/2018 9:34 AM DAIRY QUALITY ASSURANCE OFFICER) CYTOMEGALOVIRUS, IGG Positive (A) Negative, Equivocal [facility] Specimen Blood Narrative Performed At CMV IgG Result Interpretation: [facility] </=0.8 Al Negative [facility] 0.9-1.0 Al Equivocal >/=1.1 AlPositive Performing Organization Address [facility] Phone Number [phone] [place] [address] * Varicella zoster antibody, IgG (04/24/2018 9:34 AM DAIRY QUALITY ASSURANCE OFFICER) Varicella IgG 4.9 [facility] Specimen Blood Narrative Performed At VARICELLA ZOSTER RESULT INTERPRETATIONS: [facility] <=0.8 AlNonreactive:Presumed non-immune to VZV [facility] 0.9-1.0 AlEquivocal >=1.1 AlReactive:Presumed immune to VZV Performing Organization Address City/[facility] Phone Number [phone] [place] [address] * Hemoglobin A1c (04/24/2018 9:34 AM DAIRY QUALITY ASSURANCE OFFICER) Hemoglobin A1C 6.1 4.3 - 6.1 % [facility] Specimen Blood Performing Organization Address City/[facility] Phone Number [phone] [facility] * Lipid panel (04/24/2018 9:34 AM DAIRY QUALITY ASSURANCE OFFICER) Triglycerides 128 mg/dL [facility] Cholesterol 215 mg/dL [facility] HDL 71 mg/dL [facility] LDL Calculated 118 mg/dL [facility] Specimen Blood Narrative Performed At Triglyceride Reference Range: [facility] Low Risk <150 [facility] [id number] High Risk 200-499 Very High Risk>=500 Cholesterol Reference Range: Low Risk <200 [id number] High Risk>240 HDL Cholesterol Reference Range: Low Risk >=60 High Risk <40 LDL Cholesterol Reference Range: Optimal<100 Near [id number] [id number] Very High >=190 Performing Organization Address City/State/Zipcode Phone Number [address] [address] [facility] * Comprehensive metabolic panel (04/24/2018 9:34 AM DAIRY QUALITY ASSURANCE OFFICER) Protein, Total 7.1 6.0 - 8.3 gm/dL [facility] Albumin 4.1 3.5 - 5.0 g/dL [facility] Alkaline Phosphatase 90 40 - 150 U/L [facility] Total Bilirubin 0.3 0.2 - 1.2 mg/dL [facility] Sodium 139 136 - 145 meq/L [facility] Potassium 4.5 3.5 - 5.1 meq/L [facility] Chloride 102 98 - 107 meq/L [facility] CO2 29 22 - 29 meq/L [facility] BUN 12 7 - 21 mg/dL [facility] Creatinine 0.82 0.57 - 1.25 mg/dL [facility] Glucose 130 (H) 70 - 105 mg/dL [facility] Calcium 9.8 8.4 - 10.2 mg/dL [facility] AST 15 5 - 34 U/L [facility] ALT 19 6 - 55 U/L [facility] EGFR 70Comment: ESTIMATED GFR IS mL/min/1.73 sq m [facility] NOT ACCURATE CREATININE [facility] CLEARANCE IN PREDICTING GLOMERULAR FILTRATION RATE. ESTIMATED GFR IS NOT APPLICABLE FOR DIALYSIS PATIENTS. Specimen Blood Performing Organization Address City/[facility] Phone Number [address] [address] [facility] * RPR (04/24/2018 9:33 AM DAIRY QUALITY ASSURANCE OFFICER) RPR Nonreactive Nonreactive [facility] Specimen Blood Performing Organization Address City/[facility] Phone Number [address] [address] [facility] * Blood gas, arterial (04/24/2018 8:20 AM DAIRY QUALITY ASSURANCE OFFICER) Only the most recent of 2 results within the time period is included. pH, Arterial 7.40 7.35 - 7.45 [facility] pCO2, Arterial 45 35 - 45 mmHg [facility] pO2, Arterial 62 (L) 80 - 90 mmHg [facility] O2 Sat, Arterial 91.6 (L) 96.0 - 97.0 % [facility] HCO3, Arterial 28 21 - 29 mmol/L [facility] Base Excess, Arterial 2.4 -2.0 - 3.0 mmol/L [facility] Patient Temperature 37.0 C [facility] FIO2 21.0 % [facility] Specimen Blood, Arterial Performing Organization Address City/[facility] Phone Number [place] [phone] [place] [address] [facility] * CARDIAC CATH REPORT - SCAN (04/02/2018 1:13 PM DAIRY QUALITY ASSURANCE OFFICER) Narrative Performed At * Basic Metabolic Panel (04/01/2018 10:00 AM DAIRY QUALITY ASSURANCE OFFICER) Sodium 141 136 - 145 meq/L [facility] Potassium 3.9 3.5 - 5.1 meq/L [facility] Chloride 104 98 - 107 meq/L [facility] CO2 31 (H) 22 - 29 meq/L [facility] BUN 13 7 - 21 mg/dL [facility] Creatinine 0.79 0.57 - 1.25 mg/dL [facility] Glucose 132 (H) 70 - 105 mg/dL [facility] Calcium 9.6 8.4 - 10.2 mg/dL [facility] EGFR 73Comment: ESTIMATED GFR IS mL/min/1.73 sq m [facility] NOT ACCURATE CREATININE [facility] CLEARANCE IN PREDICTING GLOMERULAR FILTRATION RATE. ESTIMATED GFR IS NOT APPLICABLE FOR DIALYSIS PATIENTS. Specimen Blood Performing Organization Address City/State/Zipcode Phone Number [facility] [address] [place] [address] MEDICAL CENTER * ECG 12 lead (04/01/2018 9:19 AM DAIRY QUALITY ASSURANCE OFFICER) Specimen Narrative Performed At Ventricular Rate 90 BPM GE MUSE Atrial Rate 90 BPM P-R Interval 160 ms QRS Duration 86 ms Q-T Interval 382 ms QTC Calculation(Bazett) 467 ms P Napoleon 73 degrees R Napoleon 60 degrees T Napoleon 69 degrees Normal sinus rhythm Normal ECG No previous ECGs available Confirmed by MD Bingham Mahboob ([id number]) on 04/01/2018 1:24:05 PM Procedure Note Interface, External Ris In - 04/01/2018 1:24 PM DAIRY QUALITY ASSURANCE OFFICER Ventricular Rate 90 BPM Atrial Rate 90 BPM P-R Interval 160 ms QRS Duration 86 ms Q-T Interval 382 ms QTC Calculation(Bazett) 467 ms P Napoleon 73 degrees R Napoleon 60 degrees T Napoleon 69 degrees Normal sinus rhythm Normal ECG No previous ECGs available Confirmed by MD Bingham Mahboob ([id number]) on 04/01/2018 1:24:05 PM Performing Organization Address City/State/Zipcode Phone Number GE MUSE * 6 MINUTE WALK(FOR LUNG TRANSPLANT ONLY) (03/12/2018 1:58 PM CDT) Narrative Performed At Gary Calhoun, TRACK REPAIR LABORER, [employer] 03/12/20182:36 PM [facility] PFT CHARTING REPORT Infection Control/Hand Hygiene procedures followed throughout the encounter with patient: Yes Patient Identification Method: Patient name verified on armband, and Medical record on armband, Is the order complete?: Yes Account ID#: [id number] Patient Name: Hui Galvez Birthdate: 1955 Age: 63 y.o.Sex: female Admission Date: 03/12/2018Patient Status: Outpatient Reasons/Symptom for having the Test?: post transplant protocol Type of study/treatment ordered by physician: Spirometry No results found for: HGB Ranges: Adult Male 13 - 16.8 g/dlAdult Female 12 - 15 g/dl 6 Minute Walk (read only) 12/11/2017 12/11/2017 03/12/2018 BP Pre - - - Start Time - - - Edmundo Perceived Exertion Scale Pre - - - Ordering Physician - - - Interval 12 - - Pulse 108 - 104 SpO2 91 - 97 Supplemental O2 Flow Activity 3 - - Activity Standing - - Total Distance (in mts) 330 - - BP Post 174/105 124/92 - Tank Pulled? Y - - Tank Carried? N - - End Time1:44 PM - - Edmundo Perceived Exertion Scale Post 10 - - Study Date: 03/12/2018Study Time: 1358 ASSESSMENT History & Physical Mode of Arrival: Wheel chair Pulse: 103Resp: 18SPO2: 96 %On 3 LPM/ FiO2 Pain Assessment Pain:None TESTING/THERAPEUTICS Medications ordered or required for procedure: N/A PT EDUCATION/INSTRUCTIONS Barriers to learning: No known barriers to learning. Learning need identified: Yes, Patient/Family/Guradian was informed of the ordered study by the physician Barriers to performing study or treatment: Patient has no known disability to perform the study or treatment. DISCHARGE The study was completed in accordance with the physician's order and patient released from the lab without adverse outcome. * Pulmonary Funct Lab Spirometry (03/12/2018 1:58 PM CDT) Narrative Performed At Gary Calhoun RRT, [facility] 03/12/20182:36 PM [facility] PFT CHARTING REPORT Infection Control/Hand Hygiene procedures followed throughout the encounter with patient: Yes Patient Identification Method: Patient name verified on armband, and Medical record on armband, Is the order complete?: Yes Account ID#: [id number] Patient Name: Hui Galvez Birthdate: 1955 Age: 63 y.o.Sex: female Admission Date: 03/12/2018Patient Status: Outpatient Reasons/Symptom for having the Test?: post transplant protocol Type of study/treatment ordered by physician: Spirometry No results found for: HGB Ranges: Adult Male 13 - 16.8 g/dlAdult Female 12 - 15 g/dl 6 Minute Walk (read only) 12/11/2017 12/11/2017 03/12/2018 BP Pre - - - Start Time - - - Edmundo Perceived Exertion Scale Pre - - - Ordering Physician - - - Interval 12 - - Pulse 108 - 104 SpO2 91 - 97 Supplemental O2 Flow Activity 3 - - Activity Standing - - Total Distance (in mts) 330 - - BP Post 174/105 124/92 - Tank Pulled? Y - - Tank Carried? N - - End Time1:44 PM - - Edmundo Perceived Exertion Scale Post 10 - - Study Date: 03/12/2018Study Time: 1358 ASSESSMENT History & Physical Mode of Arrival: Wheel chair Pulse: 103Resp: 18SPO2: 96 %On 3 LPM/ FiO2 Pain Assessment Pain:None TESTING/THERAPEUTICS Medications ordered or required for procedure: N/A PT EDUCATION/INSTRUCTIONS Barriers to learning: No known barriers to learning. Learning need identified: Yes, Patient/Family/Guradian was informed of the ordered study by the physician Barriers to performing study or treatment: Patient has no known disability to perform the study or treatment. DISCHARGE The study was completed in accordance with the physician's order and patient released from the lab without adverse outcome. * 6 MINUTE WALK(FOR LUNG TRANSPLANT ONLY) (12/11/2017 2:02 PM CDT) Narrative Performed At Toma Jenkins RRT, [facility] 12/11/20172:02 PM [facility] PFT CHARTING REPORT Infection Control/Hand Hygiene procedures followed throughout the encounter with patient: Yes Patient Identification Method: Patient name verified on armband, and Medical record on armband, Is the order complete?: Yes Account ID#: [id number] Patient Name: Hui Galvez Birthdate: 1955 Age: 62 y.o.Sex: female Admission Date: 12/11/2017Patient Status: Outpatient Reasons/Symptom for having the Test?: the need of pre-op transplant evaluation Type of study/treatment ordered by physician: 6 minute walk No results found for: HGB Ranges: Adult Male 13 - 16.8 g/dlAdult Female 12 - 15 g/dl 6 Minute Walk (read only) 12/11/2017 12/11/2017 12/11/2017 BP Pre 136/89 - - Start Time1:38 PM - - Edmundo Perceived Exertion Scale Pre 3 - - Ordering Physician Leno - - Interval S 12 - Pulse 102 108 - SpO2 94 91 - Supplemental O2 Flow Activity 0 3 - Activity Standing Standing - Total Distance (in mts) - 330 - BP Post - 174/105 124/92 Tank Pulled? - Y - Tank Carried? - N - End Time -1:44 PM - Edmundo Perceived Exertion Scale Post - 10 - Study Date: 12/11/2017Study Time: 1338 ASSESSMENT History & Physical Mode of Arrival: Ambulatory Pulse: 102Resp: 20SPO2: 94 %On R/A Pain Assessment Pain:None TESTING/THERAPEUTICS Medications ordered or required for procedure: N/A PT EDUCATION/INSTRUCTIONS Barriers to learning: No known barriers to learning. Learning need identified: Yes, Patient/Family/Guradian was informed of the ordered study by the physician Barriers to performing study or treatment: Patient has no known disability to perform the study or treatment. DISCHARGE The study was completed in accordance with the physician's order and patient released from the lab without adverse outcome. without adverse outcome after 09/16/2017 Insurance Payer Benefit Subscriber ID Type Phone Address Plan / Group MEDICARE MEDICARE A xxxxxxxxxxx Medicare B [facility] SUPPLEMENT/INDIVIDUAL KITTERY xxxxxxxxx Comm LAO Advance Directives For more information, please contact: [facility] [address] [place] [address] Date Inactivated Comments Code Status Date Activated Full Code 04/01/2018 8:31 AM This code status was determined by: Patient
--- OUTSIDE RECORDS SUMMARY | 2018-09-17 12:38 | XMS REPORT ---
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 Are you a:: former smoker , How long has it been since you last smoked?: 5-10 years Apr 01, 2014 Caffeine: yes. frequency:, 1-5 Apr 01, 2014 Exercise: no. Apr 01, 2014 Alcohol: no. Apr 01, 2014 Occupation: . Retired with disability. Apr 01, 2014 Summary Purpose eClinicalWorks Submission
--- OUTSIDE RECORDS SUMMARY | 2018-09-17 12:38 | XMS REPORT ---
Author Author Yony Palomares [facility] eClinicalWorks Address Unknown Phone Unavailable Care Team Providers Care Actimize Architect Name Role Phone Yony Palomares CP Unavailable Encounters Encounter Location Date 6M f/u Yony Palomares MD Apr 01, 2014 Unknown Yony Palomares MD September 30, 2014 Refill- Plaquenil Yony Palomares MD October 11, 2014 Unknown Yony Palomares MD October 21, 2014 6M FU with DEXA Yony Palomares MD September 29, 2013 REFILLS ANITA Palomares MD Apr 30, 2014 Refill Yony Palomares MD May 17, 2014 6M f/u Yony Palomares MD September 30, 2014 Elijahl Yony Palomares MD Jan 03, 2015 Problems Problem Type Condition ICD-9 Code Onset Dates Condition Status Problem Unspecified diffuse connective tissue disease 710.9 Active Problem Polyarthralgia 719.49 Active Problem Raynaud's syndrome 443.0 Active Medications Medication Code System Code Instructions Start Date End Date Status Dosage Plaquenil MEDISPAN [address]-89 200 MG Orally bid Jan 09, 2015 Active 1 tablet with food or milk Social History Social History Element Qualifiers Date Reported Tobacco Use: . Are you a:: former smoker , How long has it been since you last smoked?: 5-10 years September 30, 2014 Caffeine: yes. frequency:, 1-5 September 30, 2014 Exercise: no. September 30, 2014 Alcohol: no. September 30, 2014 Occupation: . Retired with disability. September 30, 2014 Summary Purpose eClinicalWorks Submission
--- OUTSIDE RECORDS SUMMARY | 2018-09-17 12:38 | XMS REPORT ---
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 [address]-50 600 MG Orally as needed Active [address] [facility] [address]-39 Orally as needed Active 1 capsule as needed Estrogens Conj Synthetic [facility] [address]-47 0.625 MG Orally Active as directed Advair Diskus MEDISPAN [address]-49 250-50 MCG/DOSE Inhalation Twice a day Active [address] [facility] [address]-48 0.5 MG Orally twice a day Active 1 tablet [facility] [address]-68 10 MG Orally Once a day Active 1 tablet at bedtime as needed ProAir HFA [facility] [address]-26 108 (90 Base) MCG/ACT Inhalation as needed Active [address] [facility] [address]-23 10 MG Orally Once a day Active 1 tablet in the evening Lasix MEDIAN [address]-19 40 MG Orally Once a day Active 1 tablet Plaquenil MEDISPAN [address]-19 200 MG Orally Twice a day Active 1 tablet with food or milk Social History Social History Element Qualifiers Date Reported Tobacco Use: . Are you a:: former smoker , How long has it been since you last smoked?: 5-10 years September 29, 2013 Caffeine: yes. frequency:, 1-5 September 29, 2013 Exercise: no. September 29, 2013 Alcohol: no. September 29, 2013 Occupation: . Retired with disability. September 29, 2013 Vital Signs Date/Time: September 29, 2013 Weight 179 lbs Height 67 in Temperature 97.7 F Cardiac Monitoring Heart Rate 80 /min Blood Pressure Diastolic 96 mm Hg Blood Pressure Systolic 144 mm Hg Summary Purpose eClinicalWorks Submission
--- OUTSIDE RECORDS SUMMARY | 2018-09-17 12:38 | XMS REPORT | Continuity of Care Document ---
Author Author [facility] Interface Address Unknown Phone Unavailable Problems Problem Status Onset Date Classification Date Reported Comments Source POLYARTHRALGIA/ RAYNAUDS SYNDROME Active 05/03/2015 [facility] Unspecified diffuse connective tissue disease Active Problem 08/17/2017 Alfredo Palomares Polyarthralgia Active Problem 08/17/2017 Alfredo Palomares Other fpc drug therapy Active Problem 08/17/2017 Alfredo Palomares Fatigue Active Problem 08/17/2017 Alfredo Palomares Anemia Active Problem 08/17/2017 Alfredo Palomares Vitamin D deficiency, unspecified Active Problem 08/17/2017 Alfredo Palomares Bursitis of hip, right Active Problem 08/17/2017 Alfredo Palomares Raynauds disease Active Problem 08/17/2017 Alfredo Palomares Bursitis of hip Active Problem 08/17/2017 Alfredo Palomares Knee pain Active Problem 08/17/2017 Alfredo Palomares Raynaud's syndrome Active Problem 02/09/2017 Alfredo Palomares Polyarthralgia Active Problem 02/09/2017 Alfredo Palomares Unspecified diffuse connective tissue disease Active Problem 02/09/2017 Alfredo Palomares PAIN IN UNSPECIFIED JOINT Active [facility] Medications Medication Details Route Status Patient Instructions Ordering Provider Order Date Source Vitamin D (Ergocalciferol) 1 capsule Orally Active 76967 UNIT Orally once a week Yin 08/03/2016 Alfredo Palomares Cyanocobalamin 1 ml Injection Active 1000 MCG/ML Injection once a month Yin 04/03/2016 Alfredo Palomares Hydroxychloroquine Sulfate 1 tablet with food or milk Orally Active 200 MG Orally Twice a day Yin 03/29/2016 Alfredo Palomares Norvasc 1 tablet Orally Active 2.5 MG Orally twice a day Yin 03/07/2016 Alfredo Palomares Potassium Chloride 1 capsule with food Orally Active 10 MEQ Orally Once a day Yin 01/30/2016 Alfredo Palomares Hydroxychloroquine Sulfate TAKE 2 TABLET BY MOUTH TWICE A DAY WITH FOOD OR MILK Orally Active 200 MG Orally Once a day Palomares 11/07/2015 Alfredo Palomares Nitroglycerin ointment apply to fingers apply to finger arriola Active 0.5% apply to finger arriola every 6 hours Yin 10/13/2015 Alfredo Palomares Nitroglycerin ointment apply to fingers apply to finger arriola Active 0.5% apply to finger arriola every 6 hours Yin 10/13/2015 Alfredo Palomares Hydroxychloroquine Sulfate 1 tablet with food or milk Orally Active 200 MG Orally Twice a day Yin 08/30/2015 Alfredo Palomares Norvasc 1 tablet Orally Active 2.5 MG Orally Once a day [place] 06/02/2015 Alfredo Palomares Hydroxychloroquine Sulfate 1 tablet with food or milk Orally Active 200 MG Orally twice a day Yin 04/12/2015 Alfredo Palomares Plaquenil 1 tablet with food or milk Orally Active 200 MG Orally bid [place] 01/09/2015 Alfredo Palomares Hydroxychloroquine Sulfate 2 tablets Orally Active 200 MG Orally Once a day [place] 09/28/2014 Alfredo Palomares Albuterol 2 tablet Orally Active 2 MG Orally once a day Yin Alfredo Palomares Alprazolam 1 tablet Orally Active 0.5 MG Orally as needed Yin Alfredo Palomares Zolpidem Tartrate 1 tablet at bedtime as needed Orally Active 10 MG Orally Once a day Yin Alfredo Palomares Estrogens Conj Synthetic A as directed Orally Active 0.03MG Orally Yin Alfredo Palomares Potassium Chloride 1 capsule with food Orally Active 10 MEQ Orally Once a day Yin Alfredo Palomares Tizanidine HCl 1 tablet as needed Orally Active 4 MG Orally twice a day Yin Alfredo Palomares ProAir HFA 2 puffs Inhalation Active 108 (90 Base) MCG/ACT Inhalation as needed Yin Alfredo Palomares Tylenol/Codeine #3 1 tablet as needed Orally Active 300-30 MG Orally every 4 hours as needed Yin Alfredo Palomares Singulair 1 tablet in the evening Orally Active 10 MG Orally Once a day Yin Alfredo Palomares Meloxicam 1 tablet Orally Active 15 MG Orally Once a day Yin Alfredo Palomares Lasix 1 tablet Orally Active 20 mg Orally every other day Yin Alfredo Palomares Melatonin 1 tablet at bedtime as needed with food Orally Active OTC Orally at bedtime Yin Alfredo Palomares Advair Diskus 1 puff Inhalation Active 250-50 MCG/DOSE Inhalation Twice a day Yin Alfredo Palomares Ibuprofen 1 tablet Orally Active 600 MG Orally as needed Yin Alfredo Palomares Fiorinal 1 capsule as needed Orally Active Orally as needed Yin Alfredo Palomares Plaquenil 1 tablet with food or milk Orally Active 200 MG Orally Twice a day Rocky Palomares Hydroxychloroquine Sulfate 1 tablet with food or milk Orally Active 200 MG Orally Twice a day Yin Alfredo Palomares Ultram as directed Orally Active 50 MG Orally PRN Yin Alfredo Palomares Terbutaline Sulfate 1 tablet every 6 hours while awake Orally Active 2.5 MG Orally every 6 hrs Yin Alfredo Palomares Medrol (Johnny) as directed Orally Active 4 MG Orally Yin Alfredo Palomares Hydroxychloroquine Sulfate 2 tablet with food or milk Orally Active 200 MG Orally once a day Yin Alfredo Palomares Ativan 1 tablet as needed Orally Active 1 MG Orally Twice a day Yin Alfredo Palomares Albuterol 2 tablet Orally Active 2 MG Orally once a day Yin Alfredo Palomares Norvasc 1 tablet Orally Active 2.5 MG Orally Twice a day Yin Alfredo Palomares Amoxicillin 1 capsule Orally Active 500 MG Orally every 12 hrs Yin Alfredo Palomares Lyrica 1 capsule Orally Active 50 MG Orally Three times a day Yin Alfredo Palomares Allergies, Adverse Reactions, Alerts Substance Category Reaction Severity Reaction type Status Date Reported Comments Source Prednisone Adverse Reaction Info Not Available Adverse Reaction Active 02/15/2017 Alfredo Palomares Demeclocycline Adverse Reaction hives Adverse Reaction Active 02/15/2017 Alfredo Palomares predniSONE Assertion Drug allergy Active [facility] Immunizations Immunization Date Given Site Status Last Updated Comments Source Flu Vaccine 02/07/2017 completed Alfredo Palomares Results Order Name Results Value Reference Range Date Interpretation Comments Source Vital Signs Vital Sign Value Date Comments Source Weight 178 02/15/2017 Alfredo Palomares Height 65.5 02/15/2017 Alfredo Palomares Temperature Oral (F) 98.2 F 02/15/2017 Alfredo Palomares Heart Rate 76 02/15/2017 Alfredo Palomares Diastolic (mm Hg) 72 02/15/2017 Alfredo Palomares Systolic (mm Hg) 118 02/15/2017 Alfredo Palomares Weight 181 02/07/2017 Alfredo Palomares Height 65.5 02/07/2017 Alfredo Palomares Temperature Oral (F) 97.2 F 02/07/2017 Alfredo Palomares Heart Rate 78 02/07/2017 Alfredo Palomares Diastolic (mm Hg) 76 02/07/2017 Alfredo Palomares Systolic (mm Hg) 118 02/07/2017 Alfredo Palomares Weight 196 08/01/2016 Alfredo Palomares Height 65.5 08/01/2016 Alfredo Palomares Temperature Oral (F) 97.2 F 08/01/2016 Alfredo Palomares Heart Rate 86 08/01/2016 Alfredo Palomares Diastolic (mm Hg) 78 08/01/2016 Alfredo Palomares Systolic (mm Hg) 124 08/01/2016 Alfredo Palomares Weight 180.6 04/03/2016 Alfredo Palomares Height 65 04/03/2016 Alfredo Palomares Temperature Oral (F) 97.3 F 04/03/2016 Alfredo Palomares Heart Rate 88 04/03/2016 Alfredo Palomares Diastolic (mm Hg) 78 04/03/2016 Alfredo Palomares Systolic (mm Hg) 124 04/03/2016 Alfredo Palomares Weight 178 03/26/2016 Alfredo Palomares Height 65 03/26/2016 Alfredo Palomares Temperature Oral (F) 97.5 F 03/26/2016 Alfredo Palomares Heart Rate 88 03/26/2016 Alfredo Palomares Diastolic (mm Hg) 60 03/26/2016 Alfredo Palomares Systolic (mm Hg) 100 03/26/2016 Alfredo Palomares Weight 183 03/14/2016 Alfredo Palomares Height 65.5 03/14/2016 Alfredo Palomares Temperature Oral (F) 98.4 F 03/14/2016 Alfredo Palomares Heart Rate 88 03/14/2016 Alfredo Palomares Diastolic (mm Hg) 62 03/14/2016 Alfredo Palomares Systolic (mm Hg) 112 03/14/2016 Alfredo Palomares Weight 183 03/07/2016 Alfredo Palomares Height 65 03/07/2016 Alfredo Palomares Temperature Oral (F) 97.6 F 03/07/2016 Alfredo Palomares Heart Rate 78 03/07/2016 Alfredo Palomares Diastolic (mm Hg) 70 03/07/2016 Alfredo Palomares Systolic (mm Hg) 118 03/07/2016 Alfredo Palomares Weight 183 02/13/2016 Alfredo Palomares Height 65 02/13/2016 Alfredo Palomares Temperature Oral (F) 97.5 F 02/13/2016 Alfredo Palomraes Heart Rate 84 02/13/2016 Alfredo Palomares Diastolic (mm Hg) 68 02/13/2016 Alfredo Palomares Systolic (mm Hg) 120 02/13/2016 Alfredo Palomares Weight 174 10/13/2015 Alfredo Palomares Height 65 10/13/2015 Alfredo Palomares Temperature Oral (F) 97.3 F 10/13/2015 Alfredo Palomares Height 167.64 cm 05/10/2015 [facility] BMI Calculated 29.11 05/10/2015 [facility] Weight 81.818 05/10/2015 [facility] Weight 178 04/12/2015 Alfredo Palomares Height 66 04/12/2015 Alfredo Palomares Temperature Oral (F) 98.1 F 04/12/2015 Alfredo Palomares Heart Rate 80 04/12/2015 Alfredo Palomares Diastolic (mm Hg) 72 04/12/2015 Alfredo Palomares Systolic (mm Hg) 112 04/12/2015 Alfredo Palomares Weight 172 04/01/2014 Alfredo Palomares Height 66 04/01/2014 Alfredo Palomares Temperature Oral (F) 97.1 F 04/01/2014 Alfredo Palomares Heart Rate 80 04/01/2014 Alfredo Palomares Diastolic (mm Hg) 90 04/01/2014 Alfredo Palomares Systolic (mm Hg) 140 04/01/2014 Alfredo Palomares Weight 179 09/29/2013 Alfredo Palomares Height 67 09/29/2013 Alfredo Palomares Temperature Oral (F) 97.7 F 09/29/2013 Alfredo Palomares Heart Rate 80 09/29/2013 Alfredo Palomares Diastolic (mm Hg) 96 09/29/2013 Alfredo Palomares Systolic (mm Hg) 144 09/29/2013 Alfredo Palomares Encounters Location Location Details Encounter Type Encounter Number Reason For Visit Attending Provider ADM Date DC Date Status Source Yony Palomares MD 5M FU with DEXA [id number] 09/29/2013 09/29/2013 Alfredo Palomares MD 5M FU with DEXA [id number] 09/29/2013 09/29/2013 Alfredo Palomares MD 5M FU with DEXA [id number] 09/29/2013 09/29/2013 Alfredo Palomares MD 5M FU with DEXA [id number] 09/29/2013 09/29/2013 Alfredo Palomares MD 5M FU with DEXA [id number] 09/29/2013 09/29/2013 Alfredo Palomares MD 5M FU with DEXA [id number] 09/29/2013 09/29/2013 Alfredo Palomares MD 5M FU with DEXA [id number] 09/29/2013 09/29/2013 Alfredo Palomares MD 5M FU with DEXA [id number] 09/29/2013 09/29/2013 Alfredo Palomares MD 5M FU with DEXA [id number] 09/29/2013 09/29/2013 Alfredo Palomares MD 5M FU with DEXA [id number] 09/29/2013 09/29/2013 Alfredo Palomares MD 5M FU with DEXA [id number] 09/29/2013 09/29/2013 Alfredo Palomares MD 6M FU with DEXA [id number] 09/29/2013 09/29/2013 Alfredo Palomares MD 5M FU with DEXA [id number] 09/29/2013 09/29/2013 Alfredo Palomares MD 5M FU with DEXA [id number] 09/29/2013 09/29/2013 Alfredo Palomares MD 6M FU with DEXA [id number] 09/29/2013 09/29/2013 Alfredo Palomares MD 6M FU with DEXA [id number] 09/29/2013 09/29/2013 Alfredo Palomares MD 6M FU with DEXA [id number] 09/29/2013 09/29/2013 Alfredo Palomares MD 6M FU with DEXA [id number] 09/29/2013 09/29/2013 Alfredo Palomares MD 6M FU with DEXA [id number] 09/29/2013 09/29/2013 Alfredo Palomares MD 6M FU with DEXA [id number] 09/29/2013 09/29/2013 Alfredo Palomares MD 6M FU with DEXA [id number] 09/29/2013 09/29/2013 Alfredo Palomares MD 6M FU with DEXA [id number] 09/29/2013 09/29/2013 Alfredo Palomares MD 6M FU with DEXA [id number] 09/29/2013 09/29/2013 Alfredo Palomares MD 6M FU with DEXA [id number] 09/29/2013 09/29/2013 Alfredo Palomares MD 5M FU with DEXA [id number] 09/29/2013 09/29/2013 Alfredo Palomares MD 6M FU with DEXA [id number] 09/29/2013 09/29/2013 Alfredo Palomares MD 6M FU with DEXA [id number] 09/29/2013 09/29/2013 Alfredo Palomares MD 5M FU with DEXA [id number] 09/29/2013 09/29/2013 Alfredo Palomares MD 6M FU with DEXA [id number] 09/29/2013 09/29/2013 Alfredo Palomares MD 6M FU with DEXA [id number] 09/29/2013 09/29/2013 Alfredo Palomares MD 6M f/u [id number] 04/01/2014 04/01/2014 Alfredo Palomares MD 6M f/u [id number] 04/01/2014 04/01/2014 Alfredo Palomares MD 6M f/u [id number] 04/01/2014 04/01/2014 Alfredo Palomares MD 6M f/u [id number] 04/01/2014 04/01/2014 Alfredo Palomares MD 6M f/u [id number] 04/01/2014 04/01/2014 Alfredo Palomares MD 6M f/u [id number] 04/01/2014 04/01/2014 Alfredo Palomares MD 6M f/u [id number] 04/01/2014 04/01/2014 Alfredo Palomares MD 6M f/u [id number] 04/01/2014 04/01/2014 Alfredo Palomares MD 6M f/u [id number] 04/01/2014 04/01/2014 Alfredo Palomares MD 6M f/u [id number] 04/01/2014 04/01/2014 Alfredo Palomares MD 6M f/u [id number] 04/01/2014 04/01/2014 Alfredo Palomares MD 6M f/u [id number] 04/01/2014 04/01/2014 Alfredo Palomares MD 6M f/u [id number] 04/01/2014 04/01/2014 Alfredo Palomares MD 6M f/u [id number] 04/01/2014 04/01/2014 Alfredo Palomares MD 6M f/u [id number]-kr8so49g93j2 04/01/2014 04/01/2014 Alfredo Palomares MD 6M f/u [id number] 04/01/2014 04/01/2014 Alfredo Palomares MD 6M f/u [id number] 04/01/2014 04/01/2014 Alfredo Palomares MD 6M f/u [id number] 04/01/2014 04/01/2014 Alfredo Palomares MD 6M f/u [id number] 04/01/2014 04/01/2014 Alfredo Palomares MD 6M f/u [id number] 04/01/2014 04/01/2014 Alfredo Palomares MD 6M f/u [id number] 04/01/2014 04/01/2014 Alfredo Palomares MD 6M f/u [id number] 04/01/2014 04/01/2014 Alfredo Palomares MD 6M f/u [id number] 04/01/2014 04/01/2014 Alfredo Palomares MD 6M f/u [id number]-dr4m7915y30w 04/01/2014 04/01/2014 Alfredo Palomares MD 6M f/u [id number] 04/01/2014 04/01/2014 Alfredo Palomares MD 6M f/u [id number] 04/01/2014 04/01/2014 Alfredo Palomares MD 6M f/u [id number] 04/01/2014 04/01/2014 Alfredo Palomares MD 6M f/u [id number] 04/01/2014 04/01/2014 Alfredo Palomares MD [employer] [id number] 04/30/2014 04/30/2014 Alfredo Palomares MD [employer] [id number] 04/30/2014 04/30/2014 Alfredo Palomares MD [employer] [id number] 04/30/2014 04/30/2014 Alfredo Palomares MD [employer] [id number] 04/30/2014 04/30/2014 Alfredo Palomares MD [employer] [id number] 04/30/2014 04/30/2014 Alfredo Palomares MD [employer] [id number]-[id number] 04/30/2014 04/30/2014 Alfredo Palomares MD [employer] [id number] 04/30/2014 04/30/2014 Alfredo Palomares MD [employer] [place] [id number] 04/30/2014 04/30/2014 Alfredo Palomares MD [employer] [place] [id number] 04/30/2014 04/30/2014 Alfredo Palomares MD [employer] [place] [id number] 04/30/2014 04/30/2014 Alfredo Palomares MD [employer] [place] [id number] 04/30/2014 04/30/2014 Alfredo Palomares MD [employer] [place] [id number]-[id number] 04/30/2014 04/30/2014 Alfredo Palomares MD [employer] [place] 76wc7rb7-4c2g-8728-q7d9-3c117soy100s 04/30/2014 04/30/2014 Alfredo Palomares MD [employer] [place] [id number] 04/30/2014 04/30/2014 Alfredo Palomares MD [employer] [place] [id number] 04/30/2014 04/30/2014 Alfredo Palomares MD [employer] [id number] 04/30/2014 04/30/2014 Alfredo Palomares MD [employer] [place] [id number] 04/30/2014 04/30/2014 Alfredo Palomares MD [employer] [id number] 04/30/2014 04/30/2014 Alfredo Palomares MD [employer] [place] [id number]-[id number] 04/30/2014 04/30/2014 Alfredo Palomares MD [employer] [id number]-[id number] 04/30/2014 04/30/2014 Alfredo Palomares MD [employer] [id number] 04/30/2014 04/30/2014 Alfredo Palomares MD [employer] [id number] 04/30/2014 04/30/2014 Alfredo Palomares MD [employer] [id number]-[id number] 04/30/2014 04/30/2014 Alfredo Palomares MD [employer] [id number]-3zvs-[id number] 04/30/2014 04/30/2014 Alfredo Palomares MD [employer] [id number] 04/30/2014 04/30/2014 Alfredo Palomares MD [employer] [id number] 04/30/2014 04/30/2014 Alfredo Palomares MD [employer] [id number]-[id number] 04/30/2014 04/30/2014 Alfredo Palomares MD [employer] [id number] 04/30/2014 04/30/2014 Alfredo Palomares MD [employer] [id number] 04/30/2014 04/30/2014 Alfredo Palomares MD Refill [id number] 05/17/2014 05/17/2014 Alfredo Palomares MD Refill [id number] 05/17/2014 05/17/2014 Alfredo Palomares MD Refill [id number] 05/17/2014 05/17/2014 Alfredo Palomares MD Refill [id number] 05/17/2014 05/17/2014 Alfredo Palomares MD Refill [id number] 05/17/2014 05/17/2014 Alfredo Palomares MD Refill [id number] 05/17/2014 05/17/2014 Alfredo Palomares MD Refill [id number] 05/17/2014 05/17/2014 Alfredo Palomares MD Refill [id number] 05/17/2014 05/17/2014 Alfredo Palomares MD Refill [id number] 05/17/2014 05/17/2014 Alfredo Palomares MD Refill [id number] 05/17/2014 05/17/2014 Alfredo Palomares MD Refill [id number] 05/17/2014 05/17/2014 Alfredo Palomares MD Refill [id number] 05/17/2014 05/17/2014 Alfredo Palomares MD Refill [id number] 05/17/2014 05/17/2014 Alfredo Palomares MD Refill [id number] 05/17/2014 05/17/2014 Alfredo Palomares MD Refill [id number] 05/17/2014 05/17/2014 Alfredo Palomares MD Refill [id number] 05/17/2014 05/17/2014 Alfredo Palomares MD Refill [id number] 05/17/2014 05/17/2014 Alfredo Palomares MD Refill [id number] 05/17/2014 05/17/2014 Alfredo Palomares MD Refill [id number] 05/17/2014 05/17/2014 Alfredo Palomares MD Refill [id number] 05/17/2014 05/17/2014 Alfredo Palomares MD Refill [id number] 05/17/2014 05/17/2014 Alfredo Palomares MD Refill [id number] 05/17/2014 05/17/2014 Alfredo Palomares MD Refill [id number] 05/17/2014 05/17/2014 Alfredo Palomares MD Refill [id number] 05/17/2014 05/17/2014 Alfredo Palomares MD Refill [id number] 05/17/2014 05/17/2014 Alfredo Palomares MD Refill [id number] 05/17/2014 05/17/2014 Alfredo Palomares MD Refill [id number] 05/17/2014 05/17/2014 Alfredo Palomares MD Refill [id number] 05/17/2014 05/17/2014 Alfredo Palomares MD 5M f/u [id number] 09/30/2014 09/30/2014 Alfredo Palomares MD 5M f/u [id number]-[id number] 09/30/2014 09/30/2014 Alfredo Palomares MD 5M f/u [id number]-[id number] 09/30/2014 09/30/2014 Alfredo Palomares MD 5M f/u [id number] 09/30/2014 09/30/2014 Alfredo Palomares MD 5M f/u [id number]-v5boy57f0974 09/30/2014 09/30/2014 Alfredo Palomares MD 5M f/u [id number] 09/30/2014 09/30/2014 Alfredo Palomares MD 5M f/u [id number] 09/30/2014 09/30/2014 Alfredo Palomares MD 6M f/u [id number]-[id number] 09/30/2014 09/30/2014 Alfredo Palomares MD 5M f/u [id number]-[id number] 09/30/2014 09/30/2014 Alfredo Palomares MD 5M f/u [id number]-[id number] 09/30/2014 09/30/2014 Alfredo Palomares MD 6M f/u [id number]-hv56692s5xxe 09/30/2014 09/30/2014 Alfredo Palomares MD 6M f/u 0pb71lw0-024v-83u9-754o-794xb62941p2 09/30/2014 09/30/2014 Alfredo Palomares MD 6M f/u [id number]-yjb4-kyk600185c3o 09/30/2014 09/30/2014 Alfredo Palomares MD 6M f/u [id number] 09/30/2014 09/30/2014 Alfredo Palomares MD 6M f/u [id number]-yke3-2t2k3ws3f989 09/30/2014 09/30/2014 Alfredo Palomares MD 6M f/u [id number] 09/30/2014 09/30/2014 Alfredo Palomares MD 6M f/u [id number]-1n76-235lo3pi5573 09/30/2014 09/30/2014 Alfredo Palomares MD 6M f/u [id number]-0g77-yw12-jxxh1j0b86gr 09/30/2014 09/30/2014 Alfredo Palomares MD 6M f/u [id number]-n166-171j-41g3-7815d03w4795 09/30/2014 09/30/2014 Alfredo Palomares MD 6M f/u [id number]-1740-39s5632b73zb 09/30/2014 09/30/2014 Alfredo Palomares MD 6M f/u [id number]-8p0s-0268-m81e2426d968 09/30/2014 09/30/2014 Alfredo Palomares MD 6M f/u p9rox01b-5ld0-516k-h4iu-923ni30w5x76 09/30/2014 09/30/2014 Alfredo Palomares MD 6M f/u [id number]-yuv451rssc24 09/30/2014 09/30/2014 Alfredo Palomares MD 6M f/u 25lc085v-[id number]-thc1-sj9ee663d673 09/30/2014 09/30/2014 Alfredo Palomares MD 6M f/u [id number]-2n6r5i902uz2 09/30/2014 09/30/2014 Alfredo Palomares MD Unknown [id number] 09/30/2014 09/30/2014 Alfredo Palomares MD Unknown [id number] 09/30/2014 09/30/2014 Alfredo Palomares MD Unknown [id number] 09/30/2014 09/30/2014 Alfredo Palomares MD Unknown [id number] 09/30/2014 09/30/2014 Alfredo Palomares MD Unknown [id number] 09/30/2014 09/30/2014 Alfredo Palomares MD Unknown [id number] 09/30/2014 09/30/2014 Alfredo Palomares MD Unknown [id number] 09/30/2014 09/30/2014 Alfredo Palomares MD Unknown [id number] 09/30/2014 09/30/2014 Alfredo Palomares MD Unknown [id number] 09/30/2014 09/30/2014 Alfredo Palomares MD Unknown [id number] 09/30/2014 09/30/2014 Alfredo Palomares MD Unknown [id number] 09/30/2014 09/30/2014 Alfredo Palomares MD Unknown [id number] 09/30/2014 09/30/2014 Alfredo Palomares MD Unknown [id number] 09/30/2014 09/30/2014 Alfredo Palomares MD Unknown [id number] 09/30/2014 09/30/2014 Alfredo Palomares MD Unknown [id number] 09/30/2014 09/30/2014 Alfredo Palomares MD Unknown [id number] 09/30/2014 09/30/2014 Alfredo Palomares MD Unknown [id number]-[id number] 09/30/2014 09/30/2014 Alfredo Palomares MD Unknown [id number] 09/30/2014 09/30/2014 Alfredo Palomares MD Unknown [id number] 09/30/2014 09/30/2014 Alfredo Palomares MD Unknown [id number]-ws1a-9n6z-9330-aklt9mq18l18 09/30/2014 09/30/2014 Alfredo Palomares MD Unknown [id number]-[id number] 09/30/2014 09/30/2014 Alfredo Palomares MD Unknown [id number]-01hl-50b4-38yh355dio46 09/30/2014 09/30/2014 Alfredo Palomares MD Unknown [id number]-v3r5-54b9-0987-r2b9z45a1j47 09/30/2014 09/30/2014 Alfredo Palomares MD Unknown 06w7hrx7-5k24-9wrj-w4a8-4laxzj4jo34v 09/30/2014 09/30/2014 Alfredo Palomares MD Unknown [id number]-j1r8-758n-p988-pnn9613o951v 09/30/2014 09/30/2014 Alfredo Palomares MD Unknown [id number]-[id number]-b86n-83j3iyeo41no 09/30/2014 09/30/2014 Alfredo Palomares MD Refill- Plaquenil 544m7ae1-m3zi-5ja0-smb3-119may285k16 10/11/2014 10/11/2014 Alfredo Palomares MD Refill- [facility] 0ft4y989-an05-059y-1h7p-8c7e42yi0448 10/11/2014 10/11/2014 Alfredo Palomares MD Refill- [facility] 1462cjd3-54gq-5127-1596-891x0xglq3g4 10/11/2014 10/11/2014 Alfredo Palomares MD Refill- [facility] 9i0s04xo-d80r-20d7-s88v-zc9h5v303887 10/11/2014 10/11/2014 Alfredo Palomares MD Refill- [facility] 0l287uu5-8ow3-15a0-n037-4m159qn5346v 10/11/2014 10/11/2014 Alfredo Palomares MD Refill- Pl[facility] 03842476-cea4-73t6-68e1-wq62409d1150 10/11/2014 10/11/2014 Alfredo Palomares MD Refill- Pl[facility] j48328fj-2d4o-0ruo-z4u2-39u080o6d6h7 10/11/2014 10/11/2014 Alfredo Palomares MD Refill- [facility]enil z3911s36-j486-716o-o4go-82rc1ocl3yft 10/11/2014 10/11/2014 Alfredo Palomares MD Refill- [facility]en[facility] 1skm52p4-9rhb-33c8-u8t6-70v0qdi09ei7 10/11/2014 10/11/2014 Alfredo Palomares MD Refill- Pl[facility] 34e6468z-4r16-8159-p326-126267rjm538 10/11/2014 10/11/2014 Alfredo Palomares MD Refill- Plaquenil py99qc5k-x4zp-5cv9-3116-02305127w2b2 10/11/2014 10/11/2014 Alfredo Palomares MD Refill- Pl[facility]en[facility] 2y49l0zn-dok3-69m2-l555-4s8s0a4r1nln 10/11/2014 10/11/2014 Alfredo Palomares MD Refill- Plaquenil p0525xk3-4256-8a5i-1w02-6poqc98ws0c6 10/11/2014 10/11/2014 Alfredo Palomares MD Refill- Plaquenil a6e80x69-3f0g-0736-776g-8p860e64g4p8 10/11/2014 10/11/2014 Alfredo Palomares MD Refill- Plaquenil 4b24op7q-d29k-3i49-nf5k-bh6t6br3489w 10/11/2014 10/11/2014 Alfredo Palomares MD Refill- Plaquenil a9w6656t-8yd1-7146-5731-301x5v3ty1sm 10/11/2014 10/11/2014 Alfredo Palomares MD Refill- Plaquenil 48068402-zdb3-3251-8552-1101lhkfc792 10/11/2014 10/11/2014 Alfredo Palomares MD Refill- Plaquenil 11c776mg-6322-8553-1987-029tl549r2q4 10/11/2014 10/11/2014 Alfredo Palomares MD Refill- Plaquenil 4h7c80w3-6y91-7m01-7u83-38n055241vp5 10/11/2014 10/11/2014 Alfredo Palomares MD Refill- Plaquenil 7a13c4n6-682g-5g7q-18zp-at5y10w94k01 10/11/2014 10/11/2014 Alfredo Palomares MD Refill- Plaquenil yni029a0-3179-612r-fujt-1y659et5wd33 10/11/2014 10/11/2014 Alfredo Palomares MD Refill- Plaquenil 09412976-833v-7k58-7p80-97ivx54u0iz0 10/11/2014 10/11/2014 Alfredo Palomares MD Refill- Plaquenil 2syq20h8-2218-2fbb-6r94-9wiqml992246 10/11/2014 10/11/2014 Alfredo Palomares MD Refill- Plaquenil 1163c171-rf20-739v-k5pv-28ejs728l0x7 10/11/2014 10/11/2014 [facility]-0[facility]-i853-gz7845b49sx0 10/11/2014 10/11/2014 Alfredo Palomares MD Unknown [id number]-c109-7629-23v7-1n784c47ay1x 10/21/2014 10/21/2014 Alfredo Palomares MD Unknown [id number]-0635-3we14ev0-e312-3mbcj871hq74 10/21/2014 10/21/2014 Alfredo Palomares MD Unknown [id number]-86i2-828en0pfz73l 10/21/2014 10/21/2014 Alfredo Palomares MD Unknown [id number]-yy4h12x6ipk3 10/21/2014 10/21/2014 Alfredo Palomares MD Unknown [id number]-l77a10r8b94m 10/21/2014 10/21/2014 Alfredo Palomares MD Unknown [id number]-h2aw-0a86-2i5m-wcs3yg7h3k6e 10/21/2014 10/21/2014 Alfredo Palomares MD Unknown p4sw2qwg-169u-615e-t7lq-v31h4339a5pz 10/21/2014 10/21/2014 Alfredo Palomares MD Unknown [id number]-f4l7-2h1tmtu196z1 10/21/2014 10/21/2014 Alfredo Palomares MD Unknown [id number]-4174-21fo-w956352phx68 10/21/2014 10/21/2014 Alfredo Palomares MD Unknown [id number]-f56z-9635-21q2-2732o7x0m168 10/21/2014 10/21/2014 Alfredo Palomares MD Unknown [id number]-e239-[id number] 10/21/2014 10/21/2014 Alfredo Palomares MD Unknown [id number] 10/21/2014 10/21/2014 Alfredo Palomares MD Unknown [id number]-xny3-m56h378h317b 10/21/2014 10/21/2014 Alfredo Palomares MD Unknown [id number] 10/21/2014 10/21/2014 Alfredo Palomares MD Unknown [id number] 10/21/2014 10/21/2014 Alfredo Palomares MD Unknown [id number] 10/21/2014 10/21/2014 Alfredo Palomares MD Unknown [id number]-nerb-6099eneb488d 10/21/2014 10/21/2014 Alfredo Palomares MD Unknown [id number] 10/21/2014 10/21/2014 Alfredo Palomares MD Unknown [id number]-uc4v-5j0fty2t8p62 10/21/2014 10/21/2014 Alfredo Palomares MD Unknown [id number]-k0q7-07i16886244k 10/21/2014 10/21/2014 Alfredo Palomares MD Unknown [id number]-u25e-tvyw984070qs 10/21/2014 10/21/2014 Alfredo Palomares MD Unknown [id number]-0vg1-vi93-g8z7zp4k1z52 10/21/2014 10/21/2014 Alfredo Palomares MD Unknown [id number]-[id number]-142dq2q48a66 10/21/2014 10/21/2014 Alfredo Palomares MD Unknown [id number] 10/21/2014 10/21/2014 Alfredo Palomares MD Unknown [id number]-6ds2-l386bf20s89f 10/21/2014 10/21/2014 Alfredo Palomares MD [facility]en[facility] 3v6y4l4k-8397-63ad-wl9b-2x754a0c7fjw 01/03/2015 01/03/2015 Alfredo Palomares MD Plaquenil w69799xq-43rq-45kd-274i-5hqt49825612 01/03/2015 01/03/2015 Alfredo Palomares MD Plaquenil 6r748s17-g802-8410-jww3-8xqz082i1w17 01/03/2015 01/03/2015 Alfredo Palomares MD Plaquenil 48iph558-tt1e-99v2-r0bp-6w07m518ne89 01/03/2015 01/03/2015 Alfredo Palomares MD Plaquenil 4y99wp29-8026-2799-ihz1-ik177296j98o 01/03/2015 01/03/2015 Alfredo Palomares MD Plaquenil 0hm8q9zq-8os3-6p9x-683t-9z6b8y4l82d6 01/03/2015 01/03/2015 Alfredo Palomares MD Plaquenil g810fn1e-20vf-49br-ah68-7z1651jno599 01/03/2015 01/03/2015 Alfredo Palomares MD Plaquenil r93dry20-y89y-7p80-pn59-2j247z1721g8 01/03/2015 01/03/2015 Alfredo Palomares MD Plaquenil 0b0av934-w5qu-3yy2-2973-520j78ccljb9 01/03/2015 01/03/2015 Alfredo Palomares MD Plaquenil 461u1981-cjo4-526j-t798-w5fu3nng341e 01/03/2015 01/03/2015 Alfredo Palomares MD Plaquenil 6o52c583-v6um-219b-9joi-72j44k72sf40 01/03/2015 01/03/2015 Alfredo Palomares MD Plaquenil 4y0n85e5-6762-3j57-4h40-08n93u326xju 01/03/2015 01/03/2015 Alfredo Palomares MD Plaquenil o190i0e4-v39g-08l9-s1wm-dwa38js138a9 01/03/2015 01/03/2015 Alfredo Palomares MD Plaquenil 6370270z-wa61-23ow-34dw-3t4462wa50cm 01/03/2015 01/03/2015 Alfredo Palomares MD Plaquenil 55i8lz3a-4hls-779m-161p-f10p28x48js8 01/03/2015 01/03/2015 Alfredo Palomares MD Plaquenil fr92c0yn-6z19-08fa-l683-n29b58j332m6 01/03/2015 01/03/2015 Alfredo Palomares MD Plaquenil 6v857u6k-c70c-3638-s842-1196q0821248 01/03/2015 01/03/2015 Alfredo Palomares MD Plaquenil 3pho4ph2-d427-6a89-q0zy-77ogu655v9q9 01/03/2015 01/03/2015 Alfredo Palomares MD Plaquenil 59al05zc-2c7e-89w2-7l6s-31xq2056t7wt 01/03/2015 01/03/2015 Alfredo Palomares MD Plaquenil 47225j6j-a75m-86e0-6b49-4iufh7w6z6ys 01/03/2015 01/03/2015 Alfrdeo Palomares MD Plaquenil 258x93vx-5146-776l-5084-31au1032910z 01/03/2015 01/03/2015 Alfredo Palomares MD Plaquenil 0700029x-347c-546r-i2m9-386456596xf3 01/03/2015 01/03/2015 Alfredo Palomares MD Plaquenil fa9u147r-f88e-03t1-83hb-64c159688060 01/03/2015 01/03/2015 Alfredo Palomares MD Plaquenil 8u2n4qh3-9zb5-0w00-iti5-8at70618f5b8 01/03/2015 01/03/2015 Alfredo Palomares MD Plaquenil 2odc775o-6821-82bx-03m9-0p02699k0950 01/03/2015 01/03/2015 Alfredo Palomares MD Unknown [id number]-e9lo-42z4-16t8-j33qr5316b8s 03/30/2015 03/30/2015 Alfredo Palomares MD Unknown [id number]-7u8t-8g33-2556-14s0p5tw3450 03/30/2015 03/30/2015 Alfredo Palomares MD Unknown [id number]-386s-x0ho-1oc1zxe80289 03/30/2015 03/30/2015 Alfredo Palomares MD Unknown [id number]-yw3y-7g876d083769 03/30/2015 03/30/2015 Alfredo Palomares MD Unknown 201o3c40-v7ls-3y00-1n5k-vr09qh513q02 03/30/2015 03/30/2015 Alfredo Palomares MD Unknown [id number]-42fr-u8i7-xl4u4t63l225 03/30/2015 03/30/2015 Alfredo Palomares MD Unknown [id number] 03/30/2015 03/30/2015 Alfredo Palomares MD Unknown [id number]-rm52-411x9s819m4z 03/30/2015 03/30/2015 Alfredo Palomares MD Unknown [id number]-056vp04j5v5a 03/30/2015 03/30/2015 Alfredo Palomares MD Unknown [id number]-9691-c49e7b340d39 03/30/2015 03/30/2015 Alfredo Palomares MD Unknown [id number]-[id number] 03/30/2015 03/30/2015 Alfredo Palomares MD Unknown [id number]-i5mf-5ti34709h7mc 03/30/2015 03/30/2015 Alfredo Palomares MD Unknown [id number] 03/30/2015 03/30/2015 Alfredo Palomares MD Unknown [id number]-61o3-1712-p5r7136k87j1 03/30/2015 03/30/2015 Alfredo Palomares MD Unknown [id number]-3078-3081-54084c4wl4p4 03/30/2015 03/30/2015 Alfredo Palomares MD Unknown [id number]-100w-05hi-[id number] 03/30/2015 03/30/2015 Alfredo Palomares MD Unknown [id number]-q40dv71w13gn 03/30/2015 03/30/2015 Alfredo Palomares MD Unknown [id number] 03/30/2015 03/30/2015 Alfredo Palomares MD Unknown [id number] 03/30/2015 03/30/2015 Alfredo Palomares MD Unknown [id number]-sxz8-[id number] 03/30/2015 03/30/2015 Alfredo Palomares MD Unknown [id number]-9cpc-7jt5-6848-83i4qsla2e03 03/30/2015 03/30/2015 Alfredo Palomares MD Unknown [id number]-[id number] 03/30/2015 03/30/2015 Alfredo Palomares MD Unknown [id number]-ng6c515f960b 03/30/2015 03/30/2015 Alfredo Palomares MD Unknown [id number]-0a65-49i4-90m297o41oe0 03/30/2015 03/30/2015 Alfredo Palomares MD 6M f/u t918tx4d-343k-77bk-7yz6-10679bg8183c 04/12/2015 04/12/2015 Alfredo Palomares MD 6M f/u ak35584x-0vz2-097z-f14z-6371wr499uhk 04/12/2015 04/12/2015 Alfredo Palomares MD 6M f/u 6r90783w-1yq4-92i9-pl1d-87y0828325gm 04/12/2015 04/12/2015 Alfredo Palomares MD 6M f/u 3j16486x-dw15-4644-2o7n-i1l0s4639936 04/12/2015 04/12/2015 Alfredo Palomares MD 6M f/u 3551e401-056i-0561-5l55-3i15g24d97y4 04/12/2015 04/12/2015 Alfredo Palomares MD 6M f/u bf7122a0-678w-12w3-2jzf-4v3178173716 04/12/2015 04/12/2015 Alfredo Palomares MD 6M f/u 9s5d1ecl-3x8o-4181-f9ao-qw7ko2l1id65 04/12/2015 04/12/2015 Alfredo Palomares MD 6M f/u 8c91y82d-88y1-1305-9358-w6bjd4t5a27m 04/12/2015 04/12/2015 Alfredo Palomares MD 6M f/u wny01ts2-0jd3-850f-r446-278796ezx814 04/12/2015 04/12/2015 Alfredo Palomares MD 6M f/u bp3a3906-xmj2-98q8-bthf-o12c2x41pi10 04/12/2015 04/12/2015 Alfredo Palomares MD 6M f/u tu1eqya4-c3h0-1lj7-05d2-4379o5b9663f 04/12/2015 04/12/2015 Alfredo Palomares MD 6M f/u 354z8i44-5lb1-50b9-q6rd-7z5821669q6e 04/12/2015 04/12/2015 Alfredo Palomares MD 6M f/u m0a5b903-65x0-1913-0a93-kb988zfd8hd0 04/12/2015 04/12/2015 Alfredo Palomares MD 6M f/u 95540whr-1m7r-8vo0-j596-387yopi6t4s5 04/12/2015 04/12/2015 Alfredo Palomares MD 6M f/u bzc7e1zo-vq81-7g18-r1fe-54457e1nml46 04/12/2015 04/12/2015 Alfredo Palomares MD 6M f/u 9973s3c1-s007-1v08-s274-9fz8r326222y 04/12/2015 04/12/2015 Alfredo Palomares MD 6M f/u 444y0cz7-j71r-7221-m56y-2nw4nh2xh0zc 04/12/2015 04/12/2015 Alfredo Palomares MD 6M f/u w1uk2p64-h1vd-7p20-wi06-7170ia8s9ky0 04/12/2015 04/12/2015 Alfredo Palomares MD 6M f/u w5d10310-5i5t-3a42-c1yl-o884g16m1662 04/12/2015 04/12/2015 Alfredo Palomares MD 6M f/u 8di56125-2b9r-7090-k29k-5or1b4q7300y 04/12/2015 04/12/2015 Alfredo Palomares MD 6M f/u 4b82i999-3d01-9ngz-4495-12l580py865s 04/12/2015 04/12/2015 Alfredo Palomares MD 6M f/u 7o195dlc-0u84-912a-w3v5-0f2tsrx92123 04/12/2015 04/12/2015 Alfredo Palomares MD [facility] g7d7h660-9rz3-067f-5086-tj2d322533k2 04/15/2015 04/15/2015 Alfredo Palomares MD [facility] ed65rf55-018r-6278-j8n5-67lz5878m8m3 04/15/2015 04/15/2015 Alfredo Palomares MD [facility] [id number]-5v6c-4395-7z8s904r5p34 04/15/2015 04/15/2015 Alfredo Palomares MD [facility] 19e93d7p-6056-4316-nv5a-3x3x56489gfv 04/15/2015 04/15/2015 Alfredo Palomares MD [facility] [id number]-x7052926s464 04/15/2015 04/15/2015 Alfredo Palomares MD [facility] rca13t6l-928c-606x-136y-5922q86091jr 04/15/2015 04/15/2015 Alfredo Palomares MD [facility] h4b919dc-r6z6-7874-4p69-v097ee9zx8su 04/15/2015 04/15/2015 Alfredo Palomares MD [facility] [id number]8s8 04/15/2015 04/15/2015 Alfredo Palomares MD [facility] 2944z08f-a4nm-46z0-6lcp-121837poab83 04/15/2015 04/15/2015 Alfredo Palomares MD med o28ni117-1lx2-54c3-ncoi-x4mhmv07673p 04/15/2015 04/15/2015 Alfredo Palomares MD [facility] s3y10u8i-a7t5-04p7-r62l-zyc8h5114ujp 04/15/2015 04/15/2015 Alfredo Palomares MD [facility] [id number] 04/15/2015 04/15/2015 Alfredo Palomares MD [facility] [id number]-of06-258i-6y7x-6l62zx000002 04/15/2015 04/15/2015 Alfredo Palomares MD [facility] x53k8w17-2tj7-9h5m-53h1-ot4u830125pu 04/15/2015 04/15/2015 Alfredo Palomares MD [facility] x5v54ghh-z9f8-0810-d259-o07283f9207m 04/15/2015 04/15/2015 Alfredo Palomares MD [facility] 7k4is5k8-l877-7789-9p40-0r8p76r4f6fo 04/15/2015 04/15/2015 Alfredo Palomares MD [facility] h70g5k1v-x3u1-5h18-j855-7nq2954ys15g 04/15/2015 04/15/2015 Alfredo Palomares MD [facility] [id number]-lf0o-42ydwa57u25a 04/15/2015 04/15/2015 Alfredo Palomares MD [facility] [id number]-k08g-6095r28ss335 04/15/2015 04/15/2015 Alfredo Palomares MD [facility] oh992927-vw0t-8f19-87ce-i11m73205y5t 04/15/2015 04/15/2015 Alfredo Palomares MD [facility] 5f40d856-5l8r-3mb4-v4w7-2jfmp0ozsk15 04/15/2015 04/15/2015 Alfredo Palomares MD [facility] [id number]-[id number]-[id number] 04/15/2015 04/15/2015 Alfredo Palomares MD [facility] [id number]-57md-77c4-40dr9cp950w1 04/15/2015 04/15/2015 Alfredo Palomares [facility] [id number] Marta Esqueda 05/10/2015 05/11/2015 [facility] Yony Palomares MD refill 154o0q7y-vu81-35zl-p1wv-47168dpn985e 05/16/2015 05/16/2015 Alfredo Palomares MD refill 4upe80n4-t023-96xg-e2i9-0412228080n0 05/16/2015 05/16/2015 Alfreod Palomares MD refill [id number]-e3f3-vvo9997xgjk6 05/16/2015 05/16/2015 Alfredo Palomares MD refill 2wp781jo-2e09-4152-32v5-s3x4623t2dys 05/16/2015 05/16/2015 Alfredo Palomares MD refill [id number]-4m23-008i-0664rd5zl57q 05/16/2015 05/16/2015 Alfredo Palomares MD refill 24f564o6-48r1-5897-c76o-0z38gf19394t 05/16/2015 05/16/2015 Alfredo Palomares MD refill t8i318u9-su20-15ff-v8p6-42iw49n26620 05/16/2015 05/16/2015 Alfredo Palomares MD refill 573m1vbm-147a-6136-936a-08uut08fkn67 05/16/2015 05/16/2015 Alfredo Palomares MD refill 75c77p17-flkh-0q5f-0m96-2j88h7940171 05/16/2015 05/16/2015 Alfredo Palomares MD refill 927p141l-0u0h-595o-787k-fmebb64isjo0 05/16/2015 05/16/2015 Alfredo Palomares MD refill 518nm2a4-0jg6-12g8-3uh6-zj085781n9b5 05/16/2015 05/16/2015 Alfredo Palomares MD refill a6z6umc2-8ys2-5i5y-hbe0-qezc1336955h 05/16/2015 05/16/2015 Alfredo Palomares MD refill 8u7zx7t6-26e4-20w7-98a2-889np3uvy65v 05/16/2015 05/16/2015 Alfredo Palomares MD refill j7406q2l-hpnh-3075-x5ap-b41ms606899i 05/16/2015 05/16/2015 Alfredo Palomares MD refill y0xqf2o7-12ja-983g-wuj6-1045j1n3444x 05/16/2015 05/16/2015 Alfredo Palomares MD refill ht2300ri-b79g-98sc-e2jh-b7n0l6l55756 05/16/2015 05/16/2015 Alfredo Palomares MD refill [id number]-r5bv-5228-386x-2xlc45j66138 05/16/2015 05/16/2015 Alfredo Palomares MD refill [id number]-4s3l-1w698f9453q5 05/16/2015 05/16/2015 Alfredo Palomares MD refill 94h6r141-3380-0j16-qhl1-j8a2639o3z7w 05/16/2015 05/16/2015 Alfredo Palomares MD refill 0jg6u4m6-9t2a-8k45-z05a-5q1m9ryj174t 05/16/2015 05/16/2015 Alfredo Palomares MD refill h0n5n111-2518-52p0-42c5-3a218g1pqfuj 05/16/2015 05/16/2015 Alfredo Palomares MD [facility] 46he4p80-t525-1696-7407-q56383dcas1o 05/27/2015 05/27/2015 Alfredo Palomares MD [facility] 53t92pqw-z535-2l62-3m00-9c6r12g8qkm2 05/27/2015 05/27/2015 Alfredo Palomares MD [facility] -10h7-178l-e0lg-0c39u3s4m636 05/27/2015 05/27/2015 Alfredo Palomares MD [facility] as1b23sv-4367-30b3-7828-i6513qx91e81 05/27/2015 05/27/2015 Alfredo Palomares MD [facility] x57gg6ri-[id number]-12p4nk4ry616 05/27/2015 05/27/2015 Alfredo Palomares MD [facility] [id number]-n705-6l95-kz9y-d4t1437290jl 05/27/2015 05/27/2015 Alfredo Palomares MD [facility] j59fi768-nc9v-5kbf-ri72-f06o5519808e 05/27/2015 05/27/2015 Alfredo Palomares MD [facility] hu7x74zd-ig3w-50h0-a61o-ia63274t8wmw 05/27/2015 05/27/2015 [facility] 6x5gt553-6949-8030-7397-e2m0dx4055i4 05/27/2015 05/27/2015 Alfredo Palomares MD [facility] wf1vlh6z-ww1e-8w5s-7s61-9w0z4rqt1713 05/27/2015 05/27/2015 Alfredo Palomares MD [facility] 07403omm-6386-12o4-[id number] 05/27/2015 05/27/2015 Alfredo Palomares MD [facility] [id number] 05/27/2015 05/27/2015 Alfredo Palomares MD [facility] [id number] 05/27/2015 05/27/2015 Alfredo Palomares MD PLAQUIL [id number] 05/27/2015 05/27/2015 Alfredo Palomares MD [facility] [id number] 05/27/2015 05/27/2015 Alfredo Palomares MD [facility] [id number] 05/27/2015 05/27/2015 Alfredo Palomares MD [facility] [id number] 05/27/2015 05/27/2015 Alfredo Palomares MD [facility] [id number]-[id number] 05/27/2015 05/27/2015 Alfredo Palomares MD [facility] [id number] 05/27/2015 05/27/2015 Alfredo Palomares MD [facility] [id number] 05/27/2015 05/27/2015 Alfredo Palomares MD Call from Dr Mcelroy [id number] 06/02/2015 06/02/2015 Alfredo Palomares MD Call from Dr Mcelroy [id number] 06/02/2015 06/02/2015 Alfredo Palomares MD Call from Dr Mcelroy [id number] 06/02/2015 06/02/2015 Alfredo Palomares MD Call from Dr Mcelroy [id number] 06/02/2015 06/02/2015 Alfredo Palomares MD Call from Dr Mcelroy [id number] 06/02/2015 06/02/2015 Alfredo Palomares MD Call from Dr Mcelroy [id number] 06/02/2015 06/02/2015 Alfredo Palomares MD Call from Dr Mcelroy [id number] 06/02/2015 06/02/2015 Alfredo Palomares MD Call from Dr Mcelroy [id number] 06/02/2015 06/02/2015 Alfredo Palomares MD Call from Dr Mcelroy [id number] 06/02/2015 06/02/2015 Alfredo Palomares MD Call from Dr Mcelroy [id number] 06/02/2015 06/02/2015 Alfredo Palomares MD Call from Dr Mcelroy [id number] 06/02/2015 06/02/2015 Alfredo Palomares MD Call from Dr Mcelroy [id number] 06/02/2015 06/02/2015 Alfredo Palomares MD Call from Dr Mcelroy [id number] 06/02/2015 06/02/2015 Alfredo Palomares MD Call from Dr Mcelroy [id number] 06/02/2015 06/02/2015 Alfredo Palomares MD Call from Dr Mcelroy [id number] 06/02/2015 06/02/2015 Alfredo Palomares MD Call from Dr Mcelroy [id number] 06/02/2015 06/02/2015 Alfredo Palomares MD Call from Dr Mcelroy [id number] 06/02/2015 06/02/2015 Alfredo Palomares MD Call from Dr Mcelory [id number] 06/02/2015 06/02/2015 Alfredo Palomares MD Call from Dr Mcelroy [id number] 06/02/2015 06/02/2015 Alfredo Palomares MD Call from Dr Mcelroy [id number] 06/02/2015 06/02/2015 Alfredo Palomares MD rx resent [id number] 06/02/2015 06/02/2015 Alfredo Palomares MD rx resent [id number] 06/02/2015 06/02/2015 Alfredo Palomares MD rx resent [id number]-zv1s90m7l7i0 06/02/2015 06/02/2015 Alfredo Palomares MD rx resent [id number] 06/02/2015 06/02/2015 Alfredo Palomares MD rx resent [id number] 06/02/2015 06/02/2015 Alfredo Palomares MD rx resent [id number] 06/02/2015 06/02/2015 Alfredo Palomares MD rx resent [id number] 06/02/2015 06/02/2015 Alfredo Palomares MD rx resent [id number] 06/02/2015 06/02/2015 Alfredo Palomares MD rx resent [id number] 06/02/2015 06/02/2015 Alfredo Palomares MD rx resent [id number] 06/02/2015 06/02/2015 Alfredo Palomares MD rx resent [id number] 06/02/2015 06/02/2015 Alfredo Palomares MD rx resent [id number] 06/02/2015 06/02/2015 Alfredo Palomares MD rx resent [id number] 06/02/2015 06/02/2015 Alfredo Palomares MD rx resent [id number] 06/02/2015 06/02/2015 Alfredo Palomares MD rx resent [id number] 06/02/2015 06/02/2015 Alfredo Palomares MD rx resent [id number] 06/02/2015 06/02/2015 Alfredo Palomares MD rx resent [id number] 06/02/2015 06/02/2015 Alfredo Palomares MD rx resent [id number] 06/02/2015 06/02/2015 Alfredo Palomares MD rx resent [id number] 06/02/2015 06/02/2015 Alfredo Palomares MD rx resent [id number] 06/02/2015 06/02/2015 Alfredo Palomares MD Refill Req Plaquenil [id number] 08/09/2015 08/09/2015 Alfredo Palomares MD Refill Req Plaquenil [id number] 08/09/2015 08/09/2015 Alfredo Palomares MD Refill Req Plaquenil [id number] 08/09/2015 08/09/2015 Alfredo Palomares MD Refill Req Plaquenil [id number] 08/09/2015 08/09/2015 Alfredo Palomares MD Refill Req Plaquenil [id number]-[id number]-[id number] 08/09/2015 08/09/2015 Alfredo Palomares MD Refill Req Plaquenil [id number] 08/09/2015 08/09/2015 Alfredo Palomares MD Refill Req Plaquenil [id number] 08/09/2015 08/09/2015 Alfredo Palomares MD Refill Req Plaquenil [id number] 08/09/2015 08/09/2015 Alfredo Palomares MD Refill Req Plaquenil [id number] 08/09/2015 08/09/2015 Alfredo Palomares MD Refill Req Plaquenil [id number] 08/09/2015 08/09/2015 Alfredo Palomares MD Refill Req Plaquenil [id number] 08/09/2015 08/09/2015 Alfredo Palomares MD Refill Req Plaquenil [id number] 08/09/2015 08/09/2015 Alfredo Palomares MD Refill Req Plaquenil [id number] 08/09/2015 08/09/2015 Alfredo Palomares MD Refill Req Plaquenil [id number] 08/09/2015 08/09/2015 Alfredo Palomares MD Refill Req Plaquenil [id number] 08/09/2015 08/09/2015 Alfredo Palomares MD Refill Req Plaquenil [id number] 08/09/2015 08/09/2015 Alfredo Palomares MD Refill Req Plaquenil [id number] 08/09/2015 08/09/2015 Alfredo Palomares MD Plaquenil Rx [id number] 08/30/2015 08/30/2015 Alfredo Palomares MD Plaquenil Rx [id number] 08/30/2015 08/30/2015 Alfredo Palomares MD Plaquenil Rx [id number] 08/30/2015 08/30/2015 Alfredo Palomares MD Plaquenil Rx [id number] 08/30/2015 08/30/2015 Alfredo Palomares MD Plaquenil Rx [id number] 08/30/2015 08/30/2015 Alfredo Palomares MD Plaquenil Rx [id number] 08/30/2015 08/30/2015 Alfredo Palomares MD Plaquenil Rx [id number] 08/30/2015 08/30/2015 Alfredo Palomares MD Plaquenil Rx [id number] 08/30/2015 08/30/2015 Alfredo Palomares MD Plaquenil Rx [id number] 08/30/2015 08/30/2015 Alfredo Palomares MD Plaquenil Rx [id number] 08/30/2015 08/30/2015 Alfredo Palomares MD Plaquenil Rx [id number] 08/30/2015 08/30/2015 Alfredo Palomares MD [facility] [id number] 08/30/2015 08/30/2015 Alfredo Palomares MD [facility] [id number] 08/30/2015 08/30/2015 Alfredo Palomares MD [facility] [id number]-[id number] 08/30/2015 08/30/2015 Alfredo Palomares MD [facility] [id number] 08/30/2015 08/30/2015 Alfredo Palomares MD [facility] [id number]-z66nw0w7z794 08/30/2015 08/30/2015 Alfredo Palomares MD [id number] 10/13/2015 10/13/2015 Alfredo Palomares MD [id number]-[id number] 10/13/2015 10/13/2015 Alfredo Palomares MD [id number]-o833qeb7cv9i 10/13/2015 10/13/2015 Alfredo Palomares MD [id number]-i8413ojd2n67 10/13/2015 10/13/2015 Alfredo Palomares MD [id number]-2710-[id number] 10/13/2015 10/13/2015 Alfredo Palomares MD [id number]-[id number] 10/13/2015 10/13/2015 Alfredo Palomares MD [id number]-20m16u0fougw 10/13/2015 10/13/2015 Alfredo Palomares MD [id number]-[id number] 10/13/2015 10/13/2015 Alfredo Palomares MD [id number]-p998-355d-[id number]-[id number] 10/13/2015 10/13/2015 Alfredo Palomares MD [id number]-2742-f3q2-sth1a354d1wa 10/13/2015 10/13/2015 Alfredo Palomares MD FU [id number] 10/13/2015 10/13/2015 Alfredo Palomares MD [id number]-1kqo-[id number] 10/13/2015 10/13/2015 Alfredo Palomares MD [id number]-c12x-4hmae64ad42b 10/13/2015 10/13/2015 Alfredo Palomares MD [id number]-[id number] 10/13/2015 10/13/2015 Alfredo Palomares MD [id number]-[id number] 10/13/2015 10/13/2015 Alfredo Palomares MD HYDROXYCHLOROQUINE REFILL [id number]-3k3w-7o2j8w9u8nvs 12/29/2015 12/29/2015 Alfredo Palomares MD HYDROXYCHLOROQUINE REFILL [id number]-b986e48916n1 12/29/2015 12/29/2015 Alfredo Palomares MD HYDROXYCHLOROQUINE REFILL [id number]-[id number]-1qxaa84h1783 12/29/2015 12/29/2015 Alfredo Palomares MD HYDROXYCHLOROQUINE REFILL [id number]-s50i-6sn6-24x2-0hx894q2vl1j 12/29/2015 12/29/2015 Alfredo Palomares MD HYDROXYCHLOROQUINE REFILL [id number] 12/29/2015 12/29/2015 Alfredo Palomares MD HYDROXYCHLOROQUINE REFILL [id number]-[id number] 12/29/2015 12/29/2015 Alfredo Palomares MD HYDROXYCHLOROQUINE REFILL [id number] 12/29/2015 12/29/2015 Alfredo Palomares MD HYDROXYCHLOROQUINE REFILL [id number] 12/29/2015 12/29/2015 Alfredo Palomares MD HYDROXYCHLOROQUINE REFILL [id number]-[id number]-02456h21k69a 12/29/2015 12/29/2015 Alfredo Palomares MD HYDROXYCHLOROQUINE REFILL [id number] 12/29/2015 12/29/2015 Alfredo Palomares MD HYDROXYCHLOROQUINE REFILL [id number]-h6357v3j03jv 12/29/2015 12/29/2015 Alfredo Palomarse MD HYDROXYCHLOROQUINE REFILL [id number]-[id number] 12/29/2015 12/29/2015 Alfredo Palomares MD HYDROXYCHLOROQUINE REFILL [id number]-e0i5kd895mkd 12/29/2015 12/29/2015 Alfredo Palomares MD HYDROXYCHLOROQUINE REFILL [id number]-[id number]-[id number] 12/29/2015 12/29/2015 Alfredo Palomares MD refill- Hydroxychloroquine [id number]-s842-9981-bje4-3db74iym42s1 12/30/2015 12/30/2015 Alfredo Palomares MD refill- Hydroxychloroquine [id number]-9ctw-6lu1h753kjff 12/30/2015 12/30/2015 Alfredo Palomares MD refill- Hydroxychloroquine [id number]-y712-[id number] 12/30/2015 12/30/2015 Alfredo Palomares MD refill- Hydroxychloroquine [id number]-28k8-6q14-06p8396mk296 12/30/2015 12/30/2015 Alfredo Palomares MD refill- Hydroxychloroquine 52g1rfg5-3h51-203h-75nc-349568n40320 12/30/2015 12/30/2015 Alfredo Palomares MD refill- Hydroxychloroquine [id number]-[id number]-j391-n6ez75i8833y 12/30/2015 12/30/2015 Alfredo Palomares MD refill- Hydroxychloroquine [id number]-7f45-65t1-v910-681b0367q95l 12/30/2015 12/30/2015 Alfredo Palomares MD refill- Hydroxychloroquine [id number]-191o-1y84-2c7s-8sj9vc35oq9h 12/30/2015 12/30/2015 Alfredo Palomares MD refill- Hydroxychloroquine [id number]-5353-u4as-68168c8cj06h 12/30/2015 12/30/2015 Alfredo Palomares MD refill- Hydroxychloroquine [id number] 12/30/2015 12/30/2015 Alfredo Palomares MD refill- Hydroxychloroquine 6965i51i-017e-[id number]-o74n9hh9bs83 12/30/2015 12/30/2015 Alfredo Palomares MD refill- Hydroxychloroquine [id number]-34p7-3qj4778s2127 12/30/2015 12/30/2015 Alfredo Palomares MD refill- Hydroxychloroquine [id number]-w2dn5100q4e2 12/30/2015 12/30/2015 Alfredo Palomares MD Refill- Plaquenil [id number]-zsko-u04a3a7aae74 01/25/2016 01/25/2016 Alfredo Palomares MD Refill- Plaquenil [id number]-[id number] 01/25/2016 01/25/2016 Alfredo Palomares MD Refill- Plaquenil 80l4fa1z-n9t5-9i10-5129-z47uq5oa7w3b 01/25/2016 01/25/2016 Alfredo Palomares MD Refill- Plaquenil [id number]-bd0w-6tcj-o8c9-b394j9sp8f2k 01/25/2016 01/25/2016 Alfredo Palomares MD Refill- Plaquenil [id number]-[id number] 01/25/2016 01/25/2016 Alfredo Palomares MD Refill- Plaquenil [id number]-756w-k35s-s4127m3pf972 01/25/2016 01/25/2016 Alfredo Palomares MD Refill- Plaquenil [id number]-[id number]-[id number] 01/25/2016 01/25/2016 Alfredo Palomares MD Refill- Plaquenil [id number]-3d3f-5ht8-a00x563sq557 01/25/2016 01/25/2016 Alfredo Palomares MD Refill- Plaquenil [id number] 01/25/2016 01/25/2016 Alfredo Palomares MD Refill- Plaquenil [id number] 01/25/2016 01/25/2016 Alfredo Palomares MD Refill- Plaquenil [id number]-002l-x664-f7x7556859by 01/25/2016 01/25/2016 Alfredo Palomares MD Refill- Plaquenil 46092yf7-iqm8-7plj-39xv-11umc3vppx18 01/25/2016 01/25/2016 Alfredo Palomares MD low potassium [id number] 01/30/2016 01/30/2016 Alfredo Palomares MD low potassium [id number]-y28o-036fv7979343 01/30/2016 01/30/2016 Alfredo Palomares MD low potassium [id number] 01/30/2016 01/30/2016 Alfredo Palomares MD low potassium [id number]-p12w10mny652 01/30/2016 01/30/2016 Alfredo Palomares MD low potassium [id number]-37ha-24822u004dm1 01/30/2016 01/30/2016 Alfredo Palomares MD low potassium [id number]-h66i-98q27886qh45 01/30/2016 01/30/2016 Alfredo Palomares MD low potassium [id number]-9j16-i9c0-[id number] 01/30/2016 01/30/2016 Alfredo Palomares MD low potassium 6968l183-599f-71e8-3o09-zx500fdgxjcm 01/30/2016 01/30/2016 Alfredo Palomares MD low potassium 521g2c23-y620-5x1z-r7yh-9enkgq26q372 01/30/2016 01/30/2016 Alfredo Palomares MD low potassium [id number]-q568-51i2-k5mz-4j582e69p1wi 01/30/2016 01/30/2016 Alfredo Palomares MD low potassium [id number]-14f5-642g-g671-30237j7337wd 01/30/2016 01/30/2016 Alfredo Palomares MD Nitroglycerin Ointment [id number]-15q2-gr40-a0541uay428l 01/31/2016 01/31/2016 Alfredo Palomares MD Nitroglycerin Ointment 41m1hc40-1wp0-30x5-fx94-0912amb72d1g 01/31/2016 01/31/2016 Alfredo Palomares MD Nitroglycerin Ointment [id number] 01/31/2016 01/31/2016 Alfredo Palomares MD Nitroglycerin Ointment [id number]-20lq-9ok5-5hq8n6zt407q 01/31/2016 01/31/2016 Alfredo Palomaers MD Nitroglycerin Ointment [id number]-[id number] 01/31/2016 01/31/2016 Alfredo Palomares MD Nitroglycerin Ointment [id number]-435n-0o12-zbxe-hs510897txn3 01/31/2016 01/31/2016 Alfredo Palomares MD Nitroglycerin Ointment [id number] 01/31/2016 01/31/2016 Alfredo Palomares MD Nitroglycerin Ointment [id number] 01/31/2016 01/31/2016 Alfredo Palomares MD Nitroglycerin Ointment 26si5wa3-v3nj-388y-078d-r55atevke8pm 01/31/2016 01/31/2016 Alfredo Palomares MD Nitroglycerin Ointment [id number]-[id number] 01/31/2016 01/31/2016 Alfredo Palomares MD 4 mth f/u [id number]-e76b5pox68ds 02/13/2016 02/13/2016 Alfredo Palomares MD 4 mth f/u [id number]-wcue-740w4xt98q7e 02/13/2016 02/13/2016 Alfredo Palomares MD Unknown [id number] 02/13/2016 02/13/2016 Alfredo Palomares MD Unknown [id number] 02/13/2016 02/13/2016 Alfredo Palomares MD Unknown [id number] 02/13/2016 02/13/2016 Alfredo Palomares MD 4 mth f/u [id number] 02/13/2016 02/13/2016 Alfredo Palomares MD 4 mth f/u [id number]-5318-[id number] 02/13/2016 02/13/2016 Alfredo Palomares MD 4 mth f/u [id number] 02/13/2016 02/13/2016 Alfredo Palomares MD 4 mth f/u [id number]-[id number] 02/13/2016 02/13/2016 Alfredo Palomares MD 4 mth f/u [id number]-t99a-[id number] 02/13/2016 02/13/2016 Alfredo Palomares MD 4 mth f/u [id number] 02/13/2016 02/13/2016 Alfredo Palomares MD Unknown [id number] 02/13/2016 02/13/2016 Alfredo Palomares MD Unknown [id number] 02/13/2016 02/13/2016 Alfredo Palomares MD Unknown [id number] 02/13/2016 02/13/2016 Alfredo Palomares MD Unknown [id number] 02/13/2016 02/13/2016 Alfredo Palomares MD Unknown [id number] 02/13/2016 02/13/2016 Alfredo Palomares MD Unknown [id number] 02/13/2016 02/13/2016 Alfredo Palomares MD Right hip bursa inj [id number] 03/07/2016 03/07/2016 Alfredo Palomares MD Right hip bursa inj [id number] 03/07/2016 03/07/2016 Alfredo Palomares MD Right hip bursa inj [id number] 03/07/2016 03/07/2016 Alfredo Palomares MD Right hip bursa inj [id number]-[id number]-r1490s9wm9e4 03/07/2016 03/07/2016 Alfredo Palomares MD Right hip bursa inj [id number] 03/07/2016 03/07/2016 Alfredo Palomares MD Right hip bursa inj [id number] 03/07/2016 03/07/2016 Alfredo Palomares MD Right hip bursa inj [id number] 03/07/2016 03/07/2016 Alfredo Palomares MD LEFT hip bursa inj [id number] 03/14/2016 03/14/2016 Alfredo Palomares MD LEFT hip bursa inj [id number] 03/14/2016 03/14/2016 Alfredo Palomares MD LEFT hip bursa inj [id number] 03/14/2016 03/14/2016 Alfredo Palomares MD LEFT hip bursa inj [id number] 03/14/2016 03/14/2016 Alfredo Palomares MD LEFT hip bursa inj [id number] 03/14/2016 03/14/2016 Alfredo Palomares MD LEFT hip bursa inj [id number] 03/14/2016 03/14/2016 Alfredo Palomares MD RIGHT KNEE INJEC [id number] 03/26/2016 03/26/2016 Alfredo Palomares MD RIGHT KNEE INJEC [id number] 03/26/2016 03/26/2016 Alfredo Palomares MD RIGHT KNEE INJEC [id number] 03/26/2016 03/26/2016 Alfredo Palomares MD RIGHT KNEE INJEC [id number] 03/26/2016 03/26/2016 Alfredo Palomares MD RIGHT KNEE INJEC [id number] 03/26/2016 03/26/2016 Alfredo Palomares MD LEFT KNEE INJEC [id number] 04/03/2016 04/03/2016 Alfredo Palomares MD LEFT KNEE INJEC [id number] 04/03/2016 04/03/2016 Alfredo Palomares MD LEFT KNEE INJEC [id number] 04/03/2016 04/03/2016 Alfredo Palomares MD Pain in chest [id number] 04/11/2016 04/11/2016 Alfredo Palomares MD Pain in chest [id number] 04/11/2016 04/11/2016 Alfredo Palomares MD Pain in chest [id number] 04/11/2016 04/11/2016 Alfredo Palomares MD Pain in chest [id number] 04/11/2016 04/11/2016 Alfredo Palomares MD [facility] [id number] 04/27/2016 04/27/2016 Alfredo Palomares MD [facility] [id number] 04/27/2016 04/27/2016 Alfredo Palomares MD [facility] [id number] 05/01/2016 05/01/2016 Alfredo Palomares Procedures Procedure Code Date Perfomer Comments Source
--- OUTSIDE RECORDS SUMMARY | 2018-09-17 12:38 | XMS REPORT ---
Author Author Marta Esqueda [facility] eClinicalWorks Address Unknown Phone Unavailable Care Team Providers Care Chip Mucker Name Role Phone Marta Esqueda Unavailable Allergies, Adverse Reactions, Alerts Substance Reaction Event Type Prednisone Info Not Available Drug Allergy Demeclocycline hives Non Drug Allergy Problems Problem Type Condition Code Onset Dates Condition Status Problem 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 Active Problem Polyarthralgia M25.50 Active Problem Other correction (current) drug therapy Z79.899 Active Assessment Fatigue R53.83 Active Assessment Anemia D64.9 Active Problem Vitamin D deficiency, unspecified E55.9 Active Problem Fatigue R53.83 Active Problem Anemia D64.9 Active Problem Bursitis of hip, right M70.71 Active Problem Raynauds disease I73.00 Active Problem Bursitis of hip M70.70 Active Problem Knee pain M25.569 Active Medications Medication Code System Code Instructions Start Date End Date Status Dosage Vitamin D (Ergocalciferol) [facility] [address]-29 76295 UNIT Orally once a week August 03, 2016 Active 1 capsule Albuterol [facility] 0 2 MG Orally once a day Active 2 tablet Alprazolam [facility] [address]-81 0.5 MG Orally as needed Active 1 tablet Zolpidem Tartrate [facility] [address]-40 10 MG Orally Once a day Active 1 tablet at bedtime as needed Estrogens Conj Synthetic A [facility] [address]-61 0.03MG Orally Active as directed Potassium Chloride [facility] 93368081626 10 MEQ Orally Once a day Active 1 capsule with food Tizanidine HCl [facility] [address]-78 4 MG Orally twice a day Active 1 tablet as needed ProAir HFA [facility] [address]-88 108 (90 Base) MCG/ACT Inhalation as needed Active 2 puffs Tylenol/Codeine #3 [facility] [address]-25 300-30 MG Orally every 4 hours as needed Active 1 tablet as needed Nitroglycerin ointment [facility] 0 0.5% apply to finger arriola every 6 hours October 13, 2015 Active apply to fingers Singulair [facility] [address]-52 10 MG Orally Once a day Active 1 tablet in the evening Meloxicam [facility] [address]-32 15 MG Orally Once a day Active 1 tablet Lasix [facility] [address]-37 20 mg Orally every other day Active 1 tablet Melatonin [facility] [address]-18 OTC Orally at bedtime Active 1 tablet at bedtime as needed with food Advair Diskus [facility] [address]-43 250-50 MCG/DOSE Inhalation Twice a day Active 1 puff Vital Signs Date/Time: Feb 15, 2017 BMI 29.17 Index Weight 178 lbs Height 65.5 in Temperature 98.2 F Cardiac Monitoring Heart Rate 76 /min Blood Pressure Diastolic 72 mm Hg Blood Pressure Systolic 118 mm Hg Results No Known Results Summary Purpose eClinicalWorks Submission
--- OUTSIDE RECORDS SUMMARY | 2018-09-17 12:38 | XMS REPORT ---
Author Author Marta Esqueda [facility] eClinicalWorks Address Unknown Phone Unavailable Care Team Providers Care Spring Coverer Name Role Phone Marta Esqueda Unavailable Encounters Encounter Location Date 6M f/u Yony Palomares MD Apr 01, 2014 Unknown Yony Palomares MD September 30, 2014 Refill- Ketty Palomares MD October 11, 2014 Unknown Yony Palomares MD October 21, 2014 6M FU with DEXA Yony Palomares MD September 29, 2013 REFILLS KETTY Palomares MD Apr 30, 2014 Refill Yony Palomares MD May 17, 2014 Unknown Yony Palomares MD Mar 30, 2015 6M f/u Yony Palomares MD September 30, 2014 Ketty Palomares MD Jan 03, 2015 refill Yony Palomares MD May 16, 2015 med Yony Palomares MD Apr 15, 2015 6M f/u Yony Palomares MD Apr 12, 2015 Problems Problem Type Condition ICD-9 Code Onset Dates Condition Status Problem Other long-term (current) drug therapy Z79.899 Active Problem 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 Active Problem Polyarthralgia M25.50 Active Problem Polyarthralgia 719.49 Active Problem Raynaud's syndrome 443.0 Active Problem Unspecified diffuse connective tissue disease 710.9 Active Medications Medication Code System Code Instructions Start Date End Date Status Dosage Hydroxychloroquine Sulfate [facility] [address]-29 200 MG Orally twice a day Apr 12, 2015 May 12, 2015 Active 1 tablet with food or milk Social History Social History Element Qualifiers Date Reported Tobacco Use: . Are you a:: former smoker , How long has it been since you last smoked?: 5-10 years Apr 12, 2015 Caffeine: yes. frequency:, 1-5 Apr 12, 2015 Exercise: no. Apr 12, 2015 Alcohol: no. Apr 12, 2015 Occupation: . Retired with disability. Apr 12, 2015 Summary Purpose eClinicalWorks Submission
--- OUTSIDE RECORDS SUMMARY | 2018-09-17 12:38 | XMS REPORT ---
Author Author Marta Esqueda [facility] eClinicalWorks Address Unknown Phone Unavailable Care Team Providers Care Yard Assistant Name Role Phone Marta Esqueda Unavailable Allergies, Adverse Reactions, Alerts Substance Reaction Event Type Prednisone Info Not Available Drug Allergy Encounters Encounter Location Date 6M f/u Yony Palomares MD Apr 01, 2014 Unknown Yony Palomares MD September 30, 2014 Refill- Ketty Palomares MD October 11, 2014 Unknown Yony Palomares MD October 21, 2014 6M FU with DEXA Yony Palomares MD September 29, 2013 med Yony Palomares MD Apr 15, 2015 REFILLS KETTY Palomares MD Apr 30, 2014 6M f/u Yony Palomares MD Apr 12, 2015 Refill Yony Palomares MD May 17, 2014 Unknown Yoyn Palomares MD Mar 30, 2015 6M f/u Yony Palomares MD September 30, 2014 Ketty Palomares MD Jan 03, 2015 Problems Problem Type Condition ICD-9 Code Onset Dates Condition Status Assessment Raynaud's syndrome 443.0 Active Assessment Polyarthralgia M25.50 Active Assessment Other manager long term care (current) drug therapy Z79.899 Active Problem Other manager long term care (current) drug therapy Z79.899 Active Problem 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 Active Problem Polyarthralgia M25.50 Active Problem Polyarthralgia 719.49 Active Assessment 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 Active Problem Raynaud's syndrome 443.0 Active Problem Unspecified diffuse connective tissue disease 710.9 Active Medications Medication Code System Code Instructions Start Date End Date Status Dosage Ultram [facility] [address]-12 50 MG Orally every 6 hrs Active 1 tablet as needed Lasix [facility] [address]-83 40 MG Orally Once a day Active 1 tablet Advair Diskus [facility] [address]-81 250-50 MCG/DOSE Inhalation Twice a day Active 1 puff Terbutaline Sulfate [facility] [address]-09 2.5 MG Orally every 6 hrs Active 1 tablet every 6 hours while awake Hydroxychloroquine Sulfate [facility] [address]-13 200 MG Orally twice a day Apr 12, 2015 May 12, 2015 Active 1 tablet with food or milk ProAir HFA [facility] [address]-92 108 (90 Base) MCG/ACT Inhalation as needed Active 2 puffs Medrol (Johnny) [facility] [address]-65 4 MG Orally Active as directed Alprazolam [facility] [address]-17 0.5 MG Orally twice a day Active 1 tablet Fiorinal [facility] [address]-91 Orally as needed Active 1 capsule as needed Ibuprofen [facility] [address]-38 600 MG Orally as needed Active 1 tablet Estrogens Conj Synthetic A [facility] [address]-08 0.625 MG Orally Active as directed Zolpidem Tartrate [facility] [address]-22 10 MG Orally Once a day Active 1 tablet at bedtime as needed Singulair [facility] [address]-05 10 MG Orally Once a day Active 1 tablet in the evening Social History Social History Element Qualifiers Date Reported Tobacco Use: . Are you a:: former smoker , How long has it been since you last smoked?: 5-10 years Apr 12, 2015 Caffeine: yes. frequency:, 1-5 Apr 12, 2015 Exercise: no. Apr 12, 2015 Alcohol: no. Apr 12, 2015 Occupation: . Retired with disability. Apr 12, 2015 Vital Signs Date/Time: Apr 12, 2015 Weight 178 lbs Height 66 in Temperature 98.1 F Cardiac Monitoring Heart Rate 80 /min Blood Pressure Diastolic 72 mm Hg Blood Pressure Systolic 112 mm Hg Results COMPREHENSIVE METABOLIC PANEL W/EGFR CALCIUM(-8.6-10.4 mg/dL) 9.6 CARBON DIOXIDE(-19-30 mmol/L) 25 ALT(-6-29 U/L) 19 CREATININE(-0.50-0.99 mg/dL) 0.73 AST(-10-35 U/L) 21 eGFR NON-AFR. NIGERIEN(-> OR=60 mL/min/1.73m2) 89 ALKALINE PHOSPHATASE(-33-130 U/L) 69 eGFR (-> OR=60 mL/min/1.73m2) 103 BILIRUBIN, TOTAL(-0.2-1.2 mg/dL) 0.2 BUN/CREATININE RATIO(-6-22 (calc)) NOT APPLICABLE ALBUMIN/GLOBULIN RATIO(-1.0-2.5 (calc)) 1.5 SODIUM(-135-146 mmol/L) 135 GLOBULIN(-1.9-3.7 g/dL (calc)) 2.6 POTASSIUM(-3.5-5.3 mmol/L) 4.4 GLUCOSE(-65-99 mg/dL) 122 CHLORIDE(-98-110 mmol/L) 102 ALBUMIN(-3.6-5.1 g/dL) 3.8 UREA NITROGEN (BUN)(-7-25 mg/dL) 12 PROTEIN, TOTAL(-6.1-8.1 g/dL) 6.4 SED RATE BY MODIFIED [place] SED RATE BY MODIFIED [place](-< OR=30 mm/h) 28 C-REACTIVE PROTEIN C-REACTIVE PROTEIN(-<0.80 mg/dL) 0.34 CBC (INCLUDES DIFF/PLT) MCHC(-32.0-36.0 g/dL) 31.9 MCH(-27.0-33.0 pg) 27.1 PLATELET COUNT(-140-400 Thousand/uL) 216 RDW(-11.0-15.0 %) 14.9 BASOPHILS(- %) 0.3 ABSOLUTE NEUTROPHILS(-4860-3508 cells/uL) 2514 ABSOLUTE LYMPHOCYTES(-850-3900 cells/uL) 415 MPV(-7.5-11.5 fL) 8.5 ABSOLUTE BASOPHILS(-0-200 cells/uL) 9 HEMATOCRIT(-35.0-45.0 %) 33.2 NEUTROPHILS(- %) 81.1 MCV(-80.0-100.0 fL) 85.1 RED BLOOD CELL COUNT(-3.80-5.10 Million/uL) 3.90 ABSOLUTE MONOCYTES(-200-950 cells/uL) 161 ABSOLUTE EOSINOPHILS(-15-500 cells/uL) 0 HEMOGLOBIN(-11.7-15.5 g/dL) 10.6 EOSINOPHILS(- %) 0.0 WHITE BLOOD CELL COUNT(-3.8-10.8 Thousand/uL) 3.1 LYMPHOCYTES(- %) 13.4 MONOCYTES(- %) 5.2 Summary Purpose [employer] Submission
--- OUTSIDE RECORDS SUMMARY | 2018-09-17 12:38 | XMS REPORT ---
Author Author Yony Palomares Organization [employer] Address Unknown Phone Unavailable Care Team Providers Care Veneer Sorter Name Role Phone Yony Palomares CP Unavailable Allergies No Known Allergies Problems Problem Type Condition Code Onset Dates Condition Status Problem Raynaud's syndrome 443.0 Active Problem Other custodial (current) drug therapy Z79.899 Active Problem 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 Active Problem Polyarthralgia 719.49 Active Problem Unspecified diffuse connective tissue disease 710.9 Active Problem Fatigue R53.83 Active Problem Bursitis of hip M70.70 Active Problem Vitamin D deficiency, unspecified E55.9 Active Problem Raynauds disease I73.00 Active Problem Polyarthralgia M25.50 Active Problem Knee pain M25.569 Active Problem Bursitis of hip, right M70.71 Active Medications No Known Medications Results No Known Results Summary Purpose [employer] Submission
--- OUTSIDE RECORDS SUMMARY | 2018-09-17 12:38 | XMS REPORT ---
Author Author Marta Esqueda [facility] eClinicalWorks Address Unknown Phone Unavailable Care Team Providers Care Microbiology Instructor Name Role Phone Marta Esqueda Unavailable Allergies, Adverse Reactions, Alerts Substance Reaction Event Type Prednisone Info Not Available Drug Allergy Demeclocycline hives Non Drug Allergy Problems Problem Type Condition Code Onset Dates Condition Status Problem Raynaud's syndrome 443.0 Active Problem Other extermination inspector (current) drug therapy Z79.899 Active Problem 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 Active Problem Fatigue R53.83 Active Problem Bursitis of hip M70.70 Active Problem Vitamin D deficiency, unspecified E55.9 Active Problem Raynauds disease I73.00 Active Problem Polyarthralgia M25.50 Active Problem Knee pain M25.569 Active Problem Bursitis of hip, right M70.71 Active Assessment Raynauds disease I73.00 Active Assessment 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 Active Assessment Influenza vaccination administered at current visit Z23 Active Problem Polyarthralgia 719.49 Active Assessment Other extermination inspector (current) drug therapy Z79.899 Active Problem Unspecified diffuse connective tissue disease 710.9 Active Medications Medication Code System Code Instructions Start Date End Date Status Dosage Potassium Chloride [facility] 10310958624 10 MEQ Orally Once a day Active 1 capsule with food Singulair [facility] [address]-20 10 MG Orally Once a day Active 1 tablet in the evening Estrogens Conj Synthetic A [facility] [address]-61 0.03MG Orally Active as directed Tylenol/Codeine #3 [facility] [address]-97 300-30 MG Orally every 4 hours as needed Active 1 tablet as needed Melatonin [facility] [address]-01 OTC Orally at bedtime Active 1 tablet at bedtime as needed with food Advair Diskus [facility] [address]-59 250-50 MCG/DOSE Inhalation Twice a day Active 1 puff ProAir HFA [facility] [address]-79 108 (90 Base) MCG/ACT Inhalation as needed Active 2 puffs Lasix [facility] [address]-48 20 mg Orally every other day Active 1 tablet Tizanidine HCl [facility] [address]-26 4 MG Orally twice a day Active 1 tablet as needed Nitroglycerin ointment ND 0 0.5% apply to finger arriola every 6 hours October 13, 2015 Jun 07, 2017 Active apply to fingers Alprazolam [facility] [address]-98 0.5 MG Orally as needed Active 1 tablet Vitamin D (Ergocalciferol) [facility] [address]-15 11022 UNIT Orally once a week August 03, 2016 Active 1 capsule Zolpidem Tartrate [facility] [address]-21 10 MG Orally Once a day Active 1 tablet at bedtime as needed Albuterol [facility] 0 2 MG Orally once a day Active 2 tablet Meloxicam [facility] [address]-53 15 MG Orally Once a day Active 1 tablet Vital Signs Date/Time: Feb 07, 2017 BMI 29.66 Index Weight 181 lbs Height 65.5 in Temperature 97.2 F Cardiac Monitoring Heart Rate 78 /min Blood Pressure Diastolic 76 mm Hg Blood Pressure Systolic 118 mm Hg Results No Known Results Immunizations Vaccine Administration Date Flu Vaccine Feb 07, 2017 Summary Purpose eClinicalWorks Submission
--- OUTSIDE RECORDS SUMMARY | 2018-09-17 12:38 | XMS REPORT ---
Author Author Yony Palomares Organization eClinicalWorks Address Unknown Phone Unavailable Care Team Providers Care Telecommunications Field Technician Name Role Phone Yony Palomares CP Unavailable Allergies No Known Allergies Problems Problem Type Condition Code Onset Dates Condition Status Problem Other long term care social worker (current) drug therapy Z79.899 Active Problem Unspecified [...]
--- OUTSIDE RECORDS SUMMARY | 2018-09-17 12:38 | XMS REPORT ---
Author Author Marta Esqueda [facility] eClinicalWorks Address Unknown Phone Unavailable Care Team Providers Care Change Management Name Role Phone Marta Esqueda Unavailable Encounters [...] 2014 Ketty Palomares MD Jan 03, [address] Navi Palomares MD Jun 02, 2015 rx resent Yony Palomares MD Jun 02, 2015 refill Yony Palomares MD May 16, 2015 PLAQUIL Yony Palomares MD May 27, 2015 med Yony Palomares MD Apr 15, 2015 6M f/u Yony Palomares MD Apr 12, 2015 Problems Problem Type Condition ICD-9 Code Onset Dates Condition Status Problem Other extermination supervisor (current) drug therapy Z79.899 Active Problem 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
--- OUTSIDE RECORDS SUMMARY | 2018-09-17 12:38 | XMS REPORT ---
Author Author Marta Esqueda Organization eClinicalWorks Address Unknown Phone Unavailable Care Team Providers Care Kennel Aide Name Role Phone Marta Esqueda CP Unavailable Allergies No Known Allergies Problems Problem Type Condition Code Onset Dates Condition Status Problem Other [facility] (current) drug therapy Z79.899 Active Problem Unspecified [...]
--- OUTSIDE RECORDS SUMMARY | 2018-09-17 12:38 | XMS REPORT ---
Author Author Marta Esqueda [facility] eClinicalWorks Address Unknown Phone Unavailable Care Team Providers Care Community Health Outreach Worker Name Role Phone Marta Esqueda Unavailable Encounters Encounter Location Date 6M f/u Yony Palomares MD Apr 01, 2014 Unknown Yony Palomares MD September 30, 2014 Refill- Plaquenil Yony Palomares MD October 11, 2014 Unknown Yony Palomares MD October 21, 2014 6M FU with DEXA Yony Palomares MD September 29, 2013 med Yony Palomares MD Apr 15, 2015 REFILLS DWAINL Yony Palomares MD Apr 30, 2014 Refill Yony Palomares MD May 17, 2014 Unknown Yony Palomares MD Mar 30, 2015 6M f/u Yony Palomares MD September 30, 2014 Plaquenil Yony Palomares MD Jan 03, 2015 Problems Problem Type Condition ICD-9 Code Onset Dates Condition Status Problem Other intermediate (current) drug therapy Z79.899 Active Problem 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
--- OUTSIDE RECORDS SUMMARY | 2018-09-17 12:38 | XMS REPORT ---
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
--- OUTSIDE RECORDS SUMMARY | 2018-09-17 12:38 | XMS REPORT ---
Author Author Yony Palomares [facility] eClinicalWorks Address Unknown Phone Unavailable Care Team Providers Care Esl Teacher Name Role Phone Yony Palomares CP Unavailable Encounters Encounter Location Date 6M f/u Yony Palomares MD Apr 01, 2014 Unknown Yony Palomares MD September 30, 2014 6M FU with DEXA Yony Palomares MD September 29, 2013 REFILLS [place]QU[place] Yony Palomares MD Apr 30, 2014 Refill Yony Palomares MD May 17, 2014 Problems Problem Type Condition ICD-9 Code Onset Dates Condition Status Problem Unspecified diffuse connective tissue disease 710.9 Active Problem Polyarthralgia 719.49 Active Problem Raynaud's syndrome 443.0 Active Assessment Polyarthralgia 719.49 Active Social History Social History Element Qualifiers [...]
--- OUTSIDE RECORDS SUMMARY | 2018-09-17 12:38 | XMS REPORT ---
Author Author Yony Palomares eClinicalWorks Address Unknown Phone Unavailable Care Team Providers Care Principal Android Developer Name Role Phone Yony Palomares CP Unavailable [...] Active Problem Raynaud's syndrome 443.0 Active Assessment 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 Active Social History Social History Element Qualifiers [...]
--- OUTSIDE RECORDS SUMMARY | 2018-09-17 12:38 | XMS REPORT ---
Author Author Yony Palomares [facility] eClinicalWorks Address Unknown Phone Unavailable Care Team Providers Care Oil Tester Name Role Phone Yony Palomares Unavailable Allergies, Adverse Reactions, Alerts Substance Reaction [...] disease 710.9 Active Assessment Polyarthralgia 719.49 Active Assessment Raynaud's syndrome 443.0 Active Medications Medication Code System Code Instructions Start Date End Date Status Dosage ProAir HFA [facility] [address]-13 108 (90 Base) MCG/ACT Inhalation as needed Active 2 puffs Estrogens Conj Synthetic A [facility] [address]-91 0.625 MG Orally Active as directed Fiorinal [facility] [address]-86 Orally as needed Active 1 capsule as needed Alprazolam [facility] [address]-98 0.5 MG Orally twice a day Active 1 tablet Advair Diskus [facility] [address]-88 250-50 MCG/DOSE Inhalation Twice a day Active 1 puff Singulair [facility] [address]-27 10 MG Orally Once a day Active 1 tablet in the evening Lasix [facility] [address]-27 40 MG Orally Once a day Active 1 tablet Hydroxychloroquine Sulfate [facility] [address]-47 200 MG Orally Once a day September 28, 2014 Active 2 tablets Zolpidem Tartrate [facility] [address]-70 10 MG Orally Once a day Active 1 tablet at bedtime as needed Ibuprofen [facility] [address]-81 600 MG Orally as needed Active 1 tablet Social History Social History Element Qualifiers Date Reported Tobacco Use: . Are you a:: former smoker , How long has it been since you last smoked?: 5-10 years Apr 01, 2014 Caffeine: yes. frequency:, 1-5 Apr 01, 2014 Exercise: no. Apr 01, 2014 Alcohol: no. Apr 01, 2014 Occupation: . Retired with disability. Apr 01, 2014 Vital Signs Date/Time: Apr 01, 2014 Weight 172 lbs Height 66 in Temperature 97.1 F Cardiac Monitoring Heart Rate 80 /min Blood Pressure Diastolic 90 mm Hg Blood Pressure Systolic 140 mm Hg Results COMPREHENSIVE METABOLIC PANEL W/EGFR CALCIUM(-8.6-10.4 mg/dL) 8.7 CARBON DIOXIDE(-19-30 mmol/L) 25 ALT(-6-29 U/L) 16 CREATININE(-0.50-0.99 mg/dL) 0.84 AST(-10-35 U/L) 19 eGFR NON-AFR. CANADIAN(-> OR=60 mL/min/1.73m2) 76 ALKALINE PHOSPHATASE(-33-130 U/L) 67 eGFR (-> OR=60 mL/min/1.73m2) 88 BILIRUBIN, TOTAL(-0.2-1.2 mg/dL) 0.3 BUN/CREATININE RATIO(-6-22 (calc)) NOT APPLICABLE ALBUMIN/GLOBULIN RATIO(-1.0-2.5 (calc)) 1.8 SODIUM(-135-146 mmol/L) 141 GLOBULIN(-1.9-3.7 g/dL (calc)) 2.1 POTASSIUM(-3.5-5.3 mmol/L) 3.7 GLUCOSE(-65-99 mg/dL) 92 CHLORIDE(-98-110 mmol/L) 107 ALBUMIN(-3.6-5.1 g/dL) 3.7 UREA NITROGEN (BUN)(-7-25 mg/dL) 11 PROTEIN, TOTAL(-6.1-8.1 g/dL) 5.8 SED RATE BY MODIFIED WESTERGREN SED RATE BY MODIFIED WESTERGREN(-< OR=30 mm/h) 15 C-REACTIVE PROTEIN C-REACTIVE PROTEIN(-<0.80 mg/dL) 0.70 CBC (INCLUDES DIFF/PLT) MCHC(-32.0-36.0 g/dL) 32.4 MCH(-27.0-33.0 pg) 29.1 PLATELET COUNT(-140-400 Thousand/uL) 192 RDW(-11.0-15.0 %) 15.5 ABSOLUTE LYMPHOCYTES(-850-3900 cells/uL) 1225 ABSOLUTE MONOCYTES(-200-950 cells/uL) 377 ABSOLUTE NEUTROPHILS(-6448-3963 cells/uL) 2994 NEUTROPHILS(- %) 61.1 HEMATOCRIT(-35.0-45.0 %) 36.1 LYMPHOCYTES(- %) 25.0 MCV(-80.0-100.0 fL) 89.9 RED BLOOD CELL COUNT(-3.80-5.10 Million/uL) 4.02 ABSOLUTE EOSINOPHILS(-15-500 cells/uL) 279 ABSOLUTE BASOPHILS(-0-200 cells/uL) 25 HEMOGLOBIN(-11.7-15.5 g/dL) 11.7 BASOPHILS(- %) 0.5 WHITE BLOOD CELL COUNT(-3.8-10.8 Thousand/uL) 4.9 MONOCYTES(- %) 7.7 EOSINOPHILS(- %) 5.7 Summary Purpose eClinicalWorks Submission
--- OUTSIDE RECORDS SUMMARY | 2018-09-17 12:38 | XMS REPORT ---
Author Author Yony Palomares Organization eClinicalWorks Address Unknown Phone Unavailable Care Team Providers Care Plant Protection Officer Name Role Phone Yony Palomares CP Unavailable Allergies No Known Allergies Problems Problem Type Condition Code Onset Dates Condition Status Problem 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 Active Problem Other snf (current) drug therapy Z79.899 Active Problem Polyarthralgia M25.50 Active Problem Vitamin D deficiency, unspecified E55.9 Active Problem Fatigue R53.83 Active Problem Anemia D64.9 Active Problem Bursitis of hip, right M70.71 Active Problem Raynauds disease I73.00 Active Problem Bursitis of hip M70.70 Active Problem Knee pain M25.569 Active Medications No Known Medications Results No Known Results Summary Purpose eClinicalWorks Submission
--- OUTSIDE RECORDS SUMMARY | 2018-09-17 12:38 | XMS REPORT ---
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
--- OUTSIDE RECORDS SUMMARY | 2018-09-17 12:38 | XMS REPORT ---
Author Author Yony Palomares [facility] eClinicalWorks Address Unknown Phone Unavailable Care Team Providers Care Block Tester Name Role Phone Yony Palomares Unavailable Encounters Encounter Location Date 6M FU with DEXA Yony Palomares MD September 29, 2013 REFILLS [place] Yony Palomares MD Apr 30, 2014 Problems Problem Type Condition ICD-9 Code Onset Dates Condition Status Problem Unspecified diffuse connective tissue disease 710.9 Active Problem Polyarthralgia 719.49 Active Problem Raynaud's syndrome 443.0 Active Medications Medication Code System Code Instructions Start Date End Date Status Dosage Hydroxychloroquine Sulfate [facility] [address]-02 200 MG Orally Once a day September [...]
--- OUTSIDE RECORDS SUMMARY | 2018-09-17 12:39 | XMS REPORT ---
Author Author Marta Esqueda [facility] eClinicalWorks Address Unknown Phone Unavailable Care Team Providers Care Mixologist Name Role Phone Marta Esqueda Unavailable Allergies, Adverse Reactions, Alerts Substance Reaction Event Type Prednisone Info Not Available Drug Allergy Demeclocycline hives Non Drug Allergy Encounters Encounter Location Date Unknown Yony Palomares MD Mar 30, 2015 Refill Req Ketty Palomares MD August 09, 2015 Plaquenil Rx Yony Palomares MD August 30, [address] Navi Palomares MD Jun 02, 2015 rx resent Yony Palomares MD Jun 02, 2015 refill Yony Palomares MD May 16, 2015 PLAQUIL Yony Palomares MD May 27, 2015 med Yony Palomares MD Apr 15, 2015 6M f/u Yony Palomares MD Apr 12, 2015 FU Yony Palomares MD October 13, 2015 6M f/u Yony Palomares MD Apr 01, 2014 Serenity Palomares MD September 30, 2014 Refill- Ketty Palomares MD October 11, 2014 Serenity Palomares MD October 21, 2014 6M FU with DEXA Yony Palomares MD September 29, 2013 REFILLS KETTY Palomares MD Apr 30, 2014 Refill Yony Palomares MD May 17, 2014 refill- Hydroxychloroquine Yony Palomares MD Dec 30, 2015 HYDROXYCHLOROQUINE REFILL Yony Palomares MD Dec 29, 2015 6M f/u Yony Palomares MD September 30, 2014 Ketty Palomares MD Jan 03, 2015 4 mth f/u Yony Palomares MD Feb 13, 2016 Right hip bursa inj Yony Palomares MD Mar 07, 2016 LEFT hip bursa inj Yony Palomares MD Mar 14, 2016 RIGHT KNEE INJEC Yony Palomares MD Mar 26, 2016 Refill- Plaquenil Yony Palomares MD Jan 25, 2016 low potassium Yony Palomares MD Jan 30, 2016 Nitroglycerin Ointment Yony Palomares MD Jan 31, 2016 Unknown Yony Palomares MD Feb 13, 2016 Problems Problem Type Condition ICD-9 Code Onset Dates Condition Status Problem Polyarthralgia 719.49 Active Problem Raynaud's syndrome 443.0 Active Problem Unspecified diffuse connective tissue disease 710.9 Active Assessment 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 Active Assessment Knee pain M25.569 Active Problem Knee pain M25.569 Active Problem Bursitis of hip, right M70.71 Active Problem Bursitis of hip M70.70 Active Problem 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.899 Active Problem 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 Active Problem Raynauds disease I73.00 Active Problem Polyarthralgia M25.50 Active Medications Medication Code System Code Instructions Start Date End Date Status Dosage Hydroxychloroquine Sulfate [facility] [address]-80 200 MG Orally once a day Active 2 tablet with food or milk Albuterol Unknown 0 2 MG Orally once a day Active 2 tablet ProAir HFA [facility] [address]-12 108 (90 Base) MCG/ACT Inhalation as needed Active 2 puffs Melatonin [facility] [address]-67 OTC Orally at bedtime Active 1 tablet at bedtime as needed with food Advair Diskus [facility] [address]-03 250-50 MCG/DOSE Inhalation Twice a day Active 1 puff Nitroglycerin ointment Unknown 0 0.5% apply to finger arriola every 6 hours October 13, 2015 Active apply to fingers Norvasc [facility] [address]-73 2.5 MG Orally twice a day Mar 07, 2016 Active 1 tablet Lasix [facility] [address]-06 40 MG Orally once a day as needed Active 1 tablet Estrogens Conj Synthetic A [facility] [address]-51 0.03MG Orally Active as directed [facility] [address]-18 4 MG Orally prn Active as directed Ultram [facility] [address]-91 50 MG Orally PRN Active as directed Zolpidem Tartrate [facility] [address]-13 10 MG Orally Once a day Active 1 tablet at bedtime as needed Singulair [facility] [address]-17 10 MG Orally Once a day Active 1 tablet in the evening Ativan [facility] [address]-73 1 MG Orally Twice a day Active 1 tablet as needed Social History Social History Element Qualifiers Date Reported Tobacco Use: . Are you a:: former smoker , How long has it been since you last smoked?: 5-10 years Apr 03, 2016 Caffeine: yes. frequency:, 1-5 Apr 03, 2016 Exercise: no. Apr 03, 2016 Alcohol: no. Apr 03, 2016 Occupation: . Retired with disability. Apr 03, 2016 Vital Signs Date/Time: Mar 26, 2016 Weight 178 lbs Height 65 in Temperature 97.5 F Cardiac Monitoring Heart Rate 88 /min Blood Pressure Diastolic 60 mm Hg Blood Pressure Systolic 100 mm Hg Summary Purpose eClinicalWorks Submission
--- OUTSIDE RECORDS SUMMARY | 2018-09-17 12:39 | XMS REPORT ---
Author Author Yony Palomares eClinicalWorks Address Unknown Phone Unavailable Care Team Providers Care Surgical Instrument Repair Specialist Name Role Phone Yony Palomares CP Unavailable [...] Unknown Yony Palomares MD Mar 30, 2015 refill- Hydroxychloroquine Yony Palomares MD Dec 30, 2015 HYDROXYCHLOROQUINE REFILL Yony Palomares MD Dec 29, 2015 6M f/u Yony Palomares MD September 30, 2014 Plaquenil Yony Palomares MD Jan 03, 2015 Refill Req Nikanil Yony Palomares MD August 09, 2015 Plaquenil Rx Yony Palomares MD August 30, [address] Navi Palomares MD Jun 02, 2015 rx resent Yony Palomares MD Jun 02, 2015 Refill- Plaquenil Yony Palomares MD Jan 25, 2016 refill Yony Palomares MD May 16, 2015 low potassium Yony Palomares MD Jan 30, 2016 PLAQUIL Yoyn Palomares MD May 27, 2015 med Yony Palomares MD Apr 15, 2015 6M f/u Yony Palomares MD Apr 12, 2015 FU Yony Palomares MD October 13, 2015 Problems Problem Type Condition ICD-9 Code Onset Dates Condition Status Problem Polyarthralgia M25.50 Active Problem Other [facility]p (current) drug therapy Z79.899 Active Problem Raynauds disease I73.00 Active Problem Unspecified diffuse connective tissue disease 710.9 Active Problem Polyarthralgia 719.49 Active Problem 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 Active Problem Raynaud's syndrome 443.0 Active Medications Medication Code System Code Instructions Start Date End Date Status Dosage Potassium Chloride [facility] [address]-92 10 MEQ Orally Once a day Jan 30, 2016 Feb 29, 2016 Active 1 capsule with food Social History Social History Element Qualifiers Date Reported Tobacco Use: . Are you a:: former smoker , How long has it been since you last smoked?: 5-10 years October 13, 2015 Caffeine: yes. frequency:, 1-5 October 13, 2015 Exercise: no. October 13, 2015 Alcohol: no. October 13, 2015 Occupation: . Retired with disability. October 13, 2015 Summary Purpose eClinicalWorks Submission
--- OUTSIDE RECORDS SUMMARY | 2018-09-17 12:39 | XMS REPORT ---
Author Author Yony Palomares eClinicalWorks Address Unknown Phone Unavailable Care Team Providers Care Appliance Mechanic Name Role Phone Yony Palomares CP Unavailable Encounters Encounter Location Date 6M f/u Yony Palomares MD Apr 01, 2014 Unknown Yony Palomares MD September 30, 2014 Refill- Nikanil Yony Palomares MD October 11, 2014 Unknown Yony Palomares MD October 21, 2014 6M FU with DEXA Yony Palomares MD September 29, 2013 REFILLS KETTY Palomares MD Apr 30, 2014 Refill Yony Palomares MD May 17, 2014 Unknown Yony Palomares MD Mar 30, 2015 6M f/u Yony Palomares MD September 30, 2014 Plaquelila Palomares MD Jan 03, 2015 Refill Req Ketty Palomares MD August 09, [address] Navi Palomares MD Jun 02, 2015 rx resent Yony Palomares MD Jun 02, 2015 refill Yony Palomares MD May 16, 2015 PLAQUIL Yony Palomares MD May 27, 2015 med Yony Palomares MD Apr 15, 2015 6M f/u Yony Palomares MD Apr 12, 2015 Problems Problem Type Condition ICD-9 Code Onset Dates Condition Status Problem Other retirement (current) drug therapy Z79.899 Active Problem 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 Active Problem Polyarthralgia M25.50 Active Problem Polyarthralgia 719.49 Active Problem Raynaud's syndrome 443.0 Active Problem Unspecified diffuse connective tissue disease 710.9 Active Medications Medication Code System Code Instructions Start Date End Date Status Dosage Hydroxychloroquine Sulfate [facility] [address]-01 200 MG Orally Once a day November 07, 2015 Active TAKE 2 TABLET BY MOUTH TWICE A DAY WITH FOOD OR MILK Social History Social History Element Qualifiers Date [...]
--- OUTSIDE RECORDS SUMMARY | 2018-09-17 12:39 | XMS REPORT ---
Author Author Yony Palomares eClinicalWorks Address Unknown Phone Unavailable Care Team Providers Care Flight Attendant Ramp Name Role Phone Yony Palomares CP Unavailable [...] Palomares MD Jan 03, 2015 Refill Req Plaquenil Yony Palomares MD August 09, 2015 Plaquenil Rx Yony Palomares MD August 30, [address] Navi Palomares MD Jun 02, 2015 rx resent Yony Palomares MD Jun 02, 2015 Refill- Plaquenil Yony Palomares MD Jan 25, 2016 refill Yony Palomares MD May 16, 2015 low potassium Yony Palomares MD Jan 30, 2016 PLAQUIL Yony Palomares MD May 27, 2015 Nitroglycerin Ointment Yony Palomares MD Jan 31, 2016 med Yony Palomares MD Apr 15, 2015 6M f/u Yony Palomares MD Apr 12, 2015 FU Yony Palomares MD October 13, 2015 Problems Problem Type Condition ICD-9 Code Onset Dates Condition Status Problem Polyarthralgia M25.50 Active Problem 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
--- OUTSIDE RECORDS SUMMARY | 2018-09-17 12:39 | XMS REPORT ---
Author Author Yony Palomares eClinicalWorks Address Unknown Phone Unavailable Care Team Providers Care Conveyor Belt Operator Name Role Phone Yony Palomares CP Unavailable [...] Status Problem Polyarthralgia M25.50 Active Problem Other terminal gauger (current) drug therapy Z79.899 Active Problem Raynauds disease I73.00 Active Problem Unspecified diffuse connective tissue disease 710.9 Active Problem Polyarthralgia 719.49 Active Problem 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 Active Problem Raynaud's syndrome 443.0 Active Medications Medication Code System Code Instructions Start Date End Date Status Dosage Hydroxychloroquine Sulfate [facility] [address]-91 200 MG Orally Twice a day Mar 29, 2016 Active 1 tablet with food or milk [...]
--- OUTSIDE RECORDS SUMMARY | 2018-09-17 12:39 | XMS REPORT ---
Author Author Marta Esqueda [facility] eClinicalWorks Address Unknown Phone Unavailable Care Team Providers Care Distribution Engineering Technologist Name Role Phone Marta Esqueda Unavailable Allergies, Adverse Reactions, Alerts Substance Reaction Event Type Prednisone Info Not Available Drug Allergy Demeclocycline hives Non Drug Allergy Encounters Encounter Location Date Unknown Yony Palomares MD Mar 30, 2015 LEFT KNEE INJEC Yony Palomares MD Apr 03, 2016 Pain in chest Yony Palomares MD Apr 11, 2016 Refill Req Ketty Palomares MD August 09, [...] Yony Palomares MD September 30, 2014 Refill- Elijahl Yony Palomares MD October 11, 2014 Unknown [...] Active Problem Raynaud's syndrome 443.0 Active Problem Bursitis of hip M70.70 Active Problem Knee pain M25.569 Active Problem Fatigue R53.83 Active Problem Polyarthralgia M25.50 Active Problem Other snf (current) drug therapy Z79.899 Active Problem Bursitis of hip, right M70.71 Active Problem Raynauds disease I73.00 Active Assessment Raynauds disease I73.00 Active Assessment 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 Active Assessment Knee pain M25.569 Active Assessment Fatigue R53.83 Active Problem Polyarthralgia 719.49 Active Medications Medication Code System Code Instructions Start Date End Date Status Dosage Estrogens Conj Synthetic A [facility] [address]-96 0.03MG Orally Active as directed [facility]air [facility] [address]-14 250-50 MCG/DOSE Inhalation Twice a day Active [address] [facility] [address]-13 OTC Orally at bedtime Active 1 tablet at bedtime as needed with food Cyanocobalamin [facility] [address]-69 1000 MCG/ML Injection once a month Apr 03, 2016 May 03, 2016 Active 1 ml ProAir HFA [facility] [address]-92 108 (90 Base) MCG/ACT Inhalation as needed Active [address] [facility] [address]-46 2.5 MG Orally twice a day Mar 07, 2016 Active [address] [facility] [address]-96 10 MG Orally Once a day Active 1 tablet in the evening Albuterol Unknown 0 2 MG Orally once a day Active [address] [facility] [address]-01 1 MG Orally Twice a day Active 1 tablet as needed Ultram [facility] [address]-35 50 MG Orally PRN Active as directed Zolpidem Tartrate [facility] [address]-48 10 MG Orally Once a day Active 1 tablet at bedtime as needed Medrol (Johnny) [facility] [address]-28 4 MG Orally Active as directed Lasix [facility] [address]-31 40 MG Orally once a day as needed Active 1 tablet Nitroglycerin ointment Unknown 0 0.5% apply to finger arriola every 6 hours October 13, 2015 Active apply to fingers Social History Social History Element Qualifiers Date Reported Tobacco Use: . Are you a:: former smoker , How long has it been since you last smoked?: 5-10 years Apr 03, 2016 Caffeine: yes. frequency:, 1-5 Apr 03, 2016 Exercise: no. Apr 03, 2016 Alcohol: no. Apr 03, 2016 Occupation: . Retired with disability. Apr 03, 2016 Vital Signs Date/Time: Apr 03, 2016 Weight 180.6 lbs Height 65 in Temperature 97.3 F Cardiac Monitoring Heart Rate 88 /min Blood Pressure Diastolic 78 mm Hg Blood Pressure Systolic 124 mm Hg Summary Purpose eClinicalWorks Submission
--- OUTSIDE RECORDS SUMMARY | 2018-09-17 12:39 | XMS REPORT ---
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 Are you a:: former smoker , How long has it been since you last smoked?: 5-10 years Apr 03, 2016 Caffeine: yes. frequency:, 1-5 Apr 03, 2016 Exercise: no. Apr 03, 2016 Alcohol: no. Apr 03, 2016 Occupation: . Retired with disability. Apr 03, 2016 Summary Purpose eClinicalWorks Submission
--- OUTSIDE RECORDS SUMMARY | 2018-09-17 12:39 | XMS REPORT ---
Author Author Marta Esqueda [facility] [place] eClinicalWorks Address Unknown Phone Unavailable Care Team Providers Care Machine Hand Name Role Phone Marta Esqueda Unavailable Allergies, [...] inj Yony Palomares MD Mar 07, 2016 Refill- Plaquenil Yony Palomares MD Jan 25, 2016 low potassium Yony Palomares MD Jan 30, 2016 Nitroglycerin Ointment Yony Palomares MD Jan 31, 2016 Unknown Yony Palomares MD Feb 13, 2016 Problems Problem Type Condition ICD-9 Code Onset Dates Condition Status Assessment Bursitis of hip, right M70.71 Active Problem Unspecified diffuse connective tissue disease 710.9 Active Problem Polyarthralgia 719.49 Active Problem Bursitis of hip, right M70.71 Active Problem Raynauds disease I73.00 Active Problem Knee pain M25.569 Active Problem 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 Active Problem Raynaud's syndrome 443.0 Active Problem Polyarthralgia M25.50 Active Problem 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.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 Active Assessment Knee pain M25.569 Active Assessment Raynauds disease I73.00 Active Assessment Other residential (current) drug therapy Z79.899 Active Assessment Polyarthralgia M25.50 Active Medications Medication Code System Code Instructions Start Date End Date Status Dosage Advair Diskus [facility] [address]-41 250-50 MCG/DOSE Inhalation Twice a day Active 1 puff [facility] [address]-20 OTC Orally at bedtime Active 1 tablet at bedtime as needed with food Medrol (Johnny) [facility] [address]-24 4 MG Orally prn Active as directed Ultram [facility] [address]-42 50 MG Orally PRN Active as directed ProAir HFA [facility] [address]-40 108 (90 Base) MCG/ACT Inhalation as needed Active 2 puffs Hydroxychloroquine Sulfate [facility] [address]-76 200 MG Orally once a day Active 2 tablet with food or milk Norvasc [facility] [address]-45 2.5 MG Orally twice a day Mar 07, 2016 Active 1 tablet [facility]ix [facility] [address]-30 40 MG Orally once a day as needed Active 1 tablet Estrogens Conj Synthetic A [facility] [address]-98 0.03MG Orally Active as directed Ativan [facility] [address]-59 1 MG Orally Twice a day Active 1 tablet as needed Albuterol Unknown 0 2 MG Orally once a day Active 2 tablet Zolpidem Tartrate [facility] [address]-52 10 MG Orally Once a day Active 1 tablet at bedtime as needed Singulair [facility] [address]-77 10 MG Orally Once a day Active 1 tablet in the evening Nitroglycerin ointment Unknown 0 0.5% apply to finger arriola every 6 hours October 13, 2015 Active apply to fingers Social History Social History Element Qualifiers Date Reported Tobacco Use: . Are you a:: former smoker , How long has it been since you last smoked?: 5-10 years Mar 07, 2016 Caffeine: yes. frequency:, 1-5 Mar 07, 2016 Exercise: no. Mar 07, 2016 Alcohol: no. Mar 07, 2016 Occupation: . Retired with disability. Mar 07, 2016 Vital Signs Date/Time: Mar 07, 2016 Weight 183 lbs Height 65 in Temperature 97.6 F Cardiac Monitoring Heart Rate 78 /min Blood Pressure Diastolic 70 mm Hg Blood Pressure Systolic 118 mm Hg Summary Purpose eClinicalWorks Submission
--- OUTSIDE RECORDS SUMMARY | 2018-09-17 12:39 | XMS REPORT ---
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
--- OUTSIDE RECORDS SUMMARY | 2018-09-17 12:39 | XMS REPORT ---
Author Author Yony Palomares eClinicalWorks Address Unknown Phone Unavailable Care Team Providers Care Build Automation Engineer Name Role Phone Yony Palomares CP Unavailable Encounters Encounter Location Date Unknown Yony Palomares MD Mar 30, 2015 [place] Yony Palomares MD Apr 27, 2016 LEFT KNEE INJEC Yony Palomares MD Apr [...] Yony Palomares MD September 29, 2013 REFILLS ELIJAHL Yony Palomares MD Apr 30, 2014 Refill [...] Active Problem Polyarthralgia M25.50 Active Problem Other termite treater (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
--- OUTSIDE RECORDS SUMMARY | 2018-09-17 12:39 | XMS REPORT ---
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 Active Assessment Other system technologist (current) drug therapy Z79.899 Active Assessment Raynauds disease I73.00 Active Problem Polyarthralgia M25.50 Active Problem Other jail (current) drug therapy Z79.899 Active Problem Raynauds disease I73.00 Active Problem Unspecified diffuse connective tissue disease 710.9 Active Problem Polyarthralgia 719.49 Active Problem 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 Active Problem Raynaud's syndrome 443.0 Active Medications Medication Code System Code Instructions Start Date End Date Status Dosage Lasix [facility] [address]-17 40 MG Orally Once a day Active 1 tablet Estrogens Conj Synthetic A [facility] [address]-80 0.625 MG Orally Active as directed Fiorinal [facility] [address]-18 Orally as needed Active 1 capsule as needed Medrol (Johnny) [facility] [address]-58 4 MG Orally Active as directed Ibuprofen [facility] [address]-14 600 MG Orally as needed Active 1 tablet Advair Diskus [facility] [address]-86 250-50 MCG/DOSE Inhalation Twice a day Active 1 puff Nitroglycerin ointment Unknown 0 0.5% apply to finger arriola every 6 hours October 13, 2015 Active apply to hemorrhoid Zolpidem Tartrate [facility] [address]-05 10 MG Orally Once a day Active 1 tablet at bedtime as needed Norvasc [facility] [address]-30 2.5 MG Orally Twice a day Active 1 tablet Hydroxychloroquine Sulfate [facility] [address]-61 200 MG Orally Twice a day Active 1 tablet with food or milk Ultram [facility] [address]-16 50 MG Orally every 6 hrs Active 1 tablet as needed Singulair [facility] [address]-64 10 MG Orally Once a day Active 1 tablet in the evening Terbutaline Sulfate [facility] [address]-29 2.5 MG Orally every 6 hrs Active 1 tablet every 6 hours while awake ProAir HFA [facility] [address]-20 108 (90 Base) MCG/ACT Inhalation as needed Active 2 puffs Ativan [facility] [address]-22 1 MG Orally Twice a day Active [...] . Retired with disability. October 13, 2015 Vital Signs Date/Time: October 13, 2015 Weight 174 lbs Height 65 in Temperature 97.3 F Results CBC (INCLUDES DIFF/PLT) ABSOLUTE NEUTROPHILS(-2894-5397 cells/uL) 3416 MPV(-7.5-11.5 fL) 8.4 EOSINOPHILS(- %) 3.4 HEMOGLOBIN(-11.7-15.5 g/dL) 10.9 MONOCYTES(- %) 7.6 HEMATOCRIT(-35.0-45.0 %) 34.9 LYMPHOCYTES(- %) 27.4 MCV(-80.0-100.0 fL) 87.3 NEUTROPHILS(- %) 61.0 MCH(-27.0-33.0 pg) 27.3 ABSOLUTE BASOPHILS(-0-200 cells/uL) 34 MCHC(-32.0-36.0 g/dL) 31.2 BASOPHILS(- %) 0.6 ABSOLUTE EOSINOPHILS(-15-500 cells/uL) 190 RDW(-11.0-15.0 %) 16.4 WHITE BLOOD CELL COUNT(-3.8-10.8 Thousand/uL) 5.6 PLATELET COUNT(-140-400 Thousand/uL) 208 ABSOLUTE MONOCYTES(-200-950 cells/uL) 426 RED BLOOD CELL COUNT(-3.80-5.10 Million/uL) 4.00 ABSOLUTE LYMPHOCYTES(-850-3900 cells/uL) 1534 URINALYSIS, COMPLETE SQUAMOUS EPITHELIAL CELLS(-< OR=5 /HPF) 0-5 GLUCOSE(-NEGATIVE ) NEGATIVE PH(-5.0-8.0 ) 5.5 RBC(-< OR=2 /HPF) NONE SEEN KETONES(-NEGATIVE ) NEGATIVE WBC(-< OR=5 /HPF) 0-5 BILIRUBIN(-NEGATIVE ) NEGATIVE LEUKOCYTE ESTERASE(-NEGATIVE ) NEGATIVE COLOR(-YELLOW ) YELLOW HYALINE CAST(-NONE SEEN /LPF) NONE SEEN SPECIFIC GRAVITY(-1.001-1.035 ) 1.015 BACTERIA(-NONE SEEN /HPF) FEW APPEARANCE(-CLEAR ) CLEAR NITRITE(-NEGATIVE ) NEGATIVE OCCULT BLOOD(-NEGATIVE ) NEGATIVE PROTEIN(-NEGATIVE ) NEGATIVE C3, C4, COMPLEMENT COMPLEMENT COMPONENT C3C(- mg/dL) 114 COMPLEMENT COMPONENT C4C(-ADULTS: 16-47 mg/dL) 20 COMPLEMENT, TOTAL (CH50)(-31-60 U/mL) >60 C-REACTIVE PROTEIN C-REACTIVE PROTEIN(-<0.80 mg/dL) <0.10 DS DNA-Crithidia Ifa w/ Reflex DNA AB (DS) CRITHIDIA,IFA(-NEGATIVE ) NEGATIVE COMPREHENSIVE METABOLIC PANEL W/EGFR POTASSIUM(-3.5-5.3 mmol/L) 3.6 SODIUM(-135-146 mmol/L) 139 BUN/CREATININE RATIO(-6-22 (calc)) NOT APPLICABLE eGFR (-> OR=60 mL/min/1.73m2) 77 eGFR NON-AFR. LIBYAN(-> OR=60 mL/min/1.73m2) 66 CREATININE(-0.50-0.99 mg/dL) 0.93 UREA NITROGEN (BUN)(-7-25 mg/dL) 19 GLUCOSE(-65-99 mg/dL) 107 AST(-10-35 U/L) 16 GLOBULIN(-1.9-3.7 g/dL (calc)) 2.6 ALT(-6-29 U/L) 17 ALBUMIN/GLOBULIN RATIO(-1.0-2.5 (calc)) 1.4 BILIRUBIN, TOTAL(-0.2-1.2 mg/dL) 0.3 ALKALINE PHOSPHATASE(-33-130 U/L) 68 CARBON DIOXIDE(-19-30 mmol/L) 26 CALCIUM(-8.6-10.4 mg/dL) 9.2 PROTEIN, TOTAL(-6.1-8.1 g/dL) 6.2 ALBUMIN(-3.6-5.1 g/dL) 3.6 CHLORIDE(-98-110 mmol/L) 102 SED RATE BY MODIFIED WESTERGREN SED RATE BY MODIFIED WESTERGREN(-< OR=30 mm/h) 6 Summary Purpose eClinicalWorks Submission
--- OUTSIDE RECORDS SUMMARY | 2018-09-17 12:39 | XMS REPORT ---
Author Author Yony Palomares eClinicalWorks Address Unknown Phone Unavailable Care Team Providers Care Medical Information Specialist Name Role Phone Yony Palomares CP Unavailable Encounters Encounter Location Date Unknown Yony Palomares MD Mar 30, 2015 Refill Req Ktety Palomares MD August 09, 2015 Plaquenil Rx [...] October 21, 2014 6M FU with DEXA Yoyn Palomares MD September 29, 2013 REFILLS KETTY Palomares MD Apr 30, 2014 Refill Yony Palomares MD May 17, 2014 refill- Hydroxychloroquine Yony Palomares MD Dec 30, 2015 HYDROXYCHLOROQUINE REFILL Yony Palomares MD Dec 29, 2015 6M f/u Yony Palomares MD September 30, 2014 Ketty Palomares MD Jan 03, 2015 Refill- Nikanitaqueria Palomares MD Jan 25, 2016 low potassium Yony Palomares MD Jan 30, 2016 Nitroglycerin Ointment Yony Palomares MD Jan 31, 2016 Unknown Yony Palomares MD Feb 13, 2016 Problems Problem Type Condition ICD-9 Code Onset Dates Condition Status Problem Polyarthralgia 719.49 Active Problem Raynauds disease I73.00 Active Problem Polyarthralgia M25.50 Active Problem Bursitis of hip, right M70.71 Active Problem Raynaud's syndrome 443.0 Active Problem Unspecified diffuse connective tissue disease 710.9 Active Problem Other prison (current) drug therapy Z79.899 Active Problem 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 Are you a:: former smoker , How long has it been since you last smoked?: 5-10 years Feb 13, 2016 Caffeine: yes. frequency:, 1-5 Feb 13, 2016 Exercise: no. Feb 13, 2016 Alcohol: no. Feb 13, 2016 Occupation: . Retired with disability. Feb 13, 2016 Summary Purpose eClinicalWorks Submission
--- OUTSIDE RECORDS SUMMARY | 2018-09-17 12:39 | XMS REPORT ---
Author Author Marta Esqueda [facility] eClinicalWorks Address Unknown Phone Unavailable Care Team Providers Care Form Designer Name Role Phone Marta Esqueda Unavailable Allergies, [...] inj Yony Palomares MD Mar 14, 2016 Refill- Plaquenil Yony Palomares MD Jan 25, 2016 low potassium Yony Palomares MD Jan 30, 2016 Nitroglycerin Ointment Yony Palomares MD Jan 31, 2016 Unknown Yony Palomares MD Feb 13, 2016 Problems Problem Type Condition ICD-9 Code Onset Dates Condition Status Problem Polyarthralgia 719.49 Active Problem Raynaud's syndrome 443.0 Active Problem Unspecified diffuse connective tissue disease 710.9 Active Assessment Knee pain M25.569 Active Assessment Bursitis of hip M70.70 Active Problem Knee pain M25.569 Active Problem Bursitis of hip, right M70.71 Active Problem Bursitis of hip M70.70 Active Problem Other correction (current) drug therapy Z79.899 Active Problem 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 Active Problem Raynauds disease I73.00 Active Problem Polyarthralgia M25.50 Active Medications Medication Code System Code Instructions Start Date End Date Status Dosage Melatonin [facility] [address]-70 OTC Orally at bedtime Active 1 tablet at bedtime as needed with food Advair Diskus [facility] [address]-47 250-50 MCG/DOSE Inhalation Twice a day Active 1 puff Singulair [facility] [address]-14 10 MG Orally Once a day Active 1 tablet in the evening ProAir HFA [facility] [address]-34 108 (90 Base) MCG/ACT Inhalation as needed Active 2 puffs Ativan [facility] [address]-86 1 MG Orally Twice a day Active 1 tablet as needed Lasix [facility] [address]-20 40 MG Orally once a day as needed Active 1 tablet Medrol (Johnny) [facility] [address]-60 4 MG Orally prn Active as directed Hydroxychloroquine Sulfate [facility] [address]-14 200 MG Orally once a day Active 2 tablet with food or milk Albuterol Unknown 0 2 MG Orally once a day Active 2 tablet Zolpidem Tartrate [facility] [address]-60 10 MG Orally Once a day Active 1 tablet at bedtime as needed Estrogens Conj Synthetic A [facility] [address]-77 0.03MG Orally Active as directed [facility] [address]-26 50 MG Orally PRN Active as directed Nitroglycerin ointment Unknown 0 0.5% apply to finger arriola every 6 hours October 13, 2015 Active apply to fingers [facility] [address]-81 2.5 MG Orally twice a day Mar 07, 2016 Active 1 tablet Social History Social History Element Qualifiers Date Reported Tobacco Use: . Are you a:: former smoker , How long has it been since you last smoked?: 5-10 years Apr 03, 2016 Caffeine: yes. frequency:, 1-5 Apr 03, 2016 Exercise: no. Apr 03, 2016 Alcohol: no. Apr 03, 2016 Occupation: . Retired with disability. Apr 03, 2016 Vital Signs Date/Time: Mar 14, 2016 Weight 183 lbs Height 65.5 in Temperature 98.4 F Cardiac Monitoring Heart Rate 88 /min Blood Pressure Diastolic 62 mm Hg Blood Pressure Systolic 112 mm Hg Summary Purpose eClinicalWorks Submission
--- OUTSIDE RECORDS SUMMARY | 2018-09-17 12:39 | XMS REPORT ---
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
--- OUTSIDE RECORDS SUMMARY | 2018-09-17 12:39 | XMS REPORT ---
Author Author Marta Esqueda [facility] eClinicalWorks Address Unknown Phone Unavailable Care Team Providers Care Elevator Conductor Name Role Phone Matra Esqueda Unavailable Allergies, Adverse Reactions, Alerts Substance Reaction Event Type Prednisone Info Not Available Drug Allergy Encounters Encounter Location Date Unknown [...] f/u Yony Palomares MD Feb 13, 2016 Refill- Ketty Palomares MD Jan 25, 2016 low potassium Yony Palomares MD Jan 30, 2016 Nitroglycerin Ointment Yony Palomares MD Jan 31, 2016 Unknown Yony Palomares MD Feb 13, 2016 Problems Problem Type Condition ICD-9 Code Onset Dates Condition Status Assessment Raynauds disease I73.00 Active Problem Polyarthralgia 719.49 Active Assessment 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 Active Assessment Bursitis of hip, right M70.71 Active Assessment Other director of orthopedics (current) drug therapy Z79.899 Active Problem Raynauds disease I73.00 Active Problem Polyarthralgia M25.50 Active Problem Bursitis of hip, right M70.71 Active Problem Raynaud's syndrome 443.0 Active Problem Unspecified diffuse connective tissue disease 710.9 Active Problem Other director of orthopedics (current) drug therapy Z79.899 Active Problem 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 [address]-80 1 MG Orally Twice a day Active 1 tablet as needed ProAir HFA [facility] [address]-92 108 (90 Base) MCG/ACT Inhalation as needed Active 2 puffs Potassium [facility] [address]-71 10 MEQ Orally Once a day Jan 30, 2016 Feb 29, 2016 Active 1 capsule with food Estrogens Conj Synthetic A [facility] [address]-98 0.03MG Orally Active as directed Medrol (Johnny) [facility] [address]-87 4 MG Orally prn Active as directed Singulair [facility] [address]-84 10 MG Orally Once a day Active 1 tablet in the evening Advair Diskus [facility] [address]-94 250-50 MCG/DOSE Inhalation Twice a day Active [address] [facility] [address]-72 200 MG Orally Twice a day Mar 29, 2016 Active 1 tablet with food or milk Melatonin [facility] [address]-22 OTC Orally at bedtime Active 1 tablet at bedtime as needed with food Ultram [facility] [address]-27 50 MG Orally PRN Active as directed Zolpidem Tartrate [facility] [address]-71 10 MG Orally Once a day Active 1 tablet at bedtime as needed Terbutaline Sulfate [facility] [address]-93 2.5 MG Orally every 6 hrs Active 1 tablet every 6 hours while awake Lasix [facility] [address]-30 40 MG Orally Once a day Active 1 tablet Nitroglycerin ointment Unknown 0 [...] . Retired with disability. Feb 13, 2016 Vital Signs Date/Time: Feb 13, 2016 Weight 183 lbs Height 65 in Temperature 97.5 F Cardiac Monitoring Heart Rate 84 /min Blood Pressure Diastolic 68 mm Hg Blood Pressure Systolic 120 mm Hg Summary Purpose eClinicalWorks Submission
--- OUTSIDE RECORDS SUMMARY | 2018-09-17 12:39 | XMS REPORT ---
Author Author Yony Palomares Organization eClinicalWorks Address Unknown Phone Unavailable Care Team Providers Care Home Paraprofessional Name Role Phone Yony Palomares CP Unavailable Allergies No Known Allergies Problems Problem Type Condition Code Onset Dates Condition Status Problem Raynaud's syndrome 443.0 Active Problem Other [facility] (current) drug therapy Z79.899 Active Problem Unspecified [...] Bursitis of hip, right M70.71 Active Medications Medication Code System Code Instructions Start Date End Date Status Dosage Vitamin D (Ergocalciferol) [facility] [address]-45 68441 UNIT Orally once a week August 03, 2016 Active 1 capsule Results No Known Results Summary Purpose eClinicalWorks Submission
--- OUTSIDE RECORDS SUMMARY | 2018-09-17 12:39 | XMS REPORT ---
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
--- OUTSIDE RECORDS SUMMARY | 2018-09-17 12:39 | XMS REPORT ---
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
--- OUTSIDE RECORDS SUMMARY | 2018-09-17 12:39 | XMS REPORT ---
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
--- OUTSIDE RECORDS SUMMARY | 2018-09-17 12:40 | XMS REPORT ---
Author Organization Unknown Address [address] [place] [address] Phone [phone] Care Team Providers Care Textile Science Technician Name Role Phone BRYANNA RUIZ MD 114 [phone] GUALBERTO DOVE MD 121 [phone] JARROD CERVANTES MD 105 [phone] BRYANNA HERRING MD 2 [phone] DIPIKA BEATTY MD 183 [phone] ERIC BOTELLO MD 3 [phone] Allergies Code Code System Name Reaction Severity [...] oral route for 30 days. Completed 05/21/2016 tizanidine 2 mg tablet Completed 07/17/2016 tizanidine [...] route as needed for 3 days. Completed 02/21/2017 zolpidem 10 mg tablet Active Not available Zostavax (PF) 19,400 unit/0.65 mL subcutaneous suspension Completed 11/07/2016 Notes: LOW DOSE IRON QD Cervical Injections Some medications listed in Document: #[id number] could not be added to this patient's chart. Please review this document and add these medications to the patient's chart manually as needed. Problems Name Status [...] 08/09/2017 Notes: Some problems listed in Document: #[id number] could not be added to this patient's chart. Please review this document and add these problems to the patient's chart manually as needed. Procedures Date Name Performed by Appendectomy Information not available Knee Surgery Information not available Cholecystectomy Information not available Eye Surgery Information not available Hysterectomy (Partial) Information not available Gastrointestinal Surgery Information not available 05/21/2016 MAMMO, Screening, Digital, Bilateral [facility] [address] [place] [address] (Work [address]) 05/21/2016 Bone Density [facility] [address] [place] [address] (Work Place) 07/17/2016 XR, Cervical Spine [facility] [address] [address] (Work Place) 08/28/2016 XR, Shoulder [facility] [place] [address] [address] (Work Place) 10/18/2016 MRI, Shoulder, W/o Contrast [facility] [place] [address] [facility] [address] [place] [address] (Work Place) 10/18/2016 MRI, Cervical Spine, W/o Contrast [facility] [address] [place] [address] (Work Place) 03/14/2017 XR, Chest, 2 View [facility] [place] [address] [place] [address] (Work Place) 03/14/2017 Electrocardiogram [facility] [address] [place] [address] (Work Place) Lab Results Date Name Specimen Result Interpretation Description Value Range Status Address 04/22/2017 CMP, Serum or Plasma Alt 16 U/L 0-55 U/L Final [facility]: [address] [place] [address], [place] Ast 15 U/L 5-34 U/L Final [facility]: [address] Bun 13.2 mg/dL 9.8-20.1 mg/dL Final [facility]: [address] Alk Phos 88 unit/L 40-150 unit/L Final [facility]: [address] [place] [address], [place] High Glucose 109 mg/dL 70-99 mg/dL Final [facility]: [address] [place] [address], [place] Albumin 3.5 g/dL 3.5-5.0 g/dL Final [facility]: [address] Creatinine 0.76 mg/dL 0.57-1.11 mg/dL Final [facility]: [address] eGFR Non- >60 mL/min/1.73m2 >60 mL/min/1.73m2 Final [facility]: [address] Total Bilirubin 0.2 mg/dL 0.2-1.2 mg/dL Final [facility]: [address] eGFR - >60 mL/min/1.73m2 >60 mL/min/1.73m2 Final [facility]: [address] Sodium 141 mEq/L 136-145 mEq/L Final [facility]: [address] Potassium 4.2 mEq/L 3.5-5.1 mEq/L Final [facility]: [address] Chloride 103 mmol/L 98-107 mmol/L Final [facility]: [address] Total Protein 6.6 g/dL 6.4-8.3 g/dL Final [facility]: [address] Calcium 9.9 mg/dL 8.4-10.2 mg/dL Final [facility]: [address] Co2 30.5 mmol/L 23.0-31.0 mmol/L Final [facility]: [address] Anion Gap 8 calc Final [facility]: [address] 04/22/2017 Lipid Panel, Serum High Hdl 72 mg/dL 40-60 mg/dL Final [facility]: [address] Triglyceride 109 mg/dL 0-149 mg/dL Final [facility]: [address] VLDL Calc. 22 mg/dL Final [facility]: [address] cholesterol/HDL Ratio 2.9 mg/dL Final [facility]: [address] non-HDL Cholesterol Calc. 135 mg/dL 0-160 mg/dL Final [facility]: [address] High Cholesterol 207 mg/dL 0-199 mg/dL Final [facility]: [address] LDL Calc. 113 mg/dL 0-130 mg/dL Final [facility]: [address] [place] [address], [place] 04/22/2017 TSH, Serum or Plasma Tsh 2.425 uIU/mL 0.350-4.940 uIU/mL Final [facility]: [address] 10/18/2015 CBC W/ Auto Diff No observation recorded. 12/30/2014 Iron Panel, Serum or Plasma No observation recorded. 12/28/2014 CBC W/ Auto Diff No observation recorded. Electrocardiogram No observation recorded. [facility]: [address] [facility] Past Encounters 08/20/2017 Cervical Radiculopathy Thelma Carter MD: [address], [address], [place] [address], Ph. 08/05/2017 Acute Exacerbation of Chronic Obstructive Airways Disease; Impairment of Balance Julio Bansal MD: [address] [place] [phone], Ph. 07/16/2017 Neck Pain; Spinal Stenosis in Cervical Region; Renewal of Prescription Eric Alva MD: [address] [place] [phone], Ph. 06/25/2017 Spinal Stenosis in Cervical Region; Undifferentiated Connective Tissue Disease; Chronic Obstructive Lung Disease; Atherosclerosis of Aorta; Moderate Depression Eric Alva MD: [address] [place] [phone], Ph. 05/27/2017 Lateral Epicondylitis; Impingement Syndrome of Shoulder Region Eric Alva MD: [address] [place] [phone], Ph. 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 03/14/2017 Thoracic Back Pain; Spinal Stenosis in Cervical Region; Pain Radiating to Left Side of Chest Ashley Contreras ASSISTANT STORE MANAGER: [address] [place] [phone], Ph. 02/21/2017 Impingement Syndrome of Shoulder Region Eric Alva MD: [address] [place] [phone], Ph. 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 01/01/2017 Migraine Ericgladys Alva MD: [address] [place] [phone], Ph. 11/26/2016 Rotator Cuff Syndrome; Spinal Stenosis in Cervical Region Ericgladys Alva MD: [address] [place] [phone], Ph. 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 11/07/2016 Ulcer of Mouth; Shoulder Joint Pain; Neck Pain; Pruritic Rash Ericgladys Alva MD: [address] [place] [phone], Ph. 10/26/2016 Lateral Epicondylitis; Undifferentiated Connective Tissue Disease Afia Michel MD: [address] [place] [phone], Ph. 10/22/2016 Lateral Epicondylitis; Undifferentiated Connective Tissue Disease Eric Roxana Alva MD: [address] [place] [phone], Ph. 10/18/2016 Shoulder Joint Pain; Neck Pain Eric Alva MD: [address] [place] [phone], Ph. 10/10/2016 Bilateral Shoulder Joint Pain; Strain of Neck Muscle; Edema of Lower Extremity Ericgladys Alva MD: [address] [place] [phone], Ph. 08/28/2016 Neck Pain; Cervical Spondylosis; Chronic Obstructive Lung Disease; Gastroesophageal Reflux Disease; Raynaud's Phenomenon; Insomnia; Shoulder Joint Pain Eric Alva MD: [address] [place] [phone], Ph. 07/31/2016 Neck Pain; Cervical Spondylosis Eric Alva MD: [address] [place] [phone], Ph. 07/17/2016 Neck Pain Eric Alva MD: [address] [place] [phone], Ph. 07/12/2016 Edema of Lower Extremity; Neck Pain; Shoulder Joint Pain Eric Alva MD: [address] [place] [phone], Ph. 05/21/2016 Ulcer of Mouth; Degenerative Joint Disease Involving Multiple Joints; Edema of Lower Extremity; Screening Mammography; Screening for Osteoporosis Eric Alva MD: [address] [place] [phone], Ph. 01/31/2016 Atopic Dermatitis; Ulcer of Mouth; Influenza Vaccination Eric Alva MD: [address] [place] [phone], Ph. Social History Smoking Status Former Smoker (1 [...] and information sent with patient in their [facility] health folder Influenza: discussed today and information sent with patient in their [facility] health folder Shingles: discussed today and information sent with patient in their [facility] health folder Tetanus: discussed today and information sent with patient in their [facility] health folder 2. Mammography Screening: discussed today and information sent with patient in their [facility] health folder 3. Colorectal cancer Screening Colonoscopy: discussed today and information sent with patient in their [facility] health folder Fecal Occult Blood: discussed today and information sent with patient in their [facility] health folder 4. Bone Mass Measurement: discussed [...] risks and promote healthy living in your [facility] folder. Reminders Provider Appointments None recorded. Lab [...]
--- OUTSIDE RECORDS SUMMARY | 2018-09-17 12:40 | XMS REPORT ---
Author Author Admin, Powers [employer] Address Unknown Phone Unavailable Allergies, Adverse Reactions, Alerts Allergy Name Reaction Description Start Date Severity Status Provider DECLOMYCIN Mild Active Paulo Rowe MD PREDNISONE Mild Active Paulo Rowe MD Conditions or Problems Problem Name Problem Code Onset Date Status Entry Date Provider Comment Standard Description Annotate Follow-up examination, vaginal Pap smear V76.2 Active Paulo Rowe MD Screening for malignant neoplasms of the cervix [employer] Stitcher annual exam V72.3 Active Paulo Rowe MD Special investigations and examinations - Gynecological examination Medication List Medication Instructions Start Date Stop Date Generic Name NDC Status Provider Patient Instruction Drug Treatment Unknown - unknown Vital Signs Date Name Value Unit Range Description blood pressure, diastolic 80 mm[Hg] BP [place] blood pressure, systolic 124 mm[Hg] BP sys height E&M 65 [in_us] Bdy height pulse rate E&M 88 /min Heart rate respiratory rate E&M 19 /min Resp rate temperature E&M 98.2 [degF] Body temperature weight E&M 199.25 [lb_av] Weight Measured Procedures Code Procedure Name Date Entry Date Standard Description [id number] New Patient Well Exam (40 - 64 Yrs) - [address] 14:34:44 CDT
--- OUTSIDE RECORDS SUMMARY | 2018-09-17 12:40 | XMS REPORT | Encounter Summary ---
Author Organization Unknown Address [address] [place] [id number] Phone [phone] Care Team Providers Care Mr Teacher Name Role Phone Dr. Eric Russell 3 [phone] Armin Singh MD 2 [phone] Yessica Ferrell 62 [phone] Ronn Lopes MD 105 [phone] Jose De Jesus Blanton MD 107 [phone] [facility] 111 [phone] Armin Little MD 114 [phone] Paulo Rowe MD 126 [phone] Jean-Claude Doty MD 130 [phone] Reason for Visit Lumbar radiculopathy; Gastroesophageal reflux disease Instructions 1. Lumbar radiculopathy acetaminophen 300 mg-codeine 30 mg tablet 2. Fracture of humerus 3. Undifferentiated connective tissue disease 4. Gastroesophageal reflux disease 5. Atherosclerosis of aorta 6. Chronic obstructive lung disease 7. Body mass index 30+ - obesity body mass index: care instructions learning about healthy weight Discussion Note: None recorded. Plan of Care Reminders Provider Appointments Est Patient 10/27/2018 8:00AM Eric Alva MD Lab None recorded. Referral None recorded. Procedures None recorded. Surgeries None recorded. Imaging None recorded. Medications Name Start Date acetaminophen 300 mg-codeine 30 mg tablet Take 1 tablet every 8 hours by oral route as needed for 30 days. acyclovir 5 % topical ointment apply tid prn albuterol sulfate 2 mg tablet 2 tablets daily alprazolam 0.5 mg tablet Take 1 tablet every day by oral route as needed. amlodipine 2.5 mg tablet Take 1 tablet every day by oral route. bupropion HCl XL 150 mg 24 hr tablet, extended release Take 1 tablet every day by oral route. fluticasone propionate 50 mcg/actuation nasal spray,suspension 2 sprays each nostril once daily prn furosemide 20 mg tablet TAKE 1 TABLET BY MOUTH EVERY DAY gabapentin 300 mg capsule Take 2 capsules every day by oral route at bedtime. Klor-Con 10 mEq tablet,extended release TAKE 1 TABLET BY MOUTH EVERY DAY DIRECTED methocarbamol 750 mg tablet montelukast 10 mg tablet one tablet daily omeprazole 40 mg capsule,delayed release once daily Trelegy Ellipta 1 PUFF QD triamcinolone acetonide 0.1 % dental paste APPLY 4 TIMES A DAY triamcinolone acetonide 0.5 % topical ointment APPLY A THIN LAYER TO THE AFFECTED AREA(S) BY TOPICAL ROUTE 2 TIMES PER DAY valacyclovir 500 mg tablet Take 1 tablet every other day by oral route. Ventolin HFA 90 mcg/actuation aerosol inhaler 2 puffs qid zolpidem 10 mg tablet Take 1 tablet every day by oral route for 30 days. Medications Administered None recorded. Vitals Height Weight BMI Blood Pressure 5 ft 4.6 in 207 lbs 34.9 kg/m2 (1) 150/80 mm[Hg] (2) 132/74 mm[Hg] Lab Results None recorded. 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 11/12/2016 Rotator Cuff Syndrome Active 11/12/2016 Moderate Major Depression Active 08/09/2017 Atherosclerosis of Aorta Active 08/09/2017 Lumbar Radiculopathy Active 07/23/2018 Procedures Date Name Performed by 05/13/2017 Other Information not available 05/13/2013 Colonoscopy with Biopsy Information not available Appendectomy Information not available Knee Surgery Information not available Cholecystectomy (Gall Bladder Removal) Information not available Eye Surgery Information not available Hysterectomy (Partial) Information not available Gastrointestinal Surgery Information not available Vaccine List Vaccine Type Influenza, injectable, MDCK, preservative free, quadrivalent 01/31/20160.5 mL influenza, injectable, quadrivalent 01/28/2015 influenza, unspecified formulation 02/05/2017 02/10/2018 pneumococcal conjugate PCV 13 02/22/2017 Pneumococcal Conjugate, unspecified formulation 05/13/2014 Tdap 12/12/2015 zoster 02/11/2016 zoster subunit 10/15/20170.5 mL Social History Smoking Status Former Smoker (1 / PPD) Past Encounters 07/23/2018 Lumbar Radiculopathy; Fracture of Humerus; Undifferentiated Connective Tissue Disease; Gastroesophageal Reflux Disease; Atherosclerosis of Aorta; Chronic Obstructive Lung Disease; Body Mass Index 30+ - Obesity Eric Alva MD: [id number] [place] [address], Ph. History of Present Illness Note:F/u on GERD, left arm pain and cervical/lumbar radiculopathy.<div>Hx of fall in 04/29 and left humeral neck fracture. Not able to raise up the L arm. Intensity: 9/10. Pain decreases 20-30% approximately with tylenol #3. </div><div >Pt is scheduled for a lumbar epidural injection at the end of this month. </div ><div>GERD: stable. </div> Review of Systems Comprehensive General Adult ROS Reported By: Patient Cardiovascular: Cardiovascular: no chest pain, no palpitations, no lightheadedness Respiratory: Respiratory: no cough, no wheezing, shortness of breath Gastrointestinal: Gastrointestinal: no abdominal pain, no nausea, no vomiting, no constipation, no diarrhea Musculoskeletal: Musculoskeletal: arthralgias/joint pain, back pain Neurologic: Neurologic: no loss of consciousness, no headaches Physical Exam General Adult Exam (male) Reported By: Patient Constitutional: General Appearance: healthy-appearing, obese. Level of Distress: NAD. Ambulation: ambulating normally Psychiatric: Insight: good judgement. Mental Status: active and alert, normal mood, normal affect. Orientation: to time, to place, to person. Memory: recent memory normal, remote memory normal Eyes: Lids and Conjunctivae: non-injected, no discharge Neck: Neck: trachea midline, pain with motion, tender Lungs: Auscultation: breath sounds normal Cardiovascular: Heart Auscultation: RRR, normal S1, normal S2, no murmurs Musculoskeletal:: Motor Strength and Tone: normal, normal tone. Joints, Bones, and Muscles: limited ROM, tenderness. Extremities: no edema Neurologic: Gait and Station: normal gait. Reflexes: DTRs 2+ bilaterally throughout Back: Thoracolumbar Appearance: ; Tenderness in the lumbar area with muscle spasms
--- OUTSIDE RECORDS SUMMARY | 2018-09-17 12:40 | XMS REPORT ---
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 Z79.899 Active Problem Unspecified [...] diffuse connective tissue disease M35.9 Active Assessment Vitamin D deficiency, unspecified E55.9 Active Problem Polyarthralgia 719.49 Active Assessment Other 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 (current) drug therapy Z79.899 Active Problem Unspecified diffuse connective tissue disease 710.9 Active Medications Medication Code System Code Instructions Start Date End Date Status Dosage Estrogens Conj Synthetic A [facility] [address]-22 0.03MG Orally Active as directed Lasix [facility] [address]-74 20 mg Orally every other day Active 1 tablet Albuterol NDC 0 2 MG Orally once a day Active 2 tablet Tizanidine HCl [facility] [address]-50 4 MG Orally twice a day Active 1 tablet as needed Advair Diskus [facility] [address]-44 250-50 MCG/DOSE Inhalation Twice a day Active 1 puff Nitroglycerin ointment NDC 0 0.5% apply to finger arriola every 6 hours October 13, 2015 Active apply to fingers Zolpidem Tartrate [facility] [address]-18 10 MG Orally Once a day Active 1 tablet at bedtime as needed Potassium Chloride [facility] 75365393744 10 MEQ Orally Once a day Active 1 capsule with food Meloxicam [facility] [address]-61 15 MG Orally Once a day Active 1 tablet Amoxicillin [facility] [address]-35 500 MG Orally every 12 hrs Active 1 capsule Ultram [facility] [address]-36 50 MG Orally PRN Active as directed Melatonin [facility] [address]-67 OTC Orally at bedtime Active 1 tablet at bedtime as needed with food Lyrica [facility] [address]-88 50 MG Orally Three times a day Active 1 capsule Singulair [facility] [address]-55 10 MG Orally Once a day Active 1 tablet in the evening Alprazolam [facility] [address]-56 0.5 MG Orally as needed Active 1 tablet ProAir HFA [facility] [address]-32 108 (90 Base) MCG/ACT Inhalation as needed Active 2 puffs Tylenol/Codeine #3 [facility] [address]-37 300-30 MG Orally every 4 hours as needed Active 1 tablet as needed Vital Signs Date/Time: August 01, 2016 BMI 32.12 Index Weight 196 lbs Height 65.5 in Temperature 97.2 F Cardiac Monitoring Heart Rate 86 /min Blood Pressure Diastolic 78 mm Hg Blood Pressure Systolic 124 mm Hg Results Name Result Date Reference Range Unit Abnormality Flag Magnesium, Serum ----MAGNESIUM 2.3 20160801 1.5-2.5 mg/dL N COMPREHENSIVE METABOLIC PANEL W/EGFR ----GLOBULIN 2.3 20160801 1.9-3.7 g/dL (calc) N ----eGFR 81 20160801 > OR=60 mL/min/1.73m2 N ----eGFR NON-AFR. TONGAN 69 20160801 > OR=60 mL/min/1.73m2 N ----ALBUMIN 3.6 20160801 3.6-5.1 g/dL N ----SODIUM 139 20160801 135-146 mmol/L N ----PROTEIN, TOTAL 5.9 20160801 6.1-8.1 g/dL L ----BUN/CREATININE RATIO NOT APPLICABLE 20160801 (calc) ----CALCIUM 9.2 [id number] 8.6-10.4 mg/dL N ----AST 18 20160801 10-35 U/L N ----GLUCOSE 109 20160801 65-99 mg/dL H ----ALKALINE PHOSPHATASE 82 20160801 33-130 U/L N ----BILIRUBIN, TOTAL 0.3 20160801 0.2-1.2 mg/dL N ----CREATININE 0.89 20160801 0.50-0.99 mg/dL N ----ALBUMIN/GLOBULIN RATIO 1.6 20160801 1.0-2.5 (calc) N ----UREA NITROGEN (BUN) 19 20160801 7-25 mg/dL N ----CARBON DIOXIDE 30 20160801 20-31 mmol/L N ----ALT 16 20160801 6-29 U/L N ----POTASSIUM 4.3 40517275 3.5-5.3 mmol/L N ----CHLORIDE 103 20160801 98-110 mmol/L N C-REACTIVE PROTEIN ----C-REACTIVE PROTEIN 1.39 60381880 <0.80 mg/dL H CBC (INCLUDES DIFF/PLT) ----MCHC 31.2 27985363 32.0-36.0 g/dL L ----MCH 25.8 17074722 27.0-33.0 pg L ----PLATELET COUNT 240 48760532 140-400 Thousand/uL N ----RDW 16.3 62791831 11.0-15.0 % H ----BASOPHILS 0.4 23447849 % N ----ABSOLUTE NEUTROPHILS 3823 39580811 8164-7847 cells/uL N ----ABSOLUTE LYMPHOCYTES 1204 94979910 850-3900 cells/uL N ----MPV 8.0 30306776 7.5-12.5 fL N ----ABSOLUTE BASOPHILS 24 17241249 0-200 cells/uL N ----HEMATOCRIT 29.2 82301463 35.0-45.0 % L ----NEUTROPHILS 64.8 31290569 % N ----MCV 82.5 83580706 80.0-100.0 fL N ----RED BLOOD CELL COUNT 3.54 90280579 3.80-5.10 Million/uL L ----ABSOLUTE MONOCYTES 608 20160801 200-950 cells/uL N ----ABSOLUTE EOSINOPHILS 242 20160801 15-500 cells/uL N ----HEMOGLOBIN 9.1 20160801 11.7-15.5 g/dL L ----EOSINOPHILS 4.1 20160801 % N ----WHITE BLOOD CELL COUNT 5.9 20160801 3.8-10.8 Thousand/uL N ----LYMPHOCYTES 20.4 20160801 % N ----MONOCYTES 10.3 20160801 % N SED RATE BY MODIFIED WESTERGREN ----SED RATE BY MODIFIED WESTERGREN 19 20160801 < OR=30 mm/h N VITAMIN D, 25-HYDROXY, LC/MS/MS ----VITAMIN D, 25-OH, TOTAL 15 20160801 30-100 ng/mL L Summary Purpose eClinicalWorks Submission
[2018-09-17] MEDS ORDERED: TESSALON PERLE100 MG PO (15:16)
== END 2018-09-17 12:33 | disposition left against medical advice (07) ==
LOC: FSED 12:30
DX: R50.9 Fever, unspecified (principal)

== ENCOUNTER 2018-09-17 12:37 | Emergency (ER) | payer MEDICARE, OTHER ==
[~2018-09-17] VITALS: Ht 170.2 cm; Wt 90.7 kg
--- OUTSIDE RECORDS SUMMARY | 2018-09-17 12:43 | XMS REPORT | Clinical Summary ---
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 05/28/2018 Discontinued [id number] Inhale by 0 anter (TRELEGY ELLIPTA) mouth [...] emphysema (HCC) 05/28/2018 Hospital Respiratory Therapy Encounter Afia Berger MD Centrilobular emphysema (HCC) 05/28/2018 [...] transplant 04/24/2018 Hospital Respiratory Therapy Encounter Enoch uLther MD Manson, Melissa J, [facility] Celestino So RN Blanchard, Kathryn S, [facility] Mima Maloney, RD Alina Lopez Osteopenia, unspecified [...] Taken Vital Sign Reading 05/28/2018 3:12 PM CORE FILER Blood Pressure 142/77 05/28/2018 3:12 PM CORE FILER Pulse 103 05/28/2018 3:12 PM CORE FILER Temperature 37.1 C (98.8 F) 05/28/2018 3:12 PM CORE FILER Respiratory Rate 16 05/28/2018 3:12 PM CORE FILER Oxygen Saturation 94% 04/24/2018 8:20 AM CORE FILER Inhaled Oxygen 21% Concentration 05/28/2018 3:12 PM CORE FILER Weight 96.5 kg (212 lb 11.2 oz) 05/28/2018 3:12 PM CORE FILER Height 165.1 cm (5' 5") 05/28/2018 3:12 PM CORE FILER Body Mass Index 35.4 Plan of Treatment Care Team Description Date Type Specialty 10/08/2018 Appointment Respiratory Therapy 10/08/2018 Appointment Respiratory Therapy Alina Solitario RN 10/08/2018 Office Visit Transplant Liang Burr MD [address] [address] [phone] 10/08/2018 Office Visit Transplant Procedures Comments Procedure Name Priority Date/Time Associated Diagnosis VASCULAR DIAGRAM -SCAN 08/20/2018 12:25 PM CDT PULMONARY FUNCTION - SCAN 06/02/2018 8:00 AM CORE FILER SPIROMETRY Routine 05/28/2018 Centrilobular emphysema 4:01 PM CORE FILER (FORMERLY [facility]) CREATININE CLEARANCE Routine 05/28/2018 Centrilobular emphysema 1:45 PM CORE FILER (HCC) Pre-transplant evaluation for lung transplant CREATININE Routine 05/28/2018 Centrilobular emphysema 1:45 PM CORE FILER (HCC) Pre-transplant evaluation for lung transplant PROTEIN, 24 HOUR URINE Routine 05/28/2018 Centrilobular emphysema 1:45 PM CORE FILER (HCC) Pre-transplant evaluation for lung transplant TRANSFUSION SERVICE 04/25/2018 REPORT - SCAN 5:54 PM CORE FILER FL ESOPHAGUS PHARNYX Routine 04/25/2018 Centrilobular emphysema AND/OR CERVICAL 11:59 AM CORE FILER (HCC) Pre-transplant evaluation for lung transplant XR CHEST 2 VIEWS Routine 04/25/2018 Centrilobular emphysema 11:30 AM CORE FILER (HCC) Pre-transplant evaluation for lung transplant XR MANDIBLE MIN 4 VIEWS Routine 04/25/2018 Centrilobular emphysema 11:25 AM CORE FILER (FORMERLY [facility]) Pre-transplant evaluation for lung transplant CT CHEST WITHOUT IV Routine 04/25/2018 Centrilobular emphysema CONTRAST 11:17 AM CORE FILER (FORMERLY [facility]) Pre-transplant evaluation for lung transplant CT ABDOMEN/PELVIS WITHOUT Routine 04/25/2018 Centrilobular emphysema IV CONTRAST 11:17 AM CORE FILER (FORMERLY [facility]) Pre-transplant evaluation for lung transplant ECHOCARDIOGRAM REPORT - 04/24/2018 SCAN 6:20 PM CORE FILER CAROTID DOPPLER BILATERAL Routine 04/24/2018 Centrilobular emphysema 4:46 PM CORE FILER (FORMERLY [facility]) Pre-transplant evaluation for lung transplant ECHO W CONTRAST & DOPPLER Routine 04/24/2018 Centrilobular emphysema 3:53 PM CORE FILER (FORMERLY [facility]) Pre-transplant evaluation for lung transplant PUL QUANT DIFFERENTIAL Routine 04/24/2018 Centrilobular emphysema FUNCT VENT/PERF 3:37 PM CORE FILER (FORMERLY [facility]) Pre-transplant evaluation for lung transplant FL SNIFF TEST Routine 04/24/2018 Lung transplant candidate 2:42 PM CORE FILER BLOOD TYPING, AUTOMATED Routine 04/24/2018 Centrilobular emphysema 9:54 AM CORE FILER (FORMERLY [facility]) Pre-transplant evaluation for lung transplant HLA TYPING CII Routine 04/24/2018 Centrilobular emphysema 9:35 AM CORE FILER (HCC) Pre-transplant evaluation for lung transplant HLA TYPING CI Routine 04/24/2018 Centrilobular emphysema 9:35 AM CORE FILER (HCC) Pre-transplant evaluation for lung transplant T SPOT TB Routine 04/24/2018 Centrilobular emphysema 9:35 AM CORE FILER (HCC) Pre-transplant evaluation for lung transplant URINALYSIS W/ MICROSCOPIC STAT 04/24/2018 Centrilobular emphysema 9:35 AM CORE FILER (HCC) Pre-transplant evaluation for lung transplant DRUG SCREEN, URINE, Routine 04/24/2018 Centrilobular emphysema TRANSPLANT 9:35 AM CORE FILER (FORMERLY [facility]) Pre-transplant evaluation for lung transplant CBC W/PLT COUNT & AUTO Routine 04/24/2018 Centrilobular emphysema DIFFERENTIAL 9:34 AM CORE FILER (FORMERLY [facility]) Pre-transplant evaluation for lung transplant TYPE AND SCREEN, STAT 04/24/2018 Centrilobular emphysema AUTOMATED 9:34 AM CORE FILER (FORMERLY [facility]) Pre-transplant evaluation for lung transplant AB SPECIFICITY CLASS II Routine 04/24/2018 Centrilobular emphysema 9:34 AM CORE FILER (FORMERLY [facility]) Pre-transplant evaluation for lung transplant FLOW PRA CLASS II WITH Routine 04/24/2018 Centrilobular emphysema REFLEX TO ANTIBODY 9:34 AM CORE FILER (FORMERLY [facility]) SPECIFICITY Pre-transplant evaluation for lung transplant FLOW PRA CLASS I WITH Routine 04/24/2018 Centrilobular emphysema REFLEX TO ANTIBODY 9:34 AM CORE FILER (FORMERLY [facility]) SPECIFICITY Pre-transplant evaluation for lung transplant HEPATITIS B SURFACE Routine 04/24/2018 Centrilobular emphysema ANTIBODY 9:34 AM CORE FILER (FORMERLY [facility]) Pre-transplant evaluation for lung transplant HIV-1 ANTIGEN WITH Routine 04/24/2018 Centrilobular emphysema HIV-1/2 ANTIBODY 9:34 AM CORE FILER (FORMERLY [facility]) Pre-transplant evaluation for lung transplant VARICELLA ZOSTER STAT 04/24/2018 Centrilobular emphysema ANTIBODY, IGG 9:34 AM CORE FILER (FORMERLY [facility]) Pre-transplant evaluation for lung transplant TSH/FREE T4 IF INDICATED Routine 04/24/2018 Centrilobular emphysema 9:34 AM CORE FILER (FORMERLY [facility]) Pre-transplant evaluation for lung transplant TOXOPLASMA GONDII Routine 04/24/2018 Centrilobular emphysema ANTIBODY, IGG 9:34 AM CORE FILER (FORMERLY [facility]) Pre-transplant evaluation for lung transplant PT/APTT Routine 04/24/2018 Centrilobular emphysema 9:34 AM CORE FILER (HCC) Pre-transplant evaluation for lung transplant LIPID PANEL Routine 04/24/2018 Centrilobular emphysema 9:34 AM CORE FILER (HCC) Pre-transplant evaluation for lung transplant HEPATITIS B CORE Routine 04/24/2018 Centrilobular emphysema ANTIBODY, TOTAL 9:34 AM CORE FILER (HCC) Pre-transplant evaluation for lung transplant HEPATITIS PANEL, ACUTE Routine 04/24/2018 Centrilobular emphysema 9:34 AM CORE FILER (HCC) Pre-transplant evaluation for lung transplant HEMOGLOBIN A1C Routine 04/24/2018 Centrilobular emphysema 9:34 AM CORE FILER (HCC) Pre-transplant evaluation for lung transplant EBV ANTIBODY, IGG Routine 04/24/2018 Centrilobular emphysema 9:34 AM CORE FILER (HCC) Pre-transplant evaluation for lung transplant CYTOMEGALOVIRUS ANTIBODY, Routine 04/24/2018 Centrilobular emphysema IGG 9:34 AM CORE FILER (HCC) Pre-transplant evaluation for lung transplant COMPREHENSIVE METABOLIC Routine 04/24/2018 Centrilobular emphysema PANEL 9:34 AM CORE FILER (HCC) Pre-transplant evaluation for lung transplant CBC W/PLT COUNT & AUTO Routine 04/24/2018 Centrilobular emphysema DIFFERENTIAL 9:34 AM CORE FILER (HCC) Pre-transplant evaluation for lung transplant RPR Routine 04/24/2018 Centrilobular emphysema 9:33 AM CORE FILER (HCC) Pre-transplant evaluation for lung transplant BLOOD GAS, ARTERIAL Routine 04/24/2018 Centrilobular emphysema 8:20 AM CORE FILER (HCC) Pre-transplant evaluation for lung transplant VASCULAR DIAGRAM -SCAN 04/02/2018 1:13 PM CORE FILER CARDIAC CATH REPORT - 04/02/2018 SCAN 1:13 PM CORE FILER R & L CATH / CORONARY 04/01/2018 Encounter for ANGIOS / PCI 5:01 PM CORE FILER pre-transplant evaluation for lung transplant Case Notes POP6 BLOOD GAS, ARTERIAL STAT 04/01/2018 4:07 PM CORE FILER PT/APTT STAT 04/01/2018 10:56 AM CORE FILER CBC W/PLT COUNT & AUTO STAT 04/01/2018 DIFFERENTIAL 10:01 AM CORE FILER CBC W/PLT COUNT & AUTO STAT 04/01/2018 DIFFERENTIAL 10:01 AM CORE FILER BASIC METABOLIC PANEL (7) STAT 04/01/2018 10:00 AM CORE FILER ECG 12-LEAD Routine 04/01/2018 9:19 AM CORE FILER Procedure Note - Interface, External Ris In - 04/01/2018 9:28 AM CORE FILER Ventricula r Rate 90 BPM Atrial Rate 90 BPM P-R Interval 160 ms QRS Duration 86 ms Q-T Interval 382 ms QTC Calculatio n(Bazett) 467 ms P [place] 73 degrees R [place] 60 degrees T [place] 69 degrees Normal sinus rhythm Normal ECG No previous ECGs available ECG 12-LEAD Routine 04/01/2018 9:19 AM CORE FILER PULMONARY FUNCTION - SCAN 03/24/2018 2:00 PM CORE FILER PULMONARY FUNCTION - SCAN 03/13/2018 2:51 PM CDT SPIROMETRY Routine 03/12/2018 Centrilobular emphysema 1:58 PM CDT (FORMERLY [facility]) 6 MINUTE WALK(FOR LUNG Routine 03/12/2018 Centrilobular emphysema TRANSPLANT ONLY) 1:58 PM CDT (HCC) PULMONARY FUNCTION - SCAN 12/13/2017 11:40 AM CDT 6 MINUTE WALK(FOR LUNG Routine 12/11/2017 Centrilobular emphysema TRANSPLANT ONLY) 2:02 PM CDT (FORMERLY [facility]) LUNG VOLUMES Routine 12/11/2017 Centrilobular emphysema 1:08 PM CDT (FORMERLY [facility]) after 09/16/2017 Results * VASCULAR DIAGRAM -SCAN (08/20/2018 12:25 PM CDT) Only the most recent of 2 results within the time period is included. Narrative Performed At * PULMONARY FUNCTION - SCAN (06/02/2018 8:00 AM CORE FILER) Only the most recent of 4 results within the time period is included. Narrative Performed At * Pulmonary Funct Lab Spirometry (05/28/2018 4:01 PM CORE FILER) Narrative Performed At Toma Jenkins RRT, DISTANCE LEARNING COORDINATOR 05/28/20184:03 PM [facility] PFT CHARTING REPORT Infection Control/Hand Hygiene procedures followed throughout the encounter with patient: Yes Patient Identification Method: Patient name verified on armband, and Medical record on armband, Is the order complete?: Yes Account ID#: [id number] Patient Name: Hui Galvez Birthdate: 1955 Age: [...] Creatinine clearance (24hr Urine) (05/28/2018 1:45 PM CORE FILER) Creatinine Clearance 52.0 (L) 70.0 - 140.0 mL/min [facility] Volume, Urine 1,900 ml [facility] Creatinine, Ur 37.0 mg/dL [facility] Patient Height 165.1 cm [facility] Patient Weight 92.200 kg [facility] Specimen Urine Performing Organization Address City/[facility] Cent[facility] Phone Number [facility] [address] [place] [address] [phone] * Protein, 24 hour urine (05/28/2018 1:45 PM CORE FILER) Protein, 24hr Urine <133 0 - 300 mg/24hr [facility] Volume, Urine 1,900 ml [facility] Protein, Urine <7 0 - 14 mg/dL [facility] Specimen Urine Performing Organization Address [facility] Phone Number [place] [phone] * Creatinine Serum (05/28/2018 1:45 PM CORE FILER) Creatinine 0.79 0.57 - 1.25 mg/dL [facility] EGFR 73Comment: ESTIMATED GFR IS mL/min/1.73 sq m [facility] NOT ACCURATE CREATININE [facility] CLEARANCE IN PREDICTING GLOMERULAR FILTRATION RATE. ESTIMATED GFR IS NOT APPLICABLE FOR DIALYSIS PATIENTS. Specimen Blood Performing Organization Address [facility] Centercomi Phone Number [address] [address] [phone] [place] [address] * TRANSFUSION SERVICE REPORT - SCAN (04/25/2018 5:54 PM CORE FILER) Narrative Performed At * FL esophagus (04/25/2018 11:59 AM CORE FILER) Specimen Narrative Performed At FINAL REPORT GE [facility] Esophagram. History: Lung transplant evaluation. Discussion: The [...] MD Report Verified Date/Time:04/25/2018 12:25:11 Reading Location: [address] Radiology Reading Room Procedure Note Interface, External Ris In - 04/25/2018 12:27 PM CORE FILER FINAL REPORT Esophagram. History: Lung transplant evaluation. [...] Report Verified Date/Time: 04/25/2018 12:25:11 Reading Location: [address] Radiology Reading Room Performing Organization Address City/State/Zipcode Phone Number GE RIS * XR chest 2 views (04/25/2018 11:30 AM CORE FILER) Specimen Narrative Performed At FINAL REPORT GE [facility] Chest, PA and lateral. History: Lung transplant evaluation. Comparison: None available. Discussion:The cardiomediastinal silhouette and pulmonary vasculature are within normal limits. The lungs are clear without evidence of consolidation or effusion.There are no acute osseous abnormalities. The soft tissues are unremarkable. IMPRESSION: No acute cardiopulmonary abnormality. Signed: Annette Patel MD Report Verified Date/Time:04/25/2018 12:32:38 Reading Location: [address] Radiology Reading Room Procedure Note Interface, External Ris In - 04/25/2018 12:34 PM CORE FILER FINAL REPORT Chest, PA and lateral. History: Lung transplant evaluation. Comparison: None available. Discussion: The cardiomediastinal silhouette and pulmonary vasculature are within normal limits. The lungs are clear without evidence of consolidation or effusion. There are no acute osseous abnormalities. The soft tissues are unremarkable. IMPRESSION: No acute cardiopulmonary abnormality. Signed: Annette Patel MD Report Verified Date/Time: 04/25/2018 12:32:38 Reading Location: [address] Radiology Reading Room Performing Organization Address [facility] CenterJuxta Labsmi Phone Number [facility] * XR mandible 4 views min (04/25/2018 11:25 AM CORE FILER) Specimen Narrative Performed At FINAL REPORT GE [facility] Mandible series, five images HISTORY: Lung transplant evaluation COMPARISON: None IMPRESSION: Suboptimal positioning. No fracture. Temporomandibular joints intact. Soft tissues appear unremarkable. No evidence for lytic or blastic lesion. Signed: Annette Patel MD Report Verified Date/Time:04/25/2018 12:20:57 Reading Location: [address] Radiology Reading Room Procedure Note Interface, External Ris In - 04/25/2018 12:23 PM CORE FILER FINAL REPORT Mandible series, five images HISTORY: Lung transplant evaluation COMPARISON: None IMPRESSION: Suboptimal positioning. No fracture. Temporomandibular joints intact. Soft tissues appear unremarkable. No evidence for lytic or blastic lesion. Signed: Annette Patel MD Report Verified Date/Time: 04/25/2018 12:20:57 Reading Location: [address] Radiology Reading Room Performing Organization Address [facility] Phone Number [facility] * CT chest without IV contrast (04/25/2018 11:17 AM CORE FILER) Specimen Narrative Performed At FINAL REPORT [employer] Exam: CT chest, abdomen and pelvis without [...] MD Report Verified Date/Time:04/25/2018 17:29:59 Reading Location: [address] Radiology Reading Room Procedure Note Interface, External Ris In - 04/25/2018 5:32 PM CORE FILER FINAL REPORT Exam: CT chest, abdomen and [...] Report Verified Date/Time: 04/25/2018 17:29:59 Reading Location: [address] Radiology Reading Room Performing Organization Address City/State/Zipcode Phone Number [facility] * CT abdomen pelvis without contrast (04/25/2018 11:17 AM CORE FILER) Specimen Narrative Performed At FINAL REPORT [employer] Exam: CT chest, abdomen and pelvis without [...] MD Report Verified Date/Time:04/25/2018 17:29:59 Reading Location: [address] Radiology Reading Room Procedure Note Interface, External Ris In - 04/25/2018 5:32 PM CORE FILER FINAL REPORT Exam: CT chest, abdomen and [...] Report Verified Date/Time: 04/25/2018 17:29:59 Reading Location: [address] Radiology Reading Room Performing Organization Address City/State/Zipcode Phone Number GE [facility] * ECHOCARDIOGRAM REPORT - SCAN (04/24/2018 6:20 PM CORE FILER) Narrative Performed At * Carotid doppler bilateral (04/24/2018 4:46 PM CORE FILER) Ejection Fraction [facility] MKCKESSON CPACS Specimen Impressions Performed At Right Impression [facility] 1. There is <50% diameter [...] At PV LAB - Carotid Duplex Study [facility] Demographics MKCKESSSERA CPA Patient NameHUI GALVEZ Date of Study04/24/2018 LENARD Age63 Visit [id number] Gender Female Date of Birth1955 Referring [facility] Room Number Physician Enoch MD Hr Clerk Rita Horvath T Interpreting Sabino Cooper Procedure Type of Study: Cerebral: Carotid, CAROTID DOPPLER, BILATERAL. Indications for Study:Lung transplant evaluation . Patient Status:Routine. Study Location:Vascular Lab. Technical Quality:Adequate visualization. Risk Factors History of Disease + +----+ + !Diagnosis !Date!Comments! + +----+ + !History/Risk Factors: !!COPD, Raynauds, SLE ! + +----+ + Procedure Note Interface, External Ris In - 04/25/2018 7:26 AM [facility] PV LAB - Carotid Duplex Study Demographics Patient Name HUI GALVEZ Date of Study 04/24/2018 LENARD Age 63 Visit Number [id number] Gender Female Accession Number [id number] Date of 1955 Referring [facility] Room Number Physician Enoch MD Hr Clerk Rita Horvath T Interpreting Alina Rosenthal, Physician [...] 0.96. Performing Organization Address City/State/Zipcode Phone Number [facility] * ECHO W CONTRAST & DOPPLER (04/24/2018 3:53 PM CORE FILER) Ejection Fraction [facility] Specimen Narrative Performed At Transthoracic Echocardiography Report (TTE) [facility] Demographics [facility] Patient Name Ching GALVEZ of Study 04/24/2018 LENARD [id number] Female Visit Number [id number] [id number] Room Number Number Date of Birth4Referring Physician Homa Kendall MD Age63 year(s)Hr Clerk Arik Flores [facility] AnalystAlex Joceline InterpretingRaPhysician MELIDA Walker [...] External Ris In - 04/24/2018 5:47 PM CORE FILER Transthoracic Echocardiography Report (TTE) Demographics Patient Name HUI GALVEZ Date of Study 04/24/2018 LENARD Gender Female Visit Number [id number] Race Unknown Room Number Number Date of 1955 Referring Physician Homa Kendall MD Age 63 year(s) Hr Clerk Arik Flores [facility] 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 PROCEDURE: V/Q LUNG SCAN w/differential function (xenon) CPT CODE:79085 INDICATION:Lung transplant evaluation PROTOCOL:10.1 mCi ofXe-133 gas [...] MD Report Verified Date/Time:04/24/2018 15:49:00 Reading Location: [address] Reading Room Procedure Note Interface, External Ris In - 04/24/2018 3:51 PM CORE FILER FINAL REPORT PROCEDURE: V/Q LUNG SCAN w/differential function (xenon) CPT CODE: [id number] INDICATION: Lung transplant evaluation PROTOCOL: 10.1 mCi [...] Report Verified Date/Time: 04/24/2018 15:49:00 Reading Location: [facility] [address] [employer] Reading Room Performing Organization Address City/State/Zipcode Phone Number GE [facility] * FL sniff test (04/24/2018 2:42 PM CORE FILER) Specimen Narrative Performed At FINAL REPORT [facility] Fluoroscopy sniff test Technique: Fluoroscopy was utilized [...] MD Report Verified Date/Time:04/24/2018 14:40:07 Reading Location: [facility] B1 C013X [facility] Consult Reading Room Procedure Note Interface, External Ris In - 04/24/2018 2:47 PM CORE FILER FINAL REPORT Fluoroscopy sniff test Technique: Fluoroscopy [...] Report Verified Date/Time: 04/24/2018 14:40:07 Reading Location: [facility] B1 C013X Ortho Consult Reading Room Performing Organization Address City/State/Zipcode Phone Number GE [facility] * Blood typing, automated (04/24/2018 9:54 AM CORE FILER) ABO/RH AUTOMATED (BEAKER) A POSITIVE [facility] Specimen Blood Performing Organization Address City/[facility] Centercode Phone Number [facility] [address] [place] [address] [facility] * HLA TYPING CII (04/24/2018 9:35 AM CORE FILER) HLA-DR AG1 17 [facility] HLA-DR AG2 4 [facility] HLA-DR AG3-1 52 [facility] HLA-DR AG3-2 [facility] HLA-DR AG4-1 [facility] HLA-DR AG4-2 53 [facility] HLA-DR AG5-1 [facility] HLA-DR AG5-2 [facility] HLA-DQA1 AG 1-1 05 [facility] HLA-DQA1 AG 1-2 03 [facility] HLA-DQB1 AG 1-1 2 [facility] HLA-DQB1 AG 1-2 8 [facility] HLA-DPA1 AG 1-1 02 [facility] HLA-DPA1 AG 1-2 02 [facility] HLA-DPB1 AG 1-1 01:01 [facility] HLA-DPB1 AG 1-2 05:01 [facility] HLA-AG Notes [facility] HLA-AG Report Comments [facility] Specimen Blood Narrative Performed At Disclaimer: [facility] This test was developed and its performance characteristics determined by the [facility] Laboratory. It has not been cleared or [...] Address City/State/[facility] Cent[facility]ode Phone Number [facility] ONE Esteban Anastasiia, MS: [id number], [place] [address] CLIA#[id number] CAP#[id number] UNOS#[id number] * HLA TYPING CI (04/24/2018 9:35 AM CORE FILER) HLA-A AG1 1 [facility] HLA-A AG2 31 [facility] HLA-B AG1 8 [facility] HLA-B AG2 60 [facility] HLA-C AG1 7 [facility] HLA-C AG2 10 [facility] HLA-B BW1 6 [facility] HLA-B BW2 6 [facility] HLA-AG Notes [facility] HLA-AG Report Comments [facility] Specimen Blood Narrative Performed At Disclaimer: [facility] This test was developed and its performance characteristics determined by the [facility] Laboratory. It has not been cleared or [...] testing. Performing Organization Address City/State/Zipcode Phone Number [facility] ONE Esteban Laurent, MS: [id number], [place] [address] CLIA#[id number] CAP#[id number] UNOS#[id number] * Drug screen, urine, transplant (04/24/2018 9:35 AM CORE FILER) Specimen Urine Narrative Performed At Performing Organization Address City/State/Zipcode Phone Number [address] [phone] * T Spot TB (04/24/2018 9:35 AM CORE FILER) T-Spot TB Negative [facility] Neg Ctrl Spot Count 0 [facility] Panel A Spot 0 [facility] Panel B Spot 0 [facility] Pos Ctrl Spot Ct 0 [facility] Scan Result [facility] Specimen Blood Narrative Performed At Performing Organization Address City/State/Zipcode Phone Number [facility] [address] [place] [address] LABORATORIES 100 * Urinalysis, Routine (04/24/2018 9:35 AM CORE FILER) Color, UA Light Yellow [facility] Clarity, UA Clear [facility] Specific [place], UA 1.008 1.001 - 1.035 [facility] pH, UA 7.5 5.0 - 8.0 [facility] Protein, UA Negative Negative [facility] Glucose, UA Negative Negative [facility] Ketones, UA Negative Negative [facility] Bilirubin, UA Negative Negative [facility] Blood, UA Negative Negative [facility] Nitrite, UA Negative Negative [facility] Leukocytes, UA Negative Negative [facility] Urobilinogen, UA 0.2 0.2 - 1.0 mg/dL [facility] RBC, UA 0 /HPF [facility] WBC, UA 1 /HPF [facility] Squam Epithel, UA <1 /HPF [facility] Specimen Source [facility] Specimen Urine Performing Organization Address City/State/[facility] Phone Number [facility] [address] [place] [address] [facility] * FLOW PRA CLASS II WITH REFLEX TO ANTIBODY SPECIFICITY (04/24/2018 9:34 AM CORE FILER) Flow Class II Percent 13 [facility] Positive Flow Class Report [facility] Comments Specimen Blood Narrative Performed At Disclaimer: [facility] This test was developed and its performance characteristics determined by the [facility] Laboratory. It has not been cleared or [...] testing. Performing Organization Address City/State/[facility] Phone Number [facility] Esteban Laurent, MS: [id number], [place] [address] CLIA#[id number] CAP#[id number] UNOS#[id number] * FLOW PRA CLASS I WITH REFLEX TO ANTIBODY SPECIFICITY (04/24/2018 9:34 AM CORE FILER) Flow Class I Percent 0 [facility] Positive Flow Class Report [facility] Comments Specimen Blood Narrative Performed At Disclaimer: [facility] This test was developed and its performance characteristics determined by the [facility] Laboratory. It has not been cleared or [...] complexity clinical laboratory testing. Performing Organization Address [facility] Phone Number [facility] Esteban Laurent, MS: [id number], [place] [address] CLIA#[id number] CAP#[id number] UNOS#[id number] * AB SPECIFICITY CLASS II (04/24/2018 9:34 AM CORE FILER) AB Specificity Class II NO CLASS II ANTIBODY DETECTED [facility] WITH MFIs > 4000 AB Specificity Titr Class [facility] Report Specimen Blood Narrative Performed At Disclaimer: [facility] This test was developed and its performance characteristics determined by the [facility] Laboratory. It has not been cleared or [...] complexity clinical laboratory testing. Performing Organization Address [facility] Phone Number [facility] Esteban Laurent, MS: [id number], [place] [address] CLIA#[id number] CAP#[id number] UNOS#[id number] * Type and screen, automated (04/24/2018 9:34 AM CORE FILER) ABO/RH AUTOMATED (BEAKER) A POSITIVE [facility] Ab Scrn NEGATIVE [facility] Specimen Blood Performing Organization Address City/[facility] Phone Number [address] [address] [facility] * TSH/T4 if indicated (04/24/2018 9:34 AM CORE FILER) TSH 0.98 0.35 - 4.94 uIU/mL [facility] Specimen Blood Performing Organization Address [facility] Phone Number [address] [address] [facility] * PT/PTT (04/24/2018 9:34 AM CORE FILER) Only the most recent of 2 results within the time period is included. Protime 13.1 11.7 - 14.7 seconds [facility] INR 1.0 <=5.9 [facility] PTT 24.2 22.5 - 36.0 seconds [facility] Specimen Blood Narrative Performed At RECOMMENDED COUMADIN/WARFARIN INR THERAPY RANGES [facility] STANDARD DOSE: 2.0 - 3.0 Includes: PROPHYLAXIS for venous thrombosis, [facility] systemic embolization; TREATMENT for venous thrombosis and/or pulmonary embolus. HIGH RISK: Target INR is 2.5-3.5 for patients with mechanical heart valves. Performing Organization Address [facility] Phone Number [address] [address] [facility] * HIV-1 Antigen with HIV-1/2 Antibody (04/24/2018 9:34 AM CORE FILER) HIV-1 Antigen with HIV NON-REACTIVE Nonreactive [facility] 1&2 Antibody [facility] Specimen Blood Performing Organization Address [facility]ode Phone Number [address] [address] [facility] * CBC with platelet count + automated diff (04/24/2018 9:34 AM CORE FILER) Only the most recent of 2 results within the time period is included. WBC 7.1 3.5 - 10.5 K/L [facility] RBC 4.00 3.93 - 5.22 M/L [facility] Hemoglobin 11.3 11.2 - 15.7 GM/DL [facility] Hematocrit 39.0 34.1 - 44.9 % [facility] MCV 97.5 (H) 79.4 - 94.8 fL [facility] MCH 28.3 25.6 - 32.2 pg [facility] MCHC 29.0 (L) 32.2 - 35.5 GM/DL [facility] RDW 16.0 (H) 11.7 - 14.4 % [facility] Platelets 259 150 - 450 K/CU MM [facility] MPV 9.8 9.4 - 12.3 fL [facility] nRBC 0 0 - 0 /100 WBC [facility] % Neutros 91 % [facility] % Lymphs 6 % [facility] % Monos 3 % [facility] % Eos 0 % [facility] % Baso 0 % [facility] # Neutros 6.38 (H) 1.56 - 6.13 K/L [facility] # Lymphs 0.40 (L) 1.18 - 3.74 K/L [facility] # Monos 0.20 (L) 0.24 - 0.36 K/L [facility] # Eos 0.00 (L) 0.04 - 0.36 K/L [facility] # Baso 0.02 0.01 - 0.08 K/L [facility] Immature 1 0 - 1 % [facility] Granulocytes-Relative [facility] Specimen Blood Performing Organization Address City/[facility]/Zipcode Phone Number [phone] [place] [address] * Hepatitis panel (04/24/2018 9:34 AM CORE FILER) Hep A IgM HEPATITIS A TEST NEGATIVE Nonreactive [facility] Hep B C IgM NON-REACTIVE Nonreactive [facility] Hepatitis C Ab NON-REACTIVE Nonreactive [facility] hepatitis B Surface Ag NON-REACTIVE Nonreactive [facility] Specimen Blood Performing Organization Address City/[facility] Cent[facility]ode Phone Number [address] * EBV-VCA antibody, IgG (04/24/2018 9:34 AM CORE FILER) TAMIKA FELDER VIRAL CAPSID Positive (A) Negative, Equivocal [facility] ANTIGEN IGG [facility] Specimen Blood Narrative Performed At Tamika Felder Viral Capsid Antigen IgG Result Interpretation: [facility] </=0.8 Al Negative [facility] 0.9-1.0 Al Equivocal >/=1.1 Al Positive Performing Organization Address City/[facility]/Zipcode Phone Number [phone] [place] [address] * Hepatitis B core, total (04/24/2018 9:34 AM CORE FILER) Hep B Core Total Ab NON-REACTIVE Nonreactive [facility] Specimen Blood Performing Organization Address City/[facility]/Zipcode Phone Number [phone] [place] [address] * Toxoplasma gondii antibody, IgG (04/24/2018 9:34 AM CORE FILER) TOXOPLASMA GONDII IGG <3.0 <10.0 IU/mL [facility] QUANTITATIVE [facility] Specimen Blood Narrative Performed At Toxoplasma Gondii IgG Result Interpretation: [facility] </=9.9 IU/mLNormal [facility] 10-11 IU/mLEquivocal >/=12 IU/mL Positive Performing Organization Address City/[facility] Phone Number [address] * Hepatitis B surface antibody (04/24/2018 9:34 AM CORE FILER) Hep B S Ab <8.0 <8.0 mIU/mL [facility] Specimen Blood Performing Organization Address City/[facility] Phone Number [phone] [place] [address] [phone] * Cytomegalovirus antibody, IgG (04/24/2018 9:34 AM CORE FILER) CYTOMEGALOVIRUS, IGG Positive (A) Negative, Equivocal [facility] Specimen Blood Narrative Performed At CMV IgG Result Interpretation: [facility] </=0.8 Al Negative [facility] 0.9-1.0 Al Equivocal >/=1.1 AlPositive Performing Organization Address [facility] Phone Number [phone] [place] [address] * Varicella zoster antibody, IgG (04/24/2018 9:34 AM CORE FILER) Varicella IgG 4.9 [facility] Specimen Blood Narrative Performed At VARICELLA ZOSTER RESULT INTERPRETATIONS: [facility] <=0.8 AlNonreactive:Presumed non-immune to VZV [facility] 0.9-1.0 AlEquivocal >=1.1 AlReactive:Presumed immune to VZV Performing Organization Address City/[facility]ode Phone Number [phone] [place] [address] * Hemoglobin A1c (04/24/2018 9:34 AM CORE FILER) Hemoglobin A1C 6.1 4.3 - 6.1 % [facility] Specimen Blood Performing Organization Address City/[facility] Phone Number [address] [phone] [facility] * Lipid panel (04/24/2018 9:34 AM CORE FILER) Triglycerides 128 mg/dL [facility] Cholesterol 215 mg/dL [facility] HDL 71 mg/dL [facility] LDL Calculated 118 mg/dL [facility] Specimen Blood Narrative Performed At Triglyceride Reference Range: [facility] Low Risk <150 [facility] [id number] High Risk 200-499 Very High Risk>=500 Cholesterol Reference Range: Low Risk <200 [id number] High Risk>240 HDL Cholesterol Reference Range: Low Risk >=60 High Risk <40 LDL Cholesterol Reference Range: Optimal<100 Near [id number] [id number] Very High >=190 Performing Organization Address City/State/Zipcode Phone Number [address] [address] [facility] * Comprehensive metabolic panel (04/24/2018 9:34 AM CORE FILER) Protein, Total 7.1 6.0 - 8.3 gm/dL [facility] Albumin 4.1 3.5 - 5.0 g/dL [facility] Alkaline Phosphatase 90 40 - 150 U/L [facility] Total Bilirubin 0.3 0.2 - 1.2 mg/dL [facility] Sodium 139 136 - 145 meq/L [facility] Potassium 4.5 3.5 - 5.1 meq/L [facility] Chloride 102 98 - 107 meq/L [facility] CO2 29 22 - 29 meq/L [facility] BUN 12 7 - 21 mg/dL [facility] Creatinine 0.82 0.57 - 1.25 mg/dL [facility] Glucose 130 (H) 70 - 105 mg/dL [facility] Calcium 9.8 8.4 - 10.2 mg/dL [facility] AST 15 5 - 34 U/L [facility] ALT 19 6 - 55 U/L [facility] EGFR 70Comment: ESTIMATED GFR IS mL/min/1.73 sq m [facility] NOT ACCURATE CREATININE [facility] CLEARANCE IN PREDICTING GLOMERULAR FILTRATION RATE. ESTIMATED GFR IS NOT APPLICABLE FOR DIALYSIS PATIENTS. Specimen Blood Performing Organization Address City/[facility]ode Phone Number [address] [address] [facility] * RPR (04/24/2018 9:33 AM CORE FILER) RPR Nonreactive Nonreactive [facility] Specimen Blood Performing Organization Address City/[facility] Phone Number [address] [address] [facility] * Blood gas, arterial (04/24/2018 8:20 AM CORE FILER) Only the most recent of 2 results within the time period is included. pH, Arterial 7.40 7.35 - 7.45 [facility] pCO2, Arterial 45 35 - 45 mmHg [facility] pO2, Arterial 62 (L) 80 - 90 mmHg [facility] O2 Sat, Arterial 91.6 (L) 96.0 - 97.0 % [facility] HCO3, Arterial 28 21 - 29 mmol/L [facility] Base Excess, Arterial 2.4 -2.0 - 3.0 mmol/L [facility] Patient Temperature 37.0 C [facility] FIO2 21.0 % [facility] Specimen Blood, Arterial Performing Organization Address City/[facility] Cent[facility]ode Phone Number [place] [phone] [place] [address] [facility] * CARDIAC CATH REPORT - SCAN (04/02/2018 1:13 PM CORE FILER) Narrative Performed At * Basic Metabolic Panel (04/01/2018 10:00 AM CORE FILER) Sodium 141 136 - 145 meq/L [facility] Potassium 3.9 3.5 - 5.1 meq/L [facility] Chloride 104 98 - 107 meq/L [facility] CO2 31 (H) 22 - 29 meq/L [facility] BUN 13 7 - 21 mg/dL [facility] Creatinine 0.79 0.57 - 1.25 mg/dL [facility] Glucose 132 (H) 70 - 105 mg/dL [facility] Calcium 9.6 8.4 - 10.2 mg/dL [facility] EGFR 73Comment: ESTIMATED GFR IS mL/min/1.73 sq m [facility] NOT ACCURATE CREATININE [facility] CLEARANCE IN PREDICTING GLOMERULAR FILTRATION RATE. ESTIMATED GFR IS NOT APPLICABLE FOR DIALYSIS PATIENTS. Specimen Blood Performing Organization Address City/State/Zipcode Phone Number [facility] [address] [place] [address] MEDICAL CENTER * ECG 12 lead (04/01/2018 9:19 AM CORE FILER) Specimen Narrative Performed At Ventricular Rate 90 BPM GE MUSE Atrial Rate 90 BPM P-R Interval 160 ms QRS Duration 86 ms Q-T Interval 382 ms QTC Calculation(Bazett) 467 ms P [place] 73 degrees R [place] 60 degrees T [place] 69 degrees Normal sinus rhythm Normal ECG No previous ECGs available Confirmed by MD Bingham Mahboob ([id number]) on 04/01/2018 1:24:05 PM Procedure Note Interface, External Ris In - 04/01/2018 1:24 PM CORE FILER Ventricular Rate 90 BPM Atrial Rate 90 BPM P-R Interval 160 ms QRS Duration 86 ms Q-T Interval 382 ms QTC Calculation(Bazett) 467 ms P [place] 73 degrees R [place] 60 degrees T [place] 69 degrees Normal sinus rhythm Normal ECG No previous ECGs available Confirmed by MD Bingham Mahboob ([id number]) on 04/01/2018 1:24:05 PM Performing Organization Address City/State/Zipcode Phone Number GE MUSE * 6 MINUTE WALK(FOR LUNG TRANSPLANT ONLY) (03/12/2018 1:58 PM CDT) Narrative Performed At Gary Calhoun, TRAINING ADMINISTRATOR, DISTANCE LEARNING COORDINATOR 03/12/20182:36 PM [facility] PFT CHARTING REPORT Infection Control/Hand Hygiene procedures followed throughout the encounter with patient: Yes Patient Identification Method: Patient name verified on armband, and Medical record on armband, Is the order complete?: Yes Account ID#: [id number] Patient Name: Hui Galvez Birthdate: 1955 Age: [...] CDT) Narrative Performed At Gary Calhoun RRT, [facility] 03/12/20182:36 PM [facility] PFT CHARTING REPORT Infection Control/Hand Hygiene procedures followed throughout the encounter with patient: Yes Patient Identification Method: Patient name verified on armband, and Medical record on armband, Is the order complete?: Yes Account ID#: [id number] Patient Name: Hui Galvez Birthdate: 1955 Age: [...] CDT) Narrative Performed At Toma Jenkins RRT, [facility] 12/11/20172:02 PM [facility] PFT CHARTING REPORT Infection Control/Hand Hygiene procedures followed throughout the encounter with patient: Yes Patient Identification Method: Patient name verified on armband, and Medical record on armband, Is the order complete?: Yes Account ID#: [id number] Patient Name: Hui Galvez Birthdate: 1955 Age: [...] Group MEDICARE MEDICARE A xxxxxxxxxxx Medicare B [facility]/[employer] [place] xxxxxxxxx Comm TRISTANIAN Advance Directives For more information, please contact: [facility] [address] [place] [address] Date Inactivated Comments Code Status Date Activated Full Code 04/01/2018 8:31 AM This code status was determined by: Patient
--- NOTE | 2018-09-17 14:36 | Diagnostic Imaging Report ---
EXAMINATION: CXR 2 VIEW - HOPD INDICATION: None provided. COMPARISON: None FINDINGS: TUBES and LINES: None. LUNGS: Lungs are well inflated. There are patchy opacities at the lung bases, left greater than right. There is a spine sign on lateral view. PLEURA: No pleural effusion or pneumothorax. HEART AND MEDIASTINUM: The cardiomediastinal silhouette is unremarkable. BONES AND SOFT TISSUES: No acute osseous abnormality. UPPER ABDOMEN: No free air under the diaphragm. IMPRESSION: Patchy opacities in the lower lobes, which may reflect early pneumonia in the appropriate clinical setting. Suggest follow-up chest radiograph in 6-8 weeks to assess for resolution. Signed by: Dr. Karly Barboza MD on 09/17/2018 2:32 PM
[2018-09-17] MEDS ORDERED: METHYLPREDNISOLONE SOD SUCC 125 MG/2ML VIAL IV ONE (14:45)
[2018-09-17] MEDS ORDERED: TESSALON PERLE100 MG PO (15:16)
[2018-09-17 15:49] VITALS: BP 124/65
== END 2018-09-17 15:30 | disposition home or self-care (01) ==
LOC: FSED 12:37
DX: R50.9 Fever, unspecified (principal); R05 Cough; J44.1 Chronic obstructive pulmonary disease with (acute) exacerbation; J18.0 Bronchopneumonia, unspecified organism
CPT/HCPCS: 71046; 80053; 81003; 83605; 84484; 85025; 87400; 99284; J2930

== ENCOUNTER 2018-09-30 10:04 | Inpatient (IN) | payer MEDICARE, OTHER ==
[~2018-09-30] VITALS: Ht 170.2 cm; Wt 89.8 kg
[2018-09-30] MEDS: ALBUTEROL SULF 0.083% NEB SOLN 3 ML NEB NEB SCH ×3 (00:09→19:33)
[2018-09-30] MEDS: IPRATROPIUM BROMIDE 0.02% 2.5 ML NEB NEB SCH ×4 (00:09→19:33)
[~2018-09-30 10:04] MED LIST changes: +TESSALON PERLE100 MG PO
--- OUTSIDE RECORDS SUMMARY | 2018-09-30 10:09 | XMS REPORT | Clinical Summary ---
Author Author [facility] Address Unknown Phone Unavailable Care Team Providers Care Computer Sciences Professor Name Role Phone Armin Little MD PCP [...] 8 (eight) hours as needed. 05/28/2018 Discontinued hcruakzymio-mdyftksbo-pei Inhale by 0 anter (TRELEGY ELLIPTA) mouth [...] Enoch Luther MD Manson, Melissa J, [facility] Celestino So RN Blanchard, Kathryn S, [facility] Mima Maloney, RD Alina Lopez Osteopenia, [...] (Primary Dx) 11/20/2017 Orders Only Transplant after 09/29/2017 Social History Date Tobacco Use Types Packs/Day [...] Taken Vital Sign Reading 05/28/2018 3:12 PM ASSISTANT PRESS OPERATOR Blood Pressure 142/77 05/28/2018 3:12 PM ASSISTANT PRESS OPERATOR Pulse 103 05/28/2018 3:12 PM ASSISTANT PRESS OPERATOR Temperature 37.1 C (98.8 F) 05/28/2018 3:12 PM ASSISTANT PRESS OPERATOR Respiratory Rate 16 05/28/2018 3:12 PM ASSISTANT PRESS OPERATOR Oxygen Saturation 94% 04/24/2018 8:20 AM ASSISTANT PRESS OPERATOR Inhaled Oxygen 21% Concentration 05/28/2018 3:12 PM ASSISTANT PRESS OPERATOR Weight 96.5 kg (212 lb 11.2 oz) 05/28/2018 3:12 PM ASSISTANT PRESS OPERATOR Height 165.1 cm (5' 5") 05/28/2018 3:12 PM ASSISTANT PRESS OPERATOR Body Mass Index 35.4 Plan of Treatment Care Team Description Date Type Specialty 10/08/2018 Appointment Respiratory Therapy 10/08/2018 Appointment Respiratory Therapy Alina Solitario RN 10/08/2018 Office Visit Transplant Liang Burr MD [address] [address] [phone] 10/08/2018 Office Visit Transplant Procedures Comments Procedure Name Priority Date/Time Associated Diagnosis VASCULAR DIAGRAM -SCAN 08/20/2018 12:25 PM CDT PULMONARY FUNCTION - SCAN 06/02/2018 8:00 AM ASSISTANT PRESS OPERATOR SPIROMETRY Routine 05/28/2018 Centrilobular emphysema 4:01 PM ASSISTANT PRESS OPERATOR ([facility]) CREATININE CLEARANCE Routine 05/28/2018 Centrilobular emphysema 1:45 PM ASSISTANT PRESS OPERATOR (HCC) Pre-transplant evaluation for lung transplant CREATININE Routine 05/28/2018 Centrilobular emphysema 1:45 PM ASSISTANT PRESS OPERATOR (HCC) Pre-transplant evaluation for lung transplant PROTEIN, 24 HOUR URINE Routine 05/28/2018 Centrilobular emphysema 1:45 PM ASSISTANT PRESS OPERATOR (HCC) Pre-transplant evaluation for lung transplant TRANSFUSION SERVICE 04/25/2018 REPORT - SCAN 5:54 PM ASSISTANT PRESS OPERATOR FL ESOPHAGUS PHARNYX Routine 04/25/2018 Centrilobular emphysema AND/OR CERVICAL 11:59 AM ASSISTANT PRESS OPERATOR (HCC) Pre-transplant evaluation for lung transplant XR CHEST 2 VIEWS Routine 04/25/2018 Centrilobular emphysema 11:30 AM ASSISTANT PRESS OPERATOR (HCC) Pre-transplant evaluation for lung transplant XR MANDIBLE MIN 4 VIEWS Routine 04/25/2018 Centrilobular emphysema 11:25 AM ASSISTANT PRESS OPERATOR ([facility]) Pre-transplant evaluation for lung transplant CT CHEST WITHOUT IV Routine 04/25/2018 Centrilobular emphysema CONTRAST 11:17 AM ASSISTANT PRESS OPERATOR ([facility]) Pre-transplant evaluation for lung transplant CT ABDOMEN/PELVIS WITHOUT Routine 04/25/2018 Centrilobular emphysema IV CONTRAST 11:17 AM ASSISTANT PRESS OPERATOR ([facility]) Pre-transplant evaluation for lung transplant ECHOCARDIOGRAM REPORT - 04/24/2018 SCAN 6:20 PM ASSISTANT PRESS OPERATOR CAROTID DOPPLER BILATERAL Routine 04/24/2018 Centrilobular emphysema 4:46 PM ASSISTANT PRESS OPERATOR ([facility]) Pre-transplant evaluation for lung transplant ECHO W CONTRAST & DOPPLER Routine 04/24/2018 Centrilobular emphysema 3:53 PM ASSISTANT PRESS OPERATOR ([facility]) Pre-transplant evaluation for lung transplant PUL QUANT DIFFERENTIAL Routine 04/24/2018 Centrilobular emphysema FUNCT VENT/PERF 3:37 PM ASSISTANT PRESS OPERATOR ([facility]) Pre-transplant evaluation for lung transplant FL SNIFF TEST Routine 04/24/2018 Lung transplant candidate 2:42 PM ASSISTANT PRESS OPERATOR BLOOD TYPING, AUTOMATED Routine 04/24/2018 Centrilobular emphysema 9:54 AM ASSISTANT PRESS OPERATOR ([facility]) Pre-transplant evaluation for lung transplant HLA TYPING CII Routine 04/24/2018 Centrilobular emphysema 9:35 AM ASSISTANT PRESS OPERATOR (HCC) Pre-transplant evaluation for lung transplant HLA TYPING CI Routine 04/24/2018 Centrilobular emphysema 9:35 AM ASSISTANT PRESS OPERATOR (HCC) Pre-transplant evaluation for lung transplant T SPOT TB Routine 04/24/2018 Centrilobular emphysema 9:35 AM ASSISTANT PRESS OPERATOR (HCC) Pre-transplant evaluation for lung transplant URINALYSIS W/ MICROSCOPIC STAT 04/24/2018 Centrilobular emphysema 9:35 AM ASSISTANT PRESS OPERATOR (HCC) Pre-transplant evaluation for lung transplant DRUG SCREEN, URINE, Routine 04/24/2018 Centrilobular emphysema TRANSPLANT 9:35 AM ASSISTANT PRESS OPERATOR ([facility]) Pre-transplant evaluation for lung transplant CBC W/PLT COUNT & AUTO Routine 04/24/2018 Centrilobular emphysema DIFFERENTIAL 9:34 AM ASSISTANT PRESS OPERATOR ([facility]) Pre-transplant evaluation for lung transplant TYPE AND SCREEN, STAT 04/24/2018 Centrilobular emphysema AUTOMATED 9:34 AM ASSISTANT PRESS OPERATOR ([facility]) Pre-transplant evaluation for lung transplant AB SPECIFICITY CLASS II Routine 04/24/2018 Centrilobular emphysema 9:34 AM ASSISTANT PRESS OPERATOR ([facility]) Pre-transplant evaluation for lung transplant FLOW PRA CLASS II WITH Routine 04/24/2018 Centrilobular emphysema REFLEX TO ANTIBODY 9:34 AM ASSISTANT PRESS OPERATOR ([facility]) SPECIFICITY Pre-transplant evaluation for lung transplant FLOW PRA CLASS I WITH Routine 04/24/2018 Centrilobular emphysema REFLEX TO ANTIBODY 9:34 AM ASSISTANT PRESS OPERATOR ([facility]) SPECIFICITY Pre-transplant evaluation for lung transplant HEPATITIS B SURFACE Routine 04/24/2018 Centrilobular emphysema ANTIBODY 9:34 AM ASSISTANT PRESS OPERATOR ([facility]) Pre-transplant evaluation for lung transplant HIV-1 ANTIGEN WITH Routine 04/24/2018 Centrilobular emphysema HIV-1/2 ANTIBODY 9:34 AM ASSISTANT PRESS OPERATOR ([facility]) Pre-transplant evaluation for lung transplant VARICELLA ZOSTER STAT 04/24/2018 Centrilobular emphysema ANTIBODY, IGG 9:34 AM ASSISTANT PRESS OPERATOR ([facility]) Pre-transplant evaluation for lung transplant TSH/FREE T4 IF INDICATED Routine 04/24/2018 Centrilobular emphysema 9:34 AM ASSISTANT PRESS OPERATOR ([facility]) Pre-transplant evaluation for lung transplant TOXOPLASMA GONDII Routine 04/24/2018 Centrilobular emphysema ANTIBODY, IGG 9:34 AM ASSISTANT PRESS OPERATOR ([facility]) Pre-transplant evaluation for lung transplant PT/APTT Routine 04/24/2018 Centrilobular emphysema 9:34 AM ASSISTANT PRESS OPERATOR (HCC) Pre-transplant evaluation for lung transplant LIPID PANEL Routine 04/24/2018 Centrilobular emphysema 9:34 AM ASSISTANT PRESS OPERATOR (HCC) Pre-transplant evaluation for lung transplant HEPATITIS B CORE Routine 04/24/2018 Centrilobular emphysema ANTIBODY, TOTAL 9:34 AM ASSISTANT PRESS OPERATOR (HCC) Pre-transplant evaluation for lung transplant HEPATITIS PANEL, ACUTE Routine 04/24/2018 Centrilobular emphysema 9:34 AM ASSISTANT PRESS OPERATOR (HCC) Pre-transplant evaluation for lung transplant HEMOGLOBIN A1C Routine 04/24/2018 Centrilobular emphysema 9:34 AM ASSISTANT PRESS OPERATOR (HCC) Pre-transplant evaluation for lung transplant EBV ANTIBODY, IGG Routine 04/24/2018 Centrilobular emphysema 9:34 AM ASSISTANT PRESS OPERATOR (HCC) Pre-transplant evaluation for lung transplant CYTOMEGALOVIRUS ANTIBODY, Routine 04/24/2018 Centrilobular emphysema IGG 9:34 AM ASSISTANT PRESS OPERATOR (HCC) Pre-transplant evaluation for lung transplant COMPREHENSIVE METABOLIC Routine 04/24/2018 Centrilobular emphysema PANEL 9:34 AM ASSISTANT PRESS OPERATOR (HCC) Pre-transplant evaluation for lung transplant CBC W/PLT COUNT & AUTO Routine 04/24/2018 Centrilobular emphysema DIFFERENTIAL 9:34 AM ASSISTANT PRESS OPERATOR (HCC) Pre-transplant evaluation for lung transplant RPR Routine 04/24/2018 Centrilobular emphysema 9:33 AM ASSISTANT PRESS OPERATOR (HCC) Pre-transplant evaluation for lung transplant BLOOD GAS, ARTERIAL Routine 04/24/2018 Centrilobular emphysema 8:20 AM ASSISTANT PRESS OPERATOR (HCC) Pre-transplant evaluation for lung transplant VASCULAR DIAGRAM -SCAN 04/02/2018 1:13 PM ASSISTANT PRESS OPERATOR CARDIAC CATH REPORT - 04/02/2018 SCAN 1:13 PM ASSISTANT PRESS OPERATOR R & L CATH / CORONARY 04/01/2018 Encounter for ANGIOS / PCI 5:01 PM ASSISTANT PRESS OPERATOR pre-transplant evaluation for lung transplant Case Notes POP6 BLOOD GAS, ARTERIAL STAT 04/01/2018 4:07 PM ASSISTANT PRESS OPERATOR PT/APTT STAT 04/01/2018 10:56 AM ASSISTANT PRESS OPERATOR CBC W/PLT COUNT & AUTO STAT 04/01/2018 DIFFERENTIAL 10:01 AM ASSISTANT PRESS OPERATOR CBC W/PLT COUNT & AUTO STAT 04/01/2018 DIFFERENTIAL 10:01 AM ASSISTANT PRESS OPERATOR BASIC METABOLIC PANEL (7) STAT 04/01/2018 10:00 AM ASSISTANT PRESS OPERATOR ECG 12-LEAD Routine 04/01/2018 9:19 AM ASSISTANT PRESS OPERATOR Procedure Note - Interface, External Ris In - 04/01/2018 9:28 AM ASSISTANT PRESS OPERATOR Ventricula r Rate 90 BPM Atrial Rate 90 BPM P-R Interval 160 ms QRS Duration 86 ms Q-T Interval 382 ms QTC Calculatio n(Bazett) 467 ms P [place] 73 degrees R [place] 60 degrees T [place] 69 degrees Normal sinus rhythm Normal ECG No previous ECGs available ECG 12-LEAD Routine 04/01/2018 9:19 AM ASSISTANT PRESS OPERATOR PULMONARY FUNCTION - SCAN 03/24/2018 2:00 PM ASSISTANT PRESS OPERATOR PULMONARY FUNCTION - SCAN 03/13/2018 2:51 PM CDT SPIROMETRY Routine 03/12/2018 Centrilobular emphysema 1:58 PM CDT ([facility]) 6 MINUTE WALK(FOR LUNG Routine 03/12/2018 Centrilobular emphysema TRANSPLANT ONLY) 1:58 PM CDT (HCC) PULMONARY FUNCTION - SCAN 12/13/2017 11:40 AM CDT 6 MINUTE WALK(FOR LUNG Routine 12/11/2017 Centrilobular emphysema TRANSPLANT ONLY) 2:02 PM CDT ([facility]) LUNG VOLUMES Routine 12/11/2017 Centrilobular emphysema 1:08 PM CDT ([facility]) after 09/29/2017 Results * VASCULAR DIAGRAM -SCAN (08/20/2018 12:25 PM CDT) Only the most recent of 2 results within the time period is included. Narrative Performed At * PULMONARY FUNCTION - SCAN (06/02/2018 8:00 AM ASSISTANT PRESS OPERATOR) Only the most recent of 4 results within the time period is included. Narrative Performed At * Pulmonary Funct Lab Spirometry (05/28/2018 4:01 PM ASSISTANT PRESS OPERATOR) Narrative Performed At Toma Jenkins RRT, BEEF LUGGER 05/28/20184:03 PM [facility] PFT CHARTING REPORT Infection Control/Hand Hygiene procedures followed throughout the encounter with patient: Yes Patient Identification Method: Patient name verified on armband, and Medical record on armband, Is the order complete?: Yes Account ID#: [id number] Patient Name: Hui Galvez Birthdate: 1955 Age: [...] Creatinine clearance (24hr Urine) (05/28/2018 1:45 PM ASSISTANT PRESS OPERATOR) Creatinine Clearance 52.0 (L) 70.0 - 140.0 mL/min [facility] Volume, Urine 1,900 ml [facility] Creatinine, Ur 37.0 mg/dL [facility] Patient Height 165.1 cm [facility] Patient Weight 92.200 kg [facility] Specimen Urine Performing Organization Address City/[facility] Phone Number [facility] [address] [place] [address] [phone] * Protein, 24 hour urine (05/28/2018 1:45 PM ASSISTANT PRESS OPERATOR) Protein, 24hr Urine <133 0 - 300 mg/24hr [facility] Volume, Urine 1,900 ml [facility] Protein, Urine <7 0 - 14 mg/dL [facility] Specimen Urine Performing Organization Address [facility] Phone Number [place] [phone] * Creatinine Serum (05/28/2018 1:45 PM ASSISTANT PRESS OPERATOR) Creatinine 0.79 0.57 - 1.25 mg/dL [facility] EGFR 73Comment: ESTIMATED GFR IS mL/min/1.73 sq m [facility] NOT ACCURATE CREATININE [facility] CLEARANCE IN PREDICTING GLOMERULAR FILTRATION RATE. ESTIMATED GFR IS NOT APPLICABLE FOR DIALYSIS PATIENTS. Specimen Blood Performing Organization Address [facility] Phone Number [address] [address] [phone] [place] [address] * TRANSFUSION SERVICE REPORT - SCAN (04/25/2018 5:54 PM ASSISTANT PRESS OPERATOR) Narrative Performed At * FL esophagus (04/25/2018 11:59 AM ASSISTANT PRESS OPERATOR) Specimen Narrative Performed At FINAL REPORT [facility] Esophagram. History: Lung transplant evaluation. Discussion: [...] MD Report Verified Date/Time:04/25/2018 12:25:11 Reading Location: [address] Radiology Reading Room Procedure Note Interface, External Ris In - 04/25/2018 12:27 PM ASSISTANT PRESS OPERATOR FINAL REPORT Esoph[employer]. History: Lung transplant evaluation. [...] Report Verified Date/Time: 04/25/2018 12:25:11 Reading Location: [address] Radiology Reading Room Performing Organization Address City/State/Zipcode Phone Number GE [facility] * XR chest 2 views (04/25/2018 11:30 AM ASSISTANT PRESS OPERATOR) Specimen Narrative Performed At FINAL REPORT GE [email or web address] Chest, PA and lateral. History: Lung transplant evaluation. Comparison: None available. Discussion:The cardiomediastinal silhouette and pulmonary vasculature are within normal limits. The lungs are clear without evidence of consolidation or effusion.There are no acute osseous abnormalities. The soft tissues are unremarkable. IMPRESSION: No acute cardiopulmonary abnormality. Signed: Annette Patel MD Report Verified Date/Time:04/25/2018 12:32:38 Reading Location: [address] Radiology Reading Room Procedure Note Interface, External Ris In - 04/25/2018 12:34 PM ASSISTANT PRESS OPERATOR FINAL REPORT Chest, PA and lateral. History: Lung transplant evaluation. Comparison: None available. Discussion: The cardiomediastinal silhouette and pulmonary vasculature are within normal limits. The lungs are clear without evidence of consolidation or effusion. There are no acute osseous abnormalities. The soft tissues are unremarkable. IMPRESSION: No acute cardiopulmonary abnormality. Signed: Annette Patel MD Report Verified Date/Time: 04/25/2018 12:32:38 Reading Location: [address] Radiology Reading Room Performing Organization Address [facility] Hospital[facility] Phone Number [facility] * XR mandible 4 views min (04/25/2018 11:25 AM ASSISTANT PRESS OPERATOR) Specimen Narrative Performed At FINAL REPORT [facility] Mandible series, five images HISTORY: Lung transplant evaluation COMPARISON: None IMPRESSION: Suboptimal positioning. No fracture. Temporomandibular joints intact. Soft tissues appear unremarkable. No evidence for lytic or blastic lesion. Signed: Annette Patel MD Report Verified Date/Time:04/25/2018 12:20:57 Reading Location: [address] Radiology Reading Room Procedure Note Interface, External Ris In - 04/25/2018 12:23 PM ASSISTANT PRESS OPERATOR FINAL REPORT Mandible series, five images HISTORY: Lung transplant evaluation COMPARISON: None IMPRESSION: Suboptimal positioning. No fracture. Temporomandibular joints intact. Soft tissues appear unremarkable. No evidence for lytic or blastic lesion. Signed: Annette Patel MD Report Verified Date/Time: 04/25/2018 12:20:57 Reading Location: [address] Radiology Reading Room Performing Organization Address [facility] Phone Number [facility] * CT chest without IV contrast (04/25/2018 11:17 AM ASSISTANT PRESS OPERATOR) Specimen Narrative Performed At FINAL REPORT [employer] Exam: CT chest, abdomen and pelvis without [...] MD Report Verified Date/Time:04/25/2018 17:29:59 Reading Location: [address] Radiology Reading Room Procedure Note Interface, External Ris In - 04/25/2018 5:32 PM ASSISTANT PRESS OPERATOR FINAL REPORT Exam: CT chest, abdomen and [...] Report Verified Date/Time: 04/25/2018 17:29:59 Reading Location: [address] Radiology Reading Room Performing Organization Address City/State/Zipcode Phone Number [email or web address] * CT abdomen pelvis without contrast (04/25/2018 11:17 AM ASSISTANT PRESS OPERATOR) Specimen Narrative Performed At FINAL REPORT [employer] Exam: CT chest, abdomen and pelvis without [...] MD Report Verified Date/Time:04/25/2018 17:29:59 Reading Location: [address] Radiology Reading Room Procedure Note Interface, External Ris In - 04/25/2018 5:32 PM ASSISTANT PRESS OPERATOR FINAL REPORT Exam: CT chest, abdomen and [...] Report Verified Date/Time: 04/25/2018 17:29:59 Reading Location: [address] Radiology Reading Room Performing Organization Address City/State/Zipcode Phone Number [facility] * ECHOCARDIOGRAM REPORT - SCAN (04/24/2018 6:20 PM ASSISTANT PRESS OPERATOR) Narrative Performed At * Carotid doppler bilateral (04/24/2018 4:46 PM ASSISTANT PRESS OPERATOR) Ejection Fraction [facility] MKCKESSON CPACS Specimen Impressions Performed At Right Impression [facility] 1. There is <50% [...] At PV LAB - Carotid Duplex Study [facility] Demographics MKCKESSSERA CPA Patient NameHUI GALVEZ Date of Study04/24/2018 LENARD Age63 Visit [id number] Gender Female Date of Birth1955 Referring [facility] Room Number Physician Enoch MD Chemist Steroids Rita Horvath T Interpreting Sabino Cooper Procedure Type of Study: Cerebral: Carotid, CAROTID DOPPLER, BILATERAL. Indications for Study:Lung transplant evaluation . Patient Status:Routine. Study Location:Vascular Lab. Technical Quality:Adequate visualization. Risk Factors History of Disease + +----+ + !Diagnosis !Date!Comments! + +----+ + !History/Risk Factors: !!COPD, Raynauds, SLE ! + +----+ + Procedure Note Interface, External Ris In - 04/25/2018 7:26 AM [facility] PV LAB - Carotid Duplex Study Demographics Patient Name HUI GALVEZ Date of Study 04/24/2018 LENARD Age 63 Visit Number [id number] Gender Female Accession Number [id number] Date of 1955 Referring [facility] Room Number Physician Enoch MD Chemist Steroids Rita Horvath T Interpreting Alina Rosenthal, Physician [...] 0.96. Performing Organization Address City/State/Zipcode Phone Number [facility] * ECHO W CONTRAST & DOPPLER (04/24/2018 3:53 PM ASSISTANT PRESS OPERATOR) Ejection Fraction [facility] Specimen Narrative Performed At Transthoracic Echocardiography Report (TTE) [facility] Demographics [facility] Patient Name Ching GALVEZ of Study 04/24/2018 LENARD [id number] Female Visit Number [id number] Room Number Number Date of Birth4Referring Physician Homa Kendall MD Age63 year(s)Chemist Steroids Arik Flores [facility] AnalystAlex Joceline InterpretingRaPhysician MELIDA Walker Procedure Type [...] External Ris In - 04/24/2018 5:47 PM ASSISTANT PRESS OPERATOR Transthoracic Echocardiography Report (TTE) Demographics Patient Name HUI GALVEZ Date of Study 04/24/2018 LENARD Gender Female Visit Number [id number] Race Unknown Room Number Number Date of 1955 Referring Physician Homa Kendall MD Age 63 year(s) Chemist Steroids Arik Flores [facility] Rock Crusher Eulalio Car Interpreting Physician MELIDA Humphreys Procedure [...] quant diff funct vent/perf (04/24/2018 3:37 PM ASSISTANT PRESS OPERATOR) Specimen Narrative Performed At FINAL REPORT [employer] PROCEDURE: V/Q LUNG SCAN w/differential function (xenon) CPT CODE:[id number] INDICATION:Lung transplant evaluation PROTOCOL:10.1 mCi ofXe-133 gas [...] MD Report Verified Date/Time:04/24/2018 15:49:00 Reading Location: [address] Reading Room Procedure Note Interface, External Ris In - 04/24/2018 3:51 PM ASSISTANT PRESS OPERATOR FINAL REPORT PROCEDURE: V/Q LUNG SCAN w/differential function (xenon) CPT CODE: [id number] INDICATION: Lung transplant evaluation PROTOCOL: 10.1 mCi [...] Report Verified Date/Time: 04/24/2018 15:49:00 Reading Location: [facility] [address] [facility] Reading Room Performing Organization Address City/State/Zipcode Phone Number [facility] * FL sniff test (04/24/2018 2:42 PM ASSISTANT PRESS OPERATOR) Specimen Narrative Performed At FINAL REPORT [email or web address] Fluoroscopy sniff test Technique: Fluoroscopy was utilized [...] MD Report Verified Date/Time:04/24/2018 14:40:07 Reading Location: [facility] [address] [facility] Consult Reading Room Procedure Note Interface, External Ris In - 04/24/2018 2:47 PM ASSISTANT PRESS OPERATOR FINAL REPORT Fluoroscopy sniff test Technique: Fluoroscopy [...] Report Verified Date/Time: 04/24/2018 14:40:07 Reading Location: [facility] B1 C013X Ortho Consult Reading Room Performing Organization Address City/State/Zipcode Phone Number [facility] * Blood typing, automated (04/24/2018 9:54 AM ASSISTANT PRESS OPERATOR) ABO/RH AUTOMATED (BEAKER) A POSITIVE [facility] Specimen Blood Performing Organization Address City/[facility] Phone Number [facility] [address] [place] [address] [facility] * HLA TYPING CII (04/24/2018 9:35 AM ASSISTANT PRESS OPERATOR) HLA-DR AG1 17 [facility] HLA TESTING HLA-DR AG2 4 [facility] HLA TESTING HLA-DR AG3-1 52 [facility] HLA TESTING HLA-DR AG3-2 [facility] TEST[facility] HLA-DR AG4-1 [facility] HLA TESTING HLA-DR AG4-2 53 [facility] HLA TESTING HLA-DR AG5-1 [facility] HLA TESTING HLA-DR AG5-2 [facility] HLA TESTING HLA-DQA1 AG 1-1 05 [facility] HLA TESTING HLA-DQA1 AG 1-2 03 [facility] HLA TESTING HLA-DQB1 AG 1-1 2 [facility] HLA TESTING HLA-DQB1 AG 1-2 8 [facility] HLA TESTING HLA-DPA1 AG 1-1 02 [facility] HLA TESTING HLA-DPA1 AG 1-2 02 [facility] HLA TEST[facility] HLA-DPB1 AG 1-1 01:01 [facility] HLA TEST[facility] HLA-DPB1 AG 1-2 05:01 [facility] TEST[facility] HLA-AG Notes [facility] HLA-AG Report Comments [facility] Specimen Blood Narrative Performed At Disclaimer: [facility] HLA TEST[facility] This test was developed and its performance characteristics determined by the [facility] Laboratory. It has not been cleared [...] complexity clinical laboratory testing. Performing Organization Address City/State/[facility] Phone Number [facility] HLA TEST[facility] ONE Esteban Anastasiia, MS: [id number], [place] [address] CLIA#[id number] CAP#[id number] UNOS#[id number] * HLA TYPING CI (04/24/2018 9:35 AM ASSISTANT PRESS OPERATOR) HLA-A AG1 1 [facility] HLA TESTING HLA-A AG2 31 [facility] HLA TESTING HLA-B AG1 8 [facility] HLA TESTING HLA-B AG2 60 [facility] HLA TESTING HLA-C AG1 7 [facility] HLA TESTING HLA-C AG2 10 [facility] HLA TESTING HLA-B BW1 6 [facility] HLA TESTING HLA-B BW2 6 [facility] HLA TESTING HLA-AG Notes [facility] HLA TESTING HLA-AG Report Comments [facility] HLA TESTING Specimen Blood Narrative Performed At Disclaimer: [facility] TEST[facility] This test was developed and its performance characteristics determined by the [facility] Laboratory. It has not been cleared [...] Performing Organization Address City/State/Zipcode Phone Number [facility] TEST[facility] ONE Esteban Laurent, MS: [id number], [place] [address] CLIA#[id number] CAP#[id number] UNOS#[id number] * Drug screen, urine, transplant (04/24/2018 9:35 AM ASSISTANT PRESS OPERATOR) Specimen Urine Narrative Performed At Performing Organization Address City/State/Zipcode Phone Number [address] [phone] * T Spot TB (04/24/2018 9:35 AM ASSISTANT PRESS OPERATOR) T-Spot TB Negative [facility] Neg Ctrl Spot Count 0 [facility] Panel A Spot 0 [facility] Panel B Spot 0 [facility] Pos Ctrl Spot Ct 0 [facility] Scan Result [facility] Specimen Blood Narrative Performed At Performing Organization Address City/State/Zipcode Phone Number [facility] [address] [place] [address] LABORATORIES 100 * Urinalysis, Routine (04/24/2018 9:35 AM ASSISTANT PRESS OPERATOR) Color, UA Light Yellow [facility] Clarity, UA Clear [facility] Specific [place], UA 1.008 1.001 - 1.035 [facility] pH, UA 7.5 5.0 - 8.0 [facility] Protein, UA Negative Negative [facility] Glucose, UA Negative Negative [facility] Ketones, UA Negative Negative [facility] Bilirubin, UA Negative Negative [facility] Blood, UA Negative Negative [facility] Nitrite, UA Negative Negative [facility] Leukocytes, UA Negative Negative [facility] Urobilinogen, UA 0.2 0.2 - 1.0 mg/dL [facility] RBC, UA 0 /HPF [facility] WBC, UA 1 /HPF [facility] Squam Epithel, UA <1 /HPF [facility] Specimen Source [facility] Specimen Urine Performing Organization Address City/State/[facility] Phone Number [facility] [address] [place] [address] [facility] * FLOW PRA CLASS II WITH REFLEX TO ANTIBODY SPECIFICITY (04/24/2018 9:34 AM ASSISTANT PRESS OPERATOR) Flow Class II Percent 13 [facility] TEST[facility] Positive Flow Class Report [facility] Comments Specimen Blood Narrative Performed At Disclaimer: [facility] TEST[facility] This test was developed and its performance characteristics determined by the [facility] Laboratory. It has not been cleared [...] complexity clinical laboratory testing. Performing Organization Address City/State/[facility] Phone Number [facility] Esteban Laurent, MS: [id number], [place] [address] CLIA#[id number] CAP#[id number] UNOS#[id number] * FLOW PRA CLASS I WITH REFLEX TO ANTIBODY SPECIFICITY (04/24/2018 9:34 AM ASSISTANT PRESS OPERATOR) Flow Class I Percent 0 [facility] Positive Flow Class Report [facility] TEST[facility] Comments Specimen Blood Narrative Performed At Disclaimer: [facility] TEST[facility] This test was developed and its performance characteristics determined by the [facility] Laboratory. It has not been cleared [...] complexity clinical laboratory testing. Performing Organization Address [facility] Phone Number [facility] TEST[facility] ONE Esteban Laurent, MS: [id number], [place] [address] CLIA#[id number] CAP#[id number] UNOS#[id number] * AB SPECIFICITY CLASS II (04/24/2018 9:34 AM ASSISTANT PRESS OPERATOR) AB Specificity Class II NO CLASS II ANTIBODY DETECTED [facility] WITH MFIs > 4000 AB Specificity Titr Class [facility] TEST[facility] Report Specimen Blood Narrative Performed At Disclaimer: [facility] TEST[facility] This test was developed and its performance characteristics determined by the [facility] Laboratory. It has not been cleared [...] complexity clinical laboratory testing. Performing Organization Address [facility] Phone Number [facility] Esteban Laurent, MS: [id number], [place] [address] CLIA#[id number] CAP#[id number] UNOS#[id number] * Type and screen, automated (04/24/2018 9:34 AM ASSISTANT PRESS OPERATOR) ABO/RH AUTOMATED (BEAKER) A POSITIVE [facility] Ab Scrn NEGATIVE [facility] Specimen Blood Performing Organization Address City/[facility] Phone Number [address] [address] [facility] * TSH/T4 if indicated (04/24/2018 9:34 AM ASSISTANT PRESS OPERATOR) TSH 0.98 0.35 - 4.94 uIU/mL [facility] Specimen Blood Performing Organization Address [facility] Phone Number [address] [address] [facility] * PT/PTT (04/24/2018 9:34 AM ASSISTANT PRESS OPERATOR) Only the most recent of 2 results within the time period is included. Protime 13.1 11.7 - 14.7 seconds [facility] INR 1.0 <=5.9 [facility] PTT 24.2 22.5 - 36.0 seconds [facility] Specimen Blood Narrative Performed At RECOMMENDED COUMADIN/WARFARIN INR THERAPY RANGES [facility] STANDARD DOSE: 2.0 - 3.0 Includes: PROPHYLAXIS for venous thrombosis, [facility] systemic embolization; TREATMENT for venous thrombosis and/or pulmonary embolus. HIGH RISK: Target INR is 2.5-3.5 for patients with mechanical heart valves. Performing Organization Address [facility] Phone Number [address] [address] [facility] * HIV-1 Antigen with HIV-1/2 Antibody (04/24/2018 9:34 AM ASSISTANT PRESS OPERATOR) HIV-1 Antigen with HIV NON-REACTIVE Nonreactive [facility] 1&2 Antibody [facility] Specimen Blood Performing Organization Address [facility] Phone Number [address] [address] [facility] * CBC with platelet count + automated diff (04/24/2018 9:34 AM ASSISTANT PRESS OPERATOR) Only the most recent of 2 results within the time period is included. WBC 7.1 3.5 - 10.5 K/L [facility] RBC 4.00 3.93 - 5.22 M/L [facility] Hemoglobin 11.3 11.2 - 15.7 GM/DL [facility] Hematocrit 39.0 34.1 - 44.9 % [facility] MCV 97.5 (H) 79.4 - 94.8 fL [facility] MCH 28.3 25.6 - 32.2 pg [facility] MCHC 29.0 (L) 32.2 - 35.5 GM/DL [facility] RDW 16.0 (H) 11.7 - 14.4 % [facility] Platelets 259 150 - 450 K/CU MM [facility] MPV 9.8 9.4 - 12.3 fL [facility] nRBC 0 0 - 0 /100 WBC [facility] % Neutros 91 % [facility] % Lymphs 6 % [facility] % Monos 3 % [facility] % Eos 0 % [facility] % Baso 0 % [facility] # Neutros 6.38 (H) 1.56 - 6.13 K/L [facility] # Lymphs 0.40 (L) 1.18 - 3.74 K/L [facility] # Monos 0.20 (L) 0.24 - 0.36 K/L [facility] # Eos 0.00 (L) 0.04 - 0.36 K/L [facility] # Baso 0.02 0.01 - 0.08 K/L [facility] Immature 1 0 - 1 % [facility] Granulocytes-Relative [facility] Specimen Blood Performing Organization Address City/[facility]/Zipcode Phone Number [address] [place] [address] * Hepatitis panel (04/24/2018 9:34 AM ASSISTANT PRESS OPERATOR) Hep A IgM HEPATITIS A TEST NEGATIVE Nonreactive [facility] Hep B C IgM NON-REACTIVE Nonreactive [facility] Hepatitis C Ab NON-REACTIVE Nonreactive [facility] hepatitis B Surface Ag NON-REACTIVE Nonreactive [facility] Specimen Blood Performing Organization Address City/[facility] Phone Number [address] * EBV-VCA antibody, IgG (04/24/2018 9:34 AM ASSISTANT PRESS OPERATOR) TAMIKA FELDER VIRAL CAPSID Positive (A) Negative, Equivocal [facility] ANTIGEN IGG [facility] Specimen Blood Narrative Performed At Tamika Felder Viral Capsid Antigen IgG Result Interpretation: [facility] </=0.8 Al Negative [facility] 0.9-1.0 Al Equivocal >/=1.1 Al Positive Performing Organization Address City/[facility]/Zipcode Phone Number [address] [place] [address] * Hepatitis B core, total (04/24/2018 9:34 AM ASSISTANT PRESS OPERATOR) Hep B Core Total Ab NON-REACTIVE Nonreactive [facility] Specimen Blood Performing Organization Address City/[facility]/Zipcode Phone Number [address] [place] [address] * Toxoplasma gondii antibody, IgG (04/24/2018 9:34 AM ASSISTANT PRESS OPERATOR) TOXOPLASMA GONDII IGG <3.0 <10.0 IU/mL [facility] QUANTITATIVE [facility] Specimen Blood Narrative Performed At Toxoplasma Gondii IgG Result Interpretation: [facility] </=9.9 IU/mLNormal [facility] 10-11 IU/mLEquivocal >/=12 IU/mL Positive Performing Organization Address City/[facility] Phone Number [address] * Hepatitis B surface antibody (04/24/2018 9:34 AM ASSISTANT PRESS OPERATOR) Hep B S Ab <8.0 <8.0 mIU/mL [facility] Specimen Blood Performing Organization Address City/[facility] Phone Number [phone] [place] [address] [phone] * Cytomegalovirus antibody, IgG (04/24/2018 9:34 AM ASSISTANT PRESS OPERATOR) CYTOMEGALOVIRUS, IGG Positive (A) Negative, Equivocal [facility] Specimen Blood Narrative Performed At CMV IgG Result Interpretation: [facility] </=0.8 Al Negative [facility] 0.9-1.0 Al Equivocal >/=1.1 AlPositive Performing Organization Address [facility] Phone Number [phone] [place] [address] * Varicella zoster antibody, IgG (04/24/2018 9:34 AM ASSISTANT PRESS OPERATOR) Varicella IgG 4.9 [facility] Specimen Blood Narrative Performed At VARICELLA ZOSTER RESULT INTERPRETATIONS: [facility] <=0.8 AlNonreactive:Presumed non-immune to VZV [facility] 0.9-1.0 AlEquivocal >=1.1 AlReactive:Presumed immune to VZV Performing Organization Address City/[facility] Phone Number [phone] [place] [address] * Hemoglobin A1c (04/24/2018 9:34 AM ASSISTANT PRESS OPERATOR) Hemoglobin A1C 6.1 4.3 - 6.1 % [facility] Specimen Blood Performing Organization Address City/[facility] Phone Number [address] [phone] [facility] * Lipid panel (04/24/2018 9:34 AM ASSISTANT PRESS OPERATOR) Triglycerides 128 mg/dL [facility] Cholesterol 215 mg/dL [facility] HDL 71 mg/dL [facility] LDL Calculated 118 mg/dL [facility] Specimen Blood Narrative Performed At Triglyceride Reference Range: [facility] Low Risk <150 [facility] [id number] High Risk 200-499 Very High Risk>=500 Cholesterol Reference Range: Low Risk <200 [id number] High Risk>240 HDL Cholesterol Reference Range: Low Risk >=60 High Risk <40 LDL Cholesterol Reference Range: Optimal<100 Near [id number] [id number] [id number] Very High >=190 Performing Organization Address City/State/Zipcode Phone Number [address] [address] [facility] * Comprehensive metabolic panel (04/24/2018 9:34 AM ASSISTANT PRESS OPERATOR) Protein, Total 7.1 6.0 - 8.3 gm/dL [facility] Albumin 4.1 3.5 - 5.0 g/dL [facility] Alkaline Phosphatase 90 40 - 150 U/L [facility] Total Bilirubin 0.3 0.2 - 1.2 mg/dL [facility] Sodium 139 136 - 145 meq/L [facility] Potassium 4.5 3.5 - 5.1 meq/L [facility] Chloride 102 98 - 107 meq/L [facility] CO2 29 22 - 29 meq/L [facility] BUN 12 7 - 21 mg/dL [facility] Creatinine 0.82 0.57 - 1.25 mg/dL [facility] Glucose 130 (H) 70 - 105 mg/dL [facility] Calcium 9.8 8.4 - 10.2 mg/dL [facility] AST 15 5 - 34 U/L [facility] ALT 19 6 - 55 U/L [facility] EGFR 70Comment: ESTIMATED GFR IS mL/min/1.73 sq m [facility] NOT ACCURATE CREATININE [facility] CLEARANCE IN PREDICTING GLOMERULAR FILTRATION RATE. ESTIMATED GFR IS NOT APPLICABLE FOR DIALYSIS PATIENTS. Specimen Blood Performing Organization Address City/[facility] Phone Number [address] [address] [facility] * RPR (04/24/2018 9:33 AM ASSISTANT PRESS OPERATOR) RPR Nonreactive Nonreactive [facility] Specimen Blood Performing Organization Address City/[facility] Phone Number [address] [address] [facility] * Blood gas, arterial (04/24/2018 8:20 AM ASSISTANT PRESS OPERATOR) Only the most recent of 2 results within the time period is included. pH, Arterial 7.40 7.35 - 7.45 [facility] pCO2, Arterial 45 35 - 45 mmHg [facility] pO2, Arterial 62 (L) 80 - 90 mmHg [facility] O2 Sat, Arterial 91.6 (L) 96.0 - 97.0 % [facility] HCO3, Arterial 28 21 - 29 mmol/L [facility] Base Excess, Arterial 2.4 -2.0 - 3.0 mmol/L [facility] Patient Temperature 37.0 C [facility] FIO2 21.0 % [facility] Specimen Blood, Arterial Performing Organization Address City/[facility] Phone Number [place] [phone] [place] [address] [facility] * CARDIAC CATH REPORT - SCAN (04/02/2018 1:13 PM ASSISTANT PRESS OPERATOR) Narrative Performed At * Basic Metabolic Panel (04/01/2018 10:00 AM ASSISTANT PRESS OPERATOR) Sodium 141 136 - 145 meq/L [facility] Potassium 3.9 3.5 - 5.1 meq/L [facility] Chloride 104 98 - 107 meq/L [facility] CO2 31 (H) 22 - 29 meq/L [facility] BUN 13 7 - 21 mg/dL [facility] Creatinine 0.79 0.57 - 1.25 mg/dL [facility] Glucose 132 (H) 70 - 105 mg/dL [facility] Calcium 9.6 8.4 - 10.2 mg/dL [facility] EGFR 73Comment: ESTIMATED GFR IS mL/min/1.73 sq m [facility] NOT ACCURATE CREATININE [facility] CLEARANCE IN PREDICTING GLOMERULAR FILTRATION RATE. ESTIMATED GFR IS NOT APPLICABLE FOR DIALYSIS PATIENTS. Specimen Blood Performing Organization Address City/State/Zipcode Phone Number [facility] [address] [place] [address] MEDICAL CENTER * ECG 12 lead (04/01/2018 9:19 AM ASSISTANT PRESS OPERATOR) Specimen Narrative Performed At Ventricular Rate 90 BPM GE MUSE Atrial Rate 90 BPM P-R Interval 160 ms QRS Duration 86 ms Q-T Interval 382 ms QTC Calculation(Bazett) 467 ms P [place] 73 degrees R [place] 60 degrees T [place] 69 degrees Normal sinus rhythm Normal ECG No previous ECGs available Confirmed by MD Bingham Mahboob ([id number]) on 04/01/2018 1:24:05 PM Procedure Note Interface, External Ris In - 04/01/2018 1:24 PM ASSISTANT PRESS OPERATOR Ventricular Rate 90 BPM Atrial Rate 90 BPM P-R Interval 160 ms QRS Duration 86 ms Q-T Interval 382 ms QTC Calculation(Bazett) 467 ms P [place] 73 degrees R [place] 60 degrees T [place] 69 degrees Normal sinus rhythm Normal ECG No previous ECGs available Confirmed by MD Bingham Mahboob ([id number]) on 04/01/2018 1:24:05 PM Performing Organization Address City/State/Zipcode Phone Number GE MUSE * 6 MINUTE WALK(FOR LUNG TRANSPLANT ONLY) (03/12/2018 1:58 PM CDT) Narrative Performed At Gary Calhoun, LINER CHECKER, BEEF LUGGER 03/12/20182:36 PM [facility] PFT CHARTING REPORT Infection Control/Hand Hygiene procedures followed throughout the encounter with patient: Yes Patient Identification Method: Patient name verified on armband, and Medical record on armband, Is the order complete?: Yes Account ID#: [id number] Patient Name: uHi Galvez Birthdate: 1955 Age: 63 y.o.Sex: female [...] CDT) Narrative Performed At Gary Calhoun RRT, [facility] 03/12/20182:36 PM [facility] PFT CHARTING REPORT Infection Control/Hand Hygiene procedures followed throughout the encounter with patient: Yes Patient Identification Method: Patient name verified on armband, and Medical record on armband, Is the order complete?: Yes Account ID#: [id number] Patient Name: Hui Galvez Birthdate: 1955 Age: [...] CDT) Narrative Performed At Toma Jenkins RRT, [facility] 12/11/20172:02 PM [facility] PFT CHARTING REPORT Infection Control/Hand Hygiene procedures followed throughout the encounter with patient: Yes Patient Identification Method: Patient name verified on armband, and Medical record on armband, Is the order complete?: Yes Account ID#: [id number] Patient Name: Hui Galvez Birthdate: 1955 Age: [...] without adverse outcome. without adverse outcome after 09/29/2017 Insurance Payer Benefit Subscriber ID Type Phone Address Plan / Group MEDICARE MEDICARE A xxxxxxxxxxx Medicare B [facility] SUPPLEMENT/INDIVIDUAL DES ARC xxxxxxxxx Comm [place] Advance Directives For more information, please contact: [facility] [address] [place] [address] Date Inactivated Comments Code Status Date Activated Full Code 04/01/2018 8:31 AM This code status was determined by: Patient
--- OUTSIDE RECORDS SUMMARY | 2018-09-30 10:12 | XMS REPORT | Encounter Summary ---
Author Organization Unknown Address [address] [place] [address] Phone [phone] Care Team Providers Care Reference Data Expert Name Role Phone Dr. Eric Russell 3 [phone] Armin Singh MD 2 [phone] Yessica Ferrell 62 [phone] Ronn Lopes MD 105 [phone] Jose De Jesus Blanton MD 107 [phone] [facility] 111 [phone] Armin Little MD 114 [phone] Carleen Solis MD 124 [phone] Paulo Rowe MD 126 [phone] Jean-Claude Doty MD 130 [phone] Reason for Visit UTI Instructions 1. Urinary tract infectious disease urinalysis, dipstick ciprofloxacin 500 mg tablet ceftriaxone 1 gram solution for injection culture, urine 2. Moderate depression Discussion Note: None recorded. Patient educational handouts: No information available. Plan of Care Reminders Provider Appointments Est Patient 10/27/2018 8:00AM Eric Alva MD Lab Urinalysis, Dipstick 09/25/2018 [facility] ([facility] [place] Culture, Urine 09/25/2018 [facility] Laboratory Referral None recorded. Procedures None recorded. Surgeries None recorded. Imaging None recorded. Medications Name Start Date acetaminophen 300 mg-codeine 30 mg tablet TAKE 1 TABLET BY MOUTH EVERY 8 HOURS NEEDED acyclovir 5 % topical ointment apply tid prn albuterol sulfate 2 mg tablet 2 tablets daily alprazolam 0.5 mg tablet Take 1 tablet every day by oral route as needed. amlodipine 2.5 mg tablet Take 1 tablet every day by oral route. bupropion HCl XL 150 mg 24 hr tablet, extended release Take 1 tablet every day by oral route. ceftriaxone 1 gram solution for injection Take 1 g by injection route. ciprofloxacin 500 mg tablet Take 1 tablet every 12 hours by oral route as directed for 10 days. fluticasone propionate 50 mcg/actuation nasal spray,suspension 2 sprays each nostril once daily prn furosemide 20 mg tablet TAKE 1 TABLET BY MOUTH EVERY DAY gabapentin 100 mg capsule Take 1 capsule every day by oral route at noon for 30 days. gabapentin 300 mg capsule Take 2 capsules [...] oral route for 30 days. Medications Administered Name Date ceftriaxone 1 gram solution for injection Take 1 g by injection route. [id number]:00 Vitals Height Weight BMI Blood Pressure 5 ft 4.6 in 207.6 lbs 35 kg/m2 112/66 mm[Hg] Lab Results Date Name Specimen Result Interpretation Description Value Range Status Address Urinalysis, Dipstick Color Color yellow [facility] ([facility] [place]: [address] [place] Color Appearance cloudy [facility] [place]: [address] [place] Color Glucose negative [facility] [place]: [address] [place] Color Bilirubin negative [facility] [place]: [address] [place] Color Ketones trace [facility] [place]: [address] [place] Color Specific Harshaw 1.025 [facility] [place]: [address] [place] Color Blood large [facility] [place]: [address] [place] Color PH 5.5 [facility] [place]: [address] [place] Color Protein 300 [facility] [place]: [address] [place] Color Urobilinogen 0.2 [facility] [place]: [address] [place] Color Nitrites positive [facility] [place]: [address] [place] Color Leukocytes large [facility] [place]: [address] [place] Allergies Code Code System Name Reaction Severity [...] Smoking Status Former Smoker (1 1/2 PPD) Past Encounters 09/25/2018 Urinary Tract Infectious Disease; Moderate Depression Eric Alva MD: [address] [place] [address], Ph. History of Present Illness Note:Complaining of dysuria and suprapubic pressure since a few days ago. Denies fever, hematuria or CVA tenderness. Review of Systems Comprehensive General Adult ROS Reported By: Patient Cardiovascular: Cardiovascular: no chest pain, no palpitations, no lightheadedness Respiratory: Respiratory: no cough, no wheezing, shortness of breath Gastrointestinal: Gastrointestinal: no nausea, no vomiting, no constipation, no diarrhea, abdominal pain Musculoskeletal: Musculoskeletal: arthralgias/joint pain, back pain Neurologic: [...] and Conjunctivae: non-injected, no discharge Neck: Neck: supple, trachea midline Lungs: Auscultation: breath sounds normal Cardiovascular: Heart Auscultation: RRR, normal S1, normal S2, no murmurs Abdomen: Inspection and Palpation: soft, non-distended, no guarding, no rebound tenderness, no CVA tenderness, suprapubic tenderness Neurologic: Gait and Station: normal gait
[2018-09-30] MEDS ORDERED: IBUPROFEN 200 MG TAB ONE (10:19)
[2018-09-30] MEDS ORDERED: ALBUTEROL/IPRATROPIUM 3 ML NEB NEB ONE (10:30)
[2018-09-30] MEDS ORDERED: METHYLPREDNISOLONE SOD SUCC 125 MG/2ML VIAL IV ONE (10:30)
[2018-09-30] MEDS ORDERED: IBUPROFEN 600 MG TAB PO STA (11:00)
[2018-09-30] MEDS ORDERED: METHYLPREDNISOLONE SOD SUCC 125 MG/2ML VIAL ONE (11:01)
[2018-09-30] MEDS ORDERED: ALBUTEROL/IPRATROPIUM 3 ML NEB ONE ×2 (11:01→11:53)
[2018-09-30] MEDS ORDERED: SODIUM CHLORIDE 0.9% 1000ML 1,000 ML IV SCH ×3 (11:45→21:00)
--- NOTE | 2018-09-30 11:45 | Diagnostic Imaging Report ---
EXAM: CXR 2 VIEW - HOPD, PA and lateral DATE: 09/30/2018 Time stamp on exam: 10:34 AM INDICATION: Fever and shortness of breath COMPARISON: 09/17/2018 FINDINGS: LINES/TUBES: None LUNGS: There is now right lower lobe basilar consolidation. Increased opacity in the left lower lobe likely is atelectatic in nature. PLEURA: No effusions or pneumothorax. HEART AND MEDIASTINUM: Normal size and contour. BONES AND SOFT TISSUES: Progressive deformity, osteolysis and fracture of the left humeral head. IMPRESSION: 1. Right lower lobe consolidation. 2. Left humeral head fracture. Signed by: Dr. Andreas Whiting DO on 09/30/2018 11:42 AM
[2018-09-30] MEDS ORDERED: CEFTRIAXONE SOD 1 GM/NS 50 ML 50 ML IV SCH (12:00)
[2018-09-30] MEDS ORDERED: AZITHROMYCIN 500MG/NS 250 ML 250 ML IV SCH (12:00)
[2018-09-30] MEDS ORDERED: CEFTRIAXONE SOD 1 GM VIAL ONE (12:26)
--- OUTSIDE RECORDS SUMMARY | 2018-09-30 12:29 | XMS REPORT | Clinical Summary ---
Author Author [facility] Address Unknown Phone Unavailable Care Team Providers Care Kitchen Food Server Name Role Phone Armin Little MD PCP [...] 8 (eight) hours as needed. 05/28/2018 Discontinued adjosamflyr-jebwsntmx-nox Inhale by 0 anter (TRELEGY ELLIPTA) mouth [...] Daley RN Follow-up 08/19/2018 Telephone Transplant Penny Ahuamda Appointment 07/28/2018 Telephone Transplant Penny Ahumada Appointment [...] Encounter Enoch Luther MD Manson, Melissa J, [facility] Celestino So RN Blanchard, Kathryn [...] Taken Vital Sign Reading 05/28/2018 3:12 PM BITUMASTIC APPLIER Blood Pressure 142/77 05/28/2018 3:12 PM BITUMASTIC APPLIER Pulse 103 05/28/2018 3:12 PM BITUMASTIC APPLIER Temperature 37.1 C (98.8 F) 05/28/2018 3:12 PM BITUMASTIC APPLIER Respiratory Rate 16 05/28/2018 3:12 PM BITUMASTIC APPLIER Oxygen Saturation 94% 04/24/2018 8:20 AM BITUMASTIC APPLIER Inhaled Oxygen 21% Concentration 05/28/2018 3:12 PM BITUMASTIC APPLIER Weight 96.5 kg (212 lb 11.2 oz) 05/28/2018 3:12 PM BITUMASTIC APPLIER Height 165.1 cm (5' 5") 05/28/2018 3:12 PM BITUMASTIC APPLIER Body Mass Index 35.4 Plan of Treatment Care Team Description Date Type Specialty 10/08/2018 Appointment Respiratory Therapy 10/08/2018 Appointment Respiratory Therapy Alina Solitario RN 10/08/2018 Office Visit Transplant Liang Burr MD [address] [address] [phone] 10/08/2018 Office Visit Transplant Procedures Comments Procedure Name Priority Date/Time Associated Diagnosis VASCULAR DIAGRAM -SCAN 08/20/2018 12:25 PM CDT PULMONARY FUNCTION - SCAN 06/02/2018 8:00 AM BITUMASTIC APPLIER SPIROMETRY Routine 05/28/2018 Centrilobular emphysema 4:01 PM BITUMASTIC APPLIER ([facility]) CREATININE CLEARANCE Routine 05/28/2018 Centrilobular emphysema 1:45 PM BITUMASTIC APPLIER (HCC) Pre-transplant evaluation for lung transplant CREATININE Routine 05/28/2018 Centrilobular emphysema 1:45 PM BITUMASTIC APPLIER (HCC) Pre-transplant evaluation for lung transplant PROTEIN, 24 HOUR URINE Routine 05/28/2018 Centrilobular emphysema 1:45 PM BITUMASTIC APPLIER (HCC) Pre-transplant evaluation for lung transplant TRANSFUSION SERVICE 04/25/2018 REPORT - SCAN 5:54 PM BITUMASTIC APPLIER FL ESOPHAGUS PHARNYX Routine 04/25/2018 Centrilobular emphysema AND/OR CERVICAL 11:59 AM BITUMASTIC APPLIER (HCC) Pre-transplant evaluation for lung transplant XR CHEST 2 VIEWS Routine 04/25/2018 Centrilobular emphysema 11:30 AM BITUMASTIC APPLIER (HCC) Pre-transplant evaluation for lung transplant XR MANDIBLE MIN 4 VIEWS Routine 04/25/2018 Centrilobular emphysema 11:25 AM BITUMASTIC APPLIER ([facility]) Pre-transplant evaluation for lung transplant CT CHEST WITHOUT IV Routine 04/25/2018 Centrilobular emphysema CONTRAST 11:17 AM BITUMASTIC APPLIER ([facility]) Pre-transplant evaluation for lung transplant CT ABDOMEN/PELVIS WITHOUT Routine 04/25/2018 Centrilobular emphysema IV CONTRAST 11:17 AM BITUMASTIC APPLIER ([facility]) Pre-transplant evaluation for lung transplant ECHOCARDIOGRAM REPORT - 04/24/2018 SCAN 6:20 PM BITUMASTIC APPLIER CAROTID DOPPLER BILATERAL Routine 04/24/2018 Centrilobular emphysema 4:46 PM BITUMASTIC APPLIER ([facility]) Pre-transplant evaluation for lung transplant ECHO W CONTRAST & DOPPLER Routine 04/24/2018 Centrilobular emphysema 3:53 PM BITUMASTIC APPLIER ([facility]) Pre-transplant evaluation for lung transplant PUL QUANT DIFFERENTIAL Routine 04/24/2018 Centrilobular emphysema FUNCT VENT/PERF 3:37 PM BITUMASTIC APPLIER ([facility]) Pre-transplant evaluation for lung transplant FL SNIFF TEST Routine 04/24/2018 Lung transplant candidate 2:42 PM BITUMASTIC APPLIER BLOOD TYPING, AUTOMATED Routine 04/24/2018 Centrilobular emphysema 9:54 AM BITUMASTIC APPLIER ([facility]) Pre-transplant evaluation for lung transplant HLA TYPING CII Routine 04/24/2018 Centrilobular emphysema 9:35 AM BITUMASTIC APPLIER (HCC) Pre-transplant evaluation for lung transplant HLA TYPING CI Routine 04/24/2018 Centrilobular emphysema 9:35 AM BITUMASTIC APPLIER (HCC) Pre-transplant evaluation for lung transplant T SPOT TB Routine 04/24/2018 Centrilobular emphysema 9:35 AM BITUMASTIC APPLIER (HCC) Pre-transplant evaluation for lung transplant URINALYSIS W/ MICROSCOPIC STAT 04/24/2018 Centrilobular emphysema 9:35 AM BITUMASTIC APPLIER (HCC) Pre-transplant evaluation for lung transplant DRUG SCREEN, URINE, Routine 04/24/2018 Centrilobular emphysema TRANSPLANT 9:35 AM BITUMASTIC APPLIER ([facility]) Pre-transplant evaluation for lung transplant CBC W/PLT COUNT & AUTO Routine 04/24/2018 Centrilobular emphysema DIFFERENTIAL 9:34 AM BITUMASTIC APPLIER ([facility]) Pre-transplant evaluation for lung transplant TYPE AND SCREEN, STAT 04/24/2018 Centrilobular emphysema AUTOMATED 9:34 AM BITUMASTIC APPLIER ([facility]) Pre-transplant evaluation for lung transplant AB SPECIFICITY CLASS II Routine 04/24/2018 Centrilobular emphysema 9:34 AM BITUMASTIC APPLIER ([facility]) Pre-transplant evaluation for lung transplant FLOW PRA CLASS II WITH Routine 04/24/2018 Centrilobular emphysema REFLEX TO ANTIBODY 9:34 AM BITUMASTIC APPLIER ([facility]) SPECIFICITY Pre-transplant evaluation for lung transplant FLOW PRA CLASS I WITH Routine 04/24/2018 Centrilobular emphysema REFLEX TO ANTIBODY 9:34 AM BITUMASTIC APPLIER ([facility]) SPECIFICITY Pre-transplant evaluation for lung transplant HEPATITIS B SURFACE Routine 04/24/2018 Centrilobular emphysema ANTIBODY 9:34 AM BITUMASTIC APPLIER ([facility]) Pre-transplant evaluation for lung transplant HIV-1 ANTIGEN WITH Routine 04/24/2018 Centrilobular emphysema HIV-1/2 ANTIBODY 9:34 AM BITUMASTIC APPLIER ([facility]) Pre-transplant evaluation for lung transplant VARICELLA ZOSTER STAT 04/24/2018 Centrilobular emphysema ANTIBODY, IGG 9:34 AM BITUMASTIC APPLIER ([facility]) Pre-transplant evaluation for lung transplant TSH/FREE T4 IF INDICATED Routine 04/24/2018 Centrilobular emphysema 9:34 AM BITUMASTIC APPLIER ([facility]) Pre-transplant evaluation for lung transplant TOXOPLASMA GONDII Routine 04/24/2018 Centrilobular emphysema ANTIBODY, IGG 9:34 AM BITUMASTIC APPLIER ([facility]) Pre-transplant evaluation for lung transplant PT/APTT Routine 04/24/2018 Centrilobular emphysema 9:34 AM BITUMASTIC APPLIER (HCC) Pre-transplant evaluation for lung transplant LIPID PANEL Routine 04/24/2018 Centrilobular emphysema 9:34 AM BITUMASTIC APPLIER (HCC) Pre-transplant evaluation for lung transplant HEPATITIS B CORE Routine 04/24/2018 Centrilobular emphysema ANTIBODY, TOTAL 9:34 AM BITUMASTIC APPLIER (HCC) Pre-transplant evaluation for lung transplant HEPATITIS PANEL, ACUTE Routine 04/24/2018 Centrilobular emphysema 9:34 AM BITUMASTIC APPLIER (HCC) Pre-transplant evaluation for lung transplant HEMOGLOBIN A1C Routine 04/24/2018 Centrilobular emphysema 9:34 AM BITUMASTIC APPLIER (HCC) Pre-transplant evaluation for lung transplant EBV ANTIBODY, IGG Routine 04/24/2018 Centrilobular emphysema 9:34 AM BITUMASTIC APPLIER (HCC) Pre-transplant evaluation for lung transplant CYTOMEGALOVIRUS ANTIBODY, Routine 04/24/2018 Centrilobular emphysema IGG 9:34 AM BITUMASTIC APPLIER (HCC) Pre-transplant evaluation for lung transplant COMPREHENSIVE METABOLIC Routine 04/24/2018 Centrilobular emphysema PANEL 9:34 AM BITUMASTIC APPLIER (HCC) Pre-transplant evaluation for lung transplant CBC W/PLT COUNT & AUTO Routine 04/24/2018 Centrilobular emphysema DIFFERENTIAL 9:34 AM BITUMASTIC APPLIER (HCC) Pre-transplant evaluation for lung transplant RPR Routine 04/24/2018 Centrilobular emphysema 9:33 AM BITUMASTIC APPLIER (HCC) Pre-transplant evaluation for lung transplant BLOOD GAS, ARTERIAL Routine 04/24/2018 Centrilobular emphysema 8:20 AM BITUMASTIC APPLIER (HCC) Pre-transplant evaluation for lung transplant VASCULAR DIAGRAM -SCAN 04/02/2018 1:13 PM BITUMASTIC APPLIER CARDIAC CATH REPORT - 04/02/2018 SCAN 1:13 PM BITUMASTIC APPLIER R & L CATH / CORONARY 04/01/2018 Encounter for ANGIOS / PCI 5:01 PM BITUMASTIC APPLIER pre-transplant evaluation for lung transplant Case Notes POP6 BLOOD GAS, ARTERIAL STAT 04/01/2018 4:07 PM BITUMASTIC APPLIER PT/APTT STAT 04/01/2018 10:56 AM BITUMASTIC APPLIER CBC W/PLT COUNT & AUTO STAT 04/01/2018 DIFFERENTIAL 10:01 AM BITUMASTIC APPLIER CBC W/PLT COUNT & AUTO STAT 04/01/2018 DIFFERENTIAL 10:01 AM BITUMASTIC APPLIER BASIC METABOLIC PANEL (7) STAT 04/01/2018 10:00 AM BITUMASTIC APPLIER ECG 12-LEAD Routine 04/01/2018 9:19 AM BITUMASTIC APPLIER Procedure Note - Interface, External Ris In - 04/01/2018 9:28 AM BITUMASTIC APPLIER Ventricula r Rate 90 BPM Atrial Rate 90 BPM P-R Interval 160 ms QRS Duration 86 ms Q-T Interval 382 ms QTC Calculatio n(Bazett) 467 ms P [place] 73 degrees R [place] 60 degrees T [place] 69 degrees Normal sinus rhythm Normal ECG No previous ECGs available ECG 12-LEAD Routine 04/01/2018 9:19 AM BITUMASTIC APPLIER PULMONARY FUNCTION - SCAN 03/24/2018 2:00 PM BITUMASTIC APPLIER PULMONARY FUNCTION - SCAN 03/13/2018 2:51 PM CDT SPIROMETRY Routine 03/12/2018 Centrilobular emphysema 1:58 PM CDT ([facility]) 6 MINUTE WALK(FOR LUNG Routine 03/12/2018 Centrilobular emphysema TRANSPLANT ONLY) 1:58 PM CDT (HCC) PULMONARY FUNCTION - SCAN 12/13/2017 11:40 AM CDT 6 MINUTE WALK(FOR LUNG Routine 12/11/2017 Centrilobular emphysema TRANSPLANT ONLY) 2:02 PM CDT ([facility]) LUNG VOLUMES Routine 12/11/2017 Centrilobular emphysema 1:08 PM CDT ([facility]) after 09/29/2017 Results * VASCULAR DIAGRAM -SCAN (08/20/2018 12:25 PM CDT) Only the most recent of 2 results within the time period is included. Narrative Performed At * PULMONARY FUNCTION - SCAN (06/02/2018 8:00 AM BITUMASTIC APPLIER) Only the most recent of 4 results within the time period is included. Narrative Performed At * Pulmonary Funct Lab Spirometry (05/28/2018 4:01 PM BITUMASTIC APPLIER) Narrative Performed At Toma Jenkins RRT, FIRE SPRINKLER INSPECTOR 05/28/20184:[address] [facility] PFT CHARTING REPORT Infection Control/Hand Hygiene procedures followed throughout the encounter with patient: Yes Patient Identification Method: Patient name verified on armband, and Medical record on armband, Is the order complete?: Yes Account ID#: [id number] Patient Name: Hui Galvez Birthdate: 1955 Age: [...] Creatinine clearance (24hr Urine) (05/28/2018 1:45 PM BITUMASTIC APPLIER) Creatinine Clearance 52.0 (L) 70.0 - 140.0 mL/min [facility] Volume, Urine 1,900 ml [facility] Creatinine, Ur 37.0 mg/dL [facility] Patient Height 165.1 cm [facility] Patient Weight 92.200 kg [facility] Specimen Urine Performing Organization Address City/[facility] Phone Number [facility] [address] [place] [address] [phone] * Protein, 24 hour urine (05/28/2018 1:45 PM BITUMASTIC APPLIER) Protein, 24hr Urine <133 0 - 300 mg/24hr [facility] Volume, Urine 1,900 ml [facility] Protein, Urine <7 0 - 14 mg/dL [facility] Specimen Urine Performing Organization Address [facility] Phone Number [place] [phone] * Creatinine Serum (05/28/2018 1:45 PM BITUMASTIC APPLIER) Creatinine 0.79 0.57 - 1.25 mg/dL [facility] EGFR 73Comment: ESTIMATED GFR IS mL/min/1.[address] [facility] NOT ACCURATE CREATININE [facility] CLEARANCE IN PREDICTING GLOMERULAR FILTRATION RATE. ESTIMATED GFR IS NOT APPLICABLE FOR DIALYSIS PATIENTS. Specimen Blood Performing Organization Address [facility] Unit[facility]owi Phone Number [address] [address] [phone] [place] [address] * TRANSFUSION SERVICE REPORT - SCAN (04/25/2018 5:54 PM BITUMASTIC APPLIER) Narrative Performed At * FL esophagus (04/25/2018 11:59 AM BITUMASTIC APPLIER) Specimen Narrative Performed At FINAL REPORT GE [facility] Esophagram. History: Lung transplant evaluation. Discussion: [...] MD Report Verified Date/Time:04/25/2018 12:25:11 Reading Location: [address] Radiology Reading Room Procedure Note Interface, External Ris In - 04/25/2018 12:27 PM BITUMASTIC APPLIER FINAL REPORT Esophagram. History: Lung transplant evaluation. [...] Report Verified Date/Time: 04/25/2018 12:25:11 Reading Location: [address] Radiology Reading Room Performing Organization Address City/State/Zipcode Phone Number GE RIS * XR chest 2 views (04/25/2018 11:30 AM BITUMASTIC APPLIER) Specimen Narrative Performed At FINAL REPORT GE [employer] Chest, PA and lateral. History: Lung transplant evaluation. Comparison: None available. Discussion:The cardiomediastinal silhouette and pulmonary vasculature are within normal limits. The lungs are clear without evidence of consolidation or effusion.There are no acute osseous abnormalities. The soft tissues are unremarkable. IMPRESSION: No acute cardiopulmonary abnormality. Signed: Annette Patel MD Report Verified Date/Time:04/25/2018 12:32:38 Reading Location: [address] Radiology Reading Room Procedure Note Interface, External Ris In - 04/25/2018 12:34 PM BITUMASTIC APPLIER FINAL REPORT Chest, PA and lateral. History: Lung transplant evaluation. Comparison: None available. Discussion: The cardiomediastinal silhouette and pulmonary vasculature are within normal limits. The lungs are clear without evidence of consolidation or effusion. There are no acute osseous abnormalities. The soft tissues are unremarkable. IMPRESSION: No acute cardiopulmonary abnormality. Signed: Annette Patel MD Report Verified Date/Time: 04/25/2018 12:32:38 Reading Location: [address] Radiology Reading Room Performing Organization Address [facility] UnitMindShare Networkswi Phone Number [facility] * XR mandible 4 views min (04/25/2018 11:25 AM BITUMASTIC APPLIER) Specimen Narrative Performed At FINAL REPORT GE [facility] Mandible series, five images HISTORY: Lung transplant evaluation COMPARISON: None IMPRESSION: Suboptimal positioning. No fracture. Temporomandibular joints intact. Soft tissues appear unremarkable. No evidence for lytic or blastic lesion. Signed: Annette Patel MD Report Verified Date/Time:04/25/2018 12:20:57 Reading Location: [address] Radiology Reading Room Procedure Note Interface, External Ris In - 04/25/2018 12:23 PM BITUMASTIC APPLIER FINAL REPORT Mandible series, five images HISTORY: Lung transplant evaluation COMPARISON: None IMPRESSION: Suboptimal positioning. No fracture. Temporomandibular joints intact. Soft tissues appear unremarkable. No evidence for lytic or blastic lesion. Signed: Annette Patel MD Report Verified Date/Time: 04/25/2018 12:20:57 Reading Location: [address] Radiology Reading Room Performing Organization Address [facility] UnitMindShare Networkswi Phone Number [facility] * CT chest without IV contrast (04/25/2018 11:17 AM BITUMASTIC APPLIER) Specimen Narrative Performed At FINAL REPORT [facility] Exam: CT chest, abdomen and pelvis without [...] MD Report Verified Date/Time:04/25/2018 17:29:59 Reading Location: [address] Radiology Reading Room Procedure Note Interface, External Ris In - 04/25/2018 5:32 PM BITUMASTIC APPLIER FINAL REPORT Exam: CT chest, abdomen and [...] Report Verified Date/Time: 04/25/2018 17:29:59 Reading Location: [address] Radiology Reading Room Performing Organization Address City/State/Zipcode Phone Number [employer] * CT abdomen pelvis without contrast (04/25/2018 11:17 AM BITUMASTIC APPLIER) Specimen Narrative Performed At FINAL REPORT [facility] Exam: CT chest, abdomen and pelvis without [...] MD Report Verified Date/Time:04/25/2018 17:29:59 Reading Location: [address] Radiology Reading Room Procedure Note Interface, External Ris In - 04/25/2018 5:32 PM BITUMASTIC APPLIER FINAL REPORT Exam: CT chest, abdomen and [...] Report Verified Date/Time: 04/25/2018 17:29:59 Reading Location: [address] Radiology Reading Room Performing Organization Address City/State/Zipcode Phone Number GE [facility] * ECHOCARDIOGRAM REPORT - SCAN (04/24/2018 6:20 PM BITUMASTIC APPLIER) Narrative Performed At * Carotid doppler bilateral (04/24/2018 4:46 PM BITUMASTIC APPLIER) Ejection Fraction [facility] MKCKESSON CPACS Specimen Impressions Performed At Right Impression [facility] 1. There is <50% [...] PV LAB - Carotid Duplex Study [facility] Demographics MKCKESSSERA CPA Patient NameHUI GALVZE Date of Study04/24/2018 LENARD Age63 Visit [id number] Gender Female Date of Birth1955 Referring [facility] Room Number Physician Enoch MD Upper Leather Sorter Rita Horvath T Interpreting Sabino Cooper Procedure Type of Study: Cerebral: Carotid, CAROTID DOPPLER, BILATERAL. Indications for Study:Lung transplant evaluation . Patient Status:Routine. Study Location:Vascular Lab. Technical Quality:Adequate visualization. Risk Factors History of Disease + +----+ + !Diagnosis !Date!Comments! + +----+ + !History/Risk Factors: !!COPD, Raynauds, SLE ! + +----+ + Procedure Note Interface, External Ris In - 04/25/2018 7:26 AM [facility] PV LAB - Carotid Duplex Study Demographics Patient Name HUI GALVEZ Date of Study 04/24/2018 LENARD Age 63 Visit Number [id number] Gender Female Accession Number [id number] Date of 1955 Referring [facility] Room Number Physician Enoch MD Upper Leather Sorter Rita Horvath T Interpreting Alina Rosenthal, Physician [...] Performing Organization Address City/State/Zipcode Phone Number [facility] MKSEGUN [facility] * ECHO W CONTRAST & DOPPLER (04/24/2018 3:53 PM BITUMASTIC APPLIER) Ejection Fraction [facility] Specimen Narrative Performed At Transthoracic Echocardiography Report (TTE) [facility] Demographics SE[facility]UN [facility] Patient Name Ching GALVEZ of Study 04/24/2018 LENARD [id number] Female Visit Number [id number] Room Number Number Date of Birth4Referring Physician Homa Kendall MD Age63 year(s)Upper Leather Sorter Arik Flores [facility] AnalystAlex Joceline InterpretingRaPhysician MELIDA Walker Procedure [...] External Ris In - 04/24/2018 5:47 PM BITUMASTIC APPLIER Transthoracic Echocardiography Report (TTE) Demographics Patient Name HUI GALVEZ Date of Study 04/24/2018 LENARD Gender Female Visit Number [id number] Race Unknown Room Number Number Date of 1955 Referring Physician Homa Kendall MD Age 63 year(s) Upper Leather Sorter Arik Flores [facility] Bonus Clerk Eulalio Car Interpreting Physician MELIDA Humphreys Procedure [...] quant diff funct vent/perf (04/24/2018 3:37 PM BITUMASTIC APPLIER) Specimen Narrative Performed At FINAL REPORT [facility] PROCEDURE: V/Q LUNG SCAN w/differential function (xenon) CPT CODE:10729 INDICATION:Lung transplant evaluation PROTOCOL:10.1 mCi ofXe-133 gas [...] to the upper, mid, and lower lung belal respectively). Washout is delayed in the mid [...] MD Report Verified Date/Time:04/24/2018 15:49:00 Reading Location: [address] Reading Room Procedure Note Interface, External Ris In - 04/24/2018 3:51 PM BITUMASTIC APPLIER FINAL REPORT PROCEDURE: V/Q LUNG SCAN w/differential function (xenon) CPT CODE: 71075 INDICATION: Lung transplant evaluation PROTOCOL: 10.1 mCi [...] Report Verified Date/Time: 04/24/2018 15:49:00 Reading Location: [facility] [address] [address] [facility] Reading Room Performing Organization Address City/State/Zipcode Phone Number GE [facility] * FL sniff test (04/24/2018 2:42 PM BITUMASTIC APPLIER) Specimen Narrative Performed At FINAL REPORT [employer] Fluoroscopy sniff test Technique: Fluoroscopy was utilized [...] MD Report Verified Date/Time:04/24/2018 14:40:07 Reading Location: [facility] B1 C013X [facility] Consult Reading Room Procedure Note Interface, External Ris In - 04/24/2018 2:47 PM BITUMASTIC APPLIER FINAL REPORT Fluoroscopy sniff test Technique: Fluoroscopy [...] Report Verified Date/Time: 04/24/2018 14:40:07 Reading Location: [facility] B1 C013X Ortho Consult Reading Room Performing Organization Address City/State/Zipcode Phone Number GE [facility] * Blood typing, automated (04/24/2018 9:54 AM BITUMASTIC APPLIER) ABO/RH AUTOMATED (BEAKER) A POSITIVE [facility] Specimen Blood Performing Organization Address City/[facility] Phone Number [facility] [address] [place] [address] [facility] * HLA TYPING CII (04/24/2018 9:35 AM BITUMASTIC APPLIER) HLA-DR AG1 17 [facility] HLA-DR AG2 4 [facility] HLA-DR AG3-1 52 [facility] HLA-DR AG3-2 [facility] HLA-DR AG4-1 [facility] HLA-DR AG4-2 53 [facility] HLA-DR AG5-1 [facility] HLA-DR AG5-2 [facility] HLA-DQA1 AG 1-1 05 [facility] HLA-DQA1 AG 1-2 03 [facility] HLA-DQB1 AG 1-1 2 [facility] HLA-DQB1 AG 1-2 8 [facility] HLA-DPA1 AG 1-1 02 [facility] HLA-DPA1 AG 1-2 02 [facility] HLA-DPB1 AG 1-1 01:01 [facility] HLA-DPB1 AG 1-2 05:01 [facility] HLA-AG Notes [facility] HLA-AG Report Comments [facility] Specimen Blood Narrative Performed At Disclaimer: [facility] This test was developed and its performance characteristics determined by the [facility] Laboratory. It has not been cleared or [...] complexity clinical laboratory testing. Performing Organization Address City/State/[facility] Phone Number [facility] TEST[facility] ONE Esteban Anastasiia, MS: [id number], [place] [address] CLIA#[id number] CAP#[id number] UNOS#[id number] * HLA TYPING CI (04/24/2018 9:35 AM BITUMASTIC APPLIER) HLA-A AG1 1 [facility] HLA-A AG2 31 [facility] HLA-B AG1 8 [facility] HLA TEST[facility] HLA-B AG2 60 [facility] TEST[facility] HLA-C AG1 7 [facility] HLA-C AG2 10 [facility] HLA-B BW1 6 [facility] HLA-B BW2 6 [facility] [facility] HLA-AG Notes [facility] HLA-AG Report Comments [facility] Specimen Blood Narrative Performed At Disclaimer: [facility] This test was developed and its performance characteristics determined by the [facility]. It has not been cleared or [...] Performing Organization Address City/State/Zipcode Phone Number [facility] TEST[facility] ONE Esteban Laurent, MS: [id number], [place] [address] CLIA#[id number] CAP#[id number] UNOS#[id number] * Drug screen, urine, transplant (04/24/2018 9:35 AM BITUMASTIC APPLIER) Specimen Urine Narrative Performed At Performing Organization Address City/State/Zipcode Phone Number [address] [phone] * T Spot TB (04/24/2018 9:35 AM BITUMASTIC APPLIER) T-Spot TB Negative [facility] Neg Ctrl Spot Count 0 [facility] Panel A Spot 0 [facility] Panel B Spot 0 [facility] Pos Ctrl Spot Ct 0 [facility] Scan Result [facility] Specimen Blood Narrative Performed At Performing Organization Address City/State/Zipcode Phone Number [facility] [address] [place] [address] LABORATORIES 100 * Urinalysis, Routine (04/24/2018 9:35 AM BITUMASTIC APPLIER) Color, UA Light Yellow [facility] Clarity, UA Clear [facility] Specific [place], UA 1.008 1.001 - 1.035 [facility] pH, UA 7.5 5.0 - 8.0 [facility] Protein, UA Negative Negative [facility] Glucose, UA Negative Negative [facility] Ketones, UA Negative Negative [facility] Bilirubin, UA Negative Negative [facility] Blood, UA Negative Negative [facility] Nitrite, UA Negative Negative [facility] Leukocytes, UA Negative Negative [facility] Urobilinogen, UA 0.2 0.2 - 1.0 mg/dL [facility] RBC, UA 0 /HPF [facility] WBC, UA 1 /HPF [facility] Squam Epithel, UA <1 /HPF [facility] Specimen Source [facility] Specimen Urine Performing Organization Address City/State/[facility] Phone Number [facility] [address] [place] [address] [facility] * FLOW PRA CLASS II WITH REFLEX TO ANTIBODY SPECIFICITY (04/24/2018 9:34 AM BITUMASTIC APPLIER) Flow Class II Percent 13 [facility] Positive Flow Class Report [facility] Comments Specimen Blood Narrative Performed At Disclaimer: [facility] TEST[facility] This test was developed and its performance characteristics determined by the [facility]. It has not been cleared or [...] complexity clinical laboratory testing. Performing Organization Address City/State/[facility] Phone Number [facility] Esteban Laurent, MS: [id number], [place] [address] CLIA#[id number] CAP#[id number] UNOS#[id number] * FLOW PRA CLASS I WITH REFLEX TO ANTIBODY SPECIFICITY (04/24/2018 9:34 AM BITUMASTIC APPLIER) Flow Class I Percent 0 [facility] Positive Flow Class Report [facility] Comments Specimen Blood Narrative Performed At Disclaimer: [facility] This test was developed and its performance characteristics determined by the [facility]. It has not been cleared or [...] complexity clinical laboratory testing. Performing Organization Address [facility] Phone Number [facility] TEST[facility] ONE Esteban Laurent, MS: [id number], [place] [address] CLIA#[id number] CAP#[id number] UNOS#[id number] * AB SPECIFICITY CLASS II (04/24/2018 9:34 AM BITUMASTIC APPLIER) AB Specificity Class II NO CLASS II ANTIBODY DETECTED [facility] WITH MFIs > 4000 AB Specificity Titr Class [facility] TEST[facility] Report Specimen Blood Narrative Performed At Disclaimer: [facility] This test was developed and its performance characteristics determined by the [facility]. It has not been cleared or [...] complexity clinical laboratory testing. Performing Organization Address [facility] Phone Number [facility] Esteban Laurent, MS: [id number], [place] [address] CLIA#[id number] CAP#[id number] UNOS#[id number] * Type and screen, automated (04/24/2018 9:34 AM BITUMASTIC APPLIER) ABO/RH AUTOMATED (BEAKER) A POSITIVE [facility] Ab Scrn NEGATIVE [facility] Specimen Blood Performing Organization Address City/[facility] Phone Number [address] [address] [facility] * TSH/T4 if indicated (04/24/2018 9:34 AM BITUMASTIC APPLIER) TSH 0.98 0.35 - 4.94 uIU/mL [facility] Specimen Blood Performing Organization Address [facility] Phone Number [address] [address] [facility] * PT/PTT (04/24/2018 9:34 AM BITUMASTIC APPLIER) Only the most recent of 2 results within the time period is included. Protime 13.1 11.7 - 14.7 seconds [facility] INR 1.0 <=5.9 [facility] PTT 24.2 22.5 - 36.0 seconds [facility] Specimen Blood Narrative Performed At RECOMMENDED COUMADIN/WARFARIN INR THERAPY RANGES [facility] STANDARD DOSE: 2.0 - 3.0 Includes: PROPHYLAXIS for venous thrombosis, [facility] systemic embolization; TREATMENT for venous thrombosis and/or pulmonary embolus. HIGH RISK: Target INR is 2.5-3.5 for patients with mechanical heart valves. Performing Organization Address [facility] Phone Number [address] [address] [facility] * HIV-1 Antigen with HIV-1/2 Antibody (04/24/2018 9:34 AM BITUMASTIC APPLIER) HIV-1 Antigen with HIV NON-REACTIVE Nonreactive [facility] 1&2 Antibody [facility] Specimen Blood Performing Organization Address [facility] Phone Number [address] [address] [facility] * CBC with platelet count + automated diff (04/24/2018 9:34 AM BITUMASTIC APPLIER) Only the most recent of 2 results within the time period is included. WBC 7.1 3.5 - 10.5 K/L [facility] RBC 4.00 3.93 - 5.22 M/L [facility] Hemoglobin 11.3 11.2 - 15.7 GM/DL [facility] Hematocrit 39.0 34.1 - 44.9 % [facility] MCV 97.5 (H) 79.4 - 94.8 fL [facility] MCH 28.3 25.6 - 32.2 pg [facility] MCHC 29.0 (L) 32.2 - 35.5 GM/DL [facility] RDW 16.0 (H) 11.7 - 14.4 % [facility] Platelets 259 150 - 450 K/CU MM [facility] MPV 9.8 9.4 - 12.3 fL [facility] nRBC 0 0 - 0 /100 WBC [facility] % Neutros 91 % [facility] % Lymphs 6 % [facility] % Monos 3 % [facility] % Eos 0 % [facility] % Baso 0 % [facility] # Neutros 6.38 (H) 1.56 - 6.13 K/L [facility] # Lymphs 0.40 (L) 1.18 - 3.74 K/L [facility] # Monos 0.20 (L) 0.24 - 0.36 K/L [facility] # Eos 0.00 (L) 0.04 - 0.36 K/L [facility] # Baso 0.02 0.01 - 0.08 K/L [facility] Immature 1 0 - 1 % [facility] Granulocytes-Relative [facility] Specimen Blood Performing Organization Address City/[facility]/Zipcode Phone Number [phone] [place] [address] * Hepatitis panel (04/24/2018 9:34 AM BITUMASTIC APPLIER) Hep A IgM HEPATITIS A TEST NEGATIVE Nonreactive [facility] Hep B C IgM NON-REACTIVE Nonreactive [facility] Hepatitis C Ab NON-REACTIVE Nonreactive [facility] hepatitis B Surface Ag NON-REACTIVE Nonreactive [facility] Specimen Blood Performing Organization Address City/[facility] Phone Number [address] * EBV-VCA antibody, IgG (04/24/2018 9:34 AM BITUMASTIC APPLIER) TAMIKA FELDER VIRAL CAPSID Positive (A) Negative, Equivocal [facility] ANTIGEN IGG [facility] Specimen Blood Narrative Performed At Tamika Felder Viral Capsid Antigen IgG Result Interpretation: [facility] </=0.8 Al Negative [facility] 0.9-1.0 Al Equivocal >/=1.1 Al Positive Performing Organization Address City/[facility]/Zipcode Phone Number [phone] [place] [address] * Hepatitis B core, total (04/24/2018 9:34 AM BITUMASTIC APPLIER) Hep B Core Total Ab NON-REACTIVE Nonreactive [facility] Specimen Blood Performing Organization Address City/[facility]/Zipcode Phone Number [phone] [place] [address] * Toxoplasma gondii antibody, IgG (04/24/2018 9:34 AM BITUMASTIC APPLIER) TOXOPLASMA GONDII IGG <3.0 <10.0 IU/mL [facility] QUANTITATIVE [facility] Specimen Blood Narrative Performed At Toxoplasma Gondii IgG Result Interpretation: [facility] </=9.9 IU/mLNormal [facility] 10-11 IU/mLEquivocal >/=12 IU/mL Positive Performing Organization Address City/[facility] Phone Number [address] * Hepatitis B surface antibody (04/24/2018 9:34 AM BITUMASTIC APPLIER) Hep B S Ab <8.0 <8.0 mIU/mL [facility] Specimen Blood Performing Organization Address City/[facility] Phone Number [phone] [place] [address] [phone] * Cytomegalovirus antibody, IgG (04/24/2018 9:34 AM BITUMASTIC APPLIER) CYTOMEGALOVIRUS, IGG Positive (A) Negative, Equivocal [facility] Specimen Blood Narrative Performed At CMV IgG Result Interpretation: [facility] </=0.8 Al Negative [facility] 0.9-1.0 Al Equivocal >/=1.1 AlPositive Performing Organization Address [facility] Phone Number [phone] [place] [address] * Varicella zoster antibody, IgG (04/24/2018 9:34 AM BITUMASTIC APPLIER) Varicella IgG 4.9 [facility] Specimen Blood Narrative Performed At VARICELLA ZOSTER RESULT INTERPRETATIONS: [facility] <=0.8 AlNonreactive:Presumed non-immune to VZV [facility] 0.9-1.0 AlEquivocal >=1.1 AlReactive:Presumed immune to VZV Performing Organization Address City/[facility] Phone Number [phone] [place] [address] * Hemoglobin A1c (04/24/2018 9:34 AM BITUMASTIC APPLIER) Hemoglobin A1C 6.1 4.3 - 6.1 % [facility] Specimen Blood Performing Organization Address City/[facility] Phone Number [address] [phone] [facility] * Lipid panel (04/24/2018 9:34 AM BITUMASTIC APPLIER) Triglycerides 128 mg/dL [facility] Cholesterol 215 mg/dL [facility] HDL 71 mg/dL [facility] LDL Calculated 118 mg/dL [facility] Specimen Blood Narrative Performed At Triglyceride Reference Range: [facility] Low Risk <150 [facility] [id number] High Risk 200-499 Very High Risk>=500 Cholesterol Reference Range: Low Risk <200 [id number] High Risk>240 HDL Cholesterol Reference Range: Low Risk >=60 High Risk <40 LDL Cholesterol Reference Range: Optimal<100 Near [id number] Very High >=190 Performing Organization Address City/State/Zipcode Phone Number [address] [address] [facility] * Comprehensive metabolic panel (04/24/2018 9:34 AM BITUMASTIC APPLIER) Protein, Total 7.1 6.0 - 8.3 gm/dL [facility] Albumin 4.1 3.5 - 5.0 g/dL [facility] Alkaline Phosphatase 90 40 - 150 U/L [facility] Total Bilirubin 0.3 0.2 - 1.2 mg/dL [facility] Sodium 139 136 - 145 meq/L [facility] Potassium 4.5 3.5 - 5.1 meq/L [facility] Chloride 102 98 - 107 meq/L [facility] CO2 29 22 - 29 meq/L [facility] BUN 12 7 - 21 mg/dL [facility] Creatinine 0.82 0.57 - 1.25 mg/dL [facility] Glucose 130 (H) 70 - 105 mg/dL [facility] Calcium 9.8 8.4 - 10.2 mg/dL [facility] AST 15 5 - 34 U/L [facility] ALT 19 6 - 55 U/L [facility] EGFR 70Comment: ESTIMATED GFR IS mL/min/1.[address] [facility] NOT ACCURATE CREATININE [facility] CLEARANCE IN PREDICTING GLOMERULAR FILTRATION RATE. ESTIMATED GFR IS NOT APPLICABLE FOR DIALYSIS PATIENTS. Specimen Blood Performing Organization Address City/[facility] Phone Number [address] [address] [facility] * RPR (04/24/2018 9:33 AM BITUMASTIC APPLIER) RPR Nonreactive Nonreactive [facility] Specimen Blood Performing Organization Address City/[facility] Phone Number [address] [address] [facility] * Blood gas, arterial (04/24/2018 8:20 AM BITUMASTIC APPLIER) Only the most recent of 2 results within the time period is included. pH, Arterial 7.40 7.35 - 7.45 [facility] pCO2, Arterial 45 35 - 45 mmHg [facility] pO2, Arterial 62 (L) 80 - 90 mmHg [facility] O2 Sat, Arterial 91.6 (L) 96.0 - 97.0 % [facility] HCO3, Arterial 28 21 - 29 mmol/L [facility] Base Excess, Arterial 2.4 -2.0 - 3.0 mmol/L [facility] Patient Temperature 37.0 C [facility] FIO2 21.0 % [facility] Specimen Blood, Arterial Performing Organization Address City/[facility] Phone Number [place] [phone] [place] [address] [facility] * CARDIAC CATH REPORT - SCAN (04/02/2018 1:13 PM BITUMASTIC APPLIER) Narrative Performed At * Basic Metabolic Panel (04/01/2018 10:00 AM BITUMASTIC APPLIER) Sodium 141 136 - 145 meq/L [facility] Potassium 3.9 3.5 - 5.1 meq/L [facility] Chloride 104 98 - 107 meq/L [facility] CO2 31 (H) 22 - 29 meq/L [facility] BUN 13 7 - 21 mg/dL [facility] Creatinine 0.79 0.57 - 1.25 mg/dL [facility] Glucose 132 (H) 70 - 105 mg/dL [facility] Calcium 9.6 8.4 - 10.2 mg/dL [facility] EGFR 73Comment: ESTIMATED GFR IS mL/min/1.[address] [facility] NOT ACCURATE CREATININE [facility] CLEARANCE IN PREDICTING GLOMERULAR FILTRATION RATE. ESTIMATED GFR IS NOT APPLICABLE FOR DIALYSIS PATIENTS. Specimen Blood Performing Organization Address City/State/Zipcode Phone Number [facility] [address] [place] [address] [facility] * ECG 12 lead (04/01/2018 9:19 AM BITUMASTIC APPLIER) Specimen Narrative Performed At Ventricular Rate 90 BPM GE MUSE Atrial Rate 90 BPM P-R Interval 160 ms QRS Duration 86 ms Q-T Interval 382 ms QTC Calculation(Bazett) 467 ms P [place] 73 degrees R [place] 60 degrees T [place] 69 degrees Normal sinus rhythm Normal ECG No previous ECGs available Confirmed by MD Bingham Mahboob ([id number]) on 04/01/2018 1:24:05 PM Procedure Note Interface, External Ris In - 04/01/2018 1:24 PM BITUMASTIC APPLIER Ventricular Rate 90 BPM Atrial Rate 90 BPM P-R Interval 160 ms QRS Duration 86 ms Q-T Interval 382 ms QTC Calculation(Bazett) 467 ms P [place] 73 degrees R [place] 60 degrees T [place] 69 degrees Normal sinus rhythm Normal ECG No previous ECGs available Confirmed by MD Bingham Mahboob ([id number]) on 04/01/2018 1:24:05 PM Performing Organization Address City/State/Zipcode Phone Number GE MUSE * 6 MINUTE WALK(FOR LUNG TRANSPLANT ONLY) (03/12/2018 1:58 PM CDT) Narrative Performed At Gary Calhoun, MEDICAL RECORD CODER, FIRE SPRINKLER INSPECTOR 03/12/20182:[address] [facility] PFT CHARTING REPORT Infection Control/Hand Hygiene procedures followed throughout the encounter with patient: Yes Patient Identification Method: Patient name verified on armband, and Medical record on armband, Is the order complete?: Yes Account ID#: [id number] Patient Name: Hui Galvez Birthdate: 1955 Age: [...] CDT) Narrative Performed At Gary Calhoun RRT, [facility] 03/12/20182:[address] [facility] PFT CHARTING REPORT Infection Control/Hand Hygiene procedures followed throughout the encounter with patient: Yes Patient Identification Method: Patient name verified on armband, and Medical record on armband, Is the order complete?: Yes Account ID#: [id number] Patient Name: Hui Galvez Birthdate: 1955 Age: [...] CDT) Narrative Performed At Toma Jenkins RRT, [facility] 12/11/20172:[address] [facility] PFT CHARTING REPORT Infection Control/Hand Hygiene procedures followed throughout the encounter with patient: Yes Patient Identification Method: Patient name verified on armband, and Medical record on armband, Is the order complete?: Yes Account ID#: [id number] Patient Name: Hui Galvez Birthdate: 1955 Age: [...] Group MEDICARE MEDICARE A xxxxxxxxxxx Medicare B [facility] SUPPLEMENT/INDIVIDUAL MUNGER xxxxxxxxx Comm ICELANDIC Advance Directives For more information, please contact: [facility] [address] [place] [address] Date Inactivated Comments Code Status Date Activated Full Code 04/01/2018 8:31 AM This code status was determined by: Patient
[2018-09-30] MEDS ORDERED: ACETAMINOPHEN 325 MG TAB PO PRN (12:30)
[2018-09-30] MEDS ORDERED: ALBUTEROL SULF 0.083% NEB SOLN 3 ML NEB NEB SCH (12:30)
--- NOTE | 2018-09-30 12:38 | NUR ---
[facility] CALLED FOR TRANSPORT 45 ETA
[2018-09-30] MEDS ORDERED: AZITHROMYCIN 500MG/NS 250 ML 250 ML ONE (12:54)
--- NOTE | 2018-09-30 13:18 | NUR ---
REPORT TO ZANE FALCON ALL QUESTIONS ANSWERED
[2018-09-30 13:50] VITALS: BP 102/62
[2018-09-30 14:47] VITALS: BP 102/62
[2018-09-30 15:09] VITALS: BP 102/62
[2018-09-30 15:21] VITALS: BP 100/54
[2018-09-30] MEDS ORDERED: trilogy IH (16:18)
[2018-09-30] MEDS ORDERED: VENTOLIN HFA18 GM IH (16:18)
[2018-09-30] MEDS ORDERED: TYLENOL # 31 EA PO (16:18)
[2018-09-30] MEDS ORDERED: ALBUTEROL SULFAT2 MG PO (16:18)
[2018-09-30] MEDS ORDERED: GABAPENTIN100 MG PO (16:18)
[2018-09-30] MEDS ORDERED: POTASSIUM CHLO20 ME1 PO (16:18)
[2018-09-30] MEDS ORDERED: OMEPRAZOLE40 MG PEG (16:18)
[2018-09-30] MEDS ORDERED: CIPRO500 MG PO (16:19)
[2018-09-30] MEDS ORDERED: ALBUTEROL SULFATE HFA 8GM INHALATION AEROSOL INH PRN (17:15)
[2018-09-30] MEDS ORDERED: DEXTROSE 50% SYRINGE 50 ML IV PRN (17:15)
[2018-09-30] MEDS ORDERED: METHOCARBAMOL 750 MG TAB PO PRN (17:15)
[2018-09-30] MEDS: METHYLPREDNISOLONE SOD SUCC 40 MG/ML VIAL 1ML IV SCH (18:00)
[2018-09-30] MEDS ORDERED: METHYLPREDNISOLONE SOD SUCC 125 MG/2ML VIAL IV SCH ×2 (18:00)
[2018-09-30] MEDS ORDERED: METHYLPREDNISOLONE SOD SUCC 40 MG/ML VIAL 1ML IV SCH (18:00)
[2018-09-30] MEDS: ALPRAZOLAM 0.5 MG TAB PO PRN (18:06)
[2018-09-30] MEDS: CEFEPIME 1GM/NS 0.9% 50 ML 50 ML IV SCH (18:06)
[2018-09-30] MEDS: SODIUM CHLORIDE 0.9% 1000ML 1,000 ML IV SCH (18:06)
[2018-09-30 20:42] VITALS: BP 96/64
[2018-09-30 21:00] VITALS: BP 96/64
[2018-09-30] MEDS ORDERED: ZOLPIDEM TARTRATE 10 MG PO SCH (21:00)
[2018-09-30] MEDS: ZOLPIDEM TARTRATE 10 MG TAB PO SCH (21:49)
[2018-09-30] MEDS: MONTELUKAST SODIUM 10 MG TAB PO SCH (21:49)
[2018-09-30] MEDS: INSULIN LISPRO 100 UNIT/1 ML 3ML VIAL SQ SCH (21:55)
[2018-09-30] MEDS: HEPARIN SOD (PORCINE) 5,000 UNIT/ML VIAL SC SCH (21:55)
[2018-09-30 23:36] LABS: CLARITY,URINE CLEAR (CLEAR); COLOR,URINE YELLOW (YELLOW); LEUKOCYTE ESTERASE ,URINE NEGATIVE (NEGATIVE); NITRITE,URINE NEGATIVE (NEGATIVE); PROTEIN,URINE DIPSTICK NEGATIVE (NEGATIVE)
[2018-09-30 23:37] LABS: BILIRUBIN,URINE NEGATIVE (NEGATIVE); KETONES,URINE NEGATIVE (NEGATIVE); URINE UROBILINOGEN 0.2 mg/dL (0.2 - 1)
--- NOTE | 2018-09-30 23:41 | History and Physical ---
Patient of __Drew , Dr. Abreu, orthopedic surgeon. HISTORY OF PRESENT ILLNESS: Charming, but unfortunate 63-year-old woman with a history of end-stage COPD, referred for transplant in the past, history of community- acquired pneumonia 09/17, improved with Zithromax. Subsequently, she developed a urinary tract infection, which was treated with Cipro, but today she was extremely short of breath with fever and chills and temperature of 101. White count of 18,000 was reported at the outpatient facility. History of falling and fracture of her humerus. History of unstable left knee, planning to have surgical replacement next month in October. She has history of lupus, Raynaud phenomenon, gastroesophageal reflux, COPD, asthma, recent urinary tract infection. She has had appendectomy, hysterectomy, and gastric segmentation. FAMILY HISTORY: Positive for coronary disease. SOCIAL HISTORY: Ex-smoker. ALLERGIES: ALLERGIC TO DEMECLOCYCLINE, BEHAVIORAL INTERVENTION SPECIALIST REACTION TO PREDNISONE. HOME MEDICATIONS: Include Tylenol No. 3, albuterol tablets, nebulized albuterol, Xanax, tizanidine, zolpidem, had been on Robaxin, recently on ciprofloxacin, Neurontin, Prilosec. Lost a fair amount of weight. She has been short of breath, on home oxygen. Difficulty urinating recently due to urinary tract infection. No heart issues. Left knee gives out and she is planned to have that replaced on the of next month. PHYSICAL EXAMINATION: GENERAL: She is a well-developed, moderately obese white female, anxious, but no acute distress at this point, though has reported very short of breath earlier. VITAL SIGNS: Temperature 97.6, pulse 102, respirations 19, blood pressure 102/70. HEENT: Head, normocephalic, atraumatic. Eyes, extraocular movements intact. LUNGS: Rales right base. HEART: Regular rhythm. ABDOMEN: Nontender. EXTREMITIES: Not edematous. IMPRESSION: Community acquired pneumonia, right lower lobe; chronic obstructive pulmonary disease; recent urinary tract infection; degenerative disease; lupus. PLAN: _therapy of community acquired pneumonia, chronic respiratory failure, COPD. Empiric antibiotic therapy, the patient has recently been on Zithromax. She is allergic to doxycycline, we will change to cefepime in view of her recent antibiotic use. We will also try to decrease corticosteroids in view of her history of BEHAVIORAL INTERVENTION SPECIALIST side effects. Thank you for this kind referral. MD RAIMUNDO Serrano/CARLOS /[id number]
[2018-09-30 23:50] LABS: BACTERIA,URINE FEW /HPF; EPITHELIAL CELLS,URINE MODERATE /LPF; WBC,URINE (MAN) 0-5 /HPF (0-5)
[2018-10-01] VITALS (9 sets, daily range): BP systolic 105–137; BP diastolic 52–73
[2018-10-01] MEDS: METHYLPREDNISOLONE SOD SUCC 40 MG/ML VIAL 1ML IV SCH (02:29)
[2018-10-01] MEDS: ALBUTEROL SULF 0.083% NEB SOLN 3 ML NEB NEB SCH ×6 (03:33→23:30)
[2018-10-01] MEDS: IPRATROPIUM BROMIDE 0.02% 2.5 ML NEB NEB SCH ×6 (03:33→23:30)
[2018-10-01] MEDS: CEFEPIME 1GM/NS 0.9% 50 ML 50 ML IV SCH ×2 (05:12→17:13)
[2018-10-01 05:15] LABS: BASOPHILS % 0.1 % (0.0-1.0); HEMATOCRIT 33.9 % (34.2-44.1); HEMOGLOBIN 10.3 g/dL (12.0-16.0); LYMPHOCYTES # (AUTO) 0.4 (1.0-3.2); LYMPHOCYTES % 2.8 % (18.0-39.1); MEAN CORPUSCULAR HEMOGLOBIN 28.6 pg (28-32); MEAN CORPUSCULAR HGB CONC 30.4 g/dL (31-35); MEAN CORPUSCULAR VOLUME 94.2 fL (81-99); MONOCYTES # (AUTO) 0.3 (0.2-0.8); NEUTROPHILS # (AUTO) 13.6 (2.1-6.9); NEUTROPHILS % 94.6 % (38.7-80.0); PLATELET COUNT 181 x10e3/uL (140-360); RED CELL DISTRIBUTION WIDTH 15.9 % (11.7-14.4)
[2018-10-01] MEDS: ALPRAZOLAM 0.5 MG TAB PO PRN (05:28)
--- NOTE | 2018-10-01 07:00 | NUR ---
BEDSIDE SHIFT REPORT RECEIVED FROM MARKETING SALES SUPERVISOR RN. PT DENIES NEEDS AT THIS TIME
[2018-10-01 07:17] LABS: ANION GAP 11.9 mmol/L (8-16); BLOOD UREA NITROGEN 14 mg/dL (7-26); BUN/CREATININE RATIO 18 (6-25); CALCIUM 9.8 mg/dL (8.4-10.2); CARBON DIOXIDE 26 mmol/L (22-29); CHLORIDE 105 mmol/L (98-107); CREATININE, SERUM 0.76 mg/dL (0.57-1.11); EST GLOMERULAR FILTRATION RATE > 60 ML/MIN (60-); GLUCOSE 141 mg/dL (74-118); POTASSIUM 3.9 mmol/L (3.5-5.1); SODIUM 139 mmol/L (136-145)
[2018-10-01 07:19] LABS: ABG PCO2 55 mmHg (41-51); ABG PO2 111 mmHg (80-105)
[2018-10-01 07:20] LABS: ABG HCO3 28 mmol/L (23-28)
[2018-10-01] MEDS: INSULIN LISPRO 100 UNIT/1 ML 3ML VIAL SQ SCH (07:30)
[2018-10-01] MEDS: GABAPENTIN 100 MG CAP PO SCH ×2 (08:20→17:13)
[2018-10-01] MEDS: PANTOPRAZOLE SOD 40 MG TABEC PO SCH (08:20)
[2018-10-01] MEDS: ALBUTEROL SULFATE 2 MG TAB PO SCH (08:20)
[2018-10-01] MEDS: HEPARIN SOD (PORCINE) 5,000 UNIT/ML VIAL SC SCH ×2 (08:30→21:23)
[2018-10-01] MEDS ORDERED: DOXYCYCLINE HYCLATE TABLET 100 MG TAB PO SCH (09:00)
[2018-10-01] MEDS: BUPROPION HCL 150 MG TABCR PO SCH (10:50)
[2018-10-01] MEDS: ACETAMINOPHEN/CODEINE 300MG - 30MG TAB PO PRN ×2 (13:06→21:23)
[2018-10-01] MEDS: SODIUM CHLORIDE 0.9% 1000ML 1,000 ML IV SCH ×2 (13:35→23:58)
--- NOTE | 2018-10-01 19:00 | NUR ---
BEDSIDE SHIFT REPORT GIVEN TO WASHTUB WORKER HELPER RN. PT DENIES NEEDS AT THIS TIME.
[2018-10-01] MEDS: ZOLPIDEM TARTRATE 10 MG TAB PO SCH (21:22)
[2018-10-01] MEDS: MONTELUKAST SODIUM 10 MG TAB PO SCH (21:22)
--- NOTE | 2018-10-01 21:24 | NUR ---
PATIENT C/O PAIN TO THE LEFT SHOULDER WITH PAIN SCORE #7, MEDICATED WITH TYLENOL #3 1TAB ORDERED. SHE'S ASSISTED TO THE RESTROOM NOW, SHE'S INSTRUCTED TO CALL FOR ASSISTANCE UPON COMPLETION.
--- NOTE | 2018-10-01 23:27 | NUR ---
PATIENT IS SOUNDLY ASLEEP, NO RESPIRATORY DISTRESS OBSERVED, CALL LIGHT WITHIN EASY REACH.
[2018-10-02] VITALS (7 sets, daily range): BP systolic 108–141; BP diastolic 58–60
[2018-10-02] MEDS: IPRATROPIUM BROMIDE 0.02% 2.5 ML NEB NEB SCH ×6 (03:00→23:10)
[2018-10-02] MEDS: ALBUTEROL SULF 0.083% NEB SOLN 3 ML NEB NEB SCH ×6 (03:00→23:10)
--- NOTE | 2018-10-02 03:12 | NUR ---
PATIENT IS ASLEEP, SHE'S EASY TO AROUSE. NO RESPIRATORY DISTRESS OBSERVED, SHE DENIES PAIN TO THE LEFT SHOULDER. CALL LIGHT WITHIN EASY REACH, SHE'S INSTRUCTED TO CALL FOR ASSISTANCE NEEDED.
[2018-10-02] MEDS: CEFEPIME 1GM/NS 0.9% 50 ML 50 ML IV SCH ×2 (06:27→17:52)
--- NOTE | 2018-10-02 07:00 | NUR ---
BEDSIDE SHIFT REPORT RECEIVED FROM INBOUND SALES REPRESENTATIVE RN. PT DENIES NEEDS AT THIS TIME
[2018-10-02] MEDS ORDERED: METHYLPREDNISOLONE SOD SUCC 40 MG/ML VIAL 1ML IV SCH (07:30)
[2018-10-02] MEDS: PANTOPRAZOLE SOD 40 MG TABEC PO SCH (08:49)
[2018-10-02] MEDS: GABAPENTIN 100 MG CAP PO SCH ×2 (08:49→17:51)
[2018-10-02] MEDS: BUPROPION HCL 150 MG TABCR PO SCH (08:51)
[2018-10-02] MEDS: ALBUTEROL SULFATE 2 MG TAB PO SCH (09:00)
[2018-10-02] MEDS: HEPARIN SOD (PORCINE) 5,000 UNIT/ML VIAL SC SCH ×2 (09:45→21:40)
--- NOTE | 2018-10-02 19:00 | NUR ---
BEDSIDE SHIFT REPORT GIVEN TO ASSISTANT TENNIS PROFESSIONAL RN. PT DENIED FURTHER NEEDS.
[2018-10-02] MEDS: ZOLPIDEM TARTRATE 10 MG TAB PO SCH (21:40)
[2018-10-02] MEDS: ACETAMINOPHEN/CODEINE 300MG - 30MG TAB PO PRN (21:40)
[2018-10-02] MEDS: MONTELUKAST SODIUM 10 MG TAB PO SCH (21:40)
--- NOTE | 2018-10-02 22:15 | NUR ---
PATIENT RESTING IN BED, SHE DENIES SHORTNESS OF BREATH OR ANY RESPIRATORY DISTRESS. SHE'S ASSISTED WITH ADLS, CALL LIGHT WITHIN EASY REACH, INSTRUCTED TO CALL FOR ASSISTANCE NEEDED.
[2018-10-03] VITALS (8 sets, daily range): BP systolic 113–174; BP diastolic 58–92
[2018-10-03] MEDS: GUAIFENESIN/CODEINE 10 ML CUP PO PRN ×2 (00:05→06:11)
[2018-10-03] MEDS: SODIUM CHLORIDE 0.9% 1000ML 1,000 ML IV SCH (00:25)
--- NOTE | 2018-10-03 02:39 | NUR ---
WALKING ROUNDS MADE, PATIENT RECEIVING BREATHING TREATMENT AT THIS TIME AND SHE DENIES PAIN.
[2018-10-03] MEDS: ALBUTEROL SULF 0.083% NEB SOLN 3 ML NEB NEB SCH ×6 (02:55→23:10)
[2018-10-03] MEDS: IPRATROPIUM BROMIDE 0.02% 2.5 ML NEB NEB SCH ×6 (02:55→23:10)
[2018-10-03 04:54] LABS: BASOPHILS % 0.3 % (0.0-1.0); EOSINOPHILS % 0.6 % (0.0-6.0); HEMATOCRIT 29.9 % (34.2-44.1); HEMOGLOBIN 8.9 g/dL (12.0-16.0); LYMPHOCYTES % 14.5 % (18.0-39.1); MEAN CORPUSCULAR HEMOGLOBIN 28.3 pg (28-32); MEAN CORPUSCULAR HGB CONC 29.8 g/dL (31-35); MEAN CORPUSCULAR VOLUME 95.2 fL (81-99); MONOCYTES # (AUTO) 0.5 (0.2-0.8); MONOCYTES % 6.9 % (4.4-11.3); NEUTROPHILS # (AUTO) 5.3 (2.1-6.9); NEUTROPHILS % 77.1 % (38.7-80.0); PLATELET COUNT 194 x10e3/uL (140-360); RED BLOOD COUNT 3.14 x10e6/uL (3.6-5.1); RED CELL DISTRIBUTION WIDTH 16.1 % (11.7-14.4)
[2018-10-03 05:15] LABS: ANION GAP 9.6 mmol/L (8-16); BLOOD UREA NITROGEN 15 mg/dL (7-26); BUN/CREATININE RATIO 22 (6-25); CALCIUM 9.2 mg/dL (8.4-10.2); CARBON DIOXIDE 28 mmol/L (22-29); CHLORIDE 109 mmol/L (98-107); CREATININE, SERUM 0.69 mg/dL (0.57-1.11); EST GLOMERULAR FILTRATION RATE > 60 ML/MIN (60-); GLUCOSE 106 mg/dL (74-118); POTASSIUM 3.6 mmol/L (3.5-5.1); SODIUM 143 mmol/L (136-145)
--- NOTE | 2018-10-03 06:10 | NUR ---
NON PRODUCTIVE COUGHING NOTED, PATIENT MEDICATED WITH ROBITUSSIN WITH CODEINE ORDERED. CALL LIGHT WITHIN EASY REACH, SHE DENIES PAIN TO THE LEFT SHOULDER.
[2018-10-03] MEDS: CEFEPIME 1GM/NS 0.9% 50 ML 50 ML IV SCH ×2 (06:11→17:10)
--- NOTE | 2018-10-03 08:35 | Diagnostic Imaging Report ---
EXAMINATION: PA and lateral views of the chest. COMPARISON: 09/30/2018 CLINICAL HISTORY: Pneumonia DISCUSSION: Lungs are well-inflated. Aeration of the right lung base has improved relative to 09/30/2018. No new consolidation or effusion. Cardiomediastinal contour and pulmonary vasculature are stable in appearance, with minimal atherosclerotic calcification of the aortic arch. Comminuted fracture of the surgical neck of the left humerus is partially visualized. IMPRESSION: Improved aeration of the right lung base relative to 09/30/2018. No new consolidations. Signed by: Dr. Armin Foote M.D. on 10/03/2018 8:31 AM
[2018-10-03] MEDS: BUPROPION HCL 150 MG TABCR PO SCH (08:51)
[2018-10-03] MEDS: PANTOPRAZOLE SOD 40 MG TABEC PO SCH (08:52)
[2018-10-03] MEDS: HEPARIN SOD (PORCINE) 5,000 UNIT/ML VIAL SC SCH ×2 (08:52→21:38)
[2018-10-03] MEDS: GABAPENTIN 100 MG CAP PO SCH ×2 (08:52→17:10)
[2018-10-03] MEDS: ALBUTEROL SULFATE 2 MG TAB PO SCH (09:00)
[2018-10-03 10:56] LABS: % IRON SATURATION 21 % (15-50); IRON 53 ug/dL (50-170); TOTAL IRON BINDING CAPACITY 258 ug/dL (261-478); TRANSFERRIN 184 mg/dL (180-382)
--- NOTE | 2018-10-03 12:41 | NUR ---
IMM letter delivered and explained to pt. She verbalized understanding. Signed copy placed in chart. Copy to pt.
[2018-10-03] MEDS: IRON SUCROSE 100 MG in SODIUM CHLORIDE 0.9% 100 ML 100 ML IV SCH (13:30)
--- NOTE | 2018-10-03 19:45 | NUR ---
PATIENT CONDITION STABLE, SHE DENIES SHORTNESS OF BREATH OR PAIN. FAMILY MEMBERS VISITING WITH THE PATIENT, CALL LIGHT WITHIN EASY REACH.
[2018-10-03] MEDS: ACETAMINOPHEN/CODEINE 300MG - 30MG TAB PO PRN (21:34)
[2018-10-03] MEDS: ZOLPIDEM TARTRATE 10 MG TAB PO SCH (21:34)
[2018-10-03] MEDS: MONTELUKAST SODIUM 10 MG TAB PO SCH (21:34)
[2018-10-04] VITALS (8 sets, daily range): BP systolic 109–130; BP diastolic 54–76
[2018-10-04] MEDS: ALBUTEROL SULF 0.083% NEB SOLN 3 ML NEB NEB SCH ×6 (00:17→19:51)
[2018-10-04] MEDS: IPRATROPIUM BROMIDE 0.02% 2.5 ML NEB NEB SCH ×6 (00:17→19:51)
--- NOTE | 2018-10-04 00:59 | NUR ---
PATIENT IS ASLEEP, SHE'S EASY TO AROUSE. SHE DENIES PAIN TO THE LEFT SHOULDER, CALL LIGHT WITHIN EASY REACH.
[2018-10-04] MEDS: ACETAMINOPHEN/CODEINE 300MG - 30MG TAB PO PRN ×2 (02:54→21:52)
--- NOTE | 2018-10-04 02:56 | NUR ---
PATIENT C/O PAIN TO THE LEFT SHOULDER WITH PAIN SCORE #7, MEDICATED WITH TYLENOL #3 1TAB ORDERED. CALL LIGHT WITHIN EASY REACH, PATIENT INSTRUCTED TO CALL FOR ASSISTANCE UPON GETTING OUT OF THE BED.
--- NOTE | 2018-10-04 04:04 | NUR ---
PATIENT IS SOUNDLY ASLEEP, NO RESPIRATORY DISTRESS OBSERVED. BED ALARM ON, CALL LIGHT WITHIN EASY REACH.
[2018-10-04] MEDS: CEFEPIME 1GM/NS 0.9% 50 ML 50 ML IV SCH ×2 (06:00→18:00)
[2018-10-04] MEDS: BUPROPION HCL 150 MG TABCR PO SCH (09:24)
[2018-10-04] MEDS: PANTOPRAZOLE SOD 40 MG TABEC PO SCH (09:25)
[2018-10-04] MEDS: GABAPENTIN 100 MG CAP PO SCH ×2 (09:25→16:40)
[2018-10-04] MEDS: HEPARIN SOD (PORCINE) 5,000 UNIT/ML VIAL SC SCH ×2 (09:26→21:52)
[2018-10-04] MEDS: IRON SUCROSE 100 MG in SODIUM CHLORIDE 0.9% 100 ML 100 ML IV SCH (10:00)
[2018-10-04] MEDS: GUAIFENESIN/CODEINE 10 ML CUP PO PRN (10:45)
[2018-10-04] MEDS: ALPRAZOLAM 0.5 MG TAB PO PRN (19:12)
--- NOTE | 2018-10-04 19:50 | NUR ---
PATIENT CONDITION STABLE, SHE'S RECEIVING HER BREATHING TREATMENT AT THIS TIME. CALL LIGHT WITHIN EASY REACH, SHE DENIES PAIN TO THE LEFT SHOULDER.
[2018-10-04] MEDS: MONTELUKAST SODIUM 10 MG TAB PO SCH (21:51)
[2018-10-04] MEDS: ZOLPIDEM TARTRATE 10 MG TAB PO SCH (21:51)
--- NOTE | 2018-10-04 22:40 | NUR ---
NO RESPIRATORY DISTRESS OBSERVED, SNACKS GIVEN. CALL LIGHT WITHIN EASY REACH, PATIENT INSTRUCTED TO CALL FOR ASSISTANCE NEEDED.
[2018-10-05] VITALS: BP 136/77
--- NOTE | 2018-10-05 02:30 | NUR ---
PATIENT IS SOUNDLY ASLEEP, NO RESPIRATORY DISTRESS OBSERVED. CALL LIGHT WITHIN EASY REACH, SHE'S EASY TO AROUSE.
[2018-10-05] MEDS: ALBUTEROL SULF 0.083% NEB SOLN 3 ML NEB NEB SCH ×3 (03:00→11:36)
[2018-10-05] MEDS: IPRATROPIUM BROMIDE 0.02% 2.5 ML NEB NEB SCH ×3 (03:00→11:36)
[2018-10-05 04:00] VITALS: BP 124/58
[2018-10-05] MEDS: CEFEPIME 1GM/NS 0.9% 50 ML 50 ML IV SCH (06:26)
[2018-10-05 07:52] VITALS: BP 115/57
[2018-10-05 08:15] VITALS: BP 115/57
[2018-10-05] MEDS: PANTOPRAZOLE SOD 40 MG TABEC PO SCH (08:36)
[2018-10-05] MEDS: GABAPENTIN 100 MG CAP PO SCH (08:36)
[2018-10-05] MEDS: HEPARIN SOD (PORCINE) 5,000 UNIT/ML VIAL SC SCH (08:36)
[2018-10-05] MEDS: IRON SUCROSE 100 MG in SODIUM CHLORIDE 0.9% 100 ML 100 ML IV SCH (08:36)
[2018-10-05] MEDS: BUPROPION HCL 150 MG TABCR PO SCH (08:36)
[2018-10-05] MEDS ORDERED: CEFACLOR250 MG/5 M PO (10:40)
[2018-10-05] MEDS ORDERED: CEFACLOR PO (11:15)
[2018-10-05 11:46] VITALS: BP 122/74
--- NOTE | 2018-10-05 11:50 | NUR ---
Case management aware of 's orders
--- NOTE | 2018-10-05 12:04 | NUR ---
Patient lives alone in an apartment. Patient receives home care services for PT/OT/RN from [address] Patient has an injured arm and is limited in movement on that particular arm. Patient uses oxygen at home and has a portable O2 tank. Patient is able to complete ADL goals with the assistance of a walker, custom shower to ensure her safety, handle bars in bathroom. Patient has not had any changes in her medication and has had no issues with her medication. SW attempted to initiate reinstatement of home care service, however agency is not available at this time and does not have an answering service. CM to follow with agency.
--- NOTE | 2018-10-05 12:38 | NUR ---
Left FA IV discontinued. No signs of infiltration noted. 2x2 gauze and tape placed. Taken via wheelchair by PCT to personal car. Accompanied by family member. AAOX4 to time, person, place, situation. Respirations even and unlabored. O2 4L NC (using home O2).Denies pain. Discharge instructions, rx, and all personal belongings taken with patient.
--- NOTE | 2018-10-05 22:00 | Discharge Summary ---
[facility] HISTORY: Charming, but unfortunate 63-year-old woman with a history of severe COPD, degenerative joint disease, admitted with shortness of breath and temperature of a 101 despite recent therapy with azithromycin and Cipro, the latter for urinary tract infection. She was found to have a right lower lobe pneumonia. Her urinary tract infection had resolved. History of Raynaud's phenomenon, lupus, gastroesophageal reflux, COPD, asthma, appendectomy, hysterectomy and gastric segmentation. FAMILY HISTORY: Positive for coronary disease. She is an ex-smoker. ALLERGIES: DEMECLOCYCLINE, HAS LAMINATING MACHINE TENDER REACTION TO PREDNISONE. SHE IS ABLE TO TAKE MEDROL IN MODERATE DOSES. MEDICATIONS: The patient was treated with cefepime and doxycycline. Cefepime was not given, she is allergic to demeclocycline and was not given doxycycline. LABORATORY DATA: The patient improved rapidly. On 10/01, pH 7.3, pCO2 of 55, pO2 of 111 on 3 L oxygen. DISCHARGE INSTRUCTIONS: The patient gradually improved and is discharged on Ceftin, albuterol, Wellbutrin, Neurontin, Atrovent, Robaxin, montelukast, Protonix, and supplemental oxygen. MD RAIMUNDO Serrano/CARLOS /[id number]
--- NOTE | 2018-10-06 10:42 | NUR ---
CM FOLLOW UP FOR RESUMPTION OF HOME HEALTH. CM ATTEMPTED TO CALL [facility] TO RESUME HOME HEALTH SERVICES PER ORDER. NO VOICEMAIL TO LEAVE MESSAGE AND NO ON-CALL NUMBER TO CALL. CLINICAL FAXED TO [facility] Address: [address] [place] [id number]
== END 2018-10-05 12:38 | disposition home or self-care (01) | DRG 871 ==
LOC: FSED 10:04 → ERHOLD 12:21 → MED/SURG2 13:42
PROVIDERS: ADMIT Internal Medicine Pulmonary Disease; ATTEND Internal Medicine Pulmonary Disease
DX: A41.9 Sepsis, unspecified organism (principal); J15.9 Unspecified bacterial pneumonia; N39.0 Urinary tract infection, site not specified; J96.11 Chronic respiratory failure with hypoxia; J44.9 Chronic obstructive pulmonary disease, unspecified; Z88.8 Allergy status to other drugs, medicaments and biological substances; Z87.891 Personal history of nicotine dependence; Z91.81 History of falling; Z87.440 Personal history of urinary (tract) infections; M32.9 Systemic lupus erythematosus, unspecified; K21.9 Gastro-esophageal reflux disease without esophagitis; I65.8 Occlusion and stenosis of other precerebral arteries; E66.9 Obesity, unspecified; Z99.81 Dependence on supplemental oxygen; Z82.49 Family history of ischemic heart disease and other diseases of the circulatory system; M17.12 Unilateral primary osteoarthritis, left knee
CPT/HCPCS: 36415; 36600; 71046; 80048; 80053; 81001; 81003; 82607; 82805; 82948; 83540; 83880; 84466; 84484; 85025; 87040; 87086; 87400; 93005; 94640; 94667; 96367; 96372; 97139; 99284; J0456; J0692; J0696; J1644; J1756; J2920; J2930; J7030

== ENCOUNTER 2018-12-06 11:41 | Inpatient (IN) | payer MEDICARE, OTHER ==
[~2018-12-06] VITALS: Ht 170.2 cm; Wt 90.3 kg
[~2018-12-06 11:41] MED LIST changes: +ALBUTEROL SULFAT2 MG PO; +CEFACLOR PO; +CEFACLOR250 MG/5 M PO; +CIPRO500 MG PO; +GABAPENTIN100 MG PO; +OMEPRAZOLE40 MG PEG; +POTASSIUM CHLO20 ME1 PO; +TYLENOL # 31 EA PO; +VENTOLIN HFA18 GM IH; +trilogy IH
--- OUTSIDE RECORDS SUMMARY | 2018-12-06 11:45 | XMS REPORT | Clinical Summary ---
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 CAN TAKE SOLUMEDROL OR MEDROL DOSE PK. Prednisone Other (See 10/09/2018 Comments) Medications End Date Status Medication Sig Dispensed Refills Start Date Active albuterol (PROVENTIL) 2 Take 4 mg by 0 MG tablet mouth every morning. Active ALPRAZolam (XANAX) 0.5 MG Take 0.5 mg 0 tablet by mouth daily as needed for anxiety. Active buPROPion XL (WELLBUTRIN Take 150 mg 0 XL) 150 MG 24 hr tablet by mouth every morning. Active methocarbamol (ROBAXIN) Take 500 mg 0 500 MG tablet by mouth every 8 (eight) hours as needed for muscle spasms. Active omeprazole (PriLOSEC) 40 Take 40 mg by 0 MG capsule mouth every morning. Active albuterol (PROAIR HFA) 90 Inhale 2 0 mcg/actuation inhaler puffs every 6 (six) hours as needed for wheezing or shortness of breath. Active zolpidem (AMBIEN) 10 mg Take 10 mg by 0 tablet mouth nightly. Active vlqrqyzynwk-vttwglsoi-ehv Inhale 1 puff 0 anter (TRELEGY ELLIPTA) every 100-62.5-25 mcg blister morning. with device "TRELEGY ELLIPTA" Active vit A/vit C/vit Take 1 tablet 0 E/zinc/copper by mouth 2 (PRESERVISION AREDS ORAL) (two) times a day. Active benzonatate (TESSALON) Take 100 mg 0 100 MG capsule by mouth 3 (three) times a day as needed for cough. Active amLODIPine (NORVASC) 2.5 Take 2.5 mg 0 mg tablet by mouth as needed (WINTER MONTHS ONLY FOR RAYNAUD'S). Active potassium chloride Take 10 mEq 0 (K-DUR,KLOR-CON) 10 MEQ by mouth CR tablet nightly. Active furosemide (LASIX) 20 mg Take 20-40 mg 0 tablet by mouth 2 (two) times a day as needed (LEG SWELLING). Active montelukast (SINGULAIR) Take 10 mg by 0 10 mg tablet mouth nightly. Active valGANciclovir (VALCYTE) Take 450 mg 0 450 mg tablet by mouth as needed. Active acetaminophen (TYLENOL) 1-2 tablets 1 Bottle 0 325 MG tablet as needed 9 every six hours for knee pain. 10/17/2018 Discontinued acetaminophen-codeine Take 1 tablet 0 (TYLENOL WITH CODEINE #3) by mouth 300-30 mg per tablet every 6 (six) hours as needed for moderate pain. 10/17/2018 Discontinued gabapentin (NEURONTIN) Take 600 mg 0 300 mg capsule by mouth nightly. 10/17/2018 Discontinued gabapentin (NEURONTIN) Take 100 mg 0 100 mg capsule by mouth every morning. 10/17/2018 Discontinued gabapentin (NEURONTIN) Take 100 mg 0 100 mg capsule by mouth daily with lunch. 10/14/2018 Discontinued cefuroxime (CEFTIN) 250 Take 250 mg 0 MG tablet by mouth 2 (two) times a day. 11/16/2018 gabapentin (NEURONTIN) Take 1 30 capsule 0 300 mg capsule capsule (300 9 mg total) by mouth nightly for 30 days. 10/31/2018 acetaminophen-codeine Take 1 tablet 50 tablet 0 (TYLENOL WITH CODEINE #3) by mouth 9 300-30 mg per tablet every 4 (four) hours as needed for moderate pain for up to 14 days. 11/16/2018 albuterol (ACCUNEB) 2.5 Take 3 mL 75 mL 12 mg /3 mL (0.083 %) (2.5 mg 9 nebulizer solution total) by nebulization every 4 (four) hours as needed for wheezing or shortness of breath for up to 30 days. 11/17/2018 aspirin 81 mg chewable Chew 1 tablet 30 tablet 0 tablet (81 mg total) 9 daily for 30 days. 10/24/2018 cephalexin (KEFLEX) 500 Take 1 14 capsule 0 MG capsule capsule (500 9 mg total) by mouth 2 (two) times a day for 7 days. 11/16/2018 ipratropium-albuterol Take 3 mL by 360 mL 0 (DUO-NEB) 0.5-2.5 mg/3 mL nebulization 9 nebulizer 4 (four) times a day for 30 days. 11/17/2018 pantoprazole (PROTONIX) Take 1 tablet 30 tablet 0 40 MG EC tablet (40 mg total) 9 by mouth daily for 30 days. 11/16/2018 polyethylene glycol Take 17 g by 7 packet 0 (MIRALAX) 17 gram packet mouth daily 9 as needed for constipation for up to 30 days. Active Problems Problem Noted Date Osteoarthritis of left knee 10/14/2018 Encounters Care Team Description Date Type Specialty Jairo Garcia MD ARTHROPLASTY, KNEE, TOTAL 10/14/2018 Surgery Orthopedic Surgery Dawson Gama, RELATIONS LIAISON 10/14/2018 Anesthesia Orthopedic Surgery Event Jairo Garcia MD Arthritis of left knee 10/14/2018 Hospital Cardiology - Encounter 10/17/2018 Jairo Garcia MD Preop testing (Primary Dx) 10/09/2018 Pre-Admit Pre-Admission Testing Testing Appointment after 12/05/2017 Social History Date Tobacco Use Types Packs/Day Years Used Quit: 2003 Former Smoker Cigarettes 2 20 Smokeless Tobacco: Never Used Alcohol Use Drinks/Week oz/Week Comments Never Alcohol Habits Answer Date Recorded How often do you have a drink containing alcohol? Never 10/09/2018 How many drinks containing alcohol do you have on Not asked a typical day when you are drinking? How often do you have six or more drinks on one Not asked occasion? Sex Assigned at Date Recorded Not on file Industry Job Start Date Occupation Not on file Not on file Not on file Travel End Travel History Travel Start No recent travel history available. Last Filed Vital Signs Time Taken Vital Sign Reading 10/17/2018 11:51 AM CDT Blood Pressure 141/74 10/17/2018 11:51 AM CDT Pulse 104 10/17/2018 11:51 AM CDT Temperature 36.6 C (97.8 F) 10/17/2018 11:51 AM CDT Respiratory Rate 17 10/17/2018 11:51 AM CDT Oxygen Saturation 95% - Inhaled Oxygen - Concentration 10/14/2018 10:20 AM CDT Weight 94 kg (207 lb 2 oz) 10/14/2018 10:20 AM CDT Height 167.6 cm (5' 6") 10/14/2018 10:20 AM CDT Body Mass Index 33.43 Plan of Treatment Health Maintenance Due Date Last Done Comments BREAST CANCER SCREENING 02/29/2004 COLONOSCOPY SCREENING 02/29/2004 SHINGLES VACCINES (#1) 02/29/2004 INFLUENZA VACCINE 12/11/2018 02/10/2018, 02/05/2017 Implants Device Identifier Shelf Expiration Date Model / Serial / Lot Implanted Type Area Manufactur er 06/12/2028 [id number] / / [id number] Attune Fb Pocket Base Sz4 Shayan - IPM Left: Knee DEPUY [id number] IMPLANT ORTHOPAEDI Implanted: 10/14/2018 (Quantity not [employer] on file) 02/10/2028 [id number] / / [id number] Femoral Attune Ps Cmt 4 Lt - IPM Left: Knee DEPUY [id number] IMPLANT ORTHOPAEDI Implanted: 10/14/2018 (Quantity not [employer] on file) 06/12/2023 1518 20 [id number] / / [id number] Attune Medial Dome Pat 35mm - IPM Left: Knee DEPUY [id number] IMPLANT ORTHOPAEDI Implanted: 10/14/2018 (Quantity not [employer] on file) [id number] / / Insert Attune Ps Fb Sz4 6mm - IPM Left: Knee DEPUY [id number] IMPLANT ORTHOPAEDI Implanted: 10/14/2018 (Quantity not [employer] on file) 03/12/2019 [id number] / / [id number] Cement Bone Gm 40gr Smartset Gmv - Surgical Left: Knee DEPUY [id number] Bone ORTHO Implanted: 10/14/2018 (Quantity not Cement on file) Procedures Comments Procedure Name Priority Date/Time Associated Diagnosis ESTIMATED GFR Routine 10/17/2018 4:20 AM CDT B NATRIURETIC PEPTIDE Routine 10/17/2018 4:20 AM CDT BASIC METABOLIC PANEL Routine 10/17/2018 4:20 AM CDT HC COMPLETE BLD COUNT Routine 10/17/2018 W/AUTO DIFF 4:20 AM CDT XR CHEST 1 VW PORTABLE Routine 10/16/2018 9:46 PM CDT GRAM STAIN Routine 10/16/2018 8:17 PM CDT URINE CULTURE Routine 10/16/2018 8:17 PM CDT URINALYSIS SCREEN AND Routine 10/16/2018 MICROSCOPY, WITH REFLEX 7:50 PM CDT TO CULTURE ESTIMATED GFR Routine 10/16/2018 5:15 AM CDT BASIC METABOLIC PANEL Routine 10/16/2018 5:15 AM CDT HC COMPLETE BLD COUNT Routine 10/16/2018 W/AUTO DIFF 5:15 AM CDT HC COMPLETE BLD COUNT Routine 10/15/2018 W/AUTO DIFF 7:50 AM CDT ESTIMATED GFR Routine 10/15/2018 4:00 AM CDT BASIC METABOLIC PANEL Routine 10/15/2018 4:00 AM CDT POC GLUCOSE Routine 10/14/2018 2:42 PM CDT XR KNEE 1 OR 2 VW LEFT Routine 10/14/2018 2:41 PM CDT SURGICAL PATHOLOGY Routine 10/14/2018 REQUEST 2:03 PM CDT ARTHROPLASTY, KNEE, TOTAL 10/14/2018 Arthritis of left knee 12:30 PM CDT ANESTHESIA CSE BLOCK Routine 10/14/2018 12:11 PM CDT Procedure Note - Carine Bradshaw MD - 10/14/2018 12:11 PM CDT CSE Block Date/Time: 10/14/2018 12:01 PM Performed by: Carine Bradshaw MD Authorized by: Carine Bradshaw MD Patient Location: Pre-op Start Time: 10/14/2018 11:57 AM End Time: 10/14/2018 12:04 PM Reason for Block: primary anesthetic Preprocedu re: patient identified , IV checked, site and side verified, risks and benefits discussed, procedure verified, surgical consent complete, patient position confirmed, monitors and equipment checked and pre-op evaluation complete Time Out Performed: 10/14/2018 11:49 AM CSE: Patient Position: Sitting Prep: Betadine Monitoring : Blood pressure monitoring , continuous pulse oximetry and heart rate Approach: Midline Epidural Needle: Injection Technique: MICHAELA air Needle Type: Tuohy Loss of resistance : 9 cm Needle Gauge: 17 Interspace : L3-4 Number of Attempts: 1 Spinal Needle: Needle Type: Pencil-tip Needle Gauge: 25 G Spinal Assessment : Spinal Block Assessment : No apparent complicati ons and patient tolerated procedure well Spinal Events: no paresthesi a and no blood aspirated Catheter: Catheter at Skin Depth: 14 cm Test Dose: Negative and lidocaine 1.5% with epinephrin e 1-to-200,0 00 Epidural Assessment : Epidural Block Assessment : No apparent complicati ons and patient tolerated procedure well Post Procedure: Patient returned to supine position and sterile dressing applied Medication s Administer ed Bupivacain e 0.75% PF (mL), 1.6 mL ME AN PERIPHERAL BLOCK Routine 10/14/2018 POST-OP PAIN 12:10 PM CDT Procedure Note - Carine Bradshaw MD - 10/14/2018 12:10 PM CDT Peripheral Block Performed by: Carine Bradshaw MD Authorized by: Carine Bradshaw MD Patient Location: Pre-op Start Time: 10/14/2018 11:51 AM End Time: 10/14/2018 11:53 AM Reason for Block: at surgeon's request, post-op pain management Staff: Anesthesio logist: Carine Bradshaw MD Performed by: Anesthesio logist Preprocedu re: patient identified , IV checked, site and side verified, risks and benefits discussed, procedure verified, surgical consent complete, patient position confirmed, monitors and equipment checked, pre-op evaluation complete, site marked and coagulatio n status reviewed Time Out Performed: 10/14/2018 11:49 AM Peripheral Nerve Block: Patient Position: Supine Prep: ChloraPrep Monitoring : Blood pressure monitoring , continuous pulse oximetry and heart rate Block Type: Femoral (adductor canal) Laterality : Left Injection Technique: Single injection Procedures : ultrasound guided Ultrasound documentat ion: Images saved on hard disk and printed/pl aced in chart Local Infiltrati on (See MAR for details): Lidocaine Needle: Needle Type: Pajunk Needle Gauge: 22 G Needle Length: 8 cm Assessment : Injection Assessment : Visualized needle/loc al anesthetic surroundin g nerve, intermitte nt aspiration during local anesthetic administra tion, visualized pertinent vascular structures and nerves, no symptoms of intraneura l/intraven ous injection and needle tip visualized at all times during injection of medication Paresthesi a Pain: None Heart Rate Change: No Slow Fractionat ed Injection: Yes Block outcome: No apparent complicati ons, patient comfortabl e and patient tolerated procedure well TYPE AND SCREEN Routine 10/14/2018 10:55 AM CDT POC GLUCOSE Routine 10/14/2018 10:45 AM CDT GRAM STAIN Routine 10/09/2018 8:29 PM CDT URINE CULTURE Routine 10/09/2018 8:29 PM CDT ECG PRE/POST OP Routine 10/09/2018 Preop testing 4:55 PM CDT ESTIMATED GFR Routine 10/09/2018 4:23 PM CDT URINALYSIS SCREEN AND Routine 10/09/2018 Preop testing MICROSCOPY, WITH REFLEX 4:23 PM CDT TO CULTURE HEMOGLOBIN A1C Routine 10/09/2018 Preop testing 4:23 PM CDT COMPREHENSIVE METABOLIC Routine 10/09/2018 Preop testing PANEL 4:23 PM CDT HC COMPLETE BLD COUNT Routine 10/09/2018 Preop testing W/AUTO DIFF 4:23 PM CDT after 12/05/2017 Results * Estimated GFR (10/17/2018 4:20 AM CDT) Only the most recent of 4 results within the time period is included. Pathologist [facility] Estimated GFR 87 mL/min/1.73 m2 [facility] Comment: [facility] rpretation G1 >=90 Normal or high G2 60-89Mildly decreased [id number] Mildly to moderately decreased C3e14-62 Moderately to severely decreased G4 15-29Severely decreased G5 <15Kidney failure The eGFR was calculated using the Chronic Kidney Disease Epidemiology Collaboration (CKD-EPI) equation. Interpretation is based on recommendations of the National Kidney Foundation-Kidney Disease Outcomes Quality Initiative (NKF-KDOQI) published in 2014. Specimen Plasma specimen Performing Organization Address City/State/Zipcode Phone Number [facility] DEPARTMENT OF [address] [place] [address] PATHOLOGY AND GENOMIC MEDICINE [address] * CBC with platelet and differential (10/17/2018 4:20 AM CDT) Only the most recent of 4 results within the time period is included. [facility] WBC 7.78 4.50 - 11.00 k/uL [facility] RBC 3.45 (L) 4.20 - 5.50 m/uL [facility] HGB 9.7 (L) 12.0 - 16.0 g/dL [facility] HCT 33.2 (L) 37.0 - 47.0 % [facility] MCV 96.2 82.0 - 100.0 fL [facility] MCH 28.1 27.0 - 34.0 pg [facility] MCHC 29.2 (L) 31.0 - 37.0 g/dL [facility] RDW - SD 56.1 (H) 37.0 - 55.0 fL [facility] MPV 10.0 8.8 - 13.2 fL [facility] Platelet count 277 150 - 400 k/uL [facility] Nucleated RBC 0.00 /100 WBC [facility] Neutrophils 86.9 (H) 39.0 - 69.0 % [facility] Lymphocytes 6.4 (L) 25.0 - 45.0 % [facility] Monocytes 6.0 0.0 - 10.0 % [facility] Eosinophils 0.0 0.0 - 5.0 % [facility] Basophils 0.3 0.0 - 1.0 % [facility] Immature 0.4Comment: "Immature 0.0 - 1.0 % [facility] granulocytes granulocytes" (promyelocytes, [facility] myelocytes, metamyelocytes) HOSPITAL Specimen Blood Performing Organization Address City/[facility]/Zipcode Phone Number [facility] DEPARTMENT OF [address] [place] [address] PATHOLOGY AND [facility] MEDICINE [address] * B natriuretic peptide (10/17/2018 4:20 AM CDT) [facility] BNP 44 0 - 100 pg/mL [facility] Specimen Blood Performing Organization Address [facility] Phone Number [facility] [place] [address] PATHOLOGY AND [facility] MEDICINE [address] * Basic metabolic panel (10/17/2018 4:20 AM CDT) Only the most recent of 3 results within the time period is included. [facility] Sodium 141 135 - 148 mEq/L [facility] Potassium 4.9 3.5 - 5.0 mEq/L [facility] Chloride 100 98 - 112 mEq/L [facility] CO2 26 24 - 31 mEq/L [facility] Anion gap 15@ANIO 7 - 15 mEq/L [facility] BUN 13 8 - 23 mg/dL [facility] Creatinine 0.73 0.50 - 0.90 mg/dL [facility] Glucose 138 (H) 65 - 99 mg/dL [facility] Calcium 9.9 8.8 - 10.2 mg/dL [facility] Specimen Plasma specimen Performing Organization Address [facility] Phone Number [facility] [place] [address] PATHOLOGY AND [facility] MEDICINE [address] * XR Chest 1 Vw Portable (10/16/2018 9:46 PM CDT) Specimen Narrative Performed At Examination:XR CHEST 1 VW PORTABLE RADIANT Clinical history:"wheezing" Comparison:06/01/1999 IMPRESSION: Mild bilateral lower lung atelectasis is seen. Cardiomediastinal silhouette is within normal limits. . Left humeral neck fracture is seen. [facility]-[id number] Procedure Note Hm Interface, Radiology Results Incoming - 10/16/2018 10:50 PM CDT Examination: XR CHEST 1 VW PORTABLE Clinical history: "wheezing" Comparison: 06/01/1999 IMPRESSION: Mild bilateral lower lung atelectasis is seen. Cardiomediastinal silhouette is within normal limits. . Left humeral neck fracture is seen. [facility]-[id number] Performing Organization Address City/[facility]/[place] [address] * Gram stain (10/16/2018 8:17 PM CDT) Only the most recent of 2 results within the time period is included. Gram stain Few WBC's [facility] result No organisms seen [facility] Comment: HOSPITAL Specimen Information Specimen Source: Urine Specimen Site: Clean catch Specimen Urine Performing Organization Address City/[facility] Phone Number [facility] DEPARTMENT OF [address] [place] [address] PATHOLOGY AND GENOMIC MEDICINE [address] * Urine culture (10/16/2018 8:17 PM CDT) Only the most recent of 2 results within the time period is included. Pathologist [facility] Urine culture No growth after 24 hours [facility] isolate Comment: [facility] Specimen Information HOSPITAL Specimen Source: Urine Specimen Site: Clean catch Specimen Urine Performing Organization Address [facility] Phone Number [facility] DEPARTMENT OF [address] [place] [address] PATHOLOGY AND GENOMIC MEDICINE [address] * Urinalysis screen and microscopy, with reflex to culture (10/16/2018 7:50 PM CDT) Only the most recent of 2 results within the time period is included. Specimen site Clean catch [facility] Color, UA Straw [facility] Appearance, UA Clear [facility] Specific 1.012 1.001 - 1.035 [facility] gravity, [facility] pH, UA 5.0 5.0 - 8.5 [facility] Protein, UA Negative Negative [facility] Glucose, UA Negative Negative [facility] Ketones, UA Negative Negative [facility] Bilirubin, UA Negative Negative [facility] Blood, UA Negative Negative [facility] Nitrite, UA Negative Negative [facility] Urobilinogen, <2.0 <2.0 [facility] Leukocyte Negative Negative [facility] esterase, UA [facility] WBC, UA 5 (H) 0 - 4 /HPF [facility] RBC, UA 10 (H) 0 - 5 /HPF [facility] Bacteria, UA None seen None seen [facility] Yeast, UA None seen [facility] Yeast with None seen [facility] Specimen Urine Performing Organization Address City/State/Zipcode Phone Number [facility] [place] [address] PATHOLOGY AND GENOMIC MEDICINE [address] * POC glucose (10/14/2018 2:42 PM CDT) Only the most recent of 2 results within the time period is included. POC glucose 95 65 - 99 mg/dL [facility] Comment: [facility] [place] Notified RN HOSPITAL Meter ID: [id number] Provider Relations Advocate: Mell Hickman Specimen Performing Organization Address City/[facility] Phone Number [facility] [place] [address] PATHOLOGY AND GENOMIC MEDICINE [address] * XR Knee 1 Or 2 Vw Left (10/14/2018 2:41 PM CDT) Specimen Narrative Performed At EXAMINATION: XR KNEE 1 OR 2 VW LEFT [facility]IANT INDICATION: total knee arthoplasty COMPARISON: None IMPRESSION: 2 views of the left knee were obtained which demonstrate expected postoperative changes following total knee arthroplasty with appropriate implant alignment. No visible periprosthetic fracture. [id number] Procedure Note Interface, Radiology Results Incoming - 10/14/2018 2:49 PM CDT EXAMINATION: XR KNEE 1 OR 2 VW LEFT INDICATION: total knee arthoplasty COMPARISON: None IMPRESSION: 2 views of the left knee were obtained which demonstrate expected postoperative changes following total knee arthroplasty with appropriate implant alignment. No visible periprosthetic fracture. [id number] Performing Organization Address City/State/Zipcode Phone Number [facility] [address] [place] [address] * Surgical pathology request (10/14/2018 2:03 PM CDT) [facility] DEPARTMENT OF PATHOLOGY AND GENOMIC MEDICINE Surgical See link below for PDF Lab [facility] DEPARTMENT pathology Report OF PATHOLOGY report AND GENOMIC MEDICINE Result status This is Final Report for [facility] DEPARTMENT [id number] OF PATHOLOGY AND GENOMIC MEDICINE Specimen Performing Organization Address City/State/Zipcode Phone Number [facility] DEPARTMENT OF [address] [place] [address] PATHOLOGY AND GENOMIC MEDICINE * Type and screen (10/14/2018 10:55 AM CDT) ABO grouping A [facility] Rh type POS [facility] Antibody screen NEG [facility] (gel) [facility] Specimen Blood Performing Organization Address City/State/Zipcode Phone Number [facility] DEPARTMENT OF [address] [place] [phone] PATHOLOGY AND [place] [address] HOSPITAL * ECG Pre/Post Op (10/09/2018 4:55 PM CDT) Ventricular 90 [facility]USE rate Atrial rate 90 [facility] MUSE ME interval 158 [facility] QRSD interval 96 [facility] QT interval 372 [facility] QTC interval 455 [facility] P axis 1 81 [facility] QRS axis 1 88 [facility] MUSE T wave axis 66 [facility] MUSE EKG impression Normal sinus rhythm-Incomplete [facility] MUSE right bundle branch block-Borderline ECG-No previous ECGs available- Specimen Narrative Performed At Performing Organization Address City/State/Zipcode Phone Number [facility] MUSE [address] [place] [address] * Hemoglobin A1c (10/09/2018 4:23 PM CDT) Hemoglobin A1C 6.5 (H) 4.0 - 5.6 % [facility] Comment: [facility] HbA1c cutoffs for diagnosing HOSPITAL diabetes: 4.0% - 5.6%=normal 5.7% - 6.4%=increased risk for diabetes (prediabetes) >=6.5%=diabetes Goals for glycemic control (ADA 2016) < 7.0%Target for non adults with diabetes. More or less stringent targets may be appropriate for individual patients. <7.5% Target for Children and adolescents with type 1 diabetes. Specimen Blood Performing Organization Address City/State/Zipcode Phone Number [facility] DEPARTMENT OF [address] [place] [phone] PATHOLOGY AND GENOMIC MEDICINE [address] * Comprehensive metabolic panel (10/09/2018 4:23 PM CDT) Sodium 143 135 - 148 mEq/L [facility] Potassium 4.1 3.5 - 5.0 mEq/L [facility] Chloride 99 98 - 112 mEq/L [facility] CO2 30 24 - 31 mEq/L [facility] Anion gap 14@ANIO 7 - 15 mEq/L [facility] BUN 9 8 - 23 mg/dL [facility] Creatinine 0.77 0.50 - 0.90 mg/dL [facility] Glucose 96 65 - 99 mg/dL [facility] Calcium 9.5 8.8 - 10.2 mg/dL [facility] Protein 6.5 6.3 - 8.3 g/dL [facility] Comment: [facility] HOSPITAL 4.6-7.0 g/dL 1 week 4.4-7.6 g/dL 7 months-1year 5.1-7.3 g/dL 1-2 years5.6-7 .5 g/dL >3 years6.0-8 .0 g/dL 18-150 6.3-8.3 g/dL Albumin 3.4 (L) 3.5 - 5.0 g/dL [facility] A/G ratio 1.1 0.7 - 3.8 [facility] Alkaline 80 35 - 104 U/L [facility] phosphatase [facility] AST 27 10 - 35 U/L [facility] ALT 29 5 - 50 U/L [facility] Total bilirubin <0.2 0.0 - 1.2 mg/dL [facility] Specimen Plasma specimen Performing Organization Address City/State/Zipcode Phone Number [facility] DEPARTMENT OF [address] [place] [address] PATHOLOGY AND [place] [address] HOSPITAL after 12/05/2017 Insurance Type Payer Benefit Subscriber ID Effective Phone Address Plan / Dates Group Medicare MEDICARE MEDICARE xxxxxxxxxxx 2011-P RAMÍREZ, PART A AND resent [place] [employer] xxxxxxxxx 2013-P MALAWIAN resent Advance Directives Patient has advance care planning documents, and code status on file. For more i nformation, please contact: Ramírez Morales [id number] [place] [address] Date Inactivated Comments Code Status Date Activated 10/17/2018 5:53 PM Full Code 10/14/2018 12:03 PM Code Status decision reached by: Patient
--- OUTSIDE RECORDS SUMMARY | 2018-12-06 11:46 | XMS REPORT | Clinical Summary ---
Author Author STEPHANIE [facility] [email or web address] [facility] Address Unknown Phone Unavailable Care Team Providers Care Deployment Specialist Name Role Phone Armin Little MD PCP [...] 8 (eight) hours as needed. 05/28/2018 Discontinued qvolamtkeau-vjsichyhd-auo Inhale by 0 anter (TRELEGY ELLIPTA) mouth [...] Date Type Specialty Rocky Daley RN Follow-up 11/18/2018 Telephone Transplant Rocky Daley RN Follow-up 11/04/2018 Telephone Transplant Penny Ahumada Appointment 10/21/2018 Telephone Transplant Rocky Daley RN Follow-up 08/19/2018 Telephone Transplant [...] Encounter Enoch Luther MD Manson, Melissa J, [facility] Celestino So, Clair Tamez, [facility] Mima Maloney, Alina Tyler Osteopenia, unspecified location (Primary Dx); Centrilobular emphysema [...] Obesity (BMI 30-39.9) 12/11/2017 Office Visit Transplant after 12/05/2017 Social History Date Tobacco Use [...] Taken Vital Sign Reading 05/28/2018 3:12 PM TRADES HELPER Blood Pressure 142/77 05/28/2018 3:12 PM TRADES HELPER Pulse 103 05/28/2018 3:12 PM TRADES HELPER Temperature 37.1 C (98.8 F) 05/28/2018 3:12 PM TRADES HELPER Respiratory Rate 16 05/28/2018 3:12 PM TRADES HELPER Oxygen Saturation 94% 04/24/2018 8:20 AM TRADES HELPER Inhaled Oxygen 21% Concentration 05/28/2018 3:12 PM TRADES HELPER Weight 96.5 kg (212 lb 11.2 oz) 05/28/2018 3:12 PM TRADES HELPER Height 165.1 cm (5' 5") 05/28/2018 3:12 PM TRADES HELPER Body Mass Index 35.4 Plan of Treatment Not on file Procedures Comments Procedure Name Priority Date/Time Associated Diagnosis VASCULAR DIAGRAM -SCAN 08/20/2018 12:25 PM CDT PULMONARY FUNCTION - SCAN 06/02/2018 8:00 AM TRADES HELPER SPIROMETRY Routine 05/28/2018 Centrilobular emphysema 4:01 PM TRADES HELPER ([facility]) CREATININE CLEARANCE Routine 05/28/2018 Centrilobular emphysema 1:45 PM TRADES HELPER ([facility]) Pre-transplant evaluation for lung transplant CREATININE Routine 05/28/2018 Centrilobular emphysema 1:45 PM TRADES HELPER ([facility]) Pre-transplant evaluation for lung transplant PROTEIN, 24 HOUR URINE Routine 05/28/2018 Centrilobular emphysema 1:45 PM TRADES HELPER ([facility]) Pre-transplant evaluation for lung transplant TRANSFUSION SERVICE 04/25/2018 REPORT - SCAN 5:54 PM TRADES HELPER FL ESOPHAGUS PHARNYX Routine 04/25/2018 Centrilobular emphysema AND/OR CERVICAL 11:59 AM TRADES HELPER ([facility]) Pre-transplant evaluation for lung transplant XR CHEST 2 VIEWS Routine 04/25/2018 Centrilobular emphysema 11:30 AM TRADES HELPER ([facility]) Pre-transplant evaluation for lung transplant XR MANDIBLE MIN 4 VIEWS Routine 04/25/2018 Centrilobular emphysema 11:25 AM TRADES HELPER ([facility]) Pre-transplant evaluation for lung transplant CT CHEST WITHOUT IV Routine 04/25/2018 Centrilobular emphysema CONTRAST 11:17 AM TRADES HELPER ([facility]) Pre-transplant evaluation for lung transplant CT ABDOMEN/PELVIS WITHOUT Routine 04/25/2018 Centrilobular emphysema IV CONTRAST 11:17 AM TRADES HELPER ([facility]) Pre-transplant evaluation for lung transplant ECHOCARDIOGRAM REPORT - 04/24/2018 SCAN 6:20 PM TRADES HELPER CAROTID DOPPLER BILATERAL Routine 04/24/2018 Centrilobular emphysema 4:46 PM TRADES HELPER ([facility]) Pre-transplant evaluation for lung transplant ECHO W CONTRAST & DOPPLER Routine 04/24/2018 Centrilobular emphysema 3:53 PM TRADES HELPER ([facility]) Pre-transplant evaluation for lung transplant PUL QUANT DIFFERENTIAL Routine 04/24/2018 Centrilobular emphysema FUNCT VENT/PERF 3:37 PM TRADES HELPER ([facility]) Pre-transplant evaluation for lung transplant FL SNIFF TEST Routine 04/24/2018 Lung transplant candidate 2:42 PM TRADES HELPER BLOOD TYPING, AUTOMATED Routine 04/24/2018 Centrilobular emphysema 9:54 AM TRADES HELPER ([facility]) Pre-transplant evaluation for lung transplant HLA TYPING CII Routine 04/24/2018 Centrilobular emphysema 9:35 AM TRADES HELPER ([facility]) Pre-transplant evaluation for lung transplant HLA TYPING CI Routine 04/24/2018 Centrilobular emphysema 9:35 AM TRADES HELPER ([facility]) Pre-transplant evaluation for lung transplant T SPOT TB Routine 04/24/2018 Centrilobular emphysema 9:35 AM TRADES HELPER ([facility]) Pre-transplant evaluation for lung transplant URINALYSIS W/ MICROSCOPIC STAT 04/24/2018 Centrilobular emphysema 9:35 AM TRADES HELPER ([facility]) Pre-transplant evaluation for lung transplant DRUG SCREEN, URINE, Routine 04/24/2018 Centrilobular emphysema TRANSPLANT 9:35 AM TRADES HELPER ([facility]) Pre-transplant evaluation for lung transplant CBC W/PLT COUNT & AUTO Routine 04/24/2018 Centrilobular emphysema DIFFERENTIAL 9:34 AM TRADES HELPER (HCC) Pre-transplant evaluation for lung transplant TYPE AND SCREEN, STAT 04/24/2018 Centrilobular emphysema AUTOMATED 9:34 AM TRADES HELPER (HCC) Pre-transplant evaluation for lung transplant AB SPECIFICITY CLASS II Routine 04/24/2018 Centrilobular emphysema 9:34 AM TRADES HELPER (HCC) Pre-transplant evaluation for lung transplant FLOW PRA CLASS II WITH Routine 04/24/2018 Centrilobular emphysema REFLEX TO ANTIBODY 9:34 AM TRADES HELPER (HCC) SPECIFICITY Pre-transplant evaluation for lung transplant FLOW PRA CLASS I WITH Routine 04/24/2018 Centrilobular emphysema REFLEX TO ANTIBODY 9:34 AM TRADES HELPER (HCC) SPECIFICITY Pre-transplant evaluation for lung transplant HEPATITIS B SURFACE Routine 04/24/2018 Centrilobular emphysema ANTIBODY 9:34 AM TRADES HELPER (HCC) Pre-transplant evaluation for lung transplant HIV-1 ANTIGEN WITH Routine 04/24/2018 Centrilobular emphysema HIV-1/2 ANTIBODY 9:34 AM TRADES HELPER (HCC) Pre-transplant evaluation for lung transplant VARICELLA ZOSTER STAT 04/24/2018 Centrilobular emphysema ANTIBODY, IGG 9:34 AM TRADES HELPER (HCC) Pre-transplant evaluation for lung transplant TSH/FREE T4 IF INDICATED Routine 04/24/2018 Centrilobular emphysema 9:34 AM TRADES HELPER (HCC) Pre-transplant evaluation for lung transplant TOXOPLASMA GONDII Routine 04/24/2018 Centrilobular emphysema ANTIBODY, IGG 9:34 AM TRADES HELPER (HCC) Pre-transplant evaluation for lung transplant PT/APTT Routine 04/24/2018 Centrilobular emphysema 9:34 AM TRADES HELPER (HCC) Pre-transplant evaluation for lung transplant LIPID PANEL Routine 04/24/2018 Centrilobular emphysema 9:34 AM TRADES HELPER (HCC) Pre-transplant evaluation for lung transplant HEPATITIS B CORE Routine 04/24/2018 Centrilobular emphysema ANTIBODY, TOTAL 9:34 AM TRADES HELPER (HCC) Pre-transplant evaluation for lung transplant HEPATITIS PANEL, ACUTE Routine 04/24/2018 Centrilobular emphysema 9:34 AM TRADES HELPER (HCC) Pre-transplant evaluation for lung transplant HEMOGLOBIN A1C Routine 04/24/2018 Centrilobular emphysema 9:34 AM TRADES HELPER (HCC) Pre-transplant evaluation for lung transplant EBV ANTIBODY, IGG Routine 04/24/2018 Centrilobular emphysema 9:34 AM TRADES HELPER (HCC) Pre-transplant evaluation for lung transplant CYTOMEGALOVIRUS ANTIBODY, Routine 04/24/2018 Centrilobular emphysema IGG 9:34 AM TRADES HELPER (HCC) Pre-transplant evaluation for lung transplant COMPREHENSIVE METABOLIC Routine 04/24/2018 Centrilobular emphysema PANEL 9:34 AM TRADES HELPER (HCC) Pre-transplant evaluation for lung transplant CBC W/PLT COUNT & AUTO Routine 04/24/2018 Centrilobular emphysema DIFFERENTIAL 9:34 AM TRADES HELPER (HCC) Pre-transplant evaluation for lung transplant RPR Routine 04/24/2018 Centrilobular emphysema 9:33 AM TRADES HELPER (HCC) Pre-transplant evaluation for lung transplant BLOOD GAS, ARTERIAL Routine 04/24/2018 Centrilobular emphysema 8:20 AM TRADES HELPER (HCC) Pre-transplant evaluation for lung transplant VASCULAR DIAGRAM -SCAN 04/02/2018 1:13 PM TRADES HELPER CARDIAC CATH REPORT - 04/02/2018 SCAN 1:13 PM TRADES HELPER R & L CATH / CORONARY 04/01/2018 Encounter for ANGIOS / PCI 5:01 PM TRADES HELPER pre-transplant evaluation for lung transplant Case Notes POP6 BLOOD GAS, ARTERIAL STAT 04/01/2018 4:07 PM TRADES HELPER PT/APTT STAT 04/01/2018 10:56 AM TRADES HELPER CBC W/PLT COUNT & AUTO STAT 04/01/2018 DIFFERENTIAL 10:01 AM TRADES HELPER CBC W/PLT COUNT & AUTO STAT 04/01/2018 DIFFERENTIAL 10:01 AM TRADES HELPER BASIC METABOLIC PANEL (7) STAT 04/01/2018 10:00 AM TRADES HELPER ECG 12-LEAD Routine 04/01/2018 9:19 AM TRADES HELPER Procedure Note - Interface, External Ris In - 04/01/2018 9:28 AM TRADES HELPER Ventricula r Rate 90 BPM Atrial Rate 90 BPM P-R Interval 160 ms QRS Duration 86 ms Q-T Interval 382 ms QTC Calculatio n(Bazett) 467 ms P Refugio 73 degrees R Refugio 60 degrees T Refugio 69 degrees Normal sinus rhythm Normal ECG No previous ECGs available ECG 12-LEAD Routine 04/01/2018 9:19 AM TRADES HELPER PULMONARY FUNCTION - SCAN 03/24/2018 2:00 PM TRADES HELPER PULMONARY FUNCTION - SCAN 03/13/2018 2:51 PM CDT SPIROMETRY Routine 03/12/2018 Centrilobular emphysema 1:58 PM CDT ([facility]) 6 MINUTE WALK(FOR LUNG Routine 03/12/2018 Centrilobular emphysema TRANSPLANT ONLY) 1:58 PM CDT ([facility]) PULMONARY FUNCTION - SCAN 12/13/2017 11:40 AM CDT 6 MINUTE WALK(FOR LUNG Routine 12/11/2017 Centrilobular emphysema TRANSPLANT ONLY) 2:02 PM CDT ([facility]) LUNG VOLUMES Routine 12/11/2017 Centrilobular emphysema 1:08 PM CDT ([facility]) after 12/05/2017 Results * VASCULAR DIAGRAM -SCAN (08/20/2018 12:25 PM CDT) Only the most recent of 2 results within the time period is included. Narrative Performed At * PULMONARY FUNCTION - SCAN (06/02/2018 8:00 AM TRADES HELPER) Only the most recent of 4 results within the time period is included. Narrative Performed At * Pulmonary Funct Lab Spirometry (05/28/2018 4:01 PM TRADES HELPER) Narrative Performed At Toma Jenkins, CRISELDA, FUSING MACHINE OPERATOR 05/28/20184:[address] [facility] PFT CHARTING REPORT Infection Control/Hand Hygiene procedures followed throughout the encounter with patient: Yes Patient Identification Method: Patient name verified on armband, and Medical record on armband, Is the order complete?: Yes Account ID#: [id number] Patient Name: Hui Galvez Birthdate: 1955 Age: [...] Creatinine clearance (24hr Urine) (05/28/2018 1:45 PM TRADES HELPER) Creatinine Clearance 52.0 (L) 70.0 - 140.0 mL/min [facility] Volume, Urine 1,900 ml [facility] Creatinine, Ur 37.0 mg/dL [facility] Patient Height 165.1 cm [facility] Patient Weight 92.200 kg [facility] Specimen Urine Performing Organization Address City/[facility] Centercode Phone Number [facility] [address] [place], [place] [address] [place] [address] [phone] * Protein, 24 hour urine (05/28/2018 1:45 PM TRADES HELPER) Protein, 24hr Urine <133 0 - 300 mg/24hr [facility] Volume, Urine 1,900 ml [facility] Protein, Urine <7 0 - 14 mg/dL [facility] Specimen Urine Performing Organization Address [facility] [place] Phone Number [facility] [address] [place] [phone] [place] [address] * Creatinine Serum (05/28/2018 1:45 PM TRADES HELPER) Creatinine 0.79 0.57 - 1.25 mg/dL [facility] EGFR 73Comment: ESTIMATED GFR IS mL/min/1.73 sq m [facility] NOT ACCURATE CREATININE [facility] CLEARANCE IN PREDICTING GLOMERULAR FILTRATION RATE. ESTIMATED GFR IS NOT APPLICABLE FOR DIALYSIS PATIENTS. Specimen Blood Performing Organization Address [facility] [place] Phone Number [facility] [address] [place] [id number] [phone] [address] * TRANSFUSION SERVICE REPORT - SCAN (04/25/2018 5:54 PM TRADES HELPER) Narrative Performed At * FL esophagus (04/25/2018 11:59 AM TRADES HELPER) Specimen Narrative Performed At FINAL REPORT [facility] Esophagram. History: Lung transplant evaluation. Discussion: The [...] MD Report Verified Date/Time:04/25/2018 12:25:11 Reading Location: [address] Radiology Reading Room Procedure Note Interface, External Ris In - 04/25/2018 12:27 PM TRADES HELPER FINAL REPORT Esophagram. History: Lung transplant evaluation. [...] Report Verified Date/Time: 04/25/2018 12:25:11 Reading Location: [address] Radiology Reading Room Performing Organization Address City/State/Zipcode Phone Number GE RIS * XR chest 2 views (04/25/2018 11:30 AM TRADES HELPER) Specimen Narrative Performed At FINAL REPORT GE [facility] Chest, PA and lateral. History: Lung transplant evaluation. Comparison: None available. Discussion:The cardiomediastinal silhouette and pulmonary vasculature are within normal limits. The lungs are clear without evidence of consolidation or effusion.There are no acute osseous abnormalities. The soft tissues are unremarkable. IMPRESSION: No acute cardiopulmonary abnormality. Signed: Annette Patel MD Report Verified Date/Time:04/25/2018 12:32:38 Reading Location: [address] Radiology Reading Room Procedure Note Interface, External Ris In - 04/25/2018 12:34 PM TRADES HELPER FINAL REPORT Chest, PA and lateral. History: Lung transplant evaluation. Comparison: None available. Discussion: The cardiomediastinal silhouette and pulmonary vasculature are within normal limits. The lungs are clear without evidence of consolidation or effusion. There are no acute osseous abnormalities. The soft tissues are unremarkable. IMPRESSION: No acute cardiopulmonary abnormality. Signed: Annette Patel MD Report Verified Date/Time: 04/25/2018 12:32:38 Reading Location: [address] Radiology Reading Room Performing Organization Address [facility] [place] Phone Number [facility] * XR mandible 4 views min (04/25/2018 11:25 AM TRADES HELPER) Specimen Narrative Performed At FINAL REPORT [place] Mandible series, five images HISTORY: Lung transplant evaluation COMPARISON: None IMPRESSION: Suboptimal positioning. No fracture. Temporomandibular joints intact. Soft tissues appear unremarkable. No evidence for lytic or blastic lesion. Signed: Annette Patel MD Report Verified Date/Time:04/25/2018 12:20:57 Reading Location: [address] Radiology Reading Room Procedure Note Interface, External Ris In - 04/25/2018 12:23 PM TRADES HELPER FINAL REPORT Mandible series, five images HISTORY: Lung transplant evaluation COMPARISON: None IMPRESSION: Suboptimal positioning. No fracture. Temporomandibular joints intact. Soft tissues appear unremarkable. No evidence for lytic or blastic lesion. Signed: Annette Patel MD Report Verified Date/Time: 04/25/2018 12:20:57 Reading Location: [address] Radiology Reading Room Performing Organization Address [facility] [place] Phone Number [facility] * CT chest without IV contrast (04/25/2018 11:17 AM TRADES HELPER) Specimen Narrative Performed At FINAL REPORT [place] Exam: CT chest, abdomen and pelvis without [...] MD Report Verified Date/Time:04/25/2018 17:29:59 Reading Location: [address] Radiology Reading Room Procedure Note Interface, External Ris In - 04/25/2018 5:32 PM TRADES HELPER FINAL REPORT Exam: CT chest, abdomen and [...] Report Verified Date/Time: 04/25/2018 17:29:59 Reading Location: [address] Radiology Reading Room Performing Organization Address City/State/Zipcode Phone Number GE [facility] * CT abdomen pelvis without contrast (04/25/2018 11:17 AM TRADES HELPER) Specimen Narrative Performed At FINAL REPORT [facility] Exam: CT chest, abdomen and pelvis without [...] MD Report Verified Date/Time:04/25/2018 17:29:59 Reading Location: [address] Radiology Reading Room Procedure Note Interface, External Ris In - 04/25/2018 5:32 PM TRADES HELPER FINAL REPORT Exam: CT chest, abdomen and [...] Report Verified Date/Time: 04/25/2018 17:29:59 Reading Location: [address] Radiology Reading Room Performing Organization Address City/State/Zipcode Phone Number [facility] * ECHOCARDIOGRAM REPORT - SCAN (04/24/2018 6:20 PM TRADES HELPER) Narrative Performed At * Carotid doppler bilateral (04/24/2018 4:46 PM TRADES HELPER) Ejection Fraction [facility] ECHO HEARTLAB MKCKESSON CPACS Specimen Impressions Performed At Right Impression [facility] ECHO HEART[facility] 1. There is <50% diameter reduction (approximately 29% by 2-D measurement) [facility] CP[facility] in the internal carotid artery with [...] Additional Measurements:ICAPSV/CCAPSV 1.06.ICAEDV/CCAEDV 0.96. Narrative Performed At LAB - Carotid Duplex Study [facility] HEARTLAB Demographics CKESSON [facility] Patient HUI Shaffer Date of Study04/24/2018 LENARD Age63 Visit [id number] Gender Female Date of Birth1955 Referring [facility] Room Number Physician Enoch MD Engine Setter Rita Horvath RVT Interpreting Sabino Cooper Procedure Type of Study: Cerebral: Carotid, CAROTID DOPPLER, BILATERAL. Indications for Study:Lung transplant evaluation . Patient Status:Routine. Study Location:Vascular Lab. Technical Quality:Adequate visualization. Risk Factors History of Disease + +----+ + !Diagnosis !Date!Comments! + +----+ + !History/Risk Factors: !!COPD, Raynauds, SLE ! + +----+ + Procedure Note Interface, External Ris In - 04/25/2018 7:26 AM TRADES HELPER PV LAB - Carotid Duplex Study Demographics Patient Name HUI GALVEZ Date of Study 04/24/2018 LENARD Age 63 Visit Number [id number] Gender Female Accession Number [id number] Date of 1955 Referring [facility] Room Number Physician Enoch MD Engine Setter Rita Horvath RVT Interpreting Physician MELIDA Cooper Procedure Type of Study: Cerebral: Carotid, [...] 0.96. Performing Organization Address City/State/Zipcode Phone Number [facility] Contur [facility] * ECHO W CONTRAST & DOPPLER (04/24/2018 3:53 PM TRADES HELPER) Ejection Fraction [facility] Contur [facility] Specimen Narrative Performed At Transthoracic Echocardiography Report (TTE) [facility] ECHO HEARTLAB Demographics PharmAbcineESSON [facility] Patient Name Ching GALVEZ of Study 04/24/2018 LENARD [id number] Female Visit Number [id number] Room Number Number Date of Birth4Referring Physician Homa Kendall MD Age63 year(s)Engine Setter Arik Mark [facility] AnalystAlex Joceline InterpretingRayan aPul Physician Procedure Type of Study TTE procedure:2DECHO W/CONTRAST [...] External Ris In - 04/24/2018 5:47 PM TRADES HELPER Transthoracic Echocardiography Report (TTE) Demographics Patient Name HUI GALVEZ Date of Study 04/24/2018 LENARD Gender Female Visit Number [id number] Race Unknown Room Number Number Date of 1955 Referring Physician Homa Kendall MD Age 63 year(s) Engine Setter Arik Flores [facility] Lining Strap Closer Eulalio Car Interpreting Physician MELIDA Humphreys Procedure [...] LVOT CI: 2.77 l/min/m^2 Performing Organization Address City/State/[facility] [place] Phone Number [facility]ART[facility] MKCKESSON CPA * NM Pul quant diff funct vent/perf (04/24/2018 3:37 PM TRADES HELPER) Specimen Narrative Performed At FINAL REPORT [place] PROCEDURE: V/Q LUNG SCAN w/differential function (xenon) CPT CODE:74168 INDICATION:Lung transplant evaluation PROTOCOL:10.1 mCi ofXe-133 gas [...] MD Report Verified Date/Time:04/24/2018 15:49:00 Reading Location: [address] Reading Room Procedure Note Interface, External Ris In - 04/24/2018 3:51 PM TRADES HELPER FINAL REPORT PROCEDURE: V/Q LUNG SCAN w/differential function (xenon) CPT CODE: 78472 INDICATION: Lung transplant evaluation PROTOCOL: 10.1 mCi [...] Report Verified Date/Time: 04/24/2018 15:49:00 Reading Location: [address] [address] [facility] Reading Room Performing Organization Address [facility] Phone Number [facility] * FL sniff test (04/24/2018 2:42 PM TRADES HELPER) Specimen Narrative Performed At FINAL REPORT [facility] Fluoroscopy sniff test Technique: Fluoroscopy was utilized [...] MD Report Verified Date/Time:04/24/2018 14:40:07 Reading Location: [facility] B1 C013X Ortho Consult Reading Room Procedure Note Interface, External Ris In - 04/24/2018 2:47 PM TRADES HELPER FINAL REPORT Fluoroscopy sniff test Technique: Fluoroscopy [...] Report Verified Date/Time: 04/24/2018 14:40:07 Reading Location: [facility] B1 C013X Ortho Consult Reading Room Performing Organization Address [facility] Phone Number [facility] * Blood typing, automated (04/24/2018 9:54 AM TRADES HELPER) ABO/RH AUTOMATED (BEAKER) A POSITIVE [facility] Specimen Blood Performing Organization Address City/State/Zipcode Phone Number [facility] [address] [place] [address] [facility] * HLA TYPING CII (04/24/2018 9:35 AM TRADES HELPER) HLA-DR AG1 17 [facility] HLA TESTING HLA-DR AG2 4 [facility] HLA TESTING HLA-DR AG3-1 52 [facility] HLA TESTING HLA-DR AG3-2 [facility] HLA TESTING HLA-DR AG4-1 [facility] HLA TESTING HLA-DR AG4-2 53 [facility] HLA TESTING HLA-DR AG5-1 [facility] HLA TESTING HLA-DR AG5-2 [facility] HLA TESTING HLA-DQA1 AG 1-1 05 [facility] HLA TESTING HLA-DQA1 AG 1-2 03 [facility] HLA TESTING HLA-DQB1 AG 1-1 2 [facility] HLA TEST[facility] HLA-DQB1 AG 1-2 8 [facility] HLA TEST[facility] HLA-DPA1 AG 1-1 02 [facility] HLA TEST[facility] HLA-DPA1 AG 1-2 02 [facility] TEST[facility] HLA-DPB1 AG 1-1 01:01 [facility] TEST[facility] HLA-DPB1 AG 1-2 05:01 [facility] HLA-AG Notes [facility] HLA-AG Report Comments [facility] Specimen Blood Narrative Performed At Disclaimer: [facility] HLA TEST[facility] This test was developed and its performance characteristics determined by the [facility]. It has not been cleared or [...] Performing Organization Address City/State/Zipcode Phone Number [facility] HLA TESTING [address] [facility] Anastasiia, MS: [id number], [place] [address] CLIA#[id number] CAP#[id number] UNOS#[id number] * HLA TYPING CI (04/24/2018 9:35 AM TRADES HELPER) HLA-A AG1 1 [facility] HLA TESTING HLA-A AG2 31 [facility] HLA TESTING HLA-B AG1 8 [facility] HLA TESTING HLA-B AG2 60 [facility] HLA TESTING HLA-C AG1 7 [facility] HLA TESTING HLA-C AG2 10 [facility] HLA TESTING HLA-B BW1 6 [facility] HLA TESTING HLA-B BW2 6 [facility] HLA TESTING HLA-AG Notes [facility] TEST[facility] HLA-AG Report Comments [facility] HLA TESTING Specimen Blood Narrative Performed At Disclaimer: [facility] HLA TESTING This test was developed and its performance characteristics determined by the [facility]. It has not been cleared or [...] Performing Organization Address City/State/Zipcode Phone Number [facility] HLA TESTING ONE [facility] Anastasiia, MS: [id number], [place] [address] CLIA#[id number] CAP#[id number] UNOS#[id number] * Drug screen, urine, transplant (04/24/2018 9:35 AM TRADES HELPER) Specimen Urine Narrative Performed At Performing Organization Address City/State/Zipcode Phone Number [place] [id number] [place] [address] * T Spot TB (04/24/2018 9:35 AM TRADES HELPER) T-Spot TB Negative [facility] Neg Ctrl Spot Count 0 [facility] Panel A Spot 0 [facility] Panel B Spot 0 [facility] Pos Ctrl Spot Ct 0 [facility] Scan Result [facility] Specimen Blood Narrative Performed At Performing Organization Address City/State/Zipcode Phone Number [facility] [address] [place] [address] LABORATORIES 100 * Urinalysis, Routine (04/24/2018 9:35 AM TRADES HELPER) Color, UA Light Yellow [facility] Clarity, UA Clear [facility] Specific Hamill, UA 1.008 1.001 - 1.035 [facility] pH, UA 7.5 5.0 - 8.0 [facility] Protein, UA Negative Negative [facility] Glucose, UA Negative Negative [facility] Ketones, UA Negative Negative [facility] Bilirubin, UA Negative Negative [facility] Blood, UA Negative Negative [facility] Nitrite, UA Negative Negative [facility] Leukocytes, UA Negative Negative [facility] Urobilinogen, UA 0.2 0.2 - 1.0 mg/dL [facility] RBC, UA 0 /HPF [facility] WBC, UA 1 /HPF [facility] Squam Epithel, UA <1 /HPF [facility] Specimen Source [facility] Specimen Urine Performing Organization Address City/State/Zipcode Phone Number [facility] [address] [place], [place] [phone] [facility] * FLOW PRA CLASS II WITH REFLEX TO ANTIBODY SPECIFICITY (04/24/2018 9:34 AM TRADES HELPER) Flow Class II Percent 13 [facility] TEST[facility] Positive Flow Class Report [facility] TEST[facility] Comments Specimen Blood Narrative Performed At Disclaimer: [facility] HLA TESTING This test was developed and its performance characteristics determined by the [facility]. It has not been cleared or [...] complexity clinical laboratory testing. Performing Organization Address City/State/[facility] Cent[facility] Phone Number [facility] HLA TESTING ONE Esteban Laurent, MS: [id number], [place] [address] CLIA#[id number] CAP#[id number] UNOS#[id number] * FLOW PRA CLASS I WITH REFLEX TO ANTIBODY SPECIFICITY (04/24/2018 9:34 AM TRADES HELPER) Flow Class I Percent 0 [facility] Positive Flow Class Report [facility] Comments Specimen Blood Narrative Performed At Disclaimer: [facility] This test was developed and its performance characteristics determined by the [facility]. It has not been cleared or [...] complexity clinical laboratory testing. Performing Organization Address City/[facility] [place] Phone Number [facility] ONE Esteban Laurent, MS: [id number], [place] [id number] CLIA#[id number] CAP#[id number] UNOS#[id number] * AB SPECIFICITY CLASS II (04/24/2018 9:34 AM TRADES HELPER) AB Specificity Class II NO CLASS II ANTIBODY DETECTED [facility] TEST[facility] WITH MFIs > 4000 AB Specificity Titr Class [facility] Report Specimen Blood Narrative Performed At Disclaimer: [facility] This test was developed and its performance characteristics determined by the [facility]. It has not been cleared or [...] complexity clinical laboratory testing. Performing Organization Address City/[facility] [place] Phone Number [facility] ONE Esteban Laurent, MS: [id number], [place] [address] CLIA#[id number] CAP#[id number] UNOS#[id number] * Type and screen, automated (04/24/2018 9:34 AM TRADES HELPER) ABO/RH AUTOMATED (BEJOCELYN) A POSITIVE [facility] Ab Scrn NEGATIVE [facility] Specimen Blood Performing Organization Address [facility] Cent[facility]ode Phone Number [facility] [address] [place] [address] MEDICAL CENTER * TSH/T4 if indicated (04/24/2018 9:34 AM TRADES HELPER) TSH 0.98 0.35 - 4.94 uIU/mL [facility] Specimen Blood Performing Organization Address City/[facility] Cent[facility]ode Phone Number [facility] [address] [place] [address] [facility] * PT/PTT (04/24/2018 9:34 AM TRADES HELPER) Only the most recent of 2 results within the time period is included. Protime 13.1 11.7 - 14.7 seconds [facility] INR 1.0 <=5.9 [facility] PTT 24.2 22.5 - 36.0 seconds [facility] Specimen Blood Narrative Performed At RECOMMENDED COUMADIN/WARFARIN INR THERAPY RANGES [facility] STANDARD DOSE: 2.0 - 3.0 Includes: PROPHYLAXIS for venous thrombosis, [facility] systemic embolization; TREATMENT for venous thrombosis and/or pulmonary embolus. HIGH RISK: Target INR is 2.5-3.5 for patients with mechanical heart valves. Performing Organization Address City/[facility] Phone Number [address] [address] [facility] * HIV-1 Antigen with HIV-1/2 Antibody (04/24/2018 9:34 AM TRADES HELPER) HIV-1 Antigen with HIV Nonreactive Nonreactive [facility] 1&2 Antibody [facility] Specimen Blood Performing Organization Address City/[facility] Centercode Phone Number [facility] [address] [place] [address] [facility] * CBC with platelet count + automated diff (04/24/2018 9:34 AM TRADES HELPER) Only the most recent of 2 results within the time period is included. WBC 7.1 3.5 - 10.5 K/L [facility] RBC 4.00 3.93 - 5.22 M/L [facility] Hemoglobin 11.3 11.2 - 15.7 GM/DL [facility] Hematocrit 39.0 34.1 - 44.9 % [facility] MCV 97.5 (H) 79.4 - 94.8 fL [facility] MCH 28.3 25.6 - 32.2 pg [facility] MCHC 29.0 (L) 32.2 - 35.5 GM/DL [facility] RDW 16.0 (H) 11.7 - 14.4 % [facility] Platelets 259 150 - 450 K/CU MM [facility] MPV 9.8 9.4 - 12.3 fL [facility] nRBC 0 0 - 0 /100 WBC [facility] % Neutros 91 % [facility] % Lymphs 6 % [facility] % Monos 3 % [facility] % Eos 0 % [facility] % Baso 0 % [facility] # Neutros 6.38 (H) 1.56 - 6.13 K/L [facility] # Lymphs 0.40 (L) 1.18 - 3.74 K/L [facility] # Monos 0.20 (L) 0.24 - 0.36 K/L [facility] # Eos 0.00 (L) 0.04 - 0.36 K/L [facility] # Baso 0.02 0.01 - 0.08 K/L [facility] Immature 1 0 - 1 % [facility] Granulocytes-[facility] Specimen Blood Performing Organization Address City/State/Zipcode Phone Number [facility] [address] [place] [address] MEDICAL CENTER * Hepatitis panel (04/24/2018 9:34 AM TRADES HELPER) Hep A IgM Nonreactive Nonreactive [facility] Hep B C IgM Nonreactive Nonreactive [facility] Hepatitis C Ab Nonreactive Nonreactive [facility] hepatitis B Surface Ag Nonreactive Nonreactive [facility] Specimen Blood Performing Organization Address City/[facility] Centercode Phone Number [address] * EBV-VCA antibody, IgG (04/24/2018 9:34 AM TRADES HELPER) TAMIKA FELDER VIRAL CAPSID Positive (A) Negative, Equivocal [facility] ANTIGEN IGG [facility] Specimen Blood Narrative Performed At Tamika Felder Viral Capsid Antigen IgG Result Interpretation: [facility] </=0.8 Al Negative [facility] 0.9-1.0 Al Equivocal >/=1.1 Al Positive Performing Organization Address [facility] [place] Phone Number [address] * Hepatitis B core, total (04/24/2018 9:34 AM TRADES HELPER) Hep B Core Total Ab Nonreactive Nonreactive [facility] Specimen Blood Performing Organization Address City/[facility] Centercode Phone Number [address] * Toxoplasma gondii antibody, IgG (04/24/2018 9:34 AM TRADES HELPER) TOXOPLASMA GONDII IGG <3.0 <10.0 IU/mL [facility] QUANTITATIVE [facility] Specimen Blood Narrative Performed At Toxoplasma Gondii IgG Result Interpretation: [facility] </=9.9 IU/mLNormal [facility] 10-11 IU/mLEquivocal >/=12 IU/mL Positive Performing Organization Address City/[facility] Centercode Phone Number [place] [phone] [place] [address] * Hepatitis B surface antibody (04/24/2018 9:34 AM TRADES HELPER) Hep B S Ab <8.0 <8.0 mIU/mL [facility] Specimen Blood Performing Organization Address [facility] Centercode Phone Number [address] * Cytomegalovirus antibody, IgG (04/24/2018 9:34 AM TRADES HELPER) CYTOMEGALOVIRUS, IGG Positive (A) Negative, Equivocal [facility] Specimen Blood Narrative Performed At CMV IgG Result Interpretation: [facility] </=0.8 Al Negative [facility] 0.9-1.0 Al Equivocal >/=1.1 AlPositive Performing Organization Address [facility] [place] Phone Number [address] * Varicella zoster antibody, IgG (04/24/2018 9:34 AM TRADES HELPER) Varicella IgG 4.9 [facility] Specimen Blood Narrative Performed At VARICELLA ZOSTER RESULT INTERPRETATIONS: [facility] <=0.8 AlNonreactive:Presumed non-immune to VZV [facility] 0.9-1.0 AlEquivocal >=1.1 AlReactive:Presumed immune to VZV Performing Organization Address [facility] Phone Number [address] * Hemoglobin A1c (04/24/2018 9:34 AM TRADES HELPER) Hemoglobin A1C 6.1 4.3 - 6.1 % [facility] Specimen Blood Performing Organization Address [facility] Phone Number [address] * Lipid panel (04/24/2018 9:34 AM TRADES HELPER) Triglycerides 128 mg/dL [facility] Cholesterol 215 mg/dL [facility] HDL 71 mg/dL [facility] LDL Calculated 118 mg/dL [facility] Specimen Blood Narrative Performed At Triglyceride Reference Range: [facility] Low Risk <150 [facility] [id number] High Risk 200-499 Very High Risk>=500 Cholesterol Reference Range: Low Risk <200 [id number] High Risk>240 HDL Cholesterol Reference Range: Low Risk >=60 High Risk <40 LDL Cholesterol Reference Range: Optimal<100 Near [id number] Very High >=190 Performing Organization Address City/State/Zipcode Phone Number [facility] [address] [place] [address] MEDICAL CENTER * Comprehensive metabolic panel (04/24/2018 9:34 AM TRADES HELPER) Protein, Total 7.1 6.0 - 8.3 gm/dL [facility] Albumin 4.1 3.5 - 5.0 g/dL [facility] Alkaline Phosphatase 90 40 - 150 U/L [facility] Total Bilirubin 0.3 0.2 - 1.2 mg/dL [facility] Sodium 139 136 - 145 meq/L [facility] Potassium 4.5 3.5 - 5.1 meq/L [facility] Chloride 102 98 - 107 meq/L [facility] CO2 29 22 - 29 meq/L [facility] BUN 12 7 - 21 mg/dL [facility] Creatinine 0.82 0.57 - 1.25 mg/dL [facility] Glucose 130 (H) 70 - 105 mg/dL [facility] Calcium 9.8 8.4 - 10.2 mg/dL [facility] AST 15 5 - 34 U/L [facility] ALT 19 6 - 55 U/L [facility] EGFR 70Comment: ESTIMATED GFR IS mL/min/1.73 sq m [facility] NOT ACCURATE CREATININE [facility] CLEARANCE IN PREDICTING GLOMERULAR FILTRATION RATE. ESTIMATED GFR IS NOT APPLICABLE FOR DIALYSIS PATIENTS. Specimen Blood Performing Organization Address [facility] Centercode Phone Number [facility] [address], [place] [phone] [facility] * RPR (04/24/2018 9:33 AM TRADES HELPER) RPR Nonreactive Nonreactive [facility] Specimen Blood Performing Organization Address City/[facility] Centercode Phone Number [facility] [address] [place] [address] [facility] * Blood gas, arterial (04/24/2018 8:20 AM TRADES HELPER) Only the most recent of 2 results within the time period is included. pH, Arterial 7.40 7.35 - 7.45 [facility] pCO2, Arterial 45 35 - 45 mmHg [facility] pO2, Arterial 62 (L) 80 - 90 mmHg [facility] O2 Sat, Arterial 91.6 (L) 96.0 - 97.0 % [facility] HCO3, Arterial 28 21 - 29 mmol/L [facility] Base Excess, Arterial 2.4 -2.0 - 3.0 mmol/L [facility] Patient Temperature 37.0 C [facility] FIO2 21.0 % [facility] Specimen Blood, Arterial Performing Organization Address [facility] Centercode Phone Number [facility] [address] [place] [address] [facility] * CARDIAC CATH REPORT - SCAN (04/02/2018 1:13 PM TRADES HELPER) Narrative Performed At * Basic Metabolic Panel (04/01/2018 10:00 AM TRADES HELPER) Sodium 141 136 - 145 meq/L [facility] Potassium 3.9 3.5 - 5.1 meq/L [facility] Chloride 104 98 - 107 meq/L [facility] CO2 31 (H) 22 - 29 meq/L [facility] BUN 13 7 - 21 mg/dL [facility] Creatinine 0.79 0.57 - 1.25 mg/dL [facility] Glucose 132 (H) 70 - 105 mg/dL [facility] Calcium 9.6 8.4 - 10.2 mg/dL [facility] EGFR 73Comment: ESTIMATED GFR IS mL/min/1.73 sq m [facility] NOT ACCURATE CREATININE [facility] CLEARANCE IN PREDICTING GLOMERULAR FILTRATION RATE. ESTIMATED GFR IS NOT APPLICABLE FOR DIALYSIS PATIENTS. Specimen Blood Performing Organization Address City/[facility] Cent[facility]ode Phone Number [facility] [address] [place] [address] [facility] * ECG 12 lead (04/01/2018 9:19 AM TRADES HELPER) Specimen Narrative Performed At Ventricular Rate 90 BPM GE MUSE Atrial Rate 90 BPM P-R Interval 160 ms QRS Duration 86 ms Q-T Interval 382 ms QTC Calculation(Bazett) 467 ms P [place]ug[place] 73 degrees R Refugio 60 degrees T Refug[place] 69 degrees Normal sinus rhythm Normal ECG No previous ECGs available Confirmed by MD Bingham Mahboob ([id number]) on 04/01/2018 1:24:05 PM Procedure Note Interface, External Ris In - 04/01/2018 1:24 PM TRADES HELPER Ventricular Rate 90 BPM Atrial Rate 90 BPM P-R Interval 160 ms QRS Duration 86 ms Q-T Interval 382 ms QTC Calculation(Bazett) 467 ms P [place] 73 degrees R [place] 60 degrees T [place] 69 degrees Normal sinus rhythm Normal ECG No previous ECGs available Confirmed by MD Bingham Mahboob ([id number]) on 04/01/2018 1:24:05 PM Performing Organization Address City/State/[facility] Centercode Phone Number [facility] * 6 MINUTE WALK(FOR LUNG TRANSPLANT ONLY) (03/12/2018 1:58 PM CDT) Narrative Performed At Gary Calhoun, BUYER PLANNER, FUSING MACHINE OPERATOR 03/12/20182:[address] [facility] PFT CHARTING REPORT Infection Control/Hand Hygiene procedures followed throughout the encounter with patient: Yes Patient Identification Method: Patient name verified on armband, and Medical record on armband, Is the order complete?: Yes Account ID#: [id number] Patient Name: Hui Galvez Birthdate: 1955 Age: [...] CDT) Narrative Performed At Gary Calhoun RRT, FUSING MACHINE OPERATOR 03/12/20182:[address] [facility] PFT CHARTING REPORT Infection Control/Hand Hygiene procedures followed throughout the encounter with patient: Yes Patient Identification Method: Patient name verified on armband, and Medical record on armband, Is the order complete?: Yes Account ID#: [id number] Patient Name: Hiu Galvez Birthdate: 1955 Age: 63 y.o.Sex: female [...] CDT) Narrative Performed At Toma Jenkins RRT, FUSING MACHINE OPERATOR 12/11/20172:[address] [facility] PFT CHARTING REPORT Infection Control/Hand Hygiene procedures followed throughout the encounter with patient: Yes Patient Identification Method: Patient name verified on armband, and Medical record on armband, Is the order complete?: Yes Account ID#: [id number] Patient Name: Hui Galvez Birthdate: 1955 Age: [...] without adverse outcome. without adverse outcome after 12/05/2017 Insurance Payer Benefit Subscriber ID Type Phone Address Plan / Group MEDICARE MEDICARE A xxxxxxxxxxx Medicare B [facility] SUPPLEMENT/INDIVIDUAL [place]ERAW xxxxxxxxx Formerly [facility]MANI Advance Directives For more information, please contact: [facility] [address] [place] [address] Date Inactivated Comments Code Status Date Activated Full Code 04/01/2018 8:31 AM This code status was determined by: Patient
--- OUTSIDE RECORDS SUMMARY | 2018-12-06 11:47 | XMS REPORT | Continuity of Care Document ---
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 08/17/2017 Alfredo Palomares Fatigue Active Problem 08/17/2017 Alfredo Palomares Anemia Active Problem 08/17/2017 Alfredo Aalser Vitamin D deficiency, unspecified Active Problem 08/17/2017 [...] Alfredo Palomares PAIN IN UNSPECIFIED JOINT Active [facility] Medications Medication Details Route Status Patient Instructions Ordering Provider Order Date Source Vitamin D (Ergocalciferol) 1 capsule Orally Active 90983 UNIT Orally once a week Yin 08/03/2016 [...] Active 200 MG Orally Once a day [place] 11/07/2015 Alfredo Palomares Nitroglycerin ointment apply to [...] Active 2.5 MG Orally Once a day [place] 06/02/2015 Alfredo Palomares Hydroxychloroquine Sulfate 1 tablet with food or milk Orally Active 200 MG Orally twice a day Yin 04/12/2015 Alfredo Palomares Plaquenil 1 tablet with food or milk Orally Active 200 MG Orally bid [place] 01/09/2015 Alfredo Palomares Hydroxychloroquine Sulfate 2 tablets Orally Active 200 MG Orally Once a day [place] 09/28/2014 Alfredo Palomares Albuterol 2 tablet Orally [...] Inhalation Twice a day Yin Alfredo Palomares Amoxicillin 1 capsule Orally Active 500 MG Orally every 12 hrs Yin Alfredo Palomares Ultram as directed Orally Active 50 MG Orally PRN Yin Alfredo Palomares Lyrica 1 capsule Orally Active 50 MG Orally Three times a day Yin Alfredo Palomares Ibuprofen 1 tablet Orally Active 600 MG Orally as needed Yin Alfredo Palomares Fiorinal 1 capsule as needed Orally Active Orally as needed Yin Alfredo Palomares Plaquenil 1 tablet with food or milk Orally Active 200 MG Orally Twice a day Rocky Palomares Terbutaline Sulfate 1 tablet every 6 hours while awake Orally Active 2.5 MG Orally every 6 hrs Yin Alfredo Palomares Medrol (Johnny) as directed Orally Active 4 MG Orally Yin Alfredo Palomares Hydroxychloroquine Sulfate 2 tablet with food or milk Orally Active 200 MG Orally once a day Yin Alfredo Palomares Hydroxychloroquine Sulfate 1 tablet with food or milk Orally Active 200 MG Orally Twice a day Yin Alfredo Palomares Norvasc 1 tablet Orally Active 2.5 MG Orally Twice a day Yin Alfredo Palomares Ativan 1 tablet as needed Orally Active 1 MG Orally Twice a day Yin Alfredo Palomares Albuterol 2 tablet Orally Active 2 MG Orally once a day Yin Alfredo Palomares Allergies, Adverse Reactions, Alerts Substance Category Reaction Severity Reaction type Status Date Reported Comments Source Prednisone Adverse Reaction Info Not Available Adverse Reaction Active 02/15/2017 Alfredo Palomares Demeclocycline Adverse Reaction hives Adverse Reaction Active 02/15/2017 Alfredo Palomares predniSONE Assertion Drug allergy Active [facility] Immunizations Immunization Date Given Site Status Last Updated Comments Source Flu Vaccine 02/07/2017 completed Alfredo Palomares Results No Data Provided for This Section Pathology Reports No Data Provided for This Section Diagnostic Reports No Data Provided for This Section Consultation Notes No Data Provided for This Section Discharge Summaries No Data Provided for This Section History and Physicals No Data Provided for This Section Vital Signs Vital Sign Value Date Comments [...] Temperature Oral (F) 97.5 F 02/13/2016 Alfredo Palomares Heart Rate 84 02/13/2016 Alfredo Palomares Diastolic (mm Hg) 68 02/13/2016 Alfredo Palomares Systolic (mm Hg) 120 02/13/2016 Alfredo Palomares Weight 174 10/13/2015 Alfredo Palomares Height 65 10/13/2015 Alfredo Palomares Temperature Oral (F) 97.3 F 10/13/2015 Alfredo Palomares Height 167.64 cm 05/10/2015 [facility] BMI Calculated 29.11 05/10/2015 [facility] Weight 81.818 05/10/2015 [facility] Weight 178 04/12/2015 Alfredo Palomares Height [...] Yony Palomares MD 5M FU with DEXA [id number] 09/29/2013 09/29/2013 Alfredo Palomares MD 5M FU with DEXA [id number] 09/29/2013 09/29/2013 Alfredo Palomares MD 5M FU with DEXA [id number] 09/29/2013 09/29/2013 Alfredo Palomares MD 6M FU with DEXA [id number]-xm79-2h3r0x75k6h4 09/29/2013 09/29/2013 Alfredo Palomares MD 6M FU with DEXA [id number] 09/29/2013 09/29/2013 Alfredo Palomares MD 6M FU with DEXA [id number]-07kn-n663-ml51a995e9f4 09/29/2013 09/29/2013 Alfredo Palomares MD 6M FU with DEXA [id number]-4w43-pjy1-76587jk5w094 09/29/2013 09/29/2013 Alfredo Palomares MD 6M FU with DEXA 12f81whn-08e3-6923-aiqk-w00j5rm742m8 09/29/2013 09/29/2013 Alfredo Palomares MD 6M FU with DEXA [id number]-5882-jg97-rm92lzgwruk7 09/29/2013 09/29/2013 Alfredo Palomares MD 6M FU with DEXA [id number]-8g86-n114-bi15p3683i55 09/29/2013 09/29/2013 Alfredo Palomares MD 6M FU with DEXA [id number] 09/29/2013 09/29/2013 Alfredo Palomares MD 6M FU with DEXA [id number]-ue29-71u3a9298h43 09/29/2013 09/29/2013 Alfredo Palomares MD 6M FU with DEXA [id number] 09/29/2013 09/29/2013 Alfredo Palomares MD 6M FU with DEXA [id number]-8231-[id number] 09/29/2013 09/29/2013 Alfredo Palomares MD 6M FU with DEXA [id number]-7751-1p60xx2or476 09/29/2013 09/29/2013 Alfredo Palomares MD 6M FU with DEXA [id number]-[id number] 09/29/2013 09/29/2013 Alfredo Palomares MD 6M FU with DEXA 03nd5j03-w500-5v0u-o858-jc70d477y4ll 09/29/2013 09/29/2013 Alfredo Palomares MD 6M FU with DEXA wg66ldpx-fp51-6s80-f1eq-6mgd3c28ojag 09/29/2013 09/29/2013 Alfredo Palomares MD 6M FU with DEXA i5a0axv2-66j1-17ae-6w33-18d687013027 09/29/2013 09/29/2013 Alfredo Palomares MD 6M FU with DEXA 0wvsh100-54eh-3v1x-55ha-56l8f66b913m 09/29/2013 09/29/2013 Alfredo Palomares MD 6M FU with DEXA 42t9p1b7-907g-5n5x-4ky1-bkfrygf06z9k 09/29/2013 09/29/2013 Alfredo Palomares MD 6M FU with DEXA 1m947peh-149h-5282-j18c-2ee2sr25ei91 09/29/2013 09/29/2013 Alfredo Palomares MD 6M FU with DEXA js9fzt3c-920w-07l5-97vw-h7pk6968a93a 09/29/2013 09/29/2013 Alfredo Palomares MD 6M FU with DEXA q76c8n6w-8249-3rzg-8l51-6038ajl75604 09/29/2013 09/29/2013 Alfredo Palomares MD 6M FU with DEXA 7g3p8fh6-2ao9-6735-cv97-z2m0h3ehrr9o 09/29/2013 09/29/2013 Alfredo Palomares MD 6M FU with DEXA byfcnwb2-s5y5-9g31q5b2-7d08-q8n3-1sx18lw79171 09/29/2013 09/29/2013 Alfredo Palomares MD 6M FU with DEXA vc726z06-6a3e-1y4l-e080-41b85l06h98t 09/29/2013 09/29/2013 Alfredo Palomares MD 6M FU with DEXA 2s9e79j4-bfa9-2378-93m2-apv861a725hl 09/29/2013 09/29/2013 Alfredo Palomares MD 6M FU with DEXA 86hp4534-qou9-5m21-d703-w456924hm583 09/29/2013 09/29/2013 Alfredo Palomares MD 6M FU with DEXA op5i761i-7653-4ov8-9r54-mk70ae71z9c1 09/29/2013 09/29/2013 Alfredo Palomares MD 6M f/u cs3z894f-cdrs-9302-80m6-97p976t063c9 04/01/2014 04/01/2014 Alfredo Palomares MD 6M f/u 2875321d-1x88-5nyq-5mg8-g9t7843621x4 04/01/2014 04/01/2014 Alfredo Palomares MD 6M f/u [id number]-r7k7-b7b2z71m59k0 04/01/2014 04/01/2014 Alfredo Palomares MD 6M f/u 34946ll8-8762-38za-ru09-jk4ihpaqhfyd 04/01/2014 04/01/2014 Alfredo Palomares MD 6M f/u 9gxer93r-10m2-74s3-35s5-15rc6i3k6069 04/01/2014 04/01/2014 Alfredo Palomares MD 6M f/u 7773dm8z-3y02-768p-52xu-3396w56t16jd 04/01/2014 04/01/2014 Alfredo Palomares MD 6M f/u rxr0lh24-2g1f-3bb7-9254-w729ay60223h 04/01/2014 04/01/2014 Alfredo Palomares MD 6M f/u 7g59u573-p34k-1w12-7713-021afg926fib 04/01/2014 04/01/2014 Alfredo Palomares MD 6M f/u 76yez467-q244-1o27-25wu-33ghf24y9po7 04/01/2014 04/01/2014 Alfredo Palomares MD 6M f/u 48950079-5rxw-85y6-l593-n44ksy39wvgv 04/01/2014 04/01/2014 Alfredo Palomares MD 6M f/u 98l8gfys-ct39-5a35-fg6t-bg8l3q110065 04/01/2014 04/01/2014 Alfredo Palomares MD 6M f/u 8tdoe0c7-l9b1-8927-5643-189d216x7107 04/01/2014 04/01/2014 Alfredo Palomares MD 6M f/u 421m03l9-2750-2209-b940-b4127t98x102 04/01/2014 04/01/2014 Alfredo Palomares MD 6M f/u 75b76ziy-m013-6199-64j6-43l0250f9ee8 04/01/2014 04/01/2014 Alfredo Palomares MD 6M f/u 4t24r25p-65w0-7600-gz29-y0084a60x152 04/01/2014 04/01/2014 Alfredo Palomares MD 6M f/u 71kpsz1h-44jv-74o9-602k-mr8ju33n47l5 04/01/2014 04/01/2014 Alfredo Palomares MD 6M f/u q79df922-4y28-0o0s-9344-8b604utwg16s 04/01/2014 04/01/2014 Alfredo Palomares MD 6M f/u av9v7k8o-hu5z-5d62-26wk-h0188vc83i13 04/01/2014 04/01/2014 Alfredo Palomares MD 6M f/u [id number]-4363-l6s7-74wl46684056 04/01/2014 04/01/2014 Alfredo Palomares MD 6M f/u l821a601-0e68-05z6-p6uc-225k030e3l98 04/01/2014 04/01/2014 Alfredo Palomares MD 6M f/u 8l8q6284-r2i0-35h7-m6ww-urabe1i4848u 04/01/2014 04/01/2014 Alfredo Palomares MD 6M f/u o5641624-eib5-6q3h-t725-c4l2n99ds17b 04/01/2014 04/01/2014 Alfredo Palomares MD 6M f/u 974q4020-f632-1c42-zuao-52ew1p859888 04/01/2014 04/01/2014 Alfredo Palomares MD 6M f/u 9c6309j0-5qmo-4599-evtw-fk6r4775a49b 04/01/2014 04/01/2014 Alfredo Palomares MD 6M f/u 5684g05k-927m-9665-p5f0-4l60y57915yh 04/01/2014 04/01/2014 Alfredo Palomares MD 6M f/u c9dqd7ql-4lv7-6sql-5s3c-84630v73o5k2 04/01/2014 04/01/2014 Alfredo Palomares MD 6M f/u 2kt7j801-2727-16c6-n25r-6dzp1xn2kx13 04/01/2014 04/01/2014 Alfredo Palomares MD f/u 254886f8-5617-971u-vl27-3o9sp0c54h80 04/01/2014 04/01/2014 Alfredo Palomares MD [employer] r5240c16-934u-4h5b-597c-84w99y768mlh 04/30/2014 04/30/2014 Alfredo Palomares MD [employer] 8h2eg018-5u71-029k-sme2-79wr2243p77r 04/30/2014 04/30/2014 Alfredo Palomares MD [employer] 07q4nk2g-5555-48d4-068i-t534j8414057 04/30/2014 04/30/2014 Alfredo Palomares MD [employer] 3001w615-5nq7-07it-dwv1-1n1l34l8txm3 04/30/2014 04/30/2014 Alfredo Palomares MD [employer] 23l698t1-0hxk-68cw-x7cd-7h1979x991hf 04/30/2014 04/30/2014 Alfredo Palomares MD [employer] 9302vn13-5139-9jzb-au2g-61q1cu725267 04/30/2014 04/30/2014 Alfredo Palomares MD [employer] 82ks9ck7-4x1g-1041-r7b6-8b768kdd236p 04/30/2014 04/30/2014 Alfredo Palomares MD [employer] 3ct88173-7f6e-929x-6eoj-0b97o4r8h64n 04/30/2014 04/30/2014 Alfredo Palomares MD [employer] m9a9638v-3160-9n39-v5f1-0own479u2027 04/30/2014 04/30/2014 Alfredo Palomares MD [employer] 776d6730-6dr7-9j23-0232-xsy05164es2d 04/30/2014 04/30/2014 Alfredo Palomares MD [employer] 5ovw3gc4-zirw-0594-6id4-xp4c01qx8rs2 04/30/2014 04/30/2014 Alfredo Palomares MD [employer] 9se1yhv6-bfx1-17h8-063g-614m5u96c45d 04/30/2014 04/30/2014 Alfredo Palomares MD [employer] 273717mc-o2n2-750u-sdk3-55066q9o6xo1 04/30/2014 04/30/2014 Alfredo Palomares MD [employer] j8u6azff-re32-44x8-078o-357uv05jba40 04/30/2014 04/30/2014 Alfredo Palomares MD [employer] 475q94m7-5953-7l86-4p5e-6z13q2726412 04/30/2014 04/30/2014 Alfredo Palomares MD [employer] q7na9602-4v5z-5u0t-b8e5-6z79t17fdqx4 04/30/2014 04/30/2014 Alfredo Palomares MD [employer] [id number]-00f2-v829-jw2w80xlu818 04/30/2014 04/30/2014 Alfredo Palomares MD [employer] [id number]-83v4-58p0-7v93-hh5h7289r061 04/30/2014 04/30/2014 Alfredo Palomares MD [employer] 1642x1k9-4rd7-3890-6881-c463980dc9d0 04/30/2014 04/30/2014 Alfredo Palomares MD [employer] 47k5fjw4-1n0w-941v-oju6-s35419j91qbx 04/30/2014 04/30/2014 Alfredo Palomares MD [employer] 1o799r9g-b422-5536-cny0-2q9j0h6r3fix 04/30/2014 04/30/2014 Alfredo Palomares MD [employer] 4ukej7ru-7449-4616-zu66-6kzt4q2823ar 04/30/2014 04/30/2014 Alfredo Palomares MD [employer] 81058b68-lv5h-405r-29w8-90364772k9j1 04/30/2014 04/30/2014 Alfredo Palomares MD [employer] 1tt6071f-01dy-1877-3g2a-t1zh3k7390p0 04/30/2014 04/30/2014 Alfredo Palomares MD [employer] 5sh8c574-yvs2-1d46-n451-154w58o5e6a4 04/30/2014 04/30/2014 Alfredo Palomares MD [employer] 64dv3z6b-binz-3bbt-yn4e-v52m81h9074m 04/30/2014 04/30/2014 Alfredo Palomares MD [employer] 7e59h279-62v1-0971-u833-5103cbw7o547 04/30/2014 04/30/2014 Alfredo Palomares MD [employer] 63utd49v-329i-0d9x-qo02-357i96v22x31 04/30/2014 04/30/2014 Alfredo Palomares MD [employer] xz4y6428-1f08-9541-d153-a2k0av72osm7 04/30/2014 04/30/2014 Alfredo Palomares MD Refill jced73fa-e461-2009-atlq-i4i14pz6a2jd 05/17/2014 05/17/2014 Alfredo Palomares MD Refill ly24689y-93yj-3581-8eu5-062f707p6x6d 05/17/2014 05/17/2014 Alfredo Palomares MD Refill [id number]-c7584023vrde 05/17/2014 05/17/2014 Alfredo Palomares MD Refill [id number] 05/17/2014 05/17/2014 Alfredo Palomares MD Refill [id number]-01z4-4rp0569vl213 05/17/2014 05/17/2014 Alfredo Palomares MD Refill [id number]-jrr4-46mf7w4c4h92 05/17/2014 05/17/2014 Alfredo Palomares MD Refill [id number]-07v6-l4c36707066q 05/17/2014 05/17/2014 Alfredo Palomares MD Refill [id number]-[id number] 05/17/2014 05/17/2014 Alfredo Palomares MD Refill [id number]-w8jd-0927-k233-q0bb151p5b73 05/17/2014 05/17/2014 Alfredo Palomares MD Refill v1374lwa-6gv2-14ha-r5q5-bd6f2y26d1p4 05/17/2014 05/17/2014 Alfredo Palomares MD Refill [id number]-[id number]-cp5c-23bv1139uo75 05/17/2014 05/17/2014 Alfredo Palomares MD Refill y8u9j959-0o8k-3218-4484-z901y3a4232k 05/17/2014 05/17/2014 Alfredo Palomares MD Refill 2x3h3la9-597n-547v-ef7s-z648tezx9632 05/17/2014 05/17/2014 Alfredo Palomares MD Refill rs5ppwed-[id number] 05/17/2014 05/17/2014 Alfredo Palomares MD Refill 6v6tm4rf-e4f6-5bx0-4l01-h5d22m56w8y4 05/17/2014 05/17/2014 Alfredo Palomares MD Refill [id number] 05/17/2014 05/17/2014 Alfredo Palomares MD Refill [id number]-[id number] 05/17/2014 05/17/2014 Alfredo Palomares MD Refill [id number]-a07v-[id number] 05/17/2014 05/17/2014 Alfredo Palomares MD Refill [id number] 05/17/2014 05/17/2014 Alfredo Palomares MD Refill [id number] 05/17/2014 05/17/2014 Alfredo Palomares MD Refill 385gfzs5-k68g-78c9-r394-63gx9warbh6i 05/17/2014 05/17/2014 Alfredo Palomares MD Refill [id number]-9897-3hxs0u0e4s00 05/17/2014 05/17/2014 Alfredo Palomares MD Refill [id number]-i9izl1zoo21g 05/17/2014 05/17/2014 Alfredo Palomares MD Refill eeiju22l-17s4-46w5-xu2p-9x40g3t00143 05/17/2014 05/17/2014 Alfredo Palomares MD Refill [id number] 05/17/2014 05/17/2014 Alfredo Palomares MD Refill [id number]-39k9-7n0v-smxg-idi971c13qdd 05/17/2014 05/17/2014 Alfredo Palomares MD Refill [id number] 05/17/2014 05/17/2014 Alfredo Palomares MD Refill [id number]-4870-cpl4-cdrldkms0hqs 05/17/2014 05/17/2014 Alfredo Palomares MD 6M f/u t8378q4u-h95f-8524-frf6-7d426cn79n09 09/30/2014 09/30/2014 Alfredo Palomares MD 6M f/u 632120m0-2982-7z9y-88c7-96877g8o8oh9 09/30/2014 09/30/2014 Alfredo Palomares MD 6M f/u [id number]-h078568802sg 09/30/2014 09/30/2014 Alfredo Palomares MD f/u 566e1357-3xw2-0vjr-hi98-9092tqm5g4u6 09/30/2014 09/30/2014 Alfredo Palomares MD f/u l2f08q42-813v-9747-i4e6-1mb69p91152v 09/30/2014 09/30/2014 Alfredo Palomares MD f/u 6hh10jo5-875i-03g1-003x-040mo10658k5 09/30/2014 09/30/2014 Alfredo Palomares MD f/u xebd5773-k273-4no0-tl92-o8862cj51k71 09/30/2014 09/30/2014 Alfredo Palomares MD 6M f/u 227g020a-5t02-8e43-p435-v6u7936968c0 09/30/2014 09/30/2014 Alfredo Palomares MD 6M f/u s9ln90qt-o6d7-41f2-284h-ag94t7c63164 09/30/2014 09/30/2014 Alfredo Palomares MD 6M f/u 4w50c05b-4485-32g3-k8b6-x3qmt25j9501 09/30/2014 09/30/2014 Alfredo Palomares MD 6M f/u 701r6o85-7y07-0t87-jvk9-dd88994u3iei 09/30/2014 09/30/2014 Alfredo Palomares MD 6M f/u h32z99b7-l7w8-98fv-b887-429b88pq4834 09/30/2014 09/30/2014 Alfredo Palomares MD 6M f/u 838t63u5-5608-4a05-kka4-xab942924l7v 09/30/2014 09/30/2014 Alfredo Palomares MD 6M f/u om684796-ql8l-2l98-48q0-755983v9nz2h 09/30/2014 09/30/2014 Alfredo Palomares MD 6M f/u l221o2w9-05rp-9p41-ip69-vydc2o3j23hr 09/30/2014 09/30/2014 Alfredo Palomares MD 6M f/u 32nh65l6-pe36-5bno-3y66-055cg1ht2228 09/30/2014 09/30/2014 Alfredo Palomares MD 6M f/u xl2021f1-47l7-796b-4yy5-26293f25x3t8 09/30/2014 09/30/2014 Alfredo Palomares MD 6M f/u 9z82fxk6-l121-509s-53y1-5877g53y2070 09/30/2014 09/30/2014 Alfredo Palomares MD 6M f/u wcn5s84u-1h25-6vuz-arg4-9b6a7dp0j725 09/30/2014 09/30/2014 Alfredo Palomares MD 6M f/u u7mcp75j-4bv4-368t-b4er-275gh17r4x08 09/30/2014 09/30/2014 Alfredo Palomares MD 6M f/u 70t6eh33-l63b-2e4u-6765-o58w0268r379 09/30/2014 09/30/2014 Alfredo Palomares MD 6M f/u [id number]-t2i8-69au-5957-26o9776x53zu 09/30/2014 09/30/2014 Alfredo Palomares MD 6M f/u vp414u57-08h6-5a07-455l-8a9v6s452bj5 09/30/2014 09/30/2014 Alfredo Palomares MD 6M f/u 1845h8fj-7372-1574-364g-dew348owao59 09/30/2014 09/30/2014 Alfredo Palomares MD 6M f/u 41tf568e-90vs-6q09-vcb4-zb0ec187r435 09/30/2014 09/30/2014 Alfredo Palomares MD Unknown [id number] 09/30/2014 09/30/2014 Alfredo Palomares MD Unknown [id number]-v8pmhzp3r122 09/30/2014 09/30/2014 Alfredo Palomares MD Unknown 232lohd4-m2w5-520h-40d0-7o3j474s21q6 09/30/2014 09/30/2014 Alfredo Palomares MD Unknown [id number]-[id number]-e9m2t8yi0dsb 09/30/2014 09/30/2014 Alfredo Palomares MD Unknown [id number] 09/30/2014 09/30/2014 Alfredo Palomares MD Unknown p9y3j3r9-1du8-3214-zc0s-1k3g2k20x119 09/30/2014 09/30/2014 Alfredo Palomares MD Unknown 96cs0l34-f938-6ejf-dy05-5p3q9yj4gx45 09/30/2014 09/30/2014 Alfredo Palomares MD Unknown [id number]-7c41-j880-c281rhf5f7g2 09/30/2014 09/30/2014 Alfredo Palomares MD Unknown [id number] 09/30/2014 09/30/2014 Alfredo Palomares MD Unknown [id number]-t6i98rk53c85 09/30/2014 09/30/2014 Alfredo Palomares MD Unknown [id number] 09/30/2014 09/30/2014 Alfredo Palomares MD Unknown [id number] 09/30/2014 09/30/2014 Alfredo Palomares MD Unknown [id number] 09/30/2014 09/30/2014 Alfredo Palomares MD Unknown [id number] 09/30/2014 09/30/2014 Alfredo Palomares MD Unknown [id number] 09/30/2014 09/30/2014 Alfredo Palomares MD Unknown [id number] 09/30/2014 09/30/2014 Alfredo Palomares MD Unknown [id number] 09/30/2014 09/30/2014 Alfredo Palomares MD Unknown [id number] 09/30/2014 09/30/2014 Alfredo Palomares MD Unknown [id number] 09/30/2014 09/30/2014 Alfredo Palomares MD Unknown [id number] 09/30/2014 09/30/2014 Alfredo Palomares MD Unknown [id number] 09/30/2014 09/30/2014 Alfredo Palomares MD Unknown [id number] 09/30/2014 09/30/2014 Alfredo Palomares MD Unknown [id number] 09/30/2014 09/30/2014 Alfredo Palomares MD Unknown [id number] 09/30/2014 09/30/2014 Alfredo Palomares MD Unknown [id number] 09/30/2014 09/30/2014 Alfredo Palomares MD Unknown [id number] 09/30/2014 09/30/2014 Alfredo Palomares MD Refill- Plaquenil [id number] 10/11/2014 10/11/2014 Alfredo Palomares MD Refill- Plaquenil [id number] 10/11/2014 10/11/2014 Alfredo Palomares MD Refill- Plaquenil [id number] 10/11/2014 10/11/2014 Alfredo Palomares MD Refill- Plaquenil [id number] 10/11/2014 10/11/2014 Alfredo Palomares MD Refill- Plaquenil [id number] 10/11/2014 10/11/2014 Alfredo Palomares MD Refill- Plaquenil [id number]-[id number] 10/11/2014 10/11/2014 Alfredo Palomares MD Refill- Plaquenil [id number] 10/11/2014 10/11/2014 Alfredo Palomares MD Refill- Plaquenil [id number] 10/11/2014 10/11/2014 Alfredo Palomares MD Refill- Plaquenil [id number] 10/11/2014 10/11/2014 Alfredo Palomares MD Refill- Plaquenil [id number] 10/11/2014 10/11/2014 Alfredo Palomares MD Refill- Plaquenil [id number] 10/11/2014 10/11/2014 Alfredo Palomares MD Refill- Plaquenil [id number] 10/11/2014 10/11/2014 Alfredo Palomares MD Refill- Plaquenil [id number] 10/11/2014 10/11/2014 Alfredo Palomares MD Refill- Plaquenil [id number] 10/11/2014 10/11/2014 Alfredo Palomares MD Refill- Plaquenil [id number] 10/11/2014 10/11/2014 Alfredo Palomares MD Refill- Plaquenil [id number] 10/11/2014 10/11/2014 Alfredo Palomares MD Refill- Plaquenil [id number] 10/11/2014 10/11/2014 Alfredo Palomares MD Refill- Plaquenil [id number] 10/11/2014 10/11/2014 Alfredo Palomares MD Refill- Plaquenil [id number] 10/11/2014 10/11/2014 Alfredo Palomares MD Refill- Plaquenil [id number] 10/11/2014 10/11/2014 Alfredo Palomares MD Refill- Plaquenil [id number]-[id number] 10/11/2014 10/11/2014 Alfredo Palomares MD Refill- Plaquenil [id number]-td1z79p75w01 10/11/2014 10/11/2014 Alfredo Palomares MD Refill- Plaquenil [id number] 10/11/2014 10/11/2014 Alfredo Palomares MD Refill- Plaquenil [id number] 10/11/2014 10/11/2014 Alfredo Palomares MD Refill- Plaquenil [id number] 10/11/2014 10/11/2014 Alfredo Palomares MD Unknown [id number] 10/21/2014 10/21/2014 Alfredo Palomares MD Unknown [id number] 10/21/2014 10/21/2014 Alfredo Palomares MD Unknown [id number] 10/21/2014 10/21/2014 Alfredo Palomares MD Unknown [id number] 10/21/2014 10/21/2014 Alfredo Palomares MD Unknown [id number] 10/21/2014 10/21/2014 Alfredo Palomares MD Unknown [id number] 10/21/2014 10/21/2014 Alfredo Plaomares MD Unknown [id number] 10/21/2014 10/21/2014 Alfredo Palomares MD Unknown [id number] 10/21/2014 10/21/2014 Alfredo Palomares MD Unknown [id number] 10/21/2014 10/21/2014 Alfredo Palomares MD Unknown [id number] 10/21/2014 10/21/2014 Alfredo Palomares MD Unknown [id number] 10/21/2014 10/21/2014 Alfredo Palomares MD Unknown [id number] 10/21/2014 10/21/2014 Alfredo Palomares MD Unknown [id number] 10/21/2014 10/21/2014 Alfredo Palomares MD Unknown [id number] 10/21/2014 10/21/2014 Alfredo Palomares MD Unknown [id number] 10/21/2014 10/21/2014 Alfredo Palomares MD Unknown [id number] 10/21/2014 10/21/2014 Alfredo Palomares MD Unknown [id number] 10/21/2014 10/21/2014 Alfredo Palomares MD Unknown [id number] 10/21/2014 10/21/2014 Alfredo Palomares MD Unknown [id number] 10/21/2014 10/21/2014 Alfredo Palomares MD Unknown [id number] 10/21/2014 10/21/2014 Alfredo Palomares MD Unknown [id number] 10/21/2014 10/21/2014 Alfredo Palomares MD Unknown [id number] 10/21/2014 10/21/2014 Alfredo Palomares MD Unknown [id number] 10/21/2014 10/21/2014 Alfredo Palomares MD Unknown [id number] 10/21/2014 10/21/2014 Alfredo Palomares MD Unknown [id number] 10/21/2014 10/21/2014 Alfredo Palmoares MD [facility] 3b0z9q5i-8618-08zp-dh1q-0r917f4t0alf 01/03/2015 01/03/2015 Alfredo Palomares MD [facility] j268qx6x-00cl-03qv-dp29-8y0533kzo323 01/03/2015 01/03/2015 Alfredo Palomares MD [facility] 23kkv861-ab7o-60t9-x3hs-2p79l598uu30 01/03/2015 01/03/2015 Alfredo Palomares MD [facility] [id number]-35wb-93it-985q-5wll54216878 01/03/2015 01/03/2015 Alfredo Palomares MD [facility] 6bp1k4sw-9ga2-3x4y-826s-2e7i0j1h51k0 01/03/2015 01/03/2015 Alfredo Palomares MD [facility] 2v4h81t3-5726-9h70-6g12-62v17q875xrm 01/03/2015 01/03/2015 Alfredo Palomares MD [facility] j04yqt67-u82n-4p94-ea77-4n409q6734m0 01/03/2015 01/03/2015 Alfredo Palomares MD [facility] 4h622e17-n612-9281-oed1-2jva586u6w41 01/03/2015 01/03/2015 Alfredo Palomares MD [facility] 076t6164-uca0-210f-f854-v6jo9pht328e 01/03/2015 01/03/2015 Alfredo Palomares MD [facility] 6z74yf37-7289-1774-yad0-sc057365h04q 01/03/2015 01/03/2015 Alfredo Palomares MD [facility] 2e46z886-v1mi-722z-7qmo-65k20x60iv89 01/03/2015 01/03/2015 Alfredo Palomares MD [facility] 5n6xk582-l1kw-9eu0-4278-832w37iawwm3 01/03/2015 01/03/2015 Alfredo Palomares MD [facility] g960w6n4-j52q-99f9-v5rt-lcy66bm626n0 01/03/2015 01/03/2015 Alfredo Palomares MD [facility] 2858594s-bz91-77kl-56ws-9z7810lo11ek 01/03/2015 01/03/2015 Alfredo Palomares MD [facility] 0yuj4jj8-h942-9j04-t4ps-91uff591w6g6 01/03/2015 01/03/2015 Alfredo Palomares MD [facility] 1k610j0u-j09a-1344-n040-6475k2555721 01/03/2015 01/03/2015 Alfredo Palomares MD [facility] fa31j2ht-0i41-66ww-g418-e82t60l265n1 01/03/2015 01/03/2015 Alfredo Palomares MD [facility] 97oq58qn-6g5v-80z5-6e8t-50fj9310p0zx 01/03/2015 01/03/2015 Alfredo Palomares MD [facility] 45t3ne3g-9fqr-264j-946t-a93o52b76dy8 01/03/2015 01/03/2015 Alfredo Palomares MD [facility] 9076307g-429d-815z-s2o3-988486009xr0 01/03/2015 01/03/2015 Alfredo Palomares MD [facility] 928y90ir-1010-572o-3407-84ry6347551d 01/03/2015 01/03/2015 Alfredo Palomares MD [facility] 68677t8j-a01m-53i6-9f24-9mvqe8q9n4gr 01/03/2015 01/03/2015 Alfredo Palomares MD [facility] 0ull221s-6025-09pg-99k2-9m06085s4419 01/03/2015 01/03/2015 Alfredo Palomares MD [facility] el1p954p-c77v-99j6-26np-54e896230745 01/03/2015 01/03/2015 Alfredo Palomares MD [facility] 3j6a2rl2-3bc8-4x74-qps6-7hx10851r1e0 01/03/2015 01/03/2015 Alfredo Palomares MD Unknown [id number]-98gr-j3m3-ms2y3g24e885 03/30/2015 03/30/2015 Alfredo Paloamres MD Unknown [id number] 03/30/2015 03/30/2015 Alfredo Palomares MD Unknown [id number]-h40xe1511k5f 03/30/2015 03/30/2015 Alfredo Palomares MD Unknown [id number] 03/30/2015 03/30/2015 Alfredo Palomares MD Unknown [id number] 03/30/2015 03/30/2015 Alfredo Palomares MD Unknown [id number] 03/30/2015 03/30/2015 Alfredo Palomares MD Unknown [id number] 03/30/2015 03/30/2015 Alfredo Palomares MD Unknown [id number] 03/30/2015 03/30/2015 Alfredo Palomares MD Unknown [id number] 03/30/2015 03/30/2015 Alfredo Palomares MD Unknown [id number] 03/30/2015 03/30/2015 Alfredo Palomares MD Unknown [id number]-hg72-022j4e620m1h 03/30/2015 03/30/2015 Alfredo Palomares MD Unknown [id number]-[id number] 03/30/2015 03/30/2015 Alfredo Palomares MD Unknown [id number] 03/30/2015 03/30/2015 Alfredo Palomares MD Unknown [id number] 03/30/2015 03/30/2015 Alfredo Palomares MD Unknown [id number] 03/30/2015 03/30/2015 Alfredo Palomares MD Unknown [id number] 03/30/2015 03/30/2015 Alfredo Palomares MD Unknown [id number] 03/30/2015 03/30/2015 Alfredo Palomares MD Unknown [id number] 03/30/2015 03/30/2015 Alfredo Palomares MD Unknown [id number] 03/30/2015 03/30/2015 Alfredo Palomares MD Unknown [id number] 03/30/2015 03/30/2015 Alfredo Palomares MD Unknown [id number] 03/30/2015 03/30/2015 Alfredo Palomares MD Unknown [id number] 03/30/2015 03/30/2015 Alfredo Palomares MD Unknown [id number] 03/30/2015 03/30/2015 Alfredo Palomares MD Unknown [id number] 03/30/2015 03/30/2015 Alfredo Palomares MD 6M f/u [id number]-[id number] 04/12/2015 04/12/2015 Alfredo Palomares MD 6M f/u 5q72253w-9mh1-03h2-xg4t-61l3267726sw 04/12/2015 04/12/2015 Alfredo Palomares MD 6M f/u d840fv3j-941o-51od-4iv9-89983sz5077l 04/12/2015 04/12/2015 Alfredo Palomares MD 6M f/u 4038r600-006k-4475-8j57-5a41v58k98w8 04/12/2015 04/12/2015 Alfredo Palomares MD 6M f/u sd2dlue5-x9o1-1fa8-47y7-0605y1h0717j 04/12/2015 04/12/2015 Alfredo Palomares MD 6M f/u 5n9s8zkz-4k0r-1172-e6mn-yt7sa2v0wd42 04/12/2015 04/12/2015 Alfredo Palomares MD 6M f/u jg81037p-6bi5-669m-n44r-2112ld207jbz 04/12/2015 04/12/2015 Alfredo Palomares MD 6M f/u wie89ao2-4kp9-074l-c858-698131jlv113 04/12/2015 04/12/2015 Alfredo Palomares MD 6M f/u 7z56464p-kb61-6623-8m4f-n9c4u3563147 04/12/2015 04/12/2015 Alfredo Palomares MD 6M f/u tv2y4065-jzv5-59b7-fwpu-i72y1r00nh01 04/12/2015 04/12/2015 Alfredo Palomares MD 6M f/u 7h91t44k-49y1-3221-4364-l1yso6a6m83g 04/12/2015 04/12/2015 Alfredo Palomares MD 6M f/u 762t2y89-1fi4-11u4-u2gz-3i7463045v5l 04/12/2015 04/12/2015 Alfredo Palomares MD 6M f/u d4o0j718-30j7-8696-7r09-lu050ahd3pw4 04/12/2015 04/12/2015 Alfredo Palomares MD 6M f/u fza3k0kk-ou90-8x50-q0lg-15733o3ksr73 04/12/2015 04/12/2015 Alfredo Palomares MD 6M f/u 7961w0p3-c673-9r76-a115-5et1n331468m 04/12/2015 04/12/2015 Alfredo Palomares MD 6M f/u 47374vxp-7c6s-9ib4-o903-146gtfl9i2k0 04/12/2015 04/12/2015 Alfredo Palomares MD 6M f/u i8r75969-8t6i-0q99-d4xv-b563q72s5109 04/12/2015 04/12/2015 Alfredo Palomares MD 6M f/u u1mk3b94-s1dk-9u64-bj90-4070di3m2sj4 04/12/2015 04/12/2015 Alfredo Palomares MD 6M f/u 756o1kt0-k92s-6135-k72j-4fk0af0ld8tv 04/12/2015 04/12/2015 Alfredo Palomares MD 6M f/u 3p549kbt-8a71-894l-c4w1-7m4cbph47510 04/12/2015 04/12/2015 Alfredo Palomares MD 6M f/u 7uo89950-9z0k-0839-o21p-6ii7a3u9132v 04/12/2015 04/12/2015 Alfredo Palomares MD 6M f/u 8n71v973-0q28-1hyk-3923-55q605ds361w 04/12/2015 04/12/2015 Alfredo Palomares MD [facility] fhn79u7i-343t-212i-242a-6922o87569bp 04/15/2015 04/15/2015 Alfredo Palomares MD [facility] [id number]-c1ab-6x2x-2487-4g4z627l2c09 04/15/2015 04/15/2015 Alfredo Palomares MD [facility] y3j8g341-8dq8-227t-7212-ii1w647483i3 04/15/2015 04/15/2015 Alfredo Palomares MD [facility] [id number]-[id number] 04/15/2015 04/15/2015 Alfredo Palomares MD [facility] w1z90y7x-a8c0-96f9-g03l-pwf8t7105ije 04/15/2015 04/15/2015 Alfredo Palomares MD [facility] b9c629yv-e7e0-6052-3x96-v103mf2qe1ai 04/15/2015 04/15/2015 Alfredo Palomares MD [facility] ly24lu74-021t-7741-m2r8-26ej0479j7n7 04/15/2015 04/15/2015 Alfredo Palomares MD [facility] 5762h79q-e2yr-55m5-6wqj-046233pubn91 04/15/2015 04/15/2015 Alfredo Palomares MD [facility] 52t71t6l-3593-6527-px5a-7c4h45435frw 04/15/2015 04/15/2015 Alfredo Palomares MD med [id number]-asep-r8dnrt09151c 04/15/2015 04/15/2015 Alfredo Palomares MD [facility] [id number]wofd41w1 04/15/2015 04/15/2015 Alfredo Palomares MD [facility] e240134g-e826-8324-ui11-008jhwv7269s 04/15/2015 04/15/2015 Alfredo Palomares MD [facility] [id number]-bf67-371v-8z9y-0s57nn069697 04/15/2015 04/15/2015 Alfredo Palomares MD [facility] 1n1cx6g9-y429-1555-8r84-0f9t59j1b2zb 04/15/2015 04/15/2015 Alfredo Palomares MD [facility] g5l34kip-p0z4-6725-q045-e99230e6784f 04/15/2015 04/15/2015 Alfredo Palomares MD [facility] s92b3p2f-j4z2-6k98-r396-7yz6132rt89z 04/15/2015 04/15/2015 Alfredo Palomares MD [facility] [id number]-02l9-rl5r678734cf 04/15/2015 04/15/2015 Alfredo Palomares MD [facility] [id number]-ce4f-2l49-25yq-n38i36142n8c 04/15/2015 04/15/2015 Alfredo Palomares MD [facility] 9ktr3483-4786-2p49-c62s-5603s63ik978 04/15/2015 04/15/2015 Alfredo Palomares MD med [id number]-nv8r-54cqtb79q29j 04/15/2015 04/15/2015 Alfredo Palomares MD [facility] u9639zj8-890p-98me-59h5-65ag1jg515n3 04/15/2015 04/15/2015 Alfredo Palomares MD [facility] 5v04f992-0k9y-2gm4-j3y2-0imah2lfbh66 04/15/2015 04/15/2015 Alfredo Palomares MD [facility] q4140q2h-c089-9411-njb1-7771on36ci43 04/15/2015 04/15/2015 Alfredo Palomares [facility] Outpatient [id number] Marta Jcf 05/10/2015 05/11/2015 [facility] Yony Palomares MD refill [id number]-3g80xb72643w 05/16/2015 05/16/2015 Alfredo Palomares MD refill [id number]-l4b6-gts0488ypjb3 05/16/2015 05/16/2015 Alfredo Palomares MD refill 157m7t6p-ol96-17ch-e1fe-12793btq479q 05/16/2015 05/16/2015 Alfredo Palomares MD refill [id number]-6w71-209w-3094zp3ke03i 05/16/2015 05/16/2015 Alfredo Palomares MD refill 869sj8l5-4pq8-06i1-5fa3-un570710n4p0 05/16/2015 05/16/2015 Alfredo Palomares MD refill [id number]-hn95-30dw-o5p5-98iw92m13454 05/16/2015 05/16/2015 Alfredo Palomares MD refill [id number]-[id number]-h3q8-7635814499k3 05/16/2015 05/16/2015 Alfredo Palomares MD refill 34x04m23-sfyx-6u3q-7c86-0h49u9084892 05/16/2015 05/16/2015 Alfredo Palomares MD refill [id number]-3i42-3336-09c0-i7y9828d8xdp 05/16/2015 05/16/2015 Alfredo Palomares MD refill 476g906o-8l5s-370r-499j-bftbt51qkcj3 05/16/2015 05/16/2015 Alfredo Palomares MD refill 311n1mct-039t-6644-590p-22xjr29wlp45 05/16/2015 05/16/2015 Alfredo Palomares MD refill o0e1ywc7-8pi0-0v6b-snn2-iido3151169s 05/16/2015 05/16/2015 Alfredo Palomares MD refill 8h4wk8j2-39p6-84g9-49x7-912gr7iub96t 05/16/2015 05/16/2015 Alfredo Palomares MD refill o9ejt4q5-22ls-141n-lxi7-1964p6w7336p 05/16/2015 05/16/2015 Alfredo Palomares MD refill [id number]-aebi-9579-g4lr-z27yv098983y 05/16/2015 05/16/2015 Alfredo Palomares MD refill [id number] 05/16/2015 05/16/2015 Alfredo Palomares MD refill [id number]-u2hx-2483-971t-2dil38c14004 05/16/2015 05/16/2015 Alfredo Palomares MD refill [id number]-98yd-b5bv-n3v5g2c87102 05/16/2015 05/16/2015 Alfredo Palomares MD refill [id number] 05/16/2015 05/16/2015 Alfredo Palomares MD refill [id number]-srz8-i1o3301b3x7w 05/16/2015 05/16/2015 Alfredo Palomares MD refill 8pp4c4y0-7a9z-3x38-x04o-3r7y2vcl147b 05/16/2015 05/16/2015 Alfredo Palomares MD [facility] p8tt04a5-m417-0u13-sa4n-e1l3399216bv 05/27/2015 05/27/2015 Alfredo Palomares MD [facility] jwfemh63-18k9-136l-d4yh-2f14h6k8c517 05/27/2015 05/27/2015 Alfredo Palomares MD [facility] 85xm1l48-x786-4160-5548-k46027rxje5a 05/27/2015 05/27/2015 Alfredo Palomares MD [facility] m66sr3xt-2110-2a56-20py-46d1yn4xc891 05/27/2015 05/27/2015 Alfredo Palomares MD [facility] 93782ybq-5231-60i8-q2v9-63354gq62ja2 05/27/2015 05/27/2015 Alfredo Palomares MD [facility] o42gl216-gr1p-2jug-ge73-w65z6862154t 05/27/2015 05/27/2015 Alfredo Palomares MD [facility] 44g06utl-j361-0m97-1i21-6q6a52u1xpr4 05/27/2015 05/27/2015 Alfredo Palomares MD [facility] [id number]-f8r1jm4295v7 05/27/2015 05/27/2015 Alfredo Palomares MD [facility]IL yo7k96fs-8919-80y3-5791-g1893se92b75 05/27/2015 05/27/2015 Alfredo Palomares MD [facility] hs0rlg0s-ha9m-8h1w-8b33-6z6p8vzo0206 05/27/2015 05/27/2015 Alfredo Palomares MD [facility]QU[facility]JAIRA ij9o80vz-xr9p-24l0-p59d-pk03416p0nes 05/27/2015 05/27/2015 Alfredo Palomares MD [facility] ee20u27t-8083-98gx-ga64-g1l5y749s6zs 05/27/2015 05/27/2015 MD JONAH June 3nt0r8sn-5786-6751-7xb3-5u9m7u572fti 05/27/2015 05/27/2015 Alfredo Palomares MD PLAQUYAJAIRA [id number] 05/27/2015 05/27/2015 Alfredo Palomares MD [facility]IRA lrr38542-s7d5-370s-re82-0e47511n17oz 05/27/2015 05/27/2015 Alfredo Palomares MD [facility] [id number]-15j3-82580779h154 05/27/2015 05/27/2015 Alfredo Palomares MD [facility] [id number]-m075-71b7-62jq-hs8n53e9ee1r 05/27/2015 05/27/2015 Alfredo Palomares MD PLAQUYAJAIRA [id number]-94xs-416f-h771y1540435 05/27/2015 05/27/2015 Alfredo Palomares MD [facility] 86azu695-e4ee-4vkx-v824-3c6y30q0hnw1 05/27/2015 05/27/2015 Alfredo Palomares MD [facility] [id number]-kl40-3a94-1384-9m814uv1xm60 05/27/2015 05/27/2015 Alfredo Palomares MD Call from Dr Mcelroy [id number]-t063-q36jm3tg9412 06/02/2015 06/02/2015 Alfredo Palomares MD Call from Dr Mcelroy 62284s07-257x-9089-o24l-5o097jzo9bx0 06/02/2015 06/02/2015 Alfredo Palomares MD Call from Dr Mcelroy 562di1s9-704e-18nl-597c-jm4i03099o36 06/02/2015 06/02/2015 Alfredo Palomares MD Call from Dr Mcelroy 89enf5q3-l7mi-7vk6-6356-6234536om084 06/02/2015 06/02/2015 Alfredo Palomares MD Call from Dr Mcelroy [id number]h3u22yl9a 06/02/2015 06/02/2015 Alfredo Palomares MD Call from Dr Mcelroy 164d3xre-084t-58zc-i4ej-28x92644q2i3 06/02/2015 06/02/2015 Alfredo Palomares MD Call from Dr Mcelroy [id number]-g098-58v5-xvs3-r160wd30j3pv 06/02/2015 06/02/2015 Alfredo Palomares MD Call from Dr Mcelroy [id number]-c634-52v7-7e49-aqh2m0mukn2u 06/02/2015 06/02/2015 Alfredo Palomares MD Call from Dr Mcelroy [id number]-qud6-6yh018f32e6n 06/02/2015 06/02/2015 Alfredo Palomares MD Call from Dr Mcelroy 830ltu93-0lia-01c8-g1zi-623x9e13b1pg 06/02/2015 06/02/2015 Alfredo Palomares MD Call from Dr Mcelroy 8cb9myl6-tjh3-1q03-c172-1a2969yk8h88 06/02/2015 06/02/2015 Alfredo Palomares MD Call from Dr Mcelroy 2l346m30-6761-7436-h57n-f813zaj3781q 06/02/2015 06/02/2015 Alfredo Palomares MD Call from Dr Mcelroy 6tte426u-er76-08t7-5k69-1344cv01s038 06/02/2015 06/02/2015 Alfredo Palomares MD Call from Dr Mcelroy 8mhlvtu2-975o-54b5-w50e-1i50qh185758 06/02/2015 06/02/2015 Alfredo Palomares MD Call from Dr Mcelroy 1x79qloa-6916-1866-79i6-330g15d7521i 06/02/2015 06/02/2015 Alfredo Palomares MD Call from Dr Mcelroy 2d4bt165-893r-3k65-qq65-6y5o9d962138 06/02/2015 06/02/2015 Alfredo Palomares MD Call from Dr Mcelroy 8o5v890d-6a67-17t4-ny3g-ob461j7d2995 06/02/2015 06/02/2015 Alfredo Palomares MD Call from Dr Mcelroy 7p7986i6-ugp1-3268-2x0y-t6k5wevt8798 06/02/2015 06/02/2015 Alfredo Palomares MD Call from Dr Mcelroy 449x771p-yv11-0m4k-9wo8-095o4v0w9l98 06/02/2015 06/02/2015 Alfredo Palomares MD Call from Dr Mcelroy 7i5gj397-5x51-537j-5506-82vn94x19klg 06/02/2015 06/02/2015 Alfredo Palomares MD rx resent bz170l7e-80z5-63t6-zfsw-j98901yc4pz9 06/02/2015 06/02/2015 Alfredo Palomares MD rx resent [id number]-648i-6uj8-md5a21p4d9l6 06/02/2015 06/02/2015 Alfredo Palomares MD rx resent [id number]-jd02-9686-b915-1ps91ahp3om0 06/02/2015 06/02/2015 Aflredo Palomares MD rx resent [id number]-sj04-m52o8q4ccy7u 06/02/2015 06/02/2015 Alfredo Palomares MD rx resent [id number]-n898-7kc8ov4n13s0 06/02/2015 06/02/2015 Alfredo Palomares MD rx resent [id number]-[id number] 06/02/2015 06/02/2015 Alfredo Palomares MD rx resent [id number]-t6d8-2170988c2bk4 06/02/2015 06/02/2015 Alfredo Palomares MD rx resent [id number]-95z2-k3b4-99xq3dt92l41 06/02/2015 06/02/2015 Alfredo Palomares MD rx resent [id number] 06/02/2015 06/02/2015 Alfredo Palomares MD rx resent 53duznk2-z523-9537-x47x-0jcy731x31h8 06/02/2015 06/02/2015 Alfredo Palomares MD rx resent [id number]-kz6r8ld34365 06/02/2015 06/02/2015 Alfredo Palomares MD rx resent [id number]-[id number] 06/02/2015 06/02/2015 Alfredo Palomares MD rx resent [id number]-5d2i-57v5-m03r109602ux 06/02/2015 06/02/2015 Alfredo Palomares MD rx resent [id number]-3440-a858k030l9sl 06/02/2015 06/02/2015 Alfredo Palomares MD rx resent [id number]-[id number] 06/02/2015 06/02/2015 Alfredo Palomares MD rx resent [id number] 06/02/2015 06/02/2015 Alfredo Palomares MD rx resent [id number]-[id number] 06/02/2015 06/02/2015 Alfredo Palomares MD rx resent [id number]-m1k5-6s71-t166-3xk0d44c398m 06/02/2015 06/02/2015 Alfredo Palomares MD rx resent [id number]-[id number]-l77yy6g7vfb9 06/02/2015 06/02/2015 Alfredo Palomares MD rx resent [id number] 06/02/2015 06/02/2015 Alfredo Palomares MD Refill Req Plaquenil [id number]-f3ho-[id number] 08/09/2015 08/09/2015 Alfredo Palomares MD Refill Req Plaquenil [id number]-91ra-b9f1-6q6693av04rx 08/09/2015 08/09/2015 Alfredo Palomares MD Refill Req Plaquenil zs7ypw5m-[id number]-ra9q-ge91w8145gy8 08/09/2015 08/09/2015 Alfredo Palomares MD Refill Req Plaquenil 34wej50n-o59o-195r-50ds-b21e83516ey5 08/09/2015 08/09/2015 Alfredo Palomares MD Refill Req Plaquenil ry2xcai1-718s-1278-9x31-30lb649pph91 08/09/2015 08/09/2015 Alfredo Palomares MD Refill Req Plaquenil x2ip7fkf-8o33-9l29-3l4u-591376736b3t 08/09/2015 08/09/2015 Alfredo Palomares MD Refill Req Plaquenil 97nte9mr-5pg0-7798-5112-91pk838647w2 08/09/2015 08/09/2015 Alfredo Palomares MD Refill Req Plaquenil 34lpldjk-0843-05qh-h91f-4md54t438585 08/09/2015 08/09/2015 Alfredo Palomares MD Refill Req Plaquenil o325gh18-30ws-8vvi-o5c4-339o54791k1a 08/09/2015 08/09/2015 Alfredo Palomares MD Refill Req Plaquenil 1r2c4h1x-96pa-159j-31pl-2244y3f98951 08/09/2015 08/09/2015 Alfredo Palomares MD Refill Req Plaquenil i1j3q7n9-juz8-996y-3079-r0157nlb575i 08/09/2015 08/09/2015 Alfredo Palomares MD Refill Req Plaquenil n5n825qc-32m1-83z2-3vy6-4227qgs18y84 08/09/2015 08/09/2015 Alfredo Palomares MD Refill Req Plaquenil 70xe2761-01v2-042g-44c5-pp75q6q640e9 08/09/2015 08/09/2015 Alfredo Palomares MD Refill Req Plaquenil w038i7u0-4z83-3f95-l736-egph4r9e88w9 08/09/2015 08/09/2015 Alfredo Palomares MD Refill Req Plaquenil 79k49335-708q-018e-n1m3-58xi1653d260 08/09/2015 08/09/2015 Alfredo Palomares MD Refill Req Plaquenil 4952758c-r49w-7w45-77a8-6962f87p5o99 08/09/2015 08/09/2015 Alfredo Palomares MD Refill Req Plaquenil v777s4d0-5932-6q94-r913-t1cun23co520 08/09/2015 08/09/2015 Alfredo Palomares MD Plaquenil Rx n5u74c5p-wx2c-31a9-i2l8-e5839f1npvv2 08/30/2015 08/30/2015 Alfredo Palomares MD Plaquenil Rx [id number]-7038-1yt9-6dbn8532w2yy 08/30/2015 08/30/2015 Alfredo Palomares MD Plaquenil Rx e61q5md7-7359-3vnk-gdrh-r78372t38546 08/30/2015 08/30/2015 Alfredo Palomares MD Plaquenil Rx [id number]-43w1-341q-1p53e8y49iix 08/30/2015 08/30/2015 Alfredo Palomares MD Plaquenil Rx 4399bb08-9a8w-9v8f-pg6o-a0kgn7143319 08/30/2015 08/30/2015 Alfredo Palomares MD Plaquenil Rx 2s89j5d2-1p84-7p72-tl74-539681ix85l7 08/30/2015 08/30/2015 Alfredo Palomares MD Plaquenil Rx z6i75omh-6sy3-49mc-876p-646864gyn3oi 08/30/2015 08/30/2015 Alfredo Palomares MD Plaquenil Rx 9564r33m-436e-8rd6-696h-v3643n5blq7d 08/30/2015 08/30/2015 Alfredo Palomares MD Plaquenil Rx [id number]-jw9y-1049-dumz-607a9axy51e2 08/30/2015 08/30/2015 Alfredo Palomares MD Plaquenil Rx e6216e16-735r-684c-ekyg-0uk364px1232 08/30/2015 08/30/2015 Alfredo Palomares MD Plaquenil Rx g1b101d8-zvk0-75m5-8b6y-0l3b0r26k4x5 08/30/2015 08/30/2015 Alfredo Palomares MD Plaquenil Rx 7q2n9o65-j48y-85u2-wm04-9n54to13411j 08/30/2015 08/30/2015 Alfredo Palomares MD Plaquenil Rx 69rw1zb2-22vk-2386-t883-31riv1d05968 08/30/2015 08/30/2015 Alfredo Palomares MD Plaquenil Rx 218p5kpg-68f0-6a61-0y37-w78vy5m8a781 08/30/2015 08/30/2015 Alfredo Palomares MD Plaquenil Rx 6x8b8v7g-859c-29mr-3i38-80o37w9l7jp2 08/30/2015 08/30/2015 Alfredo Palomares MD Plaquenil Rx i59792wr-p2rm-28q0-g2q3-539g9p626k4d 08/30/2015 08/30/2015 Alfredo Palomares MD FU 25v416j7-4pc9-1le6-yc43-d5994fbi9i00 10/13/2015 10/13/2015 Alfredo Palomares MD FU e711pufz-572e-1275-9c1e-l874hoj0oa3s 10/13/2015 10/13/2015 Alfredo Palomares MD FU mh4o97yd-v118-709f-6t75-uy154028j110 10/13/2015 10/13/2015 Alfredo Palomares MD 86509t0e-h5ib-7503-v60w-5my91895f15j 10/13/2015 10/13/2015 Alfredo Palomares MD FU 56zo50op-ah89-2001-udo9-b0x22b7j6hhf 10/13/2015 10/13/2015 Alfredo Palomares MD 4d1ga952-q217-5v13-875l-82n05s2svnta 10/13/2015 10/13/2015 Alfredo Palomares MD q211d142-h26j-6659-p91j-mih5049xn954 10/13/2015 10/13/2015 Alfredo Palomares MD 2uipe8n7-01w9-009f-j47s-rx9z39b54520 10/13/2015 10/13/2015 Alfredo Palomares MD 16q1x14r-d8y1-72zf-m295-r6pri76829u4 10/13/2015 10/13/2015 Alfredo Palomares MD 5t80bu05-901c-2onx-w509-518572tidnrj 10/13/2015 10/13/2015 Alfredo Palomares MD FU [id number]-j527-96w9-5bi4-3477e5h41r9n 10/13/2015 10/13/2015 Alfredo Palomares MD FU 7m0xh640-s2wy-9506-n5o0-mlh6t442b0me 10/13/2015 10/13/2015 Alfredo Palomares MD 334g2zo0-0841-716w-x4i8-740nqv8qq897 10/13/2015 10/13/2015 Alfredo Palomares MD 525vw034-r5rv-3xdl-e12q-8rfsj27pc50m 10/13/2015 10/13/2015 Alfredo Palomares MD 97sk54jm-l899-333j-8h65-b658a4234125 10/13/2015 10/13/2015 Alfredo Palomares MD HYDROXYCHLOROQUINE REFILL n929y07e-t08g-0ep6-56l6-9nx308a2to5v 12/29/2015 12/29/2015 Alfredo Palomares MD HYDROXYCHLOROQUINE REFILL 5699h2i5-1o9d-493t-35tc-8txys59c5671 12/29/2015 12/29/2015 Alfredo Palomares MD HYDROXYCHLOROQUINE REFILL m444464e-c206-9c67-26d9-f13d9q393r51 12/29/2015 12/29/2015 Alfredo Palomares MD HYDROXYCHLOROQUINE REFILL n69382h8-o9q1-079v-9e3n-3h6c5a3s3vxi 12/29/2015 12/29/2015 Alfredo Palomares MD HYDROXYCHLOROQUINE REFILL 6i9150v5-99c0-4674-y091-0pnwid649148 12/29/2015 12/29/2015 Alfredo Palomares MD HYDROXYCHLOROQUINE REFILL 803y4f21-tbe8-1p76-9d84-z279t00268b2 12/29/2015 12/29/2015 Alfredo Palomares MD HYDROXYCHLOROQUINE REFILL 29037hg1-4t18-7y73-16v6-80h88745h238 12/29/2015 12/29/2015 Alfredo Palomares MD HYDROXYCHLOROQUINE REFILL 06j2b0u7-3a85-5m6t-hr53-j664707rn098 12/29/2015 12/29/2015 Alfredo Palomares MD HYDROXYCHLOROQUINE REFILL 49126p00-9u93-7m4v-y00b-y6720f4t56yu 12/29/2015 12/29/2015 Alfredo Palomares MD HYDROXYCHLOROQUINE REFILL a5qjzg72-9193-0514-9552-9zyrh28x7801 12/29/2015 12/29/2015 Alfredo Palomares MD HYDROXYCHLOROQUINE REFILL 43x3vwk0-c392-7qa8-38kw-70343y41i84g 12/29/2015 12/29/2015 Alfredo Palomares MD HYDROXYCHLOROQUINE REFILL 2u54a945-45ww-2v2d-6022-666i89q410b4 12/29/2015 12/29/2015 Alfredo Palomares MD HYDROXYCHLOROQUINE REFILL 4k8n319p-o73a-88v6-307y-436o94f0630j 12/29/2015 12/29/2015 Alfredo Palomares MD HYDROXYCHLOROQUINE REFILL dl4e85gt-438y-40k3-4q23-l0d2sq010aiu 12/29/2015 12/29/2015 Alfredo Palomares MD refill- Hydroxychloroquine 65102n19-6jg6-74a9-e141-x1y836556i00 12/30/2015 12/30/2015 Alfredo Palomares MD refill- Hydroxychloroquine m684ure3-02mc-76n5-8w19-81p7404nj520 12/30/2015 12/30/2015 Alfredo Palomares MD refill- Hydroxychloroquine 3qmdtgx9-d113-0238-fav0-5or85bci21s4 12/30/2015 12/30/2015 Alfredo Palomares MD refill- Hydroxychloroquine 855686nk-2535-5f94-p527-d2mf37b9825f 12/30/2015 12/30/2015 Alfredo Palomares MD refill- Hydroxychloroquine joi1t445-6477-297a-2vdl-4cp8x008lprq 12/30/2015 12/30/2015 Alfredo Palomares MD refill- Hydroxychloroquine 0d96j89s-2t61-89b0-w766-882m5711l33q 12/30/2015 12/30/2015 Alfredo Palomares MD refill- Hydroxychloroquine 77o0htx4-0j26-675n-07rz-789160l19033 12/30/2015 12/30/2015 Alfredo Palomares MD refill- Hydroxychloroquine 47966940-1q12-1258-5779-62y864vo6b58 12/30/2015 12/30/2015 Alfredo Palomares MD refill- Hydroxychloroquine 499l9726-ty7v-4607-s5ny-97663t2md32m 12/30/2015 12/30/2015 Alfredo Palomares MD refill- Hydroxychloroquine l7v6f5dz-217d-9l29-4r5f-8mp9vu84tx2c 12/30/2015 12/30/2015 Alfredo Palomares MD refill- Hydroxychloroquine p041775z-21w9-19f2-223q-l4ui0991g6s3 12/30/2015 12/30/2015 Alfredo Palomares MD refill- Hydroxychloroquine 8225i95g-841p-8793-10un-h50f1op6zb71 12/30/2015 12/30/2015 Alfredo Palomares MD refill- Hydroxychloroquine h6g514k3-1405-6esy-14r8-0fa7779l9641 12/30/2015 12/30/2015 Alfredo Palomares MD Refill- Plaquenil 80t6xy0y-v3i1-3t91-1070-b00pw2wr8k5e 01/25/2016 01/25/2016 Alfredo Palomares MD Refill- Plaquenil 871v46sc-005x-60h0-ihua-b83i0g7swp66 01/25/2016 01/25/2016 Alfredo Palomares MD Refill- Plaquenil wl570688-5et0-6sr7-t083-45r323q63712 01/25/2016 01/25/2016 Alfredo Palomares MD Refill- Plaquenil [id number] 01/25/2016 01/25/2016 Alfredo Palomares MD Refill- Plaquenil [id number] 01/25/2016 01/25/2016 Alfredo Palomares MD Refill- Plaquenil [id number] 01/25/2016 01/25/2016 Alfredo Palomares MD Refill- Plaquenil [id number] 01/25/2016 01/25/2016 Alfredo Palomares MD Refill- Plaquenil [id number] 01/25/2016 01/25/2016 Alfredo Palomares MD Refill- Plaquenil [id number] 01/25/2016 01/25/2016 Alfredo Palomares MD Refill- Plaquenil [id number] 01/25/2016 01/25/2016 Alfredo Palomares MD Refill- Plaquenil [id number] 01/25/2016 01/25/2016 Alfredo Palomares MD Refill- Plaquenil [id number] 01/25/2016 01/25/2016 Alfredo Palomares MD low potassium [id number] 01/30/2016 01/30/2016 Alfredo Palomares MD low potassium [id number] 01/30/2016 01/30/2016 Alfredo Palomares MD low potassium [id number] 01/30/2016 01/30/2016 Alfredo Palomares MD low potassium [id number] 01/30/2016 01/30/2016 Alfredo Palomares MD low potassium [id number] 01/30/2016 01/30/2016 Alfredo Palomares MD low potassium [id number] 01/30/2016 01/30/2016 Alfredo Palomares MD low potassium [id number] 01/30/2016 01/30/2016 Alfredo Palomares MD low potassium [id number] 01/30/2016 01/30/2016 Alfredo Palomares MD low potassium [id number] 01/30/2016 01/30/2016 Alfredo Palomares MD low potassium [id number] 01/30/2016 01/30/2016 Alfredo Palomares MD low potassium [id number] 01/30/2016 01/30/2016 Alfredo Palomares MD Nitroglycerin Ointment [id number] 01/31/2016 01/31/2016 Alfredo Palomares MD Nitroglycerin Ointment [id number] 01/31/2016 01/31/2016 Alfredo Palomares MD Nitroglycerin Ointment [id number] 01/31/2016 01/31/2016 Alfredo Palomares MD Nitroglycerin Ointment [id number] 01/31/2016 01/31/2016 Alfredo Palomares MD Nitroglycerin Ointment [id number] 01/31/2016 01/31/2016 Alfredo Palomares MD Nitroglycerin Ointment [id number] 01/31/2016 01/31/2016 Alfredo Palomares MD Nitroglycerin Ointment [id number] 01/31/2016 01/31/2016 Alfredo Palomares MD Nitroglycerin Ointment [id number] 01/31/2016 01/31/2016 Alferdo Palomares MD Nitroglycerin Ointment [id number] 01/31/2016 01/31/2016 Alfredo Palomares MD Nitroglycerin Ointment [id number] 01/31/2016 01/31/2016 Alfredo Palomares MD 4 mth f/u [id number] 02/13/2016 02/13/2016 Alfredo Palomares MD 4 mth f/u [id number] 02/13/2016 02/13/2016 Alfredo Palomares MD Unknown [id number] 02/13/2016 02/13/2016 Alfredo Palomares MD Unknown [id number] 02/13/2016 02/13/2016 Alfredo Palomares MD Unknown [id number] 02/13/2016 02/13/2016 Alfredo Palomares MD 4 mth f/u [id number] 02/13/2016 02/13/2016 Alfredo Palomares MD 4 mth f/u [id number] 02/13/2016 02/13/2016 Alfredo Palomares MD 4 mth f/u [id number] 02/13/2016 02/13/2016 Alrfedo Palomares MD 4 mth f/u [id number] 02/13/2016 02/13/2016 Alfredo Palomares MD 4 mth f/u [id number] 02/13/2016 02/13/2016 Alfredo Palomares MD 4 mth f/u [id number] 02/13/2016 02/13/2016 Alfredo Palomares MD Unknown [id number] 02/13/2016 02/13/2016 Alfredo Palomares MD Unknown [id number] 02/13/2016 02/13/2016 Alfredo Palomares MD Unknown [id number] 02/13/2016 02/13/2016 Alfredo Palomares MD Unknown [id number] 02/13/2016 02/13/2016 Alfredo Palomares MD Unknown [id number] 02/13/2016 02/13/2016 Alfredo Palomares MD Unknown [id number] 02/13/2016 02/13/2016 Alfredo Palomares MD Right hip bursa inj [id number] 03/07/2016 03/07/2016 Alfredo Palomares MD Right hip bursa inj [id number] 03/07/2016 03/07/2016 Alfredo Palomares MD Right hip bursa inj [id number] 03/07/2016 03/07/2016 Alfredo Palomares MD Right hip bursa inj [id number] 03/07/2016 03/07/2016 Alfredo Palomares MD Right hip bursa inj [id number] 03/07/2016 03/07/2016 Alfredo Palomares MD Right hip bursa inj [id number] 03/07/2016 03/07/2016 Alfredo Palomares MD Right hip bursa inj [id number] 03/07/2016 03/07/2016 Alfredo Palomares MD LEFT hip bursa inj [id number] 03/14/2016 03/14/2016 Alfredo Palomares MD LEFT hip bursa inj [id number] 03/14/2016 03/14/2016 Alfredo Palomares MD LEFT hip bursa inj [id number] 03/14/2016 03/14/2016 Alfredo Palomares MD LEFT hip bursa inj [id number] 03/14/2016 03/14/2016 Alfredo Palomares MD LEFT hip bursa inj [id number] 03/14/2016 03/14/2016 Alfredo Palomares MD LEFT hip bursa inj [id number] 03/14/2016 03/14/2016 Alfredo Palomares MD RIGHT KNEE INJEC [id number] 03/26/2016 03/26/2016 Alfredo Palomares MD RIGHT KNEE INJEC [id number] 03/26/2016 03/26/2016 Alfredo Palomares MD RIGHT KNEE INJEC [id number] 03/26/2016 03/26/2016 Alfredo Palomares MD RIGHT KNEE INJEC [id number] 03/26/2016 03/26/2016 Alfredo Palomares MD RIGHT KNEE INJEC [id number] 03/26/2016 03/26/2016 Alfredo Palomares MD LEFT KNEE INJEC [id number] 04/03/2016 04/03/2016 Alfredo Palomares MD LEFT KNEE INJEC [id number] 04/03/2016 04/03/2016 Alfredo Palomares MD LEFT KNEE INJEC [id number] 04/03/2016 04/03/2016 Alfredo Palomares MD Pain in chest [id number] 04/11/2016 04/11/2016 Alfredo Palomares MD Pain in chest [id number] 04/11/2016 04/11/2016 Alfredo Palomares MD Pain in chest [id number] 04/11/2016 04/11/2016 Alfredo Palomares MD Pain in chest [id number] 04/11/2016 04/11/2016 Alfredo Palomares MD [facility] [id number] 04/27/2016 04/27/2016 Alfredo Palomares MD [facility] [id number] 04/27/2016 04/27/2016 Alfredo Palomares MD [facility] [id number] 05/01/2016 05/01/2016 Alfredo Palomares Procedures No Data Provided for This Section Assessment and Plan No Data Provided for This Section Plan of Care No Data Provided for This Section Social History Social History Date Source Social History ElementQualifiersDate Reported Tobacco Use: . Are you a:: former smoker , How long has it been since you last smoked?: 5-10 years Apr 03, 2016 Caffeine: yes. frequency:, 1-5 Apr 03, 2016 Exercise: no. Apr 03, 2016 Alcohol: no. Apr 03, 2016 Occupation: . Retired with disability. Apr 03, 2016 04/03/2016 Alfredo Palomares No data available for this section 05/11/2015 [facility] Family History No Data Provided for This Section Advance Directives No Data Provided for This Section Functional Status No Data Provided for This Section
--- OUTSIDE RECORDS SUMMARY | 2018-12-06 11:49 | XMS REPORT | Encounter Summary ---
Author Organization Unknown Address [address] [place] [address] Phone [phone] Care Team Providers Care Process Coach Name Role Phone Dr. Eric Russell 3 [phone] Armin Singh MD 2 [phone] Yessica Ferrell 62 [phone] Jairo Garcia MD 102 [phone] Ronn Lopes MD 105 [phone] Jose De Jesus lBanton MD 107 [phone] [facility] 111 [phone] Armin Little MD 114 [phone] Carleen Solis MD 124 [phone] Paulo Rowe MD 126 [phone] Jean-Claude Doty MD 130 [phone] Reason for Visit Left knee pain/problem Instructions 1. Pain in left knee 2. Tachycardia electrocardiogram 3. Insomnia 4. Anxiety 5. Benign essential hypertension Discussion Note: None recorded. Patient educational handouts: No information available. Plan of Care Reminders Provider Appointments Est Patient 02/10/2019 9:00AM Eric Alva MD Lab None recorded. Referral None recorded. Procedures None recorded. Surgeries None recorded. Imaging Electrocardiogram 11/10/2018 [facility] ([facility] [place] Medications Name Start Date acetaminophen 300 mg-codeine 30 mg tablet TAKE 1 TABLET BY MOUTH EVERY 8 HOURS NEEDED acyclovir 5 % topical ointment apply tid prn albuterol sulfate 2 mg tablet 2 tablets daily alprazolam 0.5 mg tablet Take 1 tablet every day by oral route as needed. amlodipine 2.5 mg tablet Take 1 tablet every day by oral route. bupropion HCl SR 150 mg tablet,12 hr sustained-release Take 1 tablet every day by oral [...] BMI Blood Pressure 5 ft 4.6 in 201.8 lbs 34 kg/m2 112/80 mm[Hg] Lab Results Date Name Specimen Result Interpretation Description Value Range Status Address Electrocardiogram No observation recorded. [facility] [place]: [address] [place] [address] Allergies Code Code System Name Reaction Severity Status Onset 3154 RxNorm Demeclocycline Active 06/24/2017 8640 RxNorm Prednisone Active 06/24/2017 Declomycin Active Problems Name Status Onset Date Source [...] Active 07/23/2018 Procedures Date Name Performed by 10/14/2018 Knee Surgery Information not available 05/13/2017 Other Information not available Appendectomy Information not available Knee Surgery Information not available Cholecystectomy (Gall Bladder Removal) Information not available Eye Surgery Information not available Hysterectomy (Partial) Information not available Gastrointestinal Surgery Information not available 11/10/2018 Electrocardiogram [facility] [place] [address] [place] [address] (Work Place) Vaccine List Vaccine Type Influenza, injectable, MDCK, preservative free, quadrivalent 01/31/20160.5 mL influenza, injectable, quadrivalent 01/28/2015 influenza, unspecified formulation 02/05/2017 02/10/2018 pneumococcal conjugate PCV 13 02/22/2017 Pneumococcal Conjugate, unspecified formulation 05/13/2014 Tdap 12/12/2015 zoster 02/11/2016 zoster subunit 10/15/20170.5 mL Social History Smoking Status Former Smoker (1 1/2 PPD) Past Encounters 11/10/2018 Pain in Left Knee; Tachycardia; Insomnia; Anxiety; Benign Essential Hypertension Eric Alva MD: [address] [place] [address], Ph. History of Present Illness Note:Left knee pain, s/p left knee replacement surgery on 10/14/18. Went to rehab from 10/17/09 through 10/29/18. Pain is worse with activity, intensity -02/19. Normal ROM. No signs of inflammation. Pt is receiving PT/OT at home twice per week.<div>HTN: BPs at home 110s/80s. HR 109-118s. </div> Review of Systems Comprehensive General Adult [...] Eyes: Lids and Conjunctivae: non-injected, no discharge Lungs: Auscultation: breath sounds normal Cardiovascular: Heart Auscultation: normal S1, normal S2, no murmurs, tachycardia Musculoskeletal:: Motor Strength and Tone: normal, normal tone. Joints, Bones, and Muscles: limited ROM, tenderness. Extremities: no edema Neurologic: Gait and Station: normal gait. Reflexes: DTRs 2+ bilaterally throughout Back: Thoracolumbar Appearance: ; Tenderness in the lumbar area with muscle spasms
--- OUTSIDE RECORDS SUMMARY | 2018-12-06 11:49 | XMS REPORT | Encounter Summary ---
Author Organization Unknown Address [address] [place] [address] Phone [phone] Care Team Providers Care Mop Man Name Role Phone Dr. Eric Russell 3 [phone] Armin Singh MD 2 [phone] Yessica Ferrell 62 [phone] Jairo Garcia MD 102 [phone] Ronn Lopes MD 105 [phone] Jose De Jesus Blanton MD 107 [phone] [facility] 111 [phone] Armin Little MD 114 [phone] Carleen Solis MD 124 [phone] Paulo Rowe MD 126 [phone] Jean-Claude Doty MD 130 [phone] Reason for Visit back pain; UTI Instructions 1. Urinary tract infectious disease urinalysis, dipstick culture, urine Macrobid 100 mg capsule unlisted lab - POC urinalysis, UA 2. Low back pain 3. History of left total knee replacement 4. Chronic obstructive lung disease Discussion Note: None recorded. Patient educational handouts: No information available. Plan of Care Patient Instructions take tylenol #3 q4-6 h for pain i.e regularly/call orthopedist re L knee symptoms to day Reminders Provider Appointments Est Patient 02/10/2019 9:00AM Eric Alva MD Lab Urinalysis, Dipstick 11/14/2018 [facility] ([facility] [place] Culture, Urine 11/14/2018 [facility] Laboratory Unlisted Lab 11/14/2018 [facility] Referral None recorded. Procedures None recorded. Surgeries None recorded. Imaging None recorded. Medications Name Start Date acetaminophen 300 mg-codeine 30 mg tablet TAKE 1 TABLET BY MOUTH EVERY 8 HOURS NEEDED acyclovir 5 % topical ointment apply tid prn alprazolam 0.5 mg tablet Take 1 tablet [...] 1 TABLET BY MOUTH EVERY DAY DIRECTED Macrobid 100 mg capsule Take 1 capsule every 12 hours by oral route for 7 days. methocarbamol 750 mg tablet montelukast 10 mg [...] BMI Blood Pressure 5 ft 4.6 in 97/76 mm[Hg] Lab Results Date Name Specimen Result Interpretation Description Value Range Status Address Urinalysis, Dipstick Color Color daniele [facility] ([facility] [place]: [address] [place] [address]., [place] Color Appearance hazy [facility] ([facility] [place]: [address] [place] [address] St., [place] Color Glucose negative [facility] ([facility] [place]: [address] [place] [address], [place] Color Bilirubin negative [facility] ([facility] [place]: [address] [place] [address]., [place] Color Ketones trace [facility] [place]: [address] [place] [address]., [place] Color Specific Beebe 1.030 [facility] [place]: [address] [place] Color Blood negative [facility] [place]: [address] [place] Color PH [address].5 [facility] [place]: [address] [place] Color Protein 30 [facility] ([facility] [place]: [address] [place] Color Urobilinogen 0.2 [facility] ([facility] [place]: [address] [place] Color Nitrites positive [facility] ([facility] [place]: [address] [place] Color Leukocytes small [facility] ([facility] [place]: [address] [place] Electrocardiogram No observation recorded. [facility] ([facility] [place]: [address] [place] Allergies Code Code System Name Reaction Severity [...] Gastrointestinal Surgery Information not available 11/10/[address] [facility] [place] [address] [place] [address] [place] [address] (Work Place) Vaccine List Vaccine Type Influenza, injectable, MDCK, preservative free, quadrivalent 01/31/20160.5 mL influenza, injectable, quadrivalent 01/28/2015 influenza, unspecified formulation 02/05/2017 02/10/2018 pneumococcal conjugate PCV 13 02/22/2017 Pneumococcal Conjugate, unspecified formulation 05/13/2014 Tdap 12/12/2015 zoster 02/11/2016 zoster subunit 10/15/20170.5 mL Social History Smoking Status Former Smoker (1 1/2 PPD) Past Encounters 11/14/2018 Urinary Tract Infectious Disease; Low Back Pain; History of Left Total Knee Replacement; Chronic Obstructive Lung Disease Julio Bansal MD: [address] [place] [address], Ph. 11/10/2018 Pain in Left Knee; Tachycardia; Insomnia; Anxiety; Benign Essential Hypertension Eric Alva MD: [address] [place] [address], Ph. History of Present Illness Note:s/p L knee replacement 10/14/18 ,c/o knee redness/>drainage today ,LBP since last ov 11/10/18-takes tylenol #3 irregularly<div>
</div> Review of Systems:ROS as noted in the HPI Review of Systems None recorded. Physical Exam Brief Abdominal Pain Exam, Musculoskeletal and Joint Exam Reported By: Patient Constitutional: General Appearance: well-developed, well-nourished, healthy-appearing, alert, oriented, NAD, mucous membranes moist; continuous O2 Cardiovascular: Heart Auscultation: S1 present, S2 present, no murmurs, no click Lungs: Lungs: clear to auscultation bilaterally, no wheezing, no crackles Abdomen: Inspection and Palpation: soft, bowel sounds 4 quadrants, no tenderness, non-distended Musculoskeletal System: Left Knee: reduced ROM, swelling, warmth, erythema; drainage + distal op scar
--- OUTSIDE RECORDS SUMMARY | 2018-12-06 11:49 | XMS REPORT | Encounter Summary ---
Author Organization Unknown Address [address] [place] [address] Phone [phone] Care Team Providers Care Electrophysiologist Name Role Phone Dr. Eric Russell 3 [phone] Armin Singh MD 2 [phone] Yessica Ferrell 62 [phone] Jairo Garcia MD 102 [phone] Ronn Lopes MD 105 [phone] Jose De Jesus Blanton MD 107 [phone] [facility] 111 [phone] Armin Little MD 114 [phone] Carleen Solis MD 124 [phone] Paulo Rowe MD 126 [phone] Jean-Claude Doty MD 130 [phone] Reason for Visit Left knee pain/problem Instructions 1. Pain in left knee 2. Tachycardia electrocardiogram 3. Insomnia 4. Anxiety 5. Benign essential hypertension Discussion Note: None recorded. Patient educational handouts: No information available. Plan of Care Reminders Provider Appointments Est Patient 02/10/2019 9:00AM Eric Alva MD Lab None recorded. Referral None recorded. Procedures None recorded. Surgeries None recorded. Imaging Electrocardiogram 11/10/2018 [facility] ([facility] [place] Medications Name Start Date acetaminophen 300 mg-codeine [...] Range Status Address Electrocardiogram No observation recorded. [facility] [place]: [address] [place] [address] Allergies Code Code System Name Reaction Severity [...] Gastrointestinal Surgery Information not available 11/10/2018 Electrocardiogram [facility] [place] [address] [place] [address] (Work Place) Vaccine List Vaccine [...] Anxiety; Benign Essential Hypertension Eric Alva MD: [address] [place] [address], Ph. History of Present Illness Note:Left knee pain, s/p left knee replacement surgery on 10/14/18. Went to rehab from 10/17/18 through 10/29/18. Pain is worse with activity, intensity 6-10/10. Normal ROM. No signs of inflammation. Pt [...]
[2018-12-06] MEDS ORDERED: ALBUTEROL/IPRATROPIUM 3 ML NEB NEB ONE (12:45)
--- NOTE | 2018-12-06 13:00 | Diagnostic Imaging Report ---
EXAMINATION: CXR 2 VIEW - HOPD INDICATION: Fever. COMPARISON: Chest radiograph 09/30/2018. FINDINGS: TUBES and LINES: None. LUNGS: Lungs are well inflated. Mild patchy bibasilar opacities, which are decreased compared to radiograph on 10/03/2018. No evidence of pulmonary edema. PLEURA: No pleural effusion or pneumothorax. HEART AND MEDIASTINUM: The cardiomediastinal silhouette is unremarkable. There are atherosclerotic calcifications within the aorta. BONES AND SOFT TISSUES: No acute osseous abnormality. UPPER ABDOMEN: No free air under the diaphragm. IMPRESSION: Mild patchy bibasilar opacities, decreased from the prior study, which may reflect atelectasis or pneumonia in the appropriate clinical setting. Suggest follow-up chest radiograph in 6-8 weeks to assess for resolution. Signed by: Dr. Karly Barboza MD on 12/06/2018 12:57 PM
[2018-12-06] MEDS ORDERED: IPRATROPIUM BROMIDE 0.02% 2.5 ML NEB ONE (13:15)
[2018-12-06] MEDS ORDERED: ALBUTEROL SULF 0.083% NEB SOLN 3 ML NEB ONE (13:15)
--- NOTE | 2018-12-06 13:23 | NUR ---
LABS SENT BY [facility]
[2018-12-06] MEDS ORDERED: LEVOFLOXACIN 750MG/D5W 150ML 150 ML IV STA (13:37)
[2018-12-06 13:45] LABS: BASOPHILS % 0.2 % (0.0-1.0); EOSINOPHILS % 0.1 % (0.0-6.0); HEMOGLOBIN 11.9 g/dL (12.0-16.0); LYMPHOCYTES # (AUTO) 0.4 (1.0-3.2); LYMPHOCYTES % 2.2 % (18.0-39.1); MEAN CORPUSCULAR HEMOGLOBIN 28.5 pg (28-32); MEAN CORPUSCULAR HGB CONC 30.5 g/dL (31-35); MEAN CORPUSCULAR VOLUME 93.5 fL (81-99); MONOCYTES # (AUTO) 0.6 (0.2-0.8); MONOCYTES % 3.3 % (4.4-11.3); NEUTROPHILS % 93.6 % (38.7-80.0); PLATELET COUNT 262 x10e3/uL (140-360); RED BLOOD COUNT 4.17 x10e6/uL (3.6-5.1); RED CELL DISTRIBUTION WIDTH 16.4 % (11.7-14.4)
[2018-12-06 14:06] LABS: ALANINE AMINOTRANSFERASE 17 IU/L (0-55); ALBUMIN 3.9 g/dL (3.5-5.0); ALKALINE PHOSPHATASE 94 IU/L (40-150); ANION GAP 19.7 mmol/L (8-16); BLOOD UREA NITROGEN 13 mg/dL (7-26); BUN/CREATININE RATIO 14 (6-25); CALCIUM 10.2 mg/dL (8.4-10.2); CARBON DIOXIDE 22 mmol/L (22-29); CHLORIDE 100 mmol/L (98-107); CREATINE KINASE 42 IU/L (29-168); CREATININE, SERUM 0.93 mg/dL (0.57-1.11); EST GLOMERULAR FILTRATION RATE > 60 ML/MIN (60-); GLUCOSE 173 mg/dL (74-118); POTASSIUM 4.7 mmol/L (3.5-5.1); SODIUM 137 mmol/L (136-145)
[2018-12-06] MEDS ORDERED: LEVOFLOXACIN 750MG/D5W 150ML 150 ML IV ONE (14:29)
[2018-12-06] MEDS ORDERED: DEXTROSE 50% SYRINGE 50 ML IV PRN (14:30)
[2018-12-06] MEDS ORDERED: SODIUM CHLORIDE FLUSH 10 ML SYR INJ PRN (14:30)
[2018-12-06] MEDS ORDERED: LEVOFLOXACIN 750MG/D5W 150ML IV SCH (14:30)
[2018-12-06] MEDS ORDERED: ALBUTEROL SULF 0.083% NEB SOLN 3 ML NEB NEB SCH (14:30)
--- NOTE | 2018-12-06 14:42 | NUR ---
3rd attempt to void for u.a.
--- OUTSIDE RECORDS SUMMARY | 2018-12-06 14:49 | XMS REPORT | Clinical Summary ---
Author Author [facility] Organization [facility] Address Unknown Phone Unavailable Care Team Providers Care Head Porter Baggage Name Role Phone Eh Banegas MD PCP [...] mg by 0 tablet mouth nightly. Active vqokawbkivu-ebacnisgl-eqw Inhale 1 puff 0 anter (TRELEGY ELLIPTA) [...] TOTAL 10/14/2018 Surgery Orthopedic Surgery Dawson Gama, CUSTOMS COMPLIANCE MANAGER 10/14/2018 Anesthesia Orthopedic Surgery Event Jairo Garcia [...] Lot Implanted Type Area Manufactur er 06/12/2028 [id number] / / [id number] Attune Fb Pocket Base Sz4 Shayan - IPM Left: Knee DEPUY [id number] IMPLANT ORTHOPAEDI Implanted: 10/14/2018 (Quantity not [employer] on file) 02/10/2028 [id number] / / [id number] Femoral Attune Ps Cmt 4 Lt - IPM Left: Knee DEPUY [id number] IMPLANT ORTHOPAEDI Implanted: 10/14/2018 (Quantity not [employer] on file) 06/12/2023 1518 20 035 / / [id number] Attune Medial Dome Pat 35mm - IPM Left: Knee DEPUY [id number] IMPLANT ORTHOPAEDI Implanted: 10/14/2018 (Quantity not [employer] on file) [id number] / / Insert Attune Ps Fb Sz4 6mm - IPM Left: Knee DEPUY [id number] IMPLANT ORTHOPAEDI Implanted: 10/14/2018 (Quantity not [employer] on file) 03/12/2019 [id number] / / [id number] Cement Bone Gm 40gr Smartset Gmv - Surgical Left: Knee DEPUY [id number] Bone ORTHO Implanted: 10/14/2018 (Quantity not Cement [...] Bupivacain e 0.75% PF (mL), 1.6 mL AR AN PERIPHERAL BLOCK Routine 10/14/2018 POST-OP PAIN [...] within the time period is included. Pathologist [facility] Estimated GFR 87 mL/min/1.73 m2 [facility] Comment: [facility] rpretation G1 >=90 Normal or high G2 60-89Mildly decreased [id number] Mildly to moderately decreased [id number] Moderately to severely decreased G4 15-29Severely decreased G5 <15Kidney failure The eGFR was calculated using the Chronic Kidney Disease Epidemiology Collaboration (CKD-EPI) equation. Interpretation is based on recommendations of the National Kidney Foundation-Kidney Disease Outcomes Quality Initiative (NKF-KDOQI) published in 2014. Specimen Plasma specimen Performing Organization Address City/State/Zipcode Phone Number [facility] DEPARTMENT OF [address] [place] [address] PATHOLOGY AND GENOMIC MEDICINE [address] * CBC with platelet and differential (10/17/2018 4:20 AM CDT) Only the most recent of 4 results within the time period is included. [facility] WBC 7.78 4.50 - 11.00 k/uL [facility] RBC 3.45 (L) 4.20 - 5.50 m/uL [facility] HGB 9.7 (L) 12.0 - 16.0 g/dL [facility] HCT 33.2 (L) 37.0 - 47.0 % [facility] MCV 96.2 82.0 - 100.0 fL [facility] MCH 28.1 27.0 - 34.0 pg [facility] MCHC 29.2 (L) 31.0 - 37.0 g/dL [facility] RDW - SD 56.1 (H) 37.0 - 55.0 fL [facility] MPV 10.0 8.8 - 13.2 fL [facility] Platelet count 277 150 - 400 k/uL [facility] Nucleated RBC 0.00 /100 WBC [facility] Neutrophils 86.9 (H) 39.0 - 69.0 % [facility] Lymphocytes 6.4 (L) 25.0 - 45.0 % [facility] Monocytes 6.0 0.0 - 10.0 % [facility] Eosinophils 0.0 0.0 - 5.0 % [facility] Basophils 0.3 0.0 - 1.0 % [facility] Immature 0.4Comment: "Immature 0.0 - 1.0 % [facility] granulocytes granulocytes" (promyelocytes, [facility] myelocytes, metamyelocytes) HOSPITAL Specimen Blood Performing Organization Address City/[facility]/Zipcode Phone Number [facility] DEPARTMENT OF [address] [place] [address] PATHOLOGY AND [facility] MEDICINE [address] * B natriuretic peptide (10/17/2018 4:20 AM CDT) [facility] BNP 44 0 - 100 pg/mL [facility] Specimen Blood Performing Organization Address [facility] Phone Number [facility] [place] [address] PATHOLOGY AND [facility] MEDICINE [address] * Basic metabolic panel (10/17/2018 4:20 AM CDT) Only the most recent of 3 results within the time period is included. [facility] Sodium 141 135 - 148 mEq/L [facility] Potassium 4.9 3.5 - 5.0 mEq/L [facility] Chloride 100 98 - 112 mEq/L [facility] CO2 26 24 - 31 mEq/L [facility] Anion gap 15@ANIO 7 - 15 mEq/L [facility] BUN 13 8 - 23 mg/dL [facility] Creatinine 0.73 0.50 - 0.90 mg/dL [facility] Glucose 138 (H) 65 - 99 mg/dL [facility] Calcium 9.9 8.8 - 10.2 mg/dL [facility] Specimen Plasma specimen Performing Organization Address [facility] Phone Number [facility] [place] [address] PATHOLOGY AND [facility] MEDICINE [address] * XR Chest 1 Vw Portable (10/16/2018 9:46 PM CDT) Specimen Narrative Performed At Examination:XR CHEST 1 VW PORTABLE RADIANT Clinical history:"wheezing" Comparison:06/01/1999 IMPRESSION: Mild bilateral lower lung atelectasis is seen. Cardiomediastinal silhouette is within normal limits. . Left humeral neck fracture is seen. [facility]-[id number] Procedure Note Hm Interface, Radiology Results Incoming - 10/16/2018 10:50 PM CDT Examination: XR CHEST 1 VW PORTABLE Clinical history: "wheezing" Comparison: 06/01/1999 IMPRESSION: Mild bilateral lower lung atelectasis is seen. Cardiomediastinal silhouette is within normal limits. . Left humeral neck fracture is seen. [facility]-[id number] Performing Organization Address City/[facility]/[place] [address] * Gram stain (10/16/2018 8:17 PM CDT) Only the most recent of 2 results within the time period is included. Gram stain Few WBC's [facility] result No organisms seen [facility] Comment: HOSPITAL Specimen Information Specimen Source: Urine Specimen Site: Clean catch Specimen Urine Performing Organization Address City/[facility] Phone Number [facility] DEPARTMENT OF [address] [place] [address] PATHOLOGY AND GENOMIC MEDICINE [address] * Urine culture (10/16/2018 8:17 PM CDT) Only the most recent of 2 results within the time period is included. Pathologist [facility] Urine culture No growth after 24 hours [facility] isolate Comment: [facility] Specimen Information HOSPITAL Specimen Source: Urine Specimen Site: Clean catch Specimen Urine Performing Organization Address [facility] Phone Number [facility] DEPARTMENT OF [address] [place] [address] PATHOLOGY AND GENOMIC MEDICINE [address] * Urinalysis screen and microscopy, with reflex to culture (10/16/2018 7:50 PM CDT) Only the most recent of 2 results within the time period is included. Specimen site Clean catch [facility] Color, UA Straw [facility] Appearance, UA Clear [facility] Specific 1.012 1.001 - 1.035 [facility] gravity, [facility] pH, UA 5.0 5.0 - 8.5 [facility] Protein, UA Negative Negative [facility] Glucose, UA Negative Negative [facility] Ketones, UA Negative Negative [facility] Bilirubin, UA Negative Negative [facility] Blood, UA Negative Negative [facility] Nitrite, UA Negative Negative [facility] Urobilinogen, <2.0 <2.[address] [facility] Leukocyte Negative Negative [facility] esterase, UA [facility] WBC, UA 5 (H) 0 - 4 /HPF [facility] RBC, UA 10 (H) 0 - 5 /HPF [facility] Bacteria, UA None seen None seen [facility] Yeast, UA None seen [facility] Yeast with None seen [facility] Specimen Urine Performing Organization Address City/State/Zipcode Phone Number [facility] [place] [address] PATHOLOGY AND GENOMIC MEDICINE [address] * POC glucose (10/14/2018 2:42 PM CDT) Only the most recent of 2 results within the time period is included. POC glucose 95 65 - 99 mg/dL [facility] Comment: [facility] Notified RN HOSPITAL Meter ID: [id number] Lace Stripper: Mell Hickman Specimen Performing Organization Address City/[facility] Centercode Phone Number [facility] [place] [address] PATHOLOGY AND GENOMIC MEDICINE [address] * XR Knee 1 Or 2 Vw Left (10/14/2018 2:41 PM CDT) Specimen Narrative Performed At EXAMINATION: XR KNEE 1 OR 2 VW LEFT RADIANT INDICATION: total knee arthoplasty COMPARISON: None IMPRESSION: 2 views of the left knee were obtained which demonstrate expected postoperative changes following total knee arthroplasty with appropriate implant alignment. No visible periprosthetic fracture. [id number] Procedure Note Interface, Radiology Results Incoming - 10/14/2018 2:49 PM CDT EXAMINATION: XR KNEE 1 OR 2 VW LEFT INDICATION: total knee arthoplasty COMPARISON: None IMPRESSION: 2 views of the left knee were obtained which demonstrate expected postoperative changes following total knee arthroplasty with appropriate implant alignment. No visible periprosthetic fracture. [id number] Performing Organization Address City/State/Zipcode Phone Number [facility] [address] [place] [address] * Surgical pathology request (10/14/2018 2:03 PM CDT) [facility] DEPARTMENT OF PATHOLOGY AND GENOMIC MEDICINE Surgical See link below for PDF Lab [facility] DEPARTMENT pathology Report OF PATHOLOGY report AND GENOMIC MEDICINE Result status This is Final Report for [facility] DEPARTMENT [id number] OF PATHOLOGY AND GENOMIC MEDICINE Specimen Performing Organization Address City/State/Zipcode Phone Number [facility] DEPARTMENT OF [address] [place] [phone] PATHOLOGY AND GENOMIC MEDICINE * Type and screen (10/14/2018 10:55 AM CDT) ABO grouping A [facility] Rh type POS [facility] Antibody screen NEG [facility] (gel) [facility] Specimen Blood Performing Organization Address City/State/Zipcode Phone Number [facility] DEPARTMENT OF [address] [place] [address] PATHOLOGY AND [place] [address] HOSPITAL * ECG Pre/Post Op (10/09/2018 4:55 PM CDT) Ventricular 90 [facility] MUSE rate Atrial rate 90 [facility] MUSE AR interval 158 [facility]USE QRSD interval 96 [facility] QT interval 372 [facility] QTC interval 455 [facility] P axis 1 81 [facility] QRS axis 1 88 [facility] MUSE T wave axis 66 [facility] MUSE EKG impression Normal sinus rhythm-Incomplete [facility] MUSE right bundle branch block-Borderline ECG-No previous ECGs available- Specimen Narrative Performed At Performing Organization Address City/State/Zipcode Phone Number [facility] MUSE [address] [place] [address] * Hemoglobin A1c (10/09/2018 4:23 PM CDT) Hemoglobin A1C 6.5 (H) 4.0 - 5.6 % [facility] Comment: [facility] HbA1c cutoffs for diagnosing HOSPITAL diabetes: 4.0% - 5.6%=normal 5.7% - 6.4%=increased risk for diabetes (prediabetes) >=6.5%=diabetes Goals for glycemic control (ADA 2016) < 7.0%Target for non adults with diabetes. More or less stringent targets may be appropriate for individual patients. <7.5% Target for Children and adolescents with type 1 diabetes. Specimen Blood Performing Organization Address City/State/Zipcode Phone Number [facility] DEPARTMENT OF [address] [place] [address] PATHOLOGY AND GENOMIC MEDICINE [address] * Comprehensive metabolic panel (10/09/2018 4:23 PM CDT) Sodium 143 135 - 148 mEq/L [facility] Potassium 4.1 3.5 - 5.0 mEq/L [facility] Chloride 99 98 - 112 mEq/L [facility] CO2 30 24 - 31 mEq/L [facility] Anion gap 14@ANIO 7 - 15 mEq/L [facility] BUN 9 8 - 23 mg/dL [facility] Creatinine 0.77 0.50 - 0.90 mg/dL [facility] Glucose 96 65 - 99 mg/dL [facility] Calcium 9.5 8.8 - 10.2 mg/dL [facility] Protein 6.5 6.3 - 8.3 g/dL [facility] Comment: [facility] HOSPITAL 4.6-7.0 g/dL 1 week 4.4-7.6 g/dL 7 months-1year 5.1-7.3 g/dL 1-2 years5.6-7 .5 g/dL >3 years6.0-8 .0 g/dL 18-150 6.3-8.3 g/dL Albumin 3.4 (L) 3.5 - 5.0 g/dL [facility] A/G ratio 1.1 0.7 - 3.8 [facility] Alkaline 80 35 - 104 U/L [facility] phosphatase [facility] AST 27 10 - 35 U/L [facility] ALT 29 5 - 50 U/L [facility] Total bilirubin <0.2 0.0 - 1.2 mg/dL [facility] Specimen Plasma specimen Performing Organization Address City/State/Zipcode Phone Number [facility] DEPARTMENT OF [address] [place] [address] PATHOLOGY AND [place] [address] HOSPITAL after 12/05/2017 Insurance Type Payer Benefit Subscriber ID Effective Phone Address Plan / Dates Group Medicare MEDICARE MEDICARE xxxxxxxxxxx 2011-P RAMÍREZ, PART A AND resent [place] 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 For more i nformation, please contact: Ramírez Morales [address] [place] [place] [address] Date Inactivated Comments Code Status Date Activated 10/17/2018 5:53 PM Full Code 10/14/2018 12:03 PM Code Status decision reached by: Patient
--- OUTSIDE RECORDS SUMMARY | 2018-12-06 14:49 | XMS REPORT | Clinical Summary ---
Author Author [facility]PHANIE 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 05/28/2018 Discontinued [id number] Inhale by 0 anter (TRELEGY ELLIPTA) mouth [...] Encounter Enoch Luther MD Manson, Melissa J, [facility] Celestino So, Clair Tamez, APPARATUS LINEMAN Mima Maloney, Alina Tyler Osteopenia, unspecified location [...] Taken Vital Sign Reading 05/28/2018 3:12 PM ST[facility]AN Blood Pressure 142/77 05/28/2018 3:12 PM [facility]AN Pulse 103 05/28/2018 3:12 PM [facility] Temperature 37.1 C (98.8 F) 05/28/2018 3:12 PM ST[facility]AN Respiratory Rate 16 05/28/2018 3:12 PM [facility]AN Oxygen Saturation 94% 04/24/2018 8:20 AM ST[facility]AN Inhaled Oxygen 21% Concentration 05/28/2018 3:12 PM [facility] Weight 96.5 kg (212 lb 11.2 oz) 05/28/2018 3:12 PM ST[facility] Height 165.1 cm (5' 5") 05/28/2018 3:12 PM [facility] Body Mass Index 35.4 Plan of Treatment Not on file Procedures Comments Procedure Name Priority Date/Time Associated Diagnosis VASCULAR DIAGRAM -SCAN 08/20/2018 12:25 PM CDT PULMONARY FUNCTION - SCAN 06/02/2018 8:00 AM [facility] SPIROMETRY Routine 05/28/2018 Centrilobular emphysema 4:01 PM ST[facility] ([facility]) CREATININE CLEARANCE Routine 05/28/2018 Centrilobular emphysema 1:45 PM ST[facility] ([facility]) Pre-transplant evaluation for lung transplant CREATININE Routine 05/28/2018 Centrilobular emphysema 1:45 PM ST[facility] ([facility]) Pre-transplant evaluation for lung transplant PROTEIN, 24 HOUR URINE Routine 05/28/2018 Centrilobular emphysema 1:45 PM ST[facility] ([facility]) Pre-transplant evaluation for lung transplant TRANSFUSION SERVICE 04/25/2018 REPORT - SCAN 5:54 PM ST[facility]AN FL ESOPHAGUS PHARNYX Routine 04/25/2018 Centrilobular emphysema AND/OR CERVICAL 11:59 AM ST[facility] ([facility]) Pre-transplant evaluation for lung transplant XR CHEST 2 VIEWS Routine 04/25/2018 Centrilobular emphysema 11:30 AM ST[facility] ([facility]) Pre-transplant evaluation for lung transplant XR MANDIBLE MIN 4 VIEWS Routine 04/25/2018 Centrilobular emphysema 11:25 AM ST[facility] ([facility]) Pre-transplant evaluation for lung transplant CT CHEST WITHOUT IV Routine 04/25/2018 Centrilobular emphysema CONTRAST 11:17 AM ST[facility] ([facility]) Pre-transplant evaluation for lung transplant CT ABDOMEN/PELVIS WITHOUT Routine 04/25/2018 Centrilobular emphysema IV CONTRAST 11:17 AM ST[facility] ([facility]) Pre-transplant evaluation for lung transplant ECHOCARDIOGRAM REPORT - 04/24/2018 SCAN 6:20 PM [facility]AN CAROTID DOPPLER BILATERAL Routine 04/24/2018 Centrilobular emphysema 4:46 PM ST[facility] ([facility]) Pre-transplant evaluation for lung transplant ECHO W CONTRAST & DOPPLER Routine 04/24/2018 Centrilobular emphysema 3:53 PM ST[facility] ([facility]) Pre-transplant evaluation for lung transplant PUL QUANT DIFFERENTIAL Routine 04/24/2018 Centrilobular emphysema FUNCT VENT/PERF 3:37 PM ST[facility] ([facility]) Pre-transplant evaluation for lung transplant FL SNIFF TEST Routine 04/24/2018 Lung transplant candidate 2:42 PM [facility] BLOOD TYPING, AUTOMATED Routine 04/24/2018 Centrilobular emphysema 9:54 AM ST[facility] ([facility]) Pre-transplant evaluation for lung transplant HLA TYPING CII Routine 04/24/2018 Centrilobular emphysema 9:35 AM ST[facility] ([facility]) Pre-transplant evaluation for lung transplant HLA TYPING CI Routine 04/24/2018 Centrilobular emphysema 9:35 AM ST[facility]AN ([facility]) Pre-transplant evaluation for lung transplant T SPOT TB Routine 04/24/2018 Centrilobular emphysema 9:35 AM ST[facility] ([facility]) Pre-transplant evaluation for lung transplant URINALYSIS W/ MICROSCOPIC STAT 04/24/2018 Centrilobular emphysema 9:35 AM ST[facility] ([facility]) Pre-transplant evaluation for lung transplant DRUG SCREEN, URINE, Routine 04/24/2018 Centrilobular emphysema TRANSPLANT 9:35 AM ST[facility] ([facility]) Pre-transplant evaluation for lung transplant CBC W/PLT COUNT & AUTO Routine 04/24/2018 Centrilobular emphysema DIFFERENTIAL 9:34 AM ST[facility] ([facility]) Pre-transplant evaluation for lung transplant TYPE AND SCREEN, STAT 04/24/2018 Centrilobular emphysema AUTOMATED 9:34 AM [facility] ([facility]) Pre-transplant evaluation for lung transplant AB SPECIFICITY CLASS II Routine 04/24/2018 Centrilobular emphysema 9:34 AM [facility] ([facility]) Pre-transplant evaluation for lung transplant FLOW PRA CLASS II WITH Routine 04/24/2018 Centrilobular emphysema REFLEX TO ANTIBODY 9:34 AM [facility] ([facility]CC) SPECIFICITY Pre-transplant evaluation for lung transplant FLOW PRA CLASS I WITH Routine 04/24/2018 Centrilobular emphysema REFLEX TO ANTIBODY 9:34 AM [facility] ([facility]CC) SPECIFICITY Pre-transplant evaluation for lung transplant HEPATITIS B SURFACE Routine 04/24/2018 Centrilobular emphysema ANTIBODY 9:34 AM [facility] (HCC) Pre-transplant evaluation for lung transplant HIV-1 ANTIGEN WITH Routine 04/24/2018 Centrilobular emphysema HIV-1/2 ANTIBODY 9:34 AM [facility] (HCC) Pre-transplant evaluation for lung transplant VARICELLA ZOSTER STAT 04/24/2018 Centrilobular emphysema ANTIBODY, IGG 9:34 AM [facility] (HCC) Pre-transplant evaluation for lung transplant TSH/FREE T4 IF INDICATED Routine 04/24/2018 Centrilobular emphysema 9:34 AM ST[facility] (HCC) Pre-transplant evaluation for lung transplant TOXOPLASMA GONDII Routine 04/24/2018 Centrilobular emphysema ANTIBODY, IGG 9:34 AM [facility] (HCC) Pre-transplant evaluation for lung transplant PT/APTT Routine 04/24/2018 Centrilobular emphysema 9:34 AM [facility] (HCC) Pre-transplant evaluation for lung transplant LIPID PANEL Routine 04/24/2018 Centrilobular emphysema 9:34 AM [facility] (HCC) Pre-transplant evaluation for lung transplant HEPATITIS B CORE Routine 04/24/2018 Centrilobular emphysema ANTIBODY, TOTAL 9:34 AM [facility] (HCC) Pre-transplant evaluation for lung transplant HEPATITIS PANEL, ACUTE Routine 04/24/2018 Centrilobular emphysema 9:34 AM [facility] (HCC) Pre-transplant evaluation for lung transplant HEMOGLOBIN A1C Routine 04/24/2018 Centrilobular emphysema 9:34 AM [facility] (HCC) Pre-transplant evaluation for lung transplant EBV ANTIBODY, IGG Routine 04/24/2018 Centrilobular emphysema 9:34 AM [facility] (HCC) Pre-transplant evaluation for lung transplant CYTOMEGALOVIRUS ANTIBODY, Routine 04/24/2018 Centrilobular emphysema IGG 9:34 AM [facility] (HCC) Pre-transplant evaluation for lung transplant COMPREHENSIVE METABOLIC Routine 04/24/2018 Centrilobular emphysema PANEL 9:34 AM [facility] (HCC) Pre-transplant evaluation for lung transplant CBC W/PLT COUNT & AUTO Routine 04/24/2018 Centrilobular emphysema DIFFERENTIAL 9:34 AM [facility] (HCC) Pre-transplant evaluation for lung transplant RPR Routine 04/24/2018 Centrilobular emphysema 9:33 AM [facility] (HCC) Pre-transplant evaluation for lung transplant BLOOD GAS, ARTERIAL Routine 04/24/2018 Centrilobular emphysema 8:20 AM [facility] (HCC) Pre-transplant evaluation for lung transplant VASCULAR DIAGRAM -SCAN 04/02/2018 1:13 PM [facility] CARDIAC CATH REPORT - 04/02/2018 SCAN 1:13 PM [facility] R & L CATH / CORONARY 04/01/2018 Encounter for ANGIOS / PCI 5:01 PM [facility]AN pre-transplant evaluation for lung transplant Case Notes POP6 BLOOD GAS, ARTERIAL STAT 04/01/2018 4:07 PM [facility] PT/APTT STAT 04/01/2018 10:56 AM [facility] CBC W/PLT COUNT & AUTO STAT 04/01/2018 DIFFERENTIAL 10:01 AM [facility] CBC W/PLT COUNT & AUTO STAT 04/01/2018 DIFFERENTIAL 10:01 AM [facility] BASIC METABOLIC PANEL (7) STAT 04/01/2018 10:00 AM [facility] ECG 12-LEAD Routine 04/01/2018 9:19 AM ST[facility]AN Procedure Note - Interface, External Ris In - 04/01/2018 9:28 AM [facility] Ventricula r Rate 90 BPM Atrial Rate 90 BPM P-R Interval 160 ms QRS Duration 86 ms Q-T Interval 382 ms QTC Calculatio n(Bazett) 467 ms P Branson 73 degrees R Branson 60 degrees T Branson 69 degrees Normal sinus rhythm Normal ECG No previous ECGs available ECG 12-LEAD Routine 04/01/2018 9:19 AM [facility] PULMONARY FUNCTION - SCAN 03/24/2018 2:00 PM [facility] PULMONARY FUNCTION - SCAN 03/13/2018 2:51 PM CDT SPIROMETRY Routine 03/12/2018 Centrilobular emphysema 1:58 PM CDT ([facility]) 6 MINUTE WALK(FOR LUNG Routine 03/12/2018 Centrilobular emphysema TRANSPLANT ONLY) 1:58 PM CDT ([facility]) PULMONARY FUNCTION - SCAN 12/13/2017 11:40 AM CDT 6 MINUTE WALK(FOR LUNG Routine 12/11/2017 Centrilobular emphysema TRANSPLANT ONLY) 2:02 PM CDT ([facility]) LUNG VOLUMES Routine 12/11/2017 Centrilobular emphysema 1:08 PM CDT ([facility]) after 12/05/2017 Results * VASCULAR DIAGRAM -SCAN (08/20/2018 12:25 PM CDT) Only the most recent of 2 results within the time period is included. Narrative Performed At * PULMONARY FUNCTION - SCAN (06/02/2018 8:00 AM STUNTMAN) Only the most recent of 4 results within the time period is included. Narrative Performed At * Pulmonary Funct Lab Spirometry (05/28/2018 4:01 PM ST[facility]TMAN) Narrative Performed At Toma Jenkins, CRISELDA, INSTALLATION SUPERINTENDENT 05/28/20184:03 PM [facility] PFT CHARTING REPORT Infection Control/Hand Hygiene procedures followed throughout the encounter with patient: Yes Patient Identification Method: Patient name verified on armband, and Medical record on armband, Is the order complete?: Yes Account ID#: [id number] Patient Name: Hui Galvez Birthdate: 1955 Age: [...] Creatinine clearance (24hr Urine) (05/28/2018 1:45 PM STUNTMAN) Creatinine Clearance 52.0 (L) 70.0 - 140.0 mL/min [facility] Volume, Urine 1,900 ml [facility] Creatinine, Ur 37.0 mg/dL [facility] Patient Height 165.1 cm [facility] Patient Weight 92.200 kg [facility] Specimen Urine Performing Organization Address City/[facility] Phone Number [facility] [address] [place], [place] [id number] [place] [address] [phone] * Protein, 24 hour urine (05/28/2018 1:45 PM STUNTMAN) Protein, 24hr Urine <133 0 - 300 mg/24hr [facility] Volume, Urine 1,900 ml [facility] Protein, Urine <7 0 - 14 mg/dL [facility] Specimen Urine Performing Organization Address [facility] Phone Number [facility] [address] [place] [phone] [place] [address] * Creatinine Serum (05/28/2018 1:45 PM ST[facility]TMAN) Creatinine 0.79 0.57 - 1.25 mg/dL [facility] EGFR 73Comment: ESTIMATED GFR IS mL/min/1.73 sq m [facility] NOT ACCURATE CREATININE [facility] CLEARANCE IN PREDICTING GLOMERULAR FILTRATION RATE. ESTIMATED GFR IS NOT APPLICABLE FOR DIALYSIS PATIENTS. Specimen Blood Performing Organization Address [facility] Phone Number [facility] [address] [place] [address] [phone] [address] * TRANSFUSION SERVICE REPORT - SCAN (04/25/2018 5:54 PM ST[facility]TMAN) Narrative Performed At * FL esophagus (04/25/2018 11:59 AM ST[facility]TMAN) Specimen Narrative Performed At FINAL REPORT [facility] Esophagram. History: Lung transplant evaluation. Discussion: [...] MD Report Verified Date/Time:04/25/2018 12:25:11 Reading Location: [address] Radiology Reading Room Procedure Note Interface, External Ris In - 04/25/2018 12:27 PM [facility] FINAL REPORT Esophagram. History: Lung transplant evaluation. [...] Report Verified Date/Time: 04/25/2018 12:25:11 Reading Location: [address] Radiology Reading Room Performing Organization Address City/State/Zipcode Phone Number GE [facility] * XR chest 2 views (04/25/2018 11:30 AM ST[facility]AN) Specimen Narrative Performed At FINAL REPORT GE [...] MD Report Verified Date/Time:04/25/2018 12:32:38 Reading Location: [address] Radiology Reading Room Procedure Note Interface, External Ris In - 04/25/2018 12:34 PM [facility] FINAL REPORT Chest, PA and lateral. History: Lung transplant evaluation. Comparison: None available. Discussion: The cardiomediastinal silhouette and pulmonary vasculature are within normal limits. The lungs are clear without evidence of consolidation or effusion. There are no acute osseous abnormalities. The soft tissues are unremarkable. IMPRESSION: No acute cardiopulmonary abnormality. Signed: Annette Patel MD Report Verified Date/Time: 04/25/2018 12:32:38 Reading Location: [address] Radiology Reading Room Performing Organization Address [facility] Phone Number [facility] * XR mandible 4 views min (04/25/2018 11:25 AM ST[facility]AN) Specimen Narrative Performed At FINAL REPORT [employer] Mandible series, five images HISTORY: Lung transplant evaluation COMPARISON: None IMPRESSION: Suboptimal positioning. No fracture. Temporomandibular joints intact. Soft tissues appear unremarkable. No evidence for lytic or blastic lesion. Signed: Annette Patel MD Report Verified Date/Time:04/25/2018 12:20:57 Reading Location: [address] Radiology Reading Room Procedure Note Interface, External Ris In - 04/25/2018 12:23 PM [facility] FINAL REPORT Mandible series, five images HISTORY: Lung transplant evaluation COMPARISON: None IMPRESSION: Suboptimal positioning. No fracture. Temporomandibular joints intact. Soft tissues appear unremarkable. No evidence for lytic or blastic lesion. Signed: Annette Patel MD Report Verified Date/Time: 04/25/2018 12:20:57 Reading Location: [address] Radiology Reading Room Performing Organization Address [facility] Phone Number [facility] * CT chest without IV contrast (04/25/2018 11:17 AM ST[facility]TMAN) Specimen Narrative Performed At FINAL REPORT [employer] Exam: CT chest, abdomen and pelvis without [...] MD Report Verified Date/Time:04/25/2018 17:29:59 Reading Location: [address] Radiology Reading Room Procedure Note Interface, External Ris In - 04/25/2018 5:32 PM [facility] FINAL REPORT Exam: CT chest, abdomen and [...] Report Verified Date/Time: 04/25/2018 17:29:59 Reading Location: [address] Radiology Reading Room Performing Organization Address City/State/Zipcode Phone Number [facility] * CT abdomen pelvis without contrast (04/25/2018 11:17 AM ST[facility]TMAN) Specimen Narrative Performed At FINAL REPORT [facility] Exam: CT chest, abdomen and pelvis without [...] MD Report Verified Date/Time:04/25/2018 17:29:59 Reading Location: [address] Radiology Reading Room Procedure Note Interface, External Ris In - 04/25/2018 5:32 PM [facility] FINAL REPORT Exam: CT chest, abdomen and [...] Report Verified Date/Time: 04/25/2018 17:29:59 Reading Location: [address] Radiology Reading Room Performing Organization Address City/State/Zipcode Phone Number [facility] * ECHOCARDIOGRAM REPORT - SCAN (04/24/2018 6:20 PM ST[facility]TMAN) Narrative Performed At * Carotid doppler bilateral (04/24/2018 4:46 PM ST[facility]TMAN) Ejection Fraction [facility] MKCKESSON CPACS Specimen Impressions Performed At Right Impression [facility] 1. There is <50% diameter reduction (approximately 29% by 2-D measurement) [facility] in the internal carotid artery with [...] Performed At LAB - Carotid Duplex Study [facility] Demographics CKESS[facility] Patient HUI Shaffer Date of Study04/24/2018 LENARD Age63 Visit [id number] Gender Female Date of Birth1955 Referring [facility] Room Number Physician Enoch MD Asphalt Worker Rita Horvath RVT Interpreting Sabino Cooper Procedure Type of Study: Cerebral: Carotid, CAROTID DOPPLER, BILATERAL. Indications for Study:Lung transplant evaluation . Patient Status:Routine. Study Location:Vascular Lab. Technical Quality:Adequate visualization. Risk Factors History of Disease + +----+ + !Diagnosis !Date!Comments! + +----+ + !History/Risk Factors: !!COPD, Raynauds, SLE ! + +----+ + Procedure Note Interface, External Ris In - 04/25/2018 7:26 AM ST[facility]AN PV LAB - Carotid Duplex Study Demographics Patient Name HUI GALVEZ Date of Study 04/24/2018 LENARD Age 63 Visit Number [id number] Gender Female Accession Number [id number] Date of 1955 Referring [facility] Room Number Physician Enoch MD Asphalt Worker Rita Horvath RVT Interpreting Physician MELIDA Cooper [...] 0.96. Performing Organization Address City/State/Zipcode Phone Number [facility] [employer] [facility] * ECHO W CONTRAST & DOPPLER (04/24/2018 3:53 PM STUNTMAN) Ejection Fraction [facility] [employer] [facility] Specimen Narrative Performed At Transthoracic Echocardiography Report (TTE) [facility] Demographics [facility]um[facility]ON [facility] Patient Name Ching GALVEZ of Study 04/24/2018 LENARD [id number] Female Visit Number [id number] Room Number Number Date of Birth4Referring Physician Homa Kendall MD Age63 year(s)Asphalt Worker Arik Mark [facility] AnalystAlex Joceline InterpretingRayan Paul Physician Procedure Type of Study TTE procedure:2DECHO [...] External Ris In - 04/24/2018 5:47 PM ST[facility]AN Transthoracic Echocardiography Report (TTE) Demographics Patient Name HUI GALVEZ Date of Study 04/24/2018 LENARD Gender Female Visit Number [id number] Race Unknown Room Number Number Date of 1955 Referring Physician Homa Kendall MD Age 63 year(s) Asphalt Worker Arik Flores [facility] General Surgery Physician Assistant Eulalio Car Interpreting Physician MELIDA Humphreys Procedure [...] LVOT CI: 2.77 l/min/m^2 Performing Organization Address City/State/[facility] Phone Number [facility] MKCKESSON CPA * NM Pul quant diff funct vent/perf (04/24/2018 3:37 PM STUNTMAN) Specimen Narrative Performed At FINAL REPORT [employer] PROCEDURE: V/Q LUNG SCAN w/differential function (xenon) CPT CODE:31686 INDICATION:Lung transplant evaluation PROTOCOL:10.1 mCi ofXe-133 gas [...] MD Report Verified Date/Time:04/24/2018 15:49:00 Reading Location: [address] Reading Room Procedure Note Interface, External Ris In - 04/24/2018 3:51 PM [facility]AN FINAL REPORT PROCEDURE: V/Q LUNG SCAN w/differential function (xenon) CPT CODE: [id number] INDICATION: Lung transplant evaluation PROTOCOL: 10.1 mCi [...] Report Verified Date/Time: 04/24/2018 15:49:00 Reading Location: [address] [facility] Reading Room Performing Organization Address [facility] Hospital[facility] Phone Number [facility] * FL sniff test (04/24/2018 2:42 PM STUNTMAN) Specimen Narrative Performed At FINAL REPORT GE [...] MD Report Verified Date/Time:04/24/2018 14:40:07 Reading Location: [facility] B1 C013X Ortho Consult Reading Room Procedure Note Interface, External Ris In - 04/24/2018 2:47 PM [facility]AN FINAL REPORT Fluoroscopy sniff test Technique: Fluoroscopy [...] Report Verified Date/Time: 04/24/2018 14:40:07 Reading Location: [facility] B1 C013X Ortho Consult Reading Room Performing Organization Address [facility] Phone Number [facility] * Blood typing, automated (04/24/2018 9:54 AM ST[facility]TMAN) ABO/RH AUTOMATED (BEAKER) A POSITIVE [facility] Specimen Blood Performing Organization Address City/State/Zipcode Phone Number [facility] [address] [place] [address] [facility] * HLA TYPING CII (04/24/2018 9:35 AM STUNTMAN) HLA-DR AG1 17 [facility] HLA TESTING HLA-DR AG2 4 [facility] HLA-DR AG3-1 52 [facility] HLA-DR AG3-2 [facility] HLA-DR AG4-1 [facility] HLA-DR AG4-2 53 [facility] HLA TESTING HLA-DR AG5-1 [facility] HLA TEST[facility] HLA-DR AG5-2 [facility] HLA-DQA1 AG 1-1 05 [facility] TEST[facility] HLA-DQA1 AG 1-2 03 [facility] HLA TEST[facility] HLA-DQB1 AG 1-1 2 [facility] HLA-DQB1 AG 1-2 8 [facility] HLA-DPA1 AG 1-1 02 [facility] HLA-DPA1 AG 1-2 02 [facility] HLA-DPB1 AG 1-1 01:01 [facility] HLA-DPB1 AG 1-2 05:01 [facility] HLA-AG Notes [facility] HLA-AG Report Comments [facility] Specimen Blood Narrative Performed At Disclaimer: [facility] This test was developed and its performance characteristics determined by the [facility] Laboratory. It has not been [...] testing. Performing Organization Address City/State/Zipcode Phone Number [facility] HLA TEST[facility] [address], [address]: [id number], [place] [address] CLIA#[id number] CAP#[id number] UNOS#[id number] * HLA TYPING CI (04/24/2018 9:35 AM STUNTMAN) HLA-A AG1 1 [facility] HLA-A AG2 31 [facility] HLA TEST[facility] HLA-B AG1 8 [facility] TEST[facility] HLA-B AG2 60 [facility] HLA TESTING HLA-C AG1 7 [facility] HLA TESTING HLA-C AG2 10 [facility] HLA TEST[facility] HLA-B BW1 6 [facility] HLA TESTING HLA-B BW2 6 [facility] HLA-AG Notes [facility] HLA-AG Report Comments [facility] Specimen Blood Narrative Performed At Disclaimer: [facility] HLA TEST[facility] This test was developed and its performance characteristics determined by the [facility] Laboratory. It has not been [...] testing. Performing Organization Address City/State/Zipcode Phone Number [facility] HLA TEST[facility] [address], [place]: [id number], [place] [address] CLIA#[id number] CAP#[id number] UNOS#[id number] * Drug screen, urine, transplant (04/24/2018 9:35 AM STUNTMAN) Specimen Urine Narrative Performed At Performing Organization Address City/State/Zipcode Phone Number [place] [phone] [place] [address] * T Spot TB (04/24/2018 9:35 AM STUNTMAN) T-Spot TB Negative [facility] Neg Ctrl Spot Count 0 [facility] Panel A Spot 0 [facility] Panel B Spot 0 [facility] Pos Ctrl Spot Ct 0 [facility] Scan Result [facility] Specimen Blood Narrative Performed At Performing Organization Address City/State/Zipcode Phone Number [facility] [place] [address] LABORATORIES 100 * Urinalysis, Routine (04/24/2018 9:35 AM STUNTMAN) Color, UA Light Yellow [facility] Clarity, UA Clear [facility] Specific [place], UA 1.008 1.001 - 1.035 [facility] pH, UA 7.5 5.0 - 8.0 [facility] Protein, UA Negative Negative [facility] Glucose, UA Negative Negative [facility] Ketones, UA Negative Negative [facility] Bilirubin, UA Negative Negative [facility] Blood, UA Negative Negative [facility] Nitrite, UA Negative Negative [facility] Leukocytes, UA Negative Negative [facility] Urobilinogen, UA 0.2 0.2 - 1.0 mg/dL [facility] RBC, UA 0 /HPF [facility] WBC, UA 1 /HPF [facility] Squam Epithel, UA <1 /HPF [facility] Specimen Source [facility] Specimen Urine Performing Organization Address City/State/Zipcode Phone Number [facility] [address], [place] [phone] [facility] * FLOW PRA CLASS II WITH REFLEX TO ANTIBODY SPECIFICITY (04/24/2018 9:34 AM STUNTMAN) Flow Class II Percent 13 [facility] Positive Flow Class Report [facility] Comments Specimen Blood Narrative Performed At Disclaimer: [facility] This test was developed and its performance characteristics determined by the [facility] Laboratory. It has not been [...] complexity clinical laboratory testing. Performing Organization Address City/State/[facility] Phone Number [facility] ONE Esteban Laurent, MS: [id number], [place] [address] CLIA#[id number] CAP#[id number] UNOS#[id number] * FLOW PRA CLASS I WITH REFLEX TO ANTIBODY SPECIFICITY (04/24/2018 9:34 AM STUNTMAN) Flow Class I Percent 0 [facility] Positive Flow Class Report [facility] Comments Specimen Blood Narrative Performed At Disclaimer: [facility] This test was developed and its performance characteristics determined by the [facility] Laboratory. It has not been [...] complexity clinical laboratory testing. Performing Organization Address City/[facility] Phone Number [facility] ONE Esteban Laurent, MS: [id number], [place] [id number] CLIA#[id number] CAP#[id number] UNOS#[id number] * AB SPECIFICITY CLASS II (04/24/2018 9:34 AM STUNTMAN) AB Specificity Class II NO CLASS II ANTIBODY DETECTED [facility] WITH MFIs > 4000 AB Specificity Titr Class [facility] Report Specimen Blood Narrative Performed At Disclaimer: [facility] This test was developed and its performance characteristics determined by the [facility] Laboratory. It has not been [...] complexity clinical laboratory testing. Performing Organization Address City/[facility] Phone Number [facility] Esteban Laurent, MS: [id number], [place] [address] CLIA#[id number] CAP#[id number] UNOS#[id number] * Type and screen, automated (04/24/2018 9:34 AM STUNTMAN) ABO/RH AUTOMATED (BEJOCELYN) A POSITIVE [facility] Ab Scrn NEGATIVE [facility] Specimen Blood Performing Organization Address [facility] Phone Number [facility] [address] [place] [address] MEDICAL CENTER * TSH/T4 if indicated (04/24/2018 9:34 AM STUNTMAN) TSH 0.98 0.35 - 4.94 uIU/mL [facility] Specimen Blood Performing Organization Address City/[facility] Phone Number [facility] [address] [place] [address] [facility] * PT/PTT (04/24/2018 9:34 AM STUNTMAN) Only the most recent of 2 results within the time period is included. Protime 13.1 11.7 - 14.7 seconds [facility] INR 1.0 <=5.9 [facility] PTT 24.2 22.5 - 36.0 seconds [facility] Specimen Blood Narrative Performed At RECOMMENDED COUMADIN/WARFARIN INR THERAPY RANGES [facility] STANDARD DOSE: 2.0 - 3.0 Includes: PROPHYLAXIS for venous thrombosis, [facility] systemic embolization; TREATMENT for venous thrombosis and/or pulmonary embolus. HIGH RISK: Target INR is 2.5-3.5 for patients with mechanical heart valves. Performing Organization Address City/[facility] Phone Number [address] [address] [facility] * HIV-1 Antigen with HIV-1/2 Antibody (04/24/2018 9:34 AM STUNTMAN) HIV-1 Antigen with HIV Nonreactive Nonreactive [facility] 1&2 Antibody [facility] Specimen Blood Performing Organization Address City/[facility] Phone Number [facility] [address] [place] [address] [facility] * CBC with platelet count + automated diff (04/24/2018 9:34 AM STUNTMAN) Only the most recent of 2 results within the time period is included. WBC 7.1 3.5 - 10.5 K/L [facility] RBC 4.00 3.93 - 5.22 M/L [facility] Hemoglobin 11.3 11.2 - 15.7 GM/DL [facility] Hematocrit 39.0 34.1 - 44.9 % [facility] MCV 97.5 (H) 79.4 - 94.8 fL [facility] MCH 28.3 25.6 - 32.2 pg [facility] MCHC 29.0 (L) 32.2 - 35.5 GM/DL [facility] RDW 16.0 (H) 11.7 - 14.4 % [facility] Platelets 259 150 - 450 K/CU MM [facility] MPV 9.8 9.4 - 12.3 fL [facility] nRBC 0 0 - 0 /100 WBC [facility] % Neutros 91 % [facility] % Lymphs 6 % [facility] % Monos 3 % [facility] % Eos 0 % [facility] % Baso 0 % [facility] # Neutros 6.38 (H) 1.56 - 6.13 K/L [facility] # Lymphs 0.40 (L) 1.18 - 3.74 K/L [facility] # Monos 0.20 (L) 0.24 - 0.36 K/L [facility] # Eos 0.00 (L) 0.04 - 0.36 K/L [facility] # Baso 0.02 0.01 - 0.08 K/L [facility] Immature 1 0 - 1 % [facility] Granulocytes-[facility] Specimen Blood Performing Organization Address City/State/Zipcode Phone Number [facility] [address] [place] [address] [facility] * Hepatitis panel (04/24/2018 9:34 AM STUNTMAN) Hep A IgM Nonreactive Nonreactive [facility] Hep B C IgM Nonreactive Nonreactive [facility] Hepatitis C Ab Nonreactive Nonreactive [facility] hepatitis B Surface Ag Nonreactive Nonreactive [facility] Specimen Blood Performing Organization Address City/[facility] Phone Number [address] * EBV-VCA antibody, IgG (04/24/2018 9:34 AM STUNTMAN) TAMIKA FELDER VIRAL CAPSID Positive (A) Negative, Equivocal [facility] ANTIGEN IGG [facility] Specimen Blood Narrative Performed At Tamika Felder Viral Capsid Antigen IgG Result Interpretation: [facility] </=0.8 Al Negative [facility] 0.9-1.0 Al Equivocal >/=1.1 Al Positive Performing Organization Address [facility] Phone Number [address] * Hepatitis B core, total (04/24/2018 9:34 AM STUNTMAN) Hep B Core Total Ab Nonreactive Nonreactive [facility] Specimen Blood Performing Organization Address City/[facility] Phone Number [address] * Toxoplasma gondii antibody, IgG (04/24/2018 9:34 AM STUNTMAN) TOXOPLASMA GONDII IGG <3.0 <10.0 IU/mL [facility] QUANTITATIVE [facility] Specimen Blood Narrative Performed At Toxoplasma Gondii IgG Result Interpretation: [facility] </=9.9 IU/mLNormal [facility] 10-11 IU/mLEquivocal >/=12 IU/mL Positive Performing Organization Address City/[facility] Phone Number [place] [phone] [place] [address] * Hepatitis B surface antibody (04/24/2018 9:34 AM STUNTMAN) Hep B S Ab <8.0 <8.0 mIU/mL [facility] Specimen Blood Performing Organization Address [facility] Phone Number [address] * Cytomegalovirus antibody, IgG (04/24/2018 9:34 AM STUNTMAN) CYTOMEGALOVIRUS, IGG Positive (A) Negative, Equivocal [facility] Specimen Blood Narrative Performed At CMV IgG Result Interpretation: [facility] </=0.8 Al Negative [facility] 0.9-1.0 Al Equivocal >/=1.1 AlPositive Performing Organization Address [facility] Phone Number [address] * Varicella zoster antibody, IgG (04/24/2018 9:34 AM STUNTMAN) Varicella IgG 4.9 [facility] Specimen Blood Narrative Performed At VARICELLA ZOSTER RESULT INTERPRETATIONS: [facility] <=0.8 AlNonreactive:Presumed non-immune to VZV [facility] 0.9-1.0 AlEquivocal >=1.1 AlReactive:Presumed immune to VZV Performing Organization Address [facility] Phone Number [address] * Hemoglobin A1c (04/24/2018 9:34 AM STUNTMAN) Hemoglobin A1C 6.1 4.3 - 6.1 % [facility] Specimen Blood Performing Organization Address [facility] Phone Number [address] * Lipid panel (04/24/2018 9:34 AM STUNTMAN) Triglycerides 128 mg/dL [facility] Cholesterol 215 mg/dL [facility] HDL 71 mg/dL [facility] LDL Calculated 118 mg/dL [facility] Specimen Blood Narrative Performed At Triglyceride Reference Range: [facility] Low Risk <150 [facility] [id number] High Risk 200-499 Very High Risk>=500 Cholesterol Reference Range: Low Risk <200 [id number] High Risk>240 HDL Cholesterol Reference Range: Low Risk >=60 High Risk <40 LDL Cholesterol Reference Range: Optimal<100 Near [id number] [id number] Cmqb705-859 Very High >=190 Performing Organization Address City/State/Zipcode Phone Number [facility] [address] [place] [address] MEDICAL [facility]ENTER * Comprehensive metabolic panel (04/24/2018 9:34 AM STUNTMAN) Protein, Total 7.1 6.0 - 8.3 gm/dL [facility] Albumin 4.1 3.5 - 5.0 g/dL [facility] Alkaline Phosphatase 90 40 - 150 U/L [facility] Total Bilirubin 0.3 0.2 - 1.2 mg/dL [facility] Sodium 139 136 - 145 meq/L [facility] Potassium 4.5 3.5 - 5.1 meq/L [facility] Chloride 102 98 - 107 meq/L [facility] CO2 29 22 - 29 meq/L [facility] BUN 12 7 - 21 mg/dL [facility] Creatinine 0.82 0.57 - 1.25 mg/dL [facility] Glucose 130 (H) 70 - 105 mg/dL [facility] Calcium 9.8 8.4 - 10.2 mg/dL [facility] AST 15 5 - 34 U/L [facility] ALT 19 6 - 55 U/L [facility] EGFR 70Comment: ESTIMATED GFR IS mL/min/1.73 sq m [facility] NOT ACCURATE CREATININE [facility] CLEARANCE IN PREDICTING GLOMERULAR FILTRATION RATE. ESTIMATED GFR IS NOT APPLICABLE FOR DIALYSIS PATIENTS. Specimen Blood Performing Organization Address [facility] Phone Number [facility] [address], [place] [phone] [facility] * RPR (04/24/2018 9:33 AM STUNTMAN) RPR Nonreactive Nonreactive [facility] Specimen Blood Performing Organization Address City/[facility] Phone Number [facility] [address] [place] [address] [facility] * Blood gas, arterial (04/24/2018 8:20 AM STUNTMAN) Only the most recent of 2 results within the time period is included. pH, Arterial 7.40 7.35 - 7.45 [facility] pCO2, Arterial 45 35 - 45 mmHg [facility] pO2, Arterial 62 (L) 80 - 90 mmHg [facility] O2 Sat, Arterial 91.6 (L) 96.0 - 97.0 % [facility] HCO3, Arterial 28 21 - 29 mmol/L [facility] Base Excess, Arterial 2.4 -2.0 - 3.0 mmol/L [facility] Patient Temperature 37.0 C [facility] FIO2 21.0 % [facility] Specimen Blood, Arterial Performing Organization Address [facility] Phone Number [facility] [address] [place] [address] [facility] * CARDIAC CATH REPORT - SCAN (04/02/2018 1:13 PM STUNTMAN) Narrative Performed At * Basic Metabolic Panel (04/01/2018 10:00 AM STUNTMAN) Sodium 141 136 - 145 meq/L [facility] Potassium 3.9 3.5 - 5.1 meq/L [facility] Chloride 104 98 - 107 meq/L [facility] CO2 31 (H) 22 - 29 meq/L [facility] BUN 13 7 - 21 mg/dL [facility] Creatinine 0.79 0.57 - 1.25 mg/dL [facility] Glucose 132 (H) 70 - 105 mg/dL [facility] Calcium 9.6 8.4 - 10.2 mg/dL [facility] EGFR 73Comment: ESTIMATED GFR IS mL/min/1.73 sq m [facility] NOT ACCURATE CREATININE [facility] CLEARANCE IN PREDICTING GLOMERULAR FILTRATION RATE. ESTIMATED GFR IS NOT APPLICABLE FOR DIALYSIS PATIENTS. Specimen Blood Performing Organization Address City/[facility] Phone Number [facility] [address] [place] [address] [facility] * ECG 12 lead (04/01/2018 9:19 AM STUNTMAN) Specimen Narrative Performed At Ventricular Rate 90 BPM GE MUSE Atrial Rate 90 BPM P-R Interval 160 ms QRS Duration 86 ms Q-T Interval 382 ms QTC Calculation(Bazett) 467 ms P Branson 73 degrees R Branson 60 degrees T Branson 69 degrees Normal sinus rhythm Normal ECG No previous ECGs available Confirmed by MD Bingham Mahboob [id number]) on 04/01/2018 1:24:05 PM Procedure Note Interface, External Ris In - 04/01/2018 1:24 PM STUNTMAN Ventricular Rate 90 BPM Atrial Rate 90 BPM P-R Interval 160 ms QRS Duration 86 ms Q-T Interval 382 ms QTC Calculation(Bazett) 467 ms P Branson 73 degrees R Branson 60 degrees T Branson 69 degrees Normal sinus rhythm Normal ECG No previous ECGs available Confirmed by MD Bingham Mahboob ([id number]) on 04/01/2018 1:24:05 PM Performing Organization Address City/State/[facility] Phone Number [employer] MUSE * 6 MINUTE WALK(FOR LUNG TRANSPLANT ONLY) (03/12/2018 1:58 PM CDT) Narrative Performed At Gary Calhoun, PRINCIPAL TECHNICAL WRITER, INSTALLATION SUPERINTENDENT 03/12/20182:36 PM [facility] PFT CHARTING REPORT Infection Control/Hand Hygiene procedures followed throughout the encounter with patient: Yes Patient Identification Method: Patient name verified on armband, and Medical record on armband, Is the order complete?: Yes Account ID#: [id number] Patient Name: Hui Galvez Birthdate: 1955 Age: [...] CDT) Narrative Performed At Gary Calhoun RRT, INSTALLATION SUPERINTENDENT 03/12/20182:36 PM [facility] PFT CHARTING REPORT Infection Control/Hand Hygiene procedures followed throughout the encounter with patient: Yes Patient Identification Method: Patient name verified on armband, and Medical record on armband, Is the order complete?: Yes Account ID#: [id number] Patient Name: Hui Galvez Birthdate: 1955 Age: [...] CDT) Narrative Performed At Toma Jenkins RRT, INSTALLATION SUPERINTENDENT 12/11/20172:02 PM [facility] PFT CHARTING REPORT Infection Control/Hand Hygiene procedures followed throughout the encounter with patient: Yes Patient Identification Method: Patient name verified on armband, and Medical record on armband, Is the order complete?: Yes Account ID#: [id number] Patient Name: Hui Galvez Birthdate: 1955 Age: [...] Group MEDICARE MEDICARE A xxxxxxxxxxx Medicare B [facility] SUPPLEMENT/[place]UAL [place] xxxxxxxxx [facility] SAMOAN Advance Directives For more information, please contact: [facility] [address] [place] [address] Date Inactivated Comments Code Status Date Activated Full Code 04/01/2018 8:31 AM This code status was determined by: Patient
--- OUTSIDE RECORDS SUMMARY | 2018-12-06 14:50 | XMS REPORT | Continuity of Care Document ---
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 Alfredo Palomares Fatigue Active Problem 08/17/2017 Alfredo Palomares Anemia Active Problem 08/17/2017 Alfredo Alaser Vitamin D deficiency, unspecified Active Problem 08/17/2017 [...] Alfredo Palomares PAIN IN UNSPECIFIED JOINT Active [facility] Medications Medication Details Route Status Patient Instructions Ordering Provider Order Date Source Vitamin D (Ergocalciferol) 1 capsule Orally Active 61992 UNIT Orally once a week Yin 08/03/2016 [...] Active 200 MG Orally Once a day Sage 11/07/2015 Alfredo Palomares Nitroglycerin ointment apply to [...] MG Orally Twice a day Yin 08/30/2015 lAfredo Palomares Norvasc 1 tablet Orally Active 2.5 MG Orally Once a day Sage 06/02/2015 Alfredo Palomares Hydroxychloroquine Sulfate 1 tablet with food or milk Orally Active 200 MG Orally twice a day Yin 04/12/2015 Alfredo Palomares Plaquenil 1 tablet with food or milk Orally Active 200 MG Orally bid Sage 01/09/2015 Alfredo Palomares Hydroxychloroquine Sulfate 2 tablets Orally Active 200 MG Orally Once a day Sage 09/28/2014 Alfredo Palomares Albuterol 2 tablet Orally [...] Alfredo Palomares predniSONE Assertion Drug allergy Active [facility] Immunizations Immunization Date Given Site Status [...] 10/13/2015 Alfredo Palomares Height 167.64 cm 05/10/2015 [facility] BMI Calculated 29.11 05/10/2015 [facility] Weight 81.818 05/10/2015 [facility] Weight 178 04/12/2015 Alfredo Palomares Height [...] Yony Palomares MD 6M FU with DEXA q53t4m10-808w-9ceb-ffh5-438761x2f348 09/29/2013 09/29/2013 Alfredo Palomares MD 6M FU with DEXA b06118n7-4i06-7835-omhx-m9ms390v63d4 09/29/2013 09/29/2013 Alfredo Palomares MD 6M FU with DEXA 42254o01-962b-78f8-3396-239837mq0gj9 09/29/2013 09/29/2013 Alfredo Palomares MD 6M FU with DEXA m29h804n-3531-3uj3-at75-6p4v1w71q2u0 09/29/2013 09/29/2013 Alfredo Palomares MD 6M FU with DEXA s70a3sf9-6094-7o58-0zec-286085qbz86k 09/29/2013 09/29/2013 Alfredo Palomares MD 6M FU with DEXA n071m5k2-848x-34dg-e139-vk16s041x8d6 09/29/2013 09/29/2013 Alfredo Palomares MD 6M FU with DEXA 9s8931z3-7a9f-8k16-joa3-23660fq0l652 09/29/2013 09/29/2013 Alfredo Palomares MD 6M FU with DEXA 82w58qqt-66i0-8847-fbql-i95t0dk468m1 09/29/2013 09/29/2013 Alfredo Palomares MD 6M FU with DEXA dz563085-58js-5488-lm64-xs45upwuvjn3 09/29/2013 09/29/2013 Alfredo Palomares MD 6M FU with DEXA 083j440b-345w-6n79-p972-ue35n3898u76 09/29/2013 09/29/2013 Alfredo Palomares MD 6M FU with DEXA nee50221-t1n2-5s06-7678-845k77x179w7 09/29/2013 09/29/2013 Alfredo Palomares MD 6M FU with DEXA l9t45dj4-64z3-33ut-zu03-30w9z4652a03 09/29/2013 09/29/2013 Alfredo Palomares MD 6M FU with DEXA 99638xa9-a901-1ky4-8522-803x5l239545 09/29/2013 09/29/2013 Alfredo Palomares MD 6M FU with DEXA 0v902ydp-6409-263r-9621-q096104y5sam 09/29/2013 09/29/2013 Alfredo Palomares MD 6M FU with DEXA 88c59ft5-62p8-43io-6916-2d09ro7ex301 09/29/2013 09/29/2013 Alfredo Palomares MD 6M FU with DEXA s0242d09-m1bz-15rr-s6a9-62043415wl26 09/29/2013 09/29/2013 Alfredo Palomares MD 6M FU with DEXA 32sr8r23-r021-1y2j-y290-si62m068p2dh 09/29/2013 09/29/2013 Alfredo Palomares MD 6M FU with DEXA xo95lica-hf68-0u96-e1wi-6our6g37yxay 09/29/2013 09/29/2013 Alfredo Palomares MD 6M FU with DEXA k2e5tql6-87k7-30jr-4j95-65z587520602 09/29/2013 09/29/2013 Alfredo Palomares MD 6M FU with DEXA 9glna240-91dc-9i1b-32tt-49y4s54p160u 09/29/2013 09/29/2013 Alfredo Palomares MD 6M FU with DEXA 76h6v0f5-041w-0h9a-8ql3-uredbyl64d0t 09/29/2013 09/29/2013 Alfredo Palomares MD 6M FU with DEXA 2r267xmu-947l-7916-p45b-6jw8oe18lc48 09/29/2013 09/29/2013 Alfredo Palomares MD 6M FU with DEXA zi6hom9t-346q-76y7-67if-s4lv6729q06m 09/29/2013 09/29/2013 Alfredo Palomares MD 6M FU with DEXA e23h5i3m-9863-0ckb-6c05-6409ucx15602 09/29/2013 09/29/2013 Alfredo Palomares MD 6M FU with DEXA 5y3h3oe2-9cf0-0398-zp72-l8k0b3kowa9r 09/29/2013 09/29/2013 Alfredo Palomares MD 6M FU with DEXA fswgist3-l9d7-4q45h3k0-2a40-g2u8-6sw82es93278 09/29/2013 09/29/2013 Alfredo Palomares MD 6M FU with DEXA ql547j22-3l3e-0a7b-g226-44h76m13t50j 09/29/2013 09/29/2013 Alfredo Palomares MD 6M FU with DEXA 3e6n95e0-ice8-3520-38i8-obt902s708ge 09/29/2013 09/29/2013 Alfredo Palomares MD 6M FU with DEXA 46am6627-wfz7-5m12-l970-g895663hl339 09/29/2013 09/29/2013 Alfredo Palomares MD 6M FU with DEXA xa6w529r-7982-2pk0-4p59-fm08pa34g3r8 09/29/2013 09/29/2013 Alfredo Palomares MD 6M f/u fj0z968b-euos-4769-30k4-65t953o952z7 04/01/2014 04/01/2014 Alfredo Palomares MD 6M f/u 3251970x-9m53-7mwb-5gp1-m2n4083641c8 04/01/2014 04/01/2014 Alfredo Palomares MD 6M f/u lb32hg45-7193-51cy-d7c7-l1l0z55x41o1 04/01/2014 04/01/2014 Alfredo Palomares MD 6M f/u 96483ew0-5254-35jb-mk96-ap1kxmlacewp 04/01/2014 04/01/2014 Alfredo Palomares MD 6M f/u 2ubqw17l-02l1-91h3-83c0-74rp6n6d6752 04/01/2014 04/01/2014 Alfredo Palomares MD 6M f/u 5230ac4r-6a28-346u-76ym-5244y43f30nn 04/01/2014 04/01/2014 Alfredo Palomares MD 6M f/u npa6je60-3t3p-1lo8-8408-y391oh16000l 04/01/2014 04/01/2014 Alfredo Palomares MD 6M f/u 5m28q002-i55z-8w20-4363-731ovz572iym 04/01/2014 04/01/2014 Alfredo Palomares MD 6M f/u 61qiz794-m912-8u28-86pt-72bes46q7fl9 04/01/2014 04/01/2014 Alfredo Palomares MD 6M f/u 53934500-9jjt-96o8-r325-t70sey47nmpm 04/01/2014 04/01/2014 Alfredo Palomares MD 6M f/u 06w5ivvv-zv57-6n26-wr6w-fq4j8c827879 04/01/2014 04/01/2014 Alfredo Palomares MD 6M f/u 7hpfi6u1-t4c8-9136-2955-615w312n6352 04/01/2014 04/01/2014 Alfredo Palomares MD 6M f/u 273x21h3-5540-9393-l865-v8854j19q102 04/01/2014 04/01/2014 Alfredo Palomares MD 6M f/u 00b87zrc-z795-9283-31q9-90u5073z0lx6 04/01/2014 04/01/2014 Alfredo Palomares MD 6M f/u 0q87k55t-21r2-6196-rt55-l4952z02e030 04/01/2014 04/01/2014 Alfredo Palomares MD 6M f/u 72nfct5j-42su-11b8-196y-km8sy85t72y5 04/01/2014 04/01/2014 Alfredo Palomares MD 6M f/u j06ye107-0a29-5t3u-7164-5q313krlp48n 04/01/2014 04/01/2014 Alfredo Palomares MD 6M f/u kj7j8b3t-cy2h-6b73-85bt-n6708ir08o76 04/01/2014 04/01/2014 Alfredo Palomares MD 6M f/u k0403a43-9c7r-1350-a4b7-18zo73090963 04/01/2014 04/01/2014 Alfredo Palomares MD 6M f/u l751s445-0i54-71j6-g8qa-051r900q4a66 04/01/2014 04/01/2014 Alfredo Palomares MD 6M f/u 6n8n9316-c4l3-37f4-j4gc-gkksp9r1318j 04/01/2014 04/01/2014 Alfredo Palomares MD 6M f/u n8339898-meq7-4e8n-e233-p4s3i78ks66f 04/01/2014 04/01/2014 Alfredo Palomares MD 6M f/u 184r6112-g492-6p08-zqvo-07dv6a385592 04/01/2014 04/01/2014 Alfredo Palomares MD 6M f/u 1c5745l3-6uqj-6233-ofky-dy8w7666g64a 04/01/2014 04/01/2014 Alfredo Palomares MD 6M f/u 3933f37c-467h-7914-v8k0-6f67h16973cm 04/01/2014 04/01/2014 Alfredo Palomares MD 6M f/u s5exz3eo-7sh1-0iwc-1g1g-74422s50f7o9 04/01/2014 04/01/2014 Alfredo Palomares MD 6M f/u 7qi8s505-0491-76q5-n39r-5upq2he1zx37 04/01/2014 04/01/2014 Alfredo Palomares MD f/u 729977y8-5571-908y-as95-4u1za0v29w39 04/01/2014 04/01/2014 Alfredo Palomares MD REFILLS PLAQU[employer] o5995n80-866i-4y0j-540c-49k42h508oig 04/30/2014 04/30/2014 Alfredo Palomares MD REFILL[employer] 8e9mr296-9i55-421e-clu7-80pu2852v23q 04/30/2014 04/30/2014 Alfredo Palomares MD REFILL[employer] [place] 42u8kk5z-6673-08d3-548t-u904u2457376 04/30/2014 04/30/2014 Alfredo Palomares MD REFILL[employer] [place] 9857z770-3gs5-69ke-vho2-3k2o46k6wkz7 04/30/2014 04/30/2014 Alfredo Palomares MD REFILL[employer] [place] 40j222g9-4zdk-54dg-m1cu-8p4631d023sf 04/30/2014 04/30/2014 Alfredo Palomares MD REFILL[employer] [place] 3769fc79-6872-7ieh-np2o-77x5nf196639 04/30/2014 04/30/2014 Alfredo Palomares MD REFILL[employer] [place] 17or5lz2-6u2l-1315-x2l6-1d079wrr257c 04/30/2014 04/30/2014 Alfredo Palomares MD REFILL[employer] [place] 3jz21390-8k4q-991t-1oib-1f36l5f0t58p 04/30/2014 04/30/2014 Alfredo Palomares MD REFILL[employer] [place] x6s2956g-3547-5q36-p6b2-7wyv271g2849 04/30/2014 04/30/2014 Alfredo Palomares MD REFI[employer] [place] 854p2989-8qy3-2z17-1337-png70907vc9p 04/30/2014 04/30/2014 Alfredo Palomares MD REFILL[employer] [place] 9aqg9ua4-epfk-3869-7xb3-tp3c85bq9ez0 04/30/2014 04/30/2014 Alfredo Palomares MD REFI[employer] [place] 4dk3xsl3-rag2-87r5-779k-643u4y99a97n 04/30/2014 04/30/2014 Alfredo Palomares MD REFILL[employer] [place] 414565wk-y0q0-796y-xfs7-39327z9j0ok6 04/30/2014 04/30/2014 Alfredo Palomares MD REFI[employer] [place] u1x4usbo-yu96-62a2-472k-040qj63hlk26 04/30/2014 04/30/2014 Alfredo Palomares MD REFI[employer] [place] 576y61p6-8063-6h55-4w4s-9e64y9597656 04/30/2014 04/30/2014 Alfredo Palomares MD REFI[employer] [place] w6wy6506-6p3k-8m7d-w8h0-1c39p31qfak0 04/30/2014 04/30/2014 Alfredo Palomares MD REFI[employer] [place] hmp26711-63du-89y4-u605-da4v98spa951 04/30/2014 04/30/2014 Alfredo Palomares MD REFI[employer] [place] g127649y-82r8-91e0-4b21-pi7a6460r693 04/30/2014 04/30/2014 Alfredo Palomares MD REFILL[employer] [place] 8900y6x8-7pr4-2621-5129-k355444dg7x4 04/30/2014 04/30/2014 Alfredo Palomares MD REFILL[employer] [place] 37d1keh1-9y6x-358j-ylz2-o70540j60nju 04/30/2014 04/30/2014 Alfredo Palomares MD REFILL[employer] 9p378u0s-i251-4210-ueq3-6v6q1z2d1gyx 04/30/2014 04/30/2014 Alfredo Palomares MD REFILL[employer] 2svzn8xd-4869-7028-yz24-9xaj9f4921cj 04/30/2014 04/30/2014 Alfredo Palomares MD REFILL[employer] 04105y18-xw1k-041x-10a2-62862153x8h4 04/30/2014 04/30/2014 Alfredo Palomares MD REFILL[employer] [place] 4ar5118x-29nw-0143-1t2q-c7iu5u6158d8 04/30/2014 04/30/2014 Alfredo Palomares MD REFI[employer] [place] 3sx5y082-ery3-4c20-m511-328p89e7p0j4 04/30/2014 04/30/2014 Alfredo Palomares MD REFILL[employer] [place] 02ui1n5b-mqou-8gew-mv0z-g93y62e6957o 04/30/2014 04/30/2014 Alfredo Palomares MD REFILL[employer] [place] 0q62g350-37f9-0808-f530-3077ona8g670 04/30/2014 04/30/2014 Alfredo Palomares MD REFILL[employer] [place] 01bwd43w-303r-1o0j-bf78-037u12f26k83 04/30/2014 04/30/2014 Alfredo Palomares MD REFI[employer] [place] qu0s3323-7l95-2048-e413-x2o0gd80oln4 04/30/2014 04/30/2014 Alfredo Palomares MD Refill ckij43yb-u857-1192-uxzs-u5z91fi9j1rx 05/17/2014 05/17/2014 Alfredo Palomares MD Refill dx72127y-64wv-8293-9bj4-399m419u6h2n 05/17/2014 05/17/2014 Alfredo Palomares MD Refill 1j87058r-el99-3786-3l96-y6341792qjvl 05/17/2014 05/17/2014 Alfredo Palomares MD Refill wuv9x034-7d84-4f43-4mt7-264059x39mww 05/17/2014 05/17/2014 Alfredo Palomares MD Refill bs43563j-smm3-00tu-34g7-6qs7326gn187 05/17/2014 05/17/2014 Alfredo Palomares MD Refill 501ql261-8359-41d4-fsh8-85io1t0f2l37 05/17/2014 05/17/2014 Alfredo Palomares MD Refill 155o0074-1f20-1d2d-86i2-n5g68397097m 05/17/2014 05/17/2014 Alfredo Palomares MD Refill d01994eg-9az5-3ic8-r0r5-676w40448574 05/17/2014 05/17/2014 Alfredo Palomares MD Refill 216y5gp6-b3jr-3428-q818-q8uu686q7g29 05/17/2014 05/17/2014 Alfredo Palomares MD Refill s4667djb-7do7-05hm-o0d6-al0s8k41g6m1 05/17/2014 05/17/2014 Alfredo Palomares MD Refill 3p91371a-8684-2b5g-lw8m-29qf7637nz52 05/17/2014 05/17/2014 Alfredo Palomares MD Refill k4f1u121-3y3c-3369-6021-d044h3m2427u 05/17/2014 05/17/2014 Alfredo Palomares MD Refill 1w2z2ac3-649a-685o-qo1j-u291tdke8768 05/17/2014 05/17/2014 Alfredo Palomares MD Refill lo9uuqlg-a255-1p26-12w5-1qt4077a933j 05/17/2014 05/17/2014 Alfredo Palomares MD Refill 4k1qb1uj-h1u0-2gj3-4o52-k8u47h10y8y4 05/17/2014 05/17/2014 Alfredo Palomares MD Refill a188214h-wxh1-0693-5sp9-9j17338802b8 05/17/2014 05/17/2014 Alfredo Palomares MD Refill o839o001-8n77-9496-0408-k220363s092t 05/17/2014 05/17/2014 Alfredo Palomares MD Refill 7t926523-3uih-4c22-u38o-011261636t00 05/17/2014 05/17/2014 Alfredo Palomares MD Refill cc322532-k259-511d-7m78-4dm93mvf19v2 05/17/2014 05/17/2014 Alfredo Palomares MD Refill 132791z4-8543-3z36-2304-3259jz13jqd1 05/17/2014 05/17/2014 Alfredo Palomares MD Refill 287ckmu5-s55u-70t7-u742-76xc8ztqad6o 05/17/2014 05/17/2014 Alfredo Palomares MD Refill 0u635102-le04-1o7i-2722-8uut9r2p4w73 05/17/2014 05/17/2014 Alfredo Palomares MD Refill o740fw63-6184-8474-377q-j4rve8hso39q 05/17/2014 05/17/2014 Alfredo Palomares MD Refill ytrfc95z-49k0-90h1-kh0y-3t30t4o21311 05/17/2014 05/17/2014 Alfredo Palomares MD Refill 1799930v-1j8k-1n41-380e-7734323772e5 05/17/2014 05/17/2014 Alfredo Palomares MD Refill 657j10wa-36m9-7q6f-rood-imh314f45ybo 05/17/2014 05/17/2014 Alfredo Palomraes MD Refill 5t421687-0211-2782-84j0-78550f67h306 05/17/2014 05/17/2014 Alfredo Palomares MD Refill s347126f-6v0e-5608-wlv1-zvkvhvkw8rhx 05/17/2014 05/17/2014 Alfredo Palomares MD 6M f/u m7464s2a-q60j-4428-uvx4-8h194sv81x91 09/30/2014 09/30/2014 Alfredo Palomares MD 6M f/u 972898z5-7789-2k8n-20y3-36445y7n0rn8 09/30/2014 09/30/2014 Alfredo Palomares MD 6M f/u 9696zv10-3w99-49m9-0416-g870981719lm 09/30/2014 09/30/2014 Alfredo Palomares MD f/u 929a9926-6fs1-8rub-gd81-1765elq3s1h7 09/30/2014 09/30/2014 Alfredo Palomares MD f/u o4k79d91-183w-2324-w8h6-0jl21n52138x 09/30/2014 09/30/2014 Alfredo Palomares MD f/u 5dp99gm7-360e-43u7-249o-519iz83154d2 09/30/2014 09/30/2014 Alfredo Palomares MD f/u cvfd6765-i625-6yx6-ol04-s4275gq84k45 09/30/2014 09/30/2014 Alfredo Palomares MD 6M f/u 814h662t-2j61-7c25-g264-r9a7475707j5 09/30/2014 09/30/2014 Alfredo Palomares MD 6M f/u h7nz28yk-q7f5-49g7-030v-or67p4x37151 09/30/2014 09/30/2014 Alfredo Palomares MD 6M f/u 8z72j96e-7563-89y9-u6s0-g1jyw99l2215 09/30/2014 09/30/2014 Alfredo Palomares MD 6M f/u 446r8y47-1v21-5m93-hma5-hi03860x2lou 09/30/2014 09/30/2014 Alfredo Palomares MD 6M f/u z57a07r2-c4k6-32zi-e267-128t58wr2259 09/30/2014 09/30/2014 Alfredo Palomares MD 6M f/u 386i25f9-7731-5l82-hbm4-fzz423668i8i 09/30/2014 09/30/2014 Alfredo Palomares MD 6M f/u rq794038-ra9b-0h62-18x8-886222n7er3e 09/30/2014 09/30/2014 Alfredo Palomares MD 6M f/u y834f4x3-29qn-9c46-vz84-gmqs2d8h14ds 09/30/2014 09/30/2014 Alfredo Palomares MD 6M f/u 24pa90i8-tj44-0zeo-6a36-011dt7ap1603 09/30/2014 09/30/2014 Alfredo Palomares MD 6M f/u zh7936g2-20h5-141i-3tc2-48261c25j7g0 09/30/2014 09/30/2014 Alfredo Palomares MD 6M f/u 4n29cbw7-d582-089w-73f2-4507k39y5273 09/30/2014 09/30/2014 Alfredo Palomares MD 6M f/u cmr8c16g-1o27-5xjz-ssc8-2k0r4no0y520 09/30/2014 09/30/2014 Alfredo Palomares MD 6M f/u s6nil82o-6fr1-687c-k1xb-154eq80m1s78 09/30/2014 09/30/2014 Alfredo Palomares MD 6M f/u 10e2vg82-o46y-7j2b-2159-d60q5621t913 09/30/2014 09/30/2014 Alfredo Palomares MD 6M f/u 1620a209-g1c1-11on-9875-26a5853x44am 09/30/2014 09/30/2014 Alfredo Palomares MD 6M f/u un414a42-64f5-1a67-730k-5k0i7r845qk0 09/30/2014 09/30/2014 Alfredo Palomares MD 6M f/u 2473o1rf-7835-8518-940y-whd353ttkg11 09/30/2014 09/30/2014 Alfredo Palomares MD 6M f/u 96ot914e-29bo-6e75-tcj2-ek8cb996v323 09/30/2014 09/30/2014 Alfredo Palomares MD Unknown 37122h02-267i-8642-mv2w-m6g1b0xf4x40 09/30/2014 09/30/2014 Alfredo Palomares MD Unknown [id number]-nl25-130a-0j76-s2tazfh1l616 09/30/2014 09/30/2014 Alfredo Palomares MD Unknown 450aiit7-t1h5-066q-13g3-1z5i994v27a5 09/30/2014 09/30/2014 Alfredo Palomares MD Unknown 8e15u26t-88z1-2280-9551-v5w4t1bw7wrp 09/30/2014 09/30/2014 Alfredo Palomares MD Unknown [id number]-7386-22kl-54v6-002697779902 09/30/2014 09/30/2014 Alfredo Palomares MD Unknown h5g8u7t3-9qj8-9727-gj3o-6d8o0x43g001 09/30/2014 09/30/2014 Alfredo Palomares MD Unknown 65ef7i51-k436-6zvj-yy52-0t6h5dr8qf95 09/30/2014 09/30/2014 Alfredo Palomares MD Unknown 6t77c121-lokr-1r92-f907-i656tvk5l8c4 09/30/2014 09/30/2014 Alfredo Palomares MD Unknown oy39pehu-cz01-2708-48b1-9f7y13585g85 09/30/2014 09/30/2014 Alfredo Palomares MD Unknown u829pcoz-5790-0m65-79sa-q4b45pq95g02 09/30/2014 09/30/2014 Alfredo Palomares MD Unknown a68f088u-rr38-02c6-a21t-c11y5j5f2gq2 09/30/2014 09/30/2014 Alfredo Palomares MD Unknown qz6ox701-44e0-3254-6179-d24vj7nsw0m5 09/30/2014 09/30/2014 Alfredo Palomares MD Unknown [id number]-eqn2-11f2-h230-j6284dxm4700 09/30/2014 09/30/2014 Alfredo Palomares MD Unknown [id number]-i673-6ewg-7167-t8imf6baq0mo 09/30/2014 09/30/2014 Alfredo Palomares MD Unknown k65001n2-2i8x-8cn2-0558-ftf147tn2t27 09/30/2014 09/30/2014 Alfredo Palomares MD Unknown 28tg42z3-h7l1-3gs9-6842-1r10mk1pi4kg 09/30/2014 09/30/2014 Alfredo Palomares MD Unknown [id number]-p51j-09im32giq7z6 09/30/2014 09/30/2014 Alfredo Palomares MD Unknown e80b9h6x-034n-9n9r-2gxg-v7q7g9257j6l 09/30/2014 09/30/2014 Alfredo Palomares MD Unknown 15l014u0-al4c-0q9q-7184-hcrh7xi35o19 09/30/2014 09/30/2014 Alfredo Palomares MD Unknown md1402b5-kr1w-26yp-d150-qf0605s521at 09/30/2014 09/30/2014 Alfredo Palomares MD Unknown 86r0i596-l9n3-82n1-9475-l7t3y46s7s91 09/30/2014 09/30/2014 Alfredo Palomares MD Unknown 88k91e2o-6v1w-59mf-66f5-28bh270jkq03 09/30/2014 09/30/2014 Alfredo Palomares MD Unknown [id number]-v334-h312jv8831co 09/30/2014 09/30/2014 Alfredo Palomares MD Unknown [id number]-t874-6dz9-v79s-[id number] 09/30/2014 09/30/2014 Alfredo Palomares MD Unknown [id number] 09/30/2014 09/30/2014 Alfredo Palomares MD Unknown [id number] 09/30/2014 09/30/2014 Alfredo Palomares MD Refill- Plaquenil [id number]-f9hb-3vs2-imt0-035ubo793e16 10/11/2014 10/11/2014 Alfredo Palomares MD Refill- Plaquenil [id number]-q7h4-97o723l1x9l7 10/11/2014 10/11/2014 Alfredo Palomares MD Refill- Plaquenil 4m9l65ks-z88k-59t3-n62c-qr7k6z944165 10/11/2014 10/11/2014 Alfredo Palomares MD Refill- Plaquenil 6sq4i404-ex79-424m-9j9x-0a7k71ao1117 10/11/2014 10/11/2014 Alfredo Palomares MD Refill- Plaquenil [id number]-xb71111f1379 10/11/2014 10/11/2014 Alfredo Palomares MD Refill- Plaquenil 7u70z9vw-bcs3-81x6-i158-3z6v3a0o4wug 10/11/2014 10/11/2014 Alfredo Palomares MD Refill- Plaquenil b6389q21-e031-132g-g1tu-61jp3zfw6yiy 10/11/2014 10/11/2014 Alfredo Palomares MD Refill- Plaquenil 8930noq8-36qg-0282-2871-719q2osuf4n4 10/11/2014 10/11/2014 Alfredo Palomares MD Refill- Plaquenil 40r8611r-2t91-4649-s616-997794ybi839 10/11/2014 10/11/2014 Alfredo Palomares MD Refill- Plaquenil 7o481cs1-6np8-08b8-j944-6j403qe7262t 10/11/2014 10/11/2014 Alfredo Palomares MD Refill- Plaquenil [id number]-t9cq-1pw1-4378-06993644t3a1 10/11/2014 10/11/2014 Alfredo Palomares MD Refill- Plaquenil 9ysh16e2-9pmr-02y9-y5x9-18a0ort39sa4 10/11/2014 10/11/2014 Alfredo Palomares MD Refill- Plaquenil a7026lr5-0016-1m0q-1k37-3vsfe53pb8g0 10/11/2014 10/11/2014 Alfredo Palomares MD Refill- Plaquenil [id number]-1080-896i-5y207z56h6r3 10/11/2014 10/11/2014 Alfredo Palomares MD Refill- Plaquenil 83g836wt-[id number] 10/11/2014 10/11/2014 Alfredo Palomares MD Refill- Plaquenil [id number] 10/11/2014 10/11/2014 Alfredo Palomares MD Refill- Plaquenil g9h0201e-8vv8-0898-4956-620s5e4ju3rd 10/11/2014 10/11/2014 Alfredo Palomares MD Refill- Plaquenil 9q9e92j1-5p19-8i92-4q54-10n085840ww2 10/11/2014 10/11/2014 Alfredo Palomares MD Refill- Plaquenil 6b62iu2z-g29i-7x87-kt0x-xu8c9jz2458x 10/11/2014 10/11/2014 Alfredo Palomares MD Refill- Plaquenil [id number]-0m36-0w39-94ffb31e4il6 10/11/2014 10/11/2014 Alfredo Palomares MD Refill- Plaquenil ibc134c1-5809-694r-ojod-6u331hp6ch52 10/11/2014 10/11/2014 Alfredo Palomares MD Refill- Plaquenil 2l77c1z3-486c-6b3v-01ys-xd1e13j75o80 10/11/2014 10/11/2014 Alfredo Palomares MD Refill- Plaquenil 21cu0808-245c-1r9t-g492-db4458i66zm1 10/11/2014 10/11/2014 Alfredo Palomares MD Refill- Plaquenil 5mhq33c9-2156-4zuy-3m14-5lixdd460135 10/11/2014 10/11/2014 Alfredo Palomares MD Refill- Plaquenil 6206z288-kn00-464d-o8ug-31lcw317j8a3 10/11/2014 10/11/2014 Alfredo Palomares MD Unknown [id number]-[id number] 10/21/2014 10/21/2014 Alfredo Palomares MD Unknown [id number]-002r-763j-x3xo-q21v2044t5uv 10/21/2014 10/21/2014 Alfredo Palomares MD Unknown [id number] 10/21/2014 10/21/2014 Alfredo Palomares MD Unknown [id number] 10/21/2014 10/21/2014 Alfredo Palomares MD Unknown [id number]-[id number]-oli5ep8p3p0d 10/21/2014 10/21/2014 Alfredo Palomares MD Unknown [id number] 10/21/2014 10/21/2014 Alfredo Palomares MD Unknown [id number] 10/21/2014 10/21/2014 Alfredo Palomares MD Unknown [id number] 10/21/2014 10/21/2014 Alfredo Palomares MD Unknown [id number] 10/21/2014 10/21/2014 Alfredo Palomares MD Unknown [id number]-q46o89k5m65w 10/21/2014 10/21/2014 Alfredo Palomares MD Unknown [id number]-[id number] 10/21/2014 10/21/2014 Alfredo Palomares MD Unknown [id number] 10/21/2014 10/21/2014 Alfredo Palomares MD Unknown [id number]-llu8-[id number] 10/21/2014 10/21/2014 Alfredo Palomares MD Unknown [id number] 10/21/2014 10/21/2014 Alfredo Palomares MD Unknown [id number] 10/21/2014 10/21/2014 Alfredo Palomares MD Unknown [id number] 10/21/2014 10/21/2014 Alfredo Palomares MD Unknown [id number] 10/21/2014 10/21/2014 Alfredo Palomares MD Unknown [id number] 10/21/2014 10/21/2014 Alfredo Palomares MD Unknown [id number] 10/21/2014 10/21/2014 Alfredo Palomares MD Unknown [id number]-j1f5xy6e3f60 10/21/2014 10/21/2014 Alfredo Palomares MD Unknown [id number]-[id number] 10/21/2014 10/21/2014 Alfredo Palomares MD Unknown [id number] 10/21/2014 10/21/2014 Alfredo Palomares MD Unknown [id number]-f006sf36u09p 10/21/2014 10/21/2014 Alfredo Palomares MD Unknown [id number] 10/21/2014 10/21/2014 Alfredo Palomares MD Unknown [id number] 10/21/2014 10/21/2014 Alfredo Palomares MD Plaquenil 6c6r3j9t-5464-33gg-kh4g-4t022e4q0wvn 01/03/2015 01/03/2015 Alfredo Palomares MD Plaquenil [id number]-38kw-81hr-gv09-2l0506qic394 01/03/2015 01/03/2015 Alfredo Palomares MD Plaquenil 50zpl285-zq7e-34w6-v4qb-8s47p120mw22 01/03/2015 01/03/2015 Alfredo Palomares MD Plaquenil [id number] 01/03/2015 01/03/2015 Alfredo Palomares MD Plaquenil 6lq8i7sy-8ko7-2t1a-025j-8c1f7s0s12u0 01/03/2015 01/03/2015 Alfredo Palomares MD Plaquenil 5p7r79b4-0579-3y12-8o25-09q25h814gzm 01/03/2015 01/03/2015 Alfredo Palomares MD Plaquenil u29omj54-r07h-0q07-kv06-4h994y8351c1 01/03/2015 01/03/2015 Alfredo Palomares MD Plaquenil 3b017l33-e538-5857-dzb7-5iqe892r2d26 01/03/2015 01/03/2015 Alfredo Palomares MD Plaquenil [id number]-fbc5-260w-q008-n1xx3btm060j 01/03/2015 01/03/2015 Alfredo Palomares MD Plaquenil [id number]-pkj2-xg118622s79i 01/03/2015 01/03/2015 Alfredo Palomares MD Plaquenil [id number]-c5ta-602n-7uvs-72w97a38yj92 01/03/2015 01/03/2015 Alfredo Palomares MD Plaquenil 7w0zw225-u0ss-2dp7-3649-695e41jsqjf7 01/03/2015 01/03/2015 Alfredo Palomares MD Plaquenil s087f3o3-f46o-18f5-u2am-fgu00xe810m5 01/03/2015 01/03/2015 Alfredo Palomares MD Plaquenil [id number]-zd91-40vr-79nb-3g5683yu14fu 01/03/2015 01/03/2015 Alfredo Palomares MD Plaquenil 6xvp0fu7-a740-3a84-j7zx-45vly858i2b5 01/03/2015 01/03/2015 Alfredo Palomares MD Plaquenil 2d856o5u-l07i-2356-[id number] 01/03/2015 01/03/2015 Alfredo Palomares MD Plaquenil fb07a2yu-2d33-40bk-s655-j71s29i879h5 01/03/2015 01/03/2015 Alfredo Palomares MD Plaquenil 72ti17lq-7i8e-08s0-5r7j-61qh4981d0gd 01/03/2015 01/03/2015 Alfredo Palomares MD Plaquenil 42d1np7a-4auz-192x-274u-q01w59a96tz0 01/03/2015 01/03/2015 Alfredo Palomares MD Plaquenil [id number]-232k-[id number] 01/03/2015 01/03/2015 Alfredo Palomares MD Plaquenil [id number]-1521-261f-[id number] 01/03/2015 01/03/2015 Alfredo Palomares MD Plaquenil 26298l3x-s42x-95c9-6g47-6atem5t8k7gg 01/03/2015 01/03/2015 Alfredo Palomares MD Plaquenil 6mzb525n-2525-64ib-78i7-5k62282g7223 01/03/2015 01/03/2015 Alfredo Palomares MD Plaquenil oz5o619a-v70s-16s5-02ot-[id number] 01/03/2015 01/03/2015 Alfredo Palomares MD [facility] [id number] 01/03/2015 01/03/2015 Alfredo Palomares MD Unknown [id number]-[id number] 03/30/2015 03/30/2015 Alfredo Palomares MD Unknown [id number] 03/30/2015 03/30/2015 Alfredo Palomares MD Unknown [id number] 03/30/2015 03/30/2015 Alfredo Palomares MD Unknown [id number] 03/30/2015 03/30/2015 Alfredo Palomares MD Unknown [id number] 03/30/2015 03/30/2015 Alfredo Palomares MD Unknown [id number] 03/30/2015 03/30/2015 Alfredo Palomares MD Unknown [id number] 03/30/2015 03/30/2015 Alfredo Palomares MD Unknown [id number] 03/30/2015 03/30/2015 Alfredo Palomares MD Unknown [id number] 03/30/2015 03/30/2015 Alfredo Palomares MD Unknown [id number] 03/30/2015 03/30/2015 Alfredo Palomares MD Unknown [id number] 03/30/2015 03/30/2015 Alfredo Palomares MD Unknown [id number] 03/30/2015 03/30/2015 Alfredo Palomares MD Unknown [id number] 03/30/2015 03/30/2015 Alfredo Palomares MD Unknown [id number] 03/30/2015 03/30/2015 Alfredo Palomares MD Unknown [id number] 03/30/2015 03/30/2015 Alfredo Palomares MD Unknown [id number] 03/30/2015 03/30/2015 Alfredo Palomares MD Unknown [id number] 03/30/2015 03/30/2015 Alfredo Palomares MD Unknown [id number] 03/30/2015 03/30/2015 Alfredo Palomares MD Unknown [id number] 03/30/2015 03/30/2015 Alfredo Palomares MD Unknown [id number] 03/30/2015 03/30/2015 Alfredo Palomares MD Unknown [id number] 03/30/2015 03/30/2015 Alfredo Palomares MD Unknown [id number] 03/30/2015 03/30/2015 Alfredo Palomares MD Unknown [id number] 03/30/2015 03/30/2015 Alfredo Palomares MD Unknown [id number] 03/30/2015 03/30/2015 Alfredo Palomares MD 6M f/u [id number] 04/12/2015 04/12/2015 Alfredo Palomares MD 6M f/u [id number]-[id number] 04/12/2015 04/12/2015 Alfredo Palomares MD 6M f/u [id number]-94wy-2pf2-33957jt2911j 04/12/2015 04/12/2015 Alfredo Palomares MD 6M f/u [id number]-[id number] 04/12/2015 04/12/2015 Alfredo Palomares MD 6M f/u en8jaop8-s0u2-2mv0-65l9-7782z9h1753r 04/12/2015 04/12/2015 Alfredo Palomares MD 6M f/u 3g1g0hgh-3m4q-4682-u7lm-qg9gh5q4ug03 04/12/2015 04/12/2015 Alfredo Palomares MD 6M f/u rb48576b-5ls0-263p-s26q-6842mh609tdd 04/12/2015 04/12/2015 Alfredo Palomares MD 6M f/u uwj66bw1-3jw0-012i-v503-364147lek931 04/12/2015 04/12/2015 Alfredo Palomares MD 6M f/u [id number]-l4t7a5438147 04/12/2015 04/12/2015 Alfredo Palomares MD 6M f/u go0z7425-kno9-32f9-bsob-t36v8z89of14 04/12/2015 04/12/2015 Alfredo Palomares MD 6M f/u 2u64e77w-59s7-0352-5723-a4mzz8s5p26m 04/12/2015 04/12/2015 Alfredo Palomares MD 6M f/u 644l9c79-4on6-98l6-w2mn-6s0987866t7p 04/12/2015 04/12/2015 Alfredo Palomares MD 6M f/u q9l3b256-72c2-8934-5f66-ed541zsd2ro3 04/12/2015 04/12/2015 Alfredo Palomares MD 6M f/u hqh1h3ki-qa68-1w58-c5cb-45154t7ogh58 04/12/2015 04/12/2015 Alfredo Palomares MD 6M f/u 0559u5n7-e747-3v96-v579-1kc2k885253e 04/12/2015 04/12/2015 Alfredo Palomares MD 6M f/u 46410bmw-5p8e-1uv9-b157-557hbmz3z4t7 04/12/2015 04/12/2015 Alfredo Palomares MD 6M f/u [id number]-0q55-n3to-e312g12z7673 04/12/2015 04/12/2015 Alfredo Palomares MD 6M f/u v1ev1y06-a7gw-1a51-vd78-7414we7f6qb2 04/12/2015 04/12/2015 Alfredo Palomares MD 6M f/u 011u4cx9-g42c-2782-t82l-4tg1qo3ei9ch 04/12/2015 04/12/2015 Alfredo Palomares MD 6M f/u 7v982wmp-1g41-844t-j5u1-5b2ecfj07018 04/12/2015 04/12/2015 Alfredo Palomares MD 6M f/u 2os76351-6b0l-1498-c20v-5qh6f8p2762n 04/12/2015 04/12/2015 Alfredo Palomares MD 6M f/u 5l65i843-3j92-0jmb-1104-80d848kl346v 04/12/2015 04/12/2015 Alfredo Palomares MD [facility] hqo30c3s-253x-150i-984i-5833d77762vt 04/15/2015 04/15/2015 Alfredo Palomares MD [facility] [id number]-3k5r-4817-5r6x634e6a68 04/15/2015 04/15/2015 Alfredo Palomares MD [facility] [id number]-8174-xg5d537048x7 04/15/2015 04/15/2015 Alfredo Palomares MD [facility] [id number] 04/15/2015 04/15/2015 Alfredo Palomares MD [facility] [id number]-c47q-mor4g3438nqc 04/15/2015 04/15/2015 Alfredo Palomares MD [facility] [id number]-g4z9-2170-1o79-b629lb4ok1eg 04/15/2015 04/15/2015 Alfredo Palomares MD [facility] [id number]-3452-b8a3-24ol0117x5r0 04/15/2015 04/15/2015 Alfredo Palomares MD [facility] [id number]-r9oa-64b6-9pgz-335747nykj42 04/15/2015 04/15/2015 Alfredo Palomares MD [facility] [id number]-[id number]-us3m-5x3c14857mkx 04/15/2015 04/15/2015 Alfredo Palomares MD med [id number]-rkxu-z7hehb64348t 04/15/2015 04/15/2015 Alfredo Palomares MD [facility] [id number] 04/15/2015 04/15/2015 Alfredo Palomares MD [facility] [id number]-nd01-756ypjf8395d 04/15/2015 04/15/2015 Alfredo Palomares MD [facility] [id number]-[id number] 04/15/2015 04/15/2015 Alfredo Palomares MD [facility] 3z8xf0o1-q275-6956-8y30-3k4t25k9r3ij 04/15/2015 04/15/2015 Alfredo Palomares MD [facility] [id number]-g3g8-5353-q744-r71291p1133h 04/15/2015 04/15/2015 Alfredo Palomares MD [facility] [id number]-q4s3-6j13-y523-3wf1630ib98v 04/15/2015 04/15/2015 Alfredo Palomares MD [facility] [id number]-79s2-ru7o301805xz 04/15/2015 04/15/2015 Alfredo Palomares MD [facility] [id number]-u89p28881l0b 04/15/2015 04/15/2015 Alfredo Palomares MD [facility] [id number]-w32u-[id number] 04/15/2015 04/15/2015 Alfredo Palomares MD med [id number]-ov0k-98qtrq08k63m 04/15/2015 04/15/2015 Alfredo Palomares MD [facility] [id number]-53f8-95yt8ap841q0 04/15/2015 04/15/2015 Alfredo Palomares MD [facility] [id number]-5dc3-r1s7-9yacq8ecrf94 04/15/2015 04/15/2015 Alfredo Palomares MD [facility] [id number]-[id number]-lou0-0952dl70qo36 04/15/2015 04/15/2015 Alfredo Palomares [facility] [id number] Marta Jcf 05/10/2015 05/11/2015 [facility] Yony Palomares MD refill [id number]-6k18id84137p 05/16/2015 05/16/2015 Alfredo Palomares MD refill [id number]-u8a7-ebw2952jnug1 05/16/2015 05/16/2015 Alfredo Palomares MD refill 516s2l9j-kn96-40vk-v7sf-39693all611h 05/16/2015 05/16/2015 Alfredo Palomares MD refill [id number]-[id number]-5520zt9ax68t 05/16/2015 05/16/2015 Alfredo Palomares MD refill 389ss5m1-3tk8-96n9-1nh3-ua138330k9n4 05/16/2015 05/16/2015 Alfredo Palomares MD refill g9g801b8-bn46-95cf-p4w3-39no67q12770 05/16/2015 05/16/2015 Alfredo Palomares MD refill 5poy79c0-m423-97gk-g8b0-6321900496i5 05/16/2015 05/16/2015 Alfredo Palomares MD refill [id number]-4y8m-6y16-9m26z9760241 05/16/2015 05/16/2015 Alfredo Palomares MD refill [id number]-1n69-8153-51f1-p7r6535c7hib 05/16/2015 05/16/2015 Alfredo Palomares MD refill 325l550c-6l7b-568s-894z-gynfr77wrwr6 05/16/2015 05/16/2015 Alfredo Palomares MD refill 327l9vso-460r-4786-869y-55lsh26jky50 05/16/2015 05/16/2015 Alfredo Palomares MD refill x9f5esk1-3dd2-9g5w-wkk1-zmua4543093m 05/16/2015 05/16/2015 Alfredo Palomares MD refill 5a7qw1i4-06j4-21y0-10x3-253qq6dwx06x 05/16/2015 05/16/2015 Alfredo Palomares MD refill t2crv8r7-35or-348x-fow1-3142j4n6887h 05/16/2015 05/16/2015 Alfredo Palomares MD refill p1092j6k-yfvd-2938-t6cm-f12wj327662x 05/16/2015 05/16/2015 Alfredo Palomares MD refill [id number]-4m7l-5o755p0048t5 05/16/2015 05/16/2015 Alfredo Palomares MD refill [id number]-a0wn-0768-492u-8gvx34d60064 05/16/2015 05/16/2015 Alfredo Palomares MD refill [id number]-t07w-32zi-p1fv-i4y2y9n39983 05/16/2015 05/16/2015 Alfredo Palomares MD refill [id number]332j3ketbj 05/16/2015 05/16/2015 Alfredo Palomares MD refill [id number]-nor4-e5l5288r3n2m 05/16/2015 05/16/2015 Alfredo Palomares MD refill 6tx0u9k5-0b0i-3v70-o61v-7p5t1msm219m 05/16/2015 05/16/2015 Alfredo Palomares MD [facility] b4wt42m6-h158-8a11-by2z-i3x1313755uj 05/27/2015 05/27/2015 Alfredo Palomares MD [facility] cotjbl53-15j6-593u-x1ao-2w67r9k8v140 05/27/2015 05/27/2015 Alfredo Palomares MD PLAQUIL 32ym9a12-j687-9533-2997-j00225erem8y 05/27/2015 05/27/2015 Alfredo Palomares MD PLA[facility]IL b76vl3ws-9388-9g00-12gn-65i2ui9ep737 05/27/2015 05/27/2015 Alfredo Palomares MD PLAQUIL 05197uhm-4302-29m1-w5i6-73189mt81jw6 05/27/2015 05/27/2015 Alfredo Palomares MD [facility] [id number]-9ydv-yh44-j22g8929724w 05/27/2015 05/27/2015 Alfredo Palomares MD [facility] 15e12eeo-i741-4l04-7f60-0y0v54h1bvy8 05/27/2015 05/27/2015 Alfredo Palomares MD [facility] [id number]-d4v4yu1768w4 05/27/2015 05/27/2015 Alfredo Palomares MD PLA[facility]IL bw5z93kq-2110-81a8-6595-r2934ru81x67 05/27/2015 05/27/2015 Alfredo Palomares MD PLAQUIL it7xjn7j-vv7d-8b5e-6k07-3c9n3rpt8749 05/27/2015 05/27/2015 Alfredo Palomares MD PLAQUYAJAIRA xk4h12dv-jn8x-19o9-l70k-mi55125s7jha 05/27/2015 05/27/2015 Alfredo Palomares MD PLAQUYAJAIRA ci09k22q-3776-01km-mp37-l3t1o300k1qn 05/27/2015 05/27/2015 MD JONAH June 8ff0l9ca-6328-0967-8ai9-8s5m7a934ttn 05/27/2015 05/27/2015 Alfredo Palomares MD PLAQUYAJAIRA 19260u06-16f8-9763-7216-23772i68d7k1 05/27/2015 05/27/2015 Alfredo Palomares MD PLAQUYAJAIRA krb75307-j0x1-907i-nl37-1a36575o93nn 05/27/2015 05/27/2015 Alfredo Palomares MD PLAQUIL 4qk2k214-7366-649m-63x8-36284549o513 05/27/2015 05/27/2015 Alfredo Palomares MD PLA[facility]IL 4277a79z-h352-99o3-20bq-gd2j02h4bt6l 05/27/2015 05/27/2015 Alfredo Palomares MD PLAQUYAJAIRA g6ry3947-45dn-90ko-975l-n693t8909771 05/27/2015 05/27/2015 Alfredo Palomares MD PLAQUYAJAIRA 91zkh080-m2np-3gya-h799-6r1e58j1dqk0 05/27/2015 05/27/2015 Alfredo Palomares MD PLAQUIL 819sh409-tg03-1n82-9163-1z659sf3yc01 05/27/2015 05/27/2015 Alfredo Palomares MD Call from Dr Mcelroy [id number]-s310-r74ym4im6802 06/02/2015 06/02/2015 Alfredo Palomares MD Call from Dr Mcelroy [id number]-3632-u00a-3v328dbg6lp1 06/02/2015 06/02/2015 Alfredo Palomares MD Call from Dr Mcelroy 207hv1l9-986t-72vq-915i-zg7j72497o87 06/02/2015 06/02/2015 Alfredo Palomares MD Call from Dr Mcelroy 75ewy3o8-m6eh-1uy3-3321-0424513ol244 06/02/2015 06/02/2015 Alfredo Palomares MD Call from Dr Mcelroy 0f4x9844-19u9-21n6-1760-476k2o13jh2f 06/02/2015 06/02/2015 Alfredo Palomares MD Call from Dr Mcelroy 267r8xcy-568d-32tf-l8mn-50m57541y0l2 06/02/2015 06/02/2015 Alfredo Palomares MD Call from Dr Mcelroy [id number]-m136-53e9-cec1-l907rd18l8qk 06/02/2015 06/02/2015 Alfredo Palomares MD Call from Dr Mcelroy [id number]-h098-71b4-0c12-tru0g8ozuw4e 06/02/2015 06/02/2015 Alfredo Palomares MD Call from Dr Mcelroy [id number]-wmi4-7qv662k77p4c 06/02/2015 06/02/2015 Alfredo Palomares MD Call from Dr Mcelroy 095ykn69-0snq-31l7-t7oc-379d0c36l3qz 06/02/2015 06/02/2015 Alfredo Palomares MD Call from Dr Mcelroy 4nq9qfr5-ncn1-0x31-s796-4e7253tp9w99 06/02/2015 06/02/2015 Alfredo Palomares MD Call from Dr Mcelroy 4o714c78-6435-0549-y45a-i987nvh6855g 06/02/2015 06/02/2015 Alfredo Palomares MD Call from Dr Mcelroy 3acb537g-hx90-04d0-9u89-5688bg37r495 06/02/2015 06/02/2015 Alfredo Palomares MD Call from Dr Mcelroy 5yzaemt8-443x-56n7-r69l-5k99mg019742 06/02/2015 06/02/2015 Alfredo Palomares MD Call from Dr Mcelroy 9z36jkuf-3790-3321-43j7-998g39p9468b 06/02/2015 06/02/2015 Alfredo Palomares MD Call from Dr Mcelroy 0y1fs008-961j-0p66-nf74-6z2x1t654670 06/02/2015 06/02/2015 Alfredo Palomares MD Call from Dr Mcelroy 4d3y446k-0j01-77u3-hu3p-td614j2r1971 06/02/2015 06/02/2015 Alfredo Palomares MD Call from Dr Mcelroy 3k8612y8-hdz2-6172-9g1u-x3m9cjde0287 06/02/2015 06/02/2015 Alfredo Palomares MD Call from Dr Mcelroy 795u783u-zg32-7e0c-8va3-243t4v9n7p30 06/02/2015 06/02/2015 Alfredo Palomares MD Call from Dr Mcelroy 7h3fe538-7w34-776l-4871-30ka97n06jgf 06/02/2015 06/02/2015 Alfredo Palomares MD rx resent sn358d0v-57j2-90k0-lxmx-f03885cl9yg0 06/02/2015 06/02/2015 Alfredo Palomares MD rx resent 5yfnvy43-5v7i-308m-9gw1-yr0g00n0v2e1 06/02/2015 06/02/2015 Alfredo Palomares MD rx resent 4a5u1127-xw65-5513-a065-7ma77mta0af3 06/02/2015 06/02/2015 Alfredo Palomares MD rx resent w81y9033-8l72-48gt-xe30-z98h9z9aup1q 06/02/2015 06/02/2015 Alfredo Palomares MD rx resent m19v5117-j7c9-0237-v469-5yb5nk8k87r4 06/02/2015 06/02/2015 Alfredo Palomares MD rx resent [id number]-g263-999eo5z8198u 06/02/2015 06/02/2015 Alfredo Palomares MD rx resent j59c5893-2rsq-7rb1-t1a5-1230974a8qc2 06/02/2015 06/02/2015 Alfredo Palomares MD rx resent 90hnz865-10za-66c0-p6i6-22cx6gs20b08 06/02/2015 06/02/2015 Alfredo Palomares MD rx resent 939i85xd-5k26-1050-q027-65x080u81871 06/02/2015 06/02/2015 Alfredo Palomares MD rx resent 81iomkq1-z974-3302-w24s-1shu536i91b0 06/02/2015 06/02/2015 Alfredo Palomares MD rx resent t85i6391-u8d4-6b33-156l-oc5l4pl40961 06/02/2015 06/02/2015 Alfredo Palomares MD rx resent 3dkw3fph-3107-11b5-3445-5j47j6cm3047 06/02/2015 06/02/2015 Alfredo Palomares MD rx resent w50ij5i1-9jlu-3u9v-10z2-n45p388679vx 06/02/2015 06/02/2015 Alfredo Palomares MD rx resent x1dyj575-e1c7-8i8a-6952-g939r999g0cf 06/02/2015 06/02/2015 Alfredo Palomares MD rx resent j11qnb3f-2vpn-6b04-f061-852y348ei664 06/02/2015 06/02/2015 Alfredo Palomares MD rx resent 7s175fxh-e0a1-7970-3374-809t275ny717 06/02/2015 06/02/2015 Alfredo Palomares MD rx resent 07v95095-619j-76rx-v6f1-o525407n53od 06/02/2015 06/02/2015 Alfredo Palomares MD rx resent fcja8n23-r1t1-3e63-x790-0hf2o35p094t 06/02/2015 06/02/2015 Alfredo Palomares MD rx resent un847mp8-s86u-7tpv-4835-j11vq9p8pvf3 06/02/2015 06/02/2015 Alfredo Palomares MD rx resent m5y4c625-12a0-4m86-0z1w-51238e5o2nm0 06/02/2015 06/02/2015 Alfredo Palomares MD Refill Req Plaquenil [id number]-b1kx-b97595br641m 08/09/2015 08/09/2015 Alfredo Palomares MD Refill Req Plaquenil u9as3308-1m8v-12gi-z9i5-1m8906wn60ig 08/09/2015 08/09/2015 Alfredo Palomraes MD Refill Req Plaquenil gu5ovc7m-8808-991h-mq6w-em88a9122be5 08/09/2015 08/09/2015 Alfredo Palomares MD Refill Req Plaquenil 84llb01k-k68x-808q-14md-q16d26997vs0 08/09/2015 08/09/2015 Alfredo Palomares MD Refill Req Plaquenil cr4zrcn1-323p-7991-5y35-36gz996yic86 08/09/2015 08/09/2015 Alfredo Palomares MD Refill Req Plaquenil h1fl7aco-2i22-0s97-3e4v-083272379k9h 08/09/2015 08/09/2015 Alfredo Palomares MD Refill Req Plaquenil 68otp5pu-6cz2-7966-7628-95zy902968p1 08/09/2015 08/09/2015 Alfredo Palomares MD Refill Req Plaquenil 66qqkiue-1940-50zd-c55a-1rc88d836715 08/09/2015 08/09/2015 Alfredo Palomares MD Refill Req Plaquenil t410tb20-94rx-4gjd-h2o2-471s29363i1j 08/09/2015 08/09/2015 Alfredo Palomares MD Refill Req Plaquenil 9q8q2d7d-62ul-749t-50pm-0684q8t94830 08/09/2015 08/09/2015 Alfredo Palomares MD Refill Req Plaquenil b2c7l3o7-cmr4-821p-3465-u8900xus373c 08/09/2015 08/09/2015 Alfredo Palomares MD Refill Req Plaquenil u7t607ty-95m9-94k2-7tt3-3119viy36k77 08/09/2015 08/09/2015 Alfredo Palomares MD Refill Req Plaquenil 14pc1759-62c8-959f-25v2-sy80v8q895q6 08/09/2015 08/09/2015 Alfredo Palomares MD Refill Req Plaquenil p455f8d8-7w99-3l65-g284-dhlf5m8t15d5 08/09/2015 08/09/2015 Alfredo Palomares MD Refill Req Plaquenil 14x19950-413a-308q-r3e5-49nk0217c308 08/09/2015 08/09/2015 Alfredo Palomares MD Refill Req Plaquenil 9047293m-t69t-7e52-23v3-4417d82o4g91 08/09/2015 08/09/2015 Alfredo Palomares MD Refill Req Plaquenil n661j3y2-1364-2r52-z341-w1kvc29hj527 08/09/2015 08/09/2015 Alfredo Palomares MD Plaquenil Rx p1i84c3e-yi3e-08p0-x3a6-v0063o1ikjw6 08/30/2015 08/30/2015 Alfredo Palomares MD Plaquenil Rx 4c270734-120j-8427-1rf1-0pib6942b4eo 08/30/2015 08/30/2015 Alfredo Palomares MD Plaquenil Rx i07e0ms5-9855-9gqc-ueyc-e35135e20095 08/30/2015 08/30/2015 Alfredo Palomares MD Plaquenil Rx 9e714877-6gbw-76m7-100s-7e97f6q05eip 08/30/2015 08/30/2015 Alfredo Palomares MD Plaquenil Rx 0104yv41-4n4s-5y6d-og5w-a0fae2889610 08/30/2015 08/30/2015 Alfredo Palomares MD Plaquenil Rx 6l55o7o5-0a88-6n84-rb61-476009ie49g9 08/30/2015 08/30/2015 Alfredo Palomares MD Plaquenil Rx t1a55bga-1fi0-14ls-004j-845204ofs3vt 08/30/2015 08/30/2015 Alfredo Palomares MD Plaquenil Rx 8585c35v-297m-7lv0-662m-e0584x7pms4m 08/30/2015 08/30/2015 Alfredo Palomares MD Plaquenil Rx 21165850-nn3v-5280-oazz-506r2pfr95j9 08/30/2015 08/30/2015 Alfredo Palomares MD Plaquenil Rx s9792p98-120m-101z-yemf-0jj087pf3184 08/30/2015 08/30/2015 Alfredo Palomares MD Plaquenil Rx y2x006q1-vfm5-14q2-5q4l-0p1y7w29j4m9 08/30/2015 08/30/2015 Alfredo Palomares MD Plaquenil Rx 6d9r9v16-g16f-89f5-gp91-2j83do75091q 08/30/2015 08/30/2015 Alfredo Palomares MD Plaquenil Rx 24zj8fp4-92np-9413-i763-73lbf2s88897 08/30/2015 08/30/2015 Alfredo Palomares MD Plaquenil Rx 026q5wdg-72d4-8e73-9r74-o85du3b6u159 08/30/2015 08/30/2015 Alfredo Palomares MD Plaquenil Rx 5y8e2o7i-437d-70ot-1q00-96v74s4j4sy9 08/30/2015 08/30/2015 Alfredo Palomares MD Plaquenil Rx g19304jp-k9ia-71x7-w0z6-033m8n193k9a 08/30/2015 08/30/2015 Alfredo Palomares MD FU 87u817c2-6fs4-6jq8-wu76-n8045mbg9x26 10/13/2015 10/13/2015 Alfreod Palomares MD FU u104bzqg-152v-2410-0p3m-z327qyp9bt3s 10/13/2015 10/13/2015 Alfredo Palomares MD FU md6t48sk-v458-594o-0w58-qm354349j688 10/13/2015 10/13/2015 Alfredo Palomares MD 86489e0q-g8ts-2839-n92f-7ln40684j01k 10/13/2015 10/13/2015 Alfredo Palomares MD FU 82sx29mj-mj22-9032-gga7-l0j24l0p2oql 10/13/2015 10/13/2015 Alfredo Palomares MD 2f8ny485-y153-3z88-477t-43c27k2psyoh 10/13/2015 10/13/2015 Alfredo Palomares MD q778z903-a66b-7848-x38d-srh2552ac207 10/13/2015 10/13/2015 Alfredo Palomares MD 8tbgo3n3-09d2-876w-a14o-wt8o05l51780 10/13/2015 10/13/2015 Alfredo Palomares MD 34c0e57w-g6f9-03ws-x770-c9xwc14179g3 10/13/2015 10/13/2015 Alfredo Palomares MD 6e64ab26-106n-3mtx-y368-622308cbzgmb 10/13/2015 10/13/2015 Alfredo Palomares MD FU 08202122-s731-04e7-0lv6-1805e3o29s6c 10/13/2015 10/13/2015 Alfredo Palomares MD FU 0i7sk473-c7gm-1543-z2w3-wjx7k973b4uv 10/13/2015 10/13/2015 Alfredo Palomares MD 570b4di2-0055-768q-e9f6-324pyr1ju425 10/13/2015 10/13/2015 Alfredo Palomares MD 347kc306-h4ha-6lhu-z55x-7yifg18wz76v 10/13/2015 10/13/2015 Alfredo Palomares MD 56iz18bf-m749-385z-8m51-l580k8787498 10/13/2015 10/13/2015 Alfredo Palomares MD HYDROXYCHLOROQUINE REFILL b776i21x-c22y-0ja5-11w1-4zw512n0sm8z 12/29/2015 12/29/2015 Alfredo Palomares MD HYDROXYCHLOROQUINE REFILL 1789x8t1-5r4j-230c-31eo-6iiff76s6284 12/29/2015 12/29/2015 Alfredo Palomares MD HYDROXYCHLOROQUINE REFILL b268574d-r449-3d19-62d0-u93t3k038r33 12/29/2015 12/29/2015 Alfredo Palomares MD HYDROXYCHLOROQUINE REFILL y16966r3-w7f4-606n-2s5d-9i1d0i0u6zkc 12/29/2015 12/29/2015 Alfredo Palomares MD HYDROXYCHLOROQUINE REFILL 9y7444m2-19c2-3389-b755-7vqhsu620517 12/29/2015 12/29/2015 Alfredo Palomares MD HYDROXYCHLOROQUINE REFILL 057a3r88-alm8-7a73-2e38-c872h74921d2 12/29/2015 12/29/2015 Alfredo Palomares MD HYDROXYCHLOROQUINE REFILL 19157ww6-6s16-5n74-95o5-55i71673w387 12/29/2015 12/29/2015 Alfredo Palomares MD HYDROXYCHLOROQUINE REFILL 92h7y3z6-3n09-1b2v-em20-a696720zm385 12/29/2015 12/29/2015 Alfredo Palomares MD HYDROXYCHLOROQUINE REFILL 74328c47-3q73-3i2o-q42l-w8094m9o12ao 12/29/2015 12/29/2015 Alfredo Palomares MD HYDROXYCHLOROQUINE REFILL y0vboy76-6751-9958-6031-6rnze90k8723 12/29/2015 12/29/2015 Alfredo Palomares MD HYDROXYCHLOROQUINE REFILL 31u9onh2-v391-6yk2-34xl-83376y06a72z 12/29/2015 12/29/2015 Alfredo Palomares MD HYDROXYCHLOROQUINE REFILL 6o59y526-75ew-1s0b-5077-589h99j732j7 12/29/2015 12/29/2015 Alfredo Palomares MD HYDROXYCHLOROQUINE REFILL 9h8v772v-y81z-88r3-944d-622n59j7242a 12/29/2015 12/29/2015 Alfredo Palomares MD HYDROXYCHLOROQUINE REFILL gi6n39lu-052h-55u1-5w14-h2o0cg849lyy 12/29/2015 12/29/2015 Alfredo Palomares MD refill- Hydroxychloroquine 09108a53-3ow9-29d7-f704-w1t980379h34 12/30/2015 12/30/2015 Alfredo Palomares MD refill- Hydroxychloroquine v422xkk1-07sn-76v7-7r85-79i9020ko542 12/30/2015 12/30/2015 Alfredo Palomares MD refill- Hydroxychloroquine 3lezidk4-s483-4706-fsz5-3je69hls30u0 12/30/2015 12/30/2015 Alfredo Palomares MD refill- Hydroxychloroquine 599771kh-5131-8u88-o556-j2rw52a6363v 12/30/2015 12/30/2015 Alfredo Palomares MD refill- Hydroxychloroquine nuu2o155-8385-864o-9gne-2ia7e903cmdx 12/30/2015 12/30/2015 Alfredo Palomares MD refill- Hydroxychloroquine 1r18y32n-7z39-64m6-m185-944j9194f18b 12/30/2015 12/30/2015 Alfredo Palomares MD refill- Hydroxychloroquine 42v6dgi6-3b78-735e-32qo-611118k03643 12/30/2015 12/30/2015 Alfredo Palomares MD refill- Hydroxychloroquine 70140676-7m98-8481-6431-97b694co6g35 12/30/2015 12/30/2015 Alfredo Palomares MD refill- Hydroxychloroquine 411k8512-mj2p-1495-i7lf-84504b7db68b 12/30/2015 12/30/2015 Alfredo Palomares MD refill- Hydroxychloroquine g0p0j8rj-652v-6n35-3k8w-2fe6po70po9p 12/30/2015 12/30/2015 Alfredo Palomares MD refill- Hydroxychloroquine p573399d-13l5-32d5-323n-y2rt6791q7b6 12/30/2015 12/30/2015 Alfredo Palomares MD refill- Hydroxychloroquine 1122r48u-349f-9072-15eu-l84s5px2um94 12/30/2015 12/30/2015 Alfredo Palomares MD refill- Hydroxychloroquine o3i190l9-1428-3vuh-64l8-3ga6428t7069 12/30/2015 12/30/2015 Alfredo Palomares MD Refill- Plaquenil 80s9pc3l-f4o3-0c87-4639-j30wj3bu4s4o 01/25/2016 01/25/2016 Alfredo Palomares MD Refill- Plaquenil 131x52mo-093b-03y6-ahcw-t31o8i0mdz33 01/25/2016 01/25/2016 Alfredo Palomares MD Refill- Plaquenil mg878399-3ay4-5mu4-q260-23z848s01969 01/25/2016 01/25/2016 Alfredo Palomares MD Refill- Plaquenil f6vs0d45-26a2-4iu8-s285-35g022j29a4q 01/25/2016 01/25/2016 Alfredo Palomares MD Refill- Plaquenil 73z86tr0-342v-697n-r28e-q2858x4re636 01/25/2016 01/25/2016 Alfredo Palomares MD Refill- Plaquenil h9q3860z-qc3q-9uvu-n6o4-q994o0ro5g7l 01/25/2016 01/25/2016 Alfredo Palomares MD Refill- Plaquenil p9y62a2h-3769-2598-67j6-46936j4q2u99 01/25/2016 01/25/2016 Alfredo Palomares MD Refill- Plaquenil 9t67b2i9-53ji-9d6n-1ps0-k56z661ml731 01/25/2016 01/25/2016 Alfredo Palomares MD Refill- Plaquenil 87689a48-5770-350a-98jk-88314277t036 01/25/2016 01/25/2016 Alfredo Palomares MD Refill- Plaquenil 24450ld1-buc6-7ogt-44kb-33rcs8qupm13 01/25/2016 01/25/2016 Alfredo Palomares MD Refill- Plaquenil 9d7s3c41-0w81-6808-2775-543w0a2j0322 01/25/2016 01/25/2016 Alfredo Palomares MD Refill- Plaquenil 4v89c8q9-06vg-567s-p459-v5p0359122ej 01/25/2016 01/25/2016 Alfredo Palomares MD low potassium 5xz5cr96-63c5-6529-2374-3297mf0hi486 01/30/2016 01/30/2016 Alfredo Palomares MD low potassium 24t2542g-1501-1l58-177t-s24a29jiu452 01/30/2016 01/30/2016 Alfredo Palomares MD low potassium mi27k32i-rws1-584w-z16w-148us9438541 01/30/2016 01/30/2016 Alfredo Palomares MD low potassium g8q7hz1n-ke1v-1h2d-19mc-41155p055yi0 01/30/2016 01/30/2016 Alfredo Palomares MD low potassium c967z290-d84b-5n85-9012-3b5u94506zp3 01/30/2016 01/30/2016 Alfredo Palomares MD low potassium 5822n396-803h-30f1-2h62-wg937lbtzxsv 01/30/2016 01/30/2016 Alfredo Palomares MD low potassium 21iv8269-ei6y-0d67-k7m7-v32720136872 01/30/2016 01/30/2016 Alfredo Palomares MD low potassium 317ot7zv-0803-94i4-b47g-13i28331ba27 01/30/2016 01/30/2016 Alfredo Palomares MD low potassium p9fao0cq-13b6-175m-z280-23180e4470fv 01/30/2016 01/30/2016 Alfredo Palomares MD low potassium 721q8t37-a523-6x2b-v8xe-7jkqbb49q732 01/30/2016 01/30/2016 Alfredo Palomares MD low potassium 8ld93qo0-r515-47r7-h0up-3d302p41e4rw 01/30/2016 01/30/2016 Alfredo Palomares MD Nitroglycerin Ointment 698r0684-4lyq-97u8-ei23-y6098wgz610o 01/31/2016 01/31/2016 Alfredo Palomares MD Nitroglycerin Ointment 36r0se13-1oa2-86p3-xo59-0327hod59a3a 01/31/2016 01/31/2016 Alfredo Palomares MD Nitroglycerin Ointment [id number] 01/31/2016 01/31/2016 Alfredo Palomares MD Nitroglycerin Ointment [id number] 01/31/2016 01/31/2016 Alfredo Palomares MD Nitroglycerin Ointment [id number] 01/31/2016 01/31/2016 Alfredo Palomares MD Nitroglycerin Ointment [id number] 01/31/2016 01/31/2016 Alfredo Palomares MD Nitroglycerin Ointment [id number] 01/31/2016 01/31/2016 Alfredo Palomares MD Nitroglycerin Ointment [id number] 01/31/2016 01/31/2016 Alfredo Palomares MD Nitroglycerin Ointment [id number] 01/31/2016 01/31/2016 Alfredo Palomares MD Nitroglycerin Ointment [id number] 01/31/2016 01/31/2016 Alfredo Palomares MD 4 mth f/u [id number] 02/13/2016 02/13/2016 Alfredo Palomares MD 4 mth f/u [id number] 02/13/2016 02/13/2016 Alfredo Palomares MD Unknown [id number] 02/13/2016 02/13/2016 Alfredo Palomares MD Unknown [id number] 02/13/2016 02/13/2016 Alfredo Palomares MD Unknown [id number] 02/13/2016 02/13/2016 Alfredo Palomares MD 4 mth f/u [id number] 02/13/2016 02/13/2016 Alfredo Palomares MD 4 mth f/u [id number] 02/13/2016 02/13/2016 Alfredo Palomares MD 4 mth f/u [id number] 02/13/2016 02/13/2016 Alfredo Palomares MD 4 mth f/u [id number] 02/13/2016 02/13/2016 Alfredo Palomares MD 4 mth f/u [id number] 02/13/2016 02/13/2016 Alfredo Palomares MD 4 mth f/u [id number] 02/13/2016 02/13/2016 Alfredo Palomares MD Unknown [id number] 02/13/2016 02/13/2016 Alfredo Palomares MD Unknown [id number] 02/13/2016 02/13/2016 Alfredo Palomares MD Unknown [id number] 02/13/2016 02/13/2016 Alfredo Palomares MD Unknown [id number] 02/13/2016 02/13/2016 Alfredo Palomares MD Unknown [id number] 02/13/2016 02/13/2016 Alfredo Palomares MD Unknown [id number] 02/13/2016 02/13/2016 Alfredo Palomares MD Right hip bursa inj [id number] 03/07/2016 03/07/2016 Alfredo Palomares MD Right hip bursa inj [id number] 03/07/2016 03/07/2016 Alfredo Palomares MD Right hip bursa inj [id number] 03/07/2016 03/07/2016 Alfredo Palomares MD Right hip bursa inj [id number] 03/07/2016 03/07/2016 Alfredo Palomares MD Right hip bursa inj [id number] 03/07/2016 03/07/2016 Alfredo Palomares MD Right hip bursa inj [id number] 03/07/2016 03/07/2016 Alfredo Palomares MD Right hip bursa inj [id number] 03/07/2016 03/07/2016 Alfredo Palomares MD LEFT hip bursa inj [id number] 03/14/2016 03/14/2016 Alfredo Palomares MD LEFT hip bursa inj [id number] 03/14/2016 03/14/2016 Alfredo Palomares MD LEFT hip bursa inj [id number] 03/14/2016 03/14/2016 Alfredo Palomares MD LEFT hip bursa inj [id number] 03/14/2016 03/14/2016 Alfredo Palomares MD LEFT hip bursa inj [id number] 03/14/2016 03/14/2016 Alfredo Palomares MD LEFT hip bursa inj [id number] 03/14/2016 03/14/2016 Alfredo Palomares MD RIGHT KNEE INJEC [id number] 03/26/2016 03/26/2016 Alfreod Palomares MD RIGHT KNEE INJEC [id number] 03/26/2016 03/26/2016 Alfredo Palomares MD RIGHT KNEE INJEC [id number] 03/26/2016 03/26/2016 Alfredo Palomares MD RIGHT KNEE INJEC [id number] 03/26/2016 03/26/2016 Alfredo Palomares MD RIGHT KNEE INJEC [id number] 03/26/2016 03/26/2016 Alfredo Palomares MD LEFT KNEE INJEC [id number] 04/03/2016 04/03/2016 Alfredo Palomares MD LEFT KNEE INJEC [id number] 04/03/2016 04/03/2016 Alfredo Palomares MD LEFT KNEE INJEC [id number] 04/03/2016 04/03/2016 Alfredo Palomares MD Pain in chest [id number] 04/11/2016 04/11/2016 Alfredo Palomares MD Pain in chest [id number] 04/11/2016 04/11/2016 Alfredo Palomares MD Pain in chest [id number] 04/11/2016 04/11/2016 Alfredo Palomares MD Pain in chest [id number] 04/11/2016 04/11/2016 Alfredo Palomares MD [facility] [id number] 04/27/2016 04/27/2016 Alfredo Palomares MD [facility] [id number] 04/27/2016 04/27/2016 Alfredo Palomares MD [facility] [id number] 05/01/2016 05/01/2016 Alfrdeo Palomares Procedures No Data Provided for This [...] No data available for this section 05/11/2015 [facility] Family History No Data Provided for This Section Advance Directives No Data Provided for This Section Functional Status No Data Provided for This Section
[2018-12-06] MEDS ORDERED: METHYLPREDNISOLONE SOD SUCC 125 MG/2ML VIAL IV NR (15:00)
--- NOTE | 2018-12-06 15:02 | NUR ---
per , pt still unable to void, states no cath needed, pt to get ua at hospital when she can give ua sample. antibiotic ok to start per
--- NOTE | 2018-12-06 15:13 | NUR ---
[facility] CALLED FOR TRANSPORT
[2018-12-06] MEDS: INSULIN REGULAR, HUMAN 100 UNIT/1 ML 3ML VIAL SQ SCH ×2 (15:14→20:43)
--- NOTE | 2018-12-06 15:14 | NUR ---
INSULIN TO BE HELD UNTIL PT AT [facility] PER MD FOR MEAL TRAY TO BE AVAILABLE FOR PT PER MD.
[2018-12-06] MEDS ORDERED: METHYLPREDNISOLONE SOD SUCC 125 MG/2ML VIAL ONE (15:47)
[2018-12-06] MEDS ORDERED: ALPRAZOLAM 0.25 MG TAB PO PRN (16:30)
[2018-12-06] MEDS ORDERED: ALBUTEROL/IPRATROPIUM 3 ML NEB NEB PRN (16:30)
[2018-12-06] MEDS ORDERED: BENZONATATE 100 MG CAP PO PRN (16:45)
[2018-12-06] MEDS: GABAPENTIN 100 MG CAP PO SCH (17:00)
--- NOTE | 2018-12-06 17:04 | NUR ---
REPORT TO EMS
--- NOTE | 2018-12-06 17:22 | NUR ---
RCD PT FROM [facility] BY EMS PT IS ALERT AND ORIENTED RESTING ON BED NO SIGNS OF ANY DISTRESS NOTED VITALS CHECKED GETTING O2 2L BY NC ,ADMISSION ASSESSMENT DONE SHE SAID FEVER STARTED THIS MORNING NO FEVER NOW ,PT VOIDED IV PATENT BY SALINE FLUSH INSTRUCTED PT REGARDING HOSPITAL POLICY AND ROUTINE BED LOW AND LOCKED CALL LIGHT IN REACH
[2018-12-06] MEDS ORDERED: IPRATROPIUM BROMIDE 0.02% 2.5 ML NEB NEB SCH (18:00)
[2018-12-06 18:05] VITALS: BP 138/75
[2018-12-06 18:16] VITALS: BP 138/75
[2018-12-06] MEDS ORDERED: GABAPENTIN400 MG PO (18:44)
[2018-12-06] MEDS ORDERED: BUPROPION HCL150 M2 PO (18:44)
[2018-12-06] MEDS ORDERED: GABAPENTIN100 MG (18:44)
--- NOTE | 2018-12-06 18:52 | NUR ---
PT RESTING ON BED BED SIDE REPORT GIVEN TO ONCOMING NURSE
[2018-12-06 19:10] LABS: BILIRUBIN,URINE NEGATIVE (NEGATIVE); CLARITY,URINE SL CLOUDY (CLEAR); COLOR,URINE YELLOW (YELLOW); KETONES,URINE NEGATIVE (NEGATIVE); LEUKOCYTE ESTERASE ,URINE NEGATIVE (NEGATIVE); NITRITE,URINE NEGATIVE (NEGATIVE); PROTEIN,URINE DIPSTICK NEGATIVE (NEGATIVE); URINE UROBILINOGEN 0.2 mg/dL (0.2 - 1)
[2018-12-06 19:25] VITALS: BP 129/76
[2018-12-06 19:30] LABS: RBC,URINE 0-5 /HPF (0-5); WBC,URINE (MAN) 0-5 /HPF (0-5)
[2018-12-06] MEDS: LEVOFLOXACIN 250MG/D5W 50ML 50 ML IV SCH (19:30)
--- NOTE | 2018-12-06 19:30 | NUR ---
Paged Dr. Little regarding medication.
[2018-12-06 19:31] LABS: BACTERIA,URINE FEW /HPF; EPITHELIAL CELLS,URINE MODERATE /LPF; MUCUS,URINE FEW (RARE)
--- NOTE | 2018-12-06 19:42 | NUR ---
Dr. Little called back and received orders for xray of left knee, decrease Levaquin to 250mg, and continue Gabapentin 600mg hs.
--- NOTE | 2018-12-06 19:51 | History and Physical ---
in [facility] er , but apparently the patient has not yet being transferred. The case was discussed previously with Dr. parker. The patient has severe COPD, recent knee surgery. We will continue home medications. We will add Ancef to the regimen until pending the review by Dr. Coyne, anticipated the patient will be admitted to hospital. MD RAIMUNDO Serrano/CARLOS /[id number]
--- NOTE | 2018-12-06 20:10 | Diagnostic Imaging Report ---
KNEE LEFT THREE VIEWS - 3 views HISTORY: Pain COMPARISON: None available. FINDINGS: See impression. IMPRESSION: Status post left knee arthroplasty. Intact hardware. No evidence of periarticular fracture or loosening. Soft tissues are unremarkable. Signed by: Dr. Bartolo Navarrete MD on 12/06/2018 8:06 PM
[2018-12-06] MEDS ORDERED: SODIUM CHLORIDE 0.9% 250ML 250 ML ONE (20:32)
[2018-12-06] MEDS: GABAPENTIN 300 MG CAP PO SCH (20:43)
[2018-12-06] MEDS: MONTELUKAST SODIUM 10 MG TAB PO SCH (20:43)
[2018-12-06 21:05] LABS: CREATINE KINASE MB 3.8 ng/mL (0-5.0)
[2018-12-06] MEDS: HEPARIN SOD (PORCINE) 5,000 UNIT/ML VIAL SC SCH (21:30)
[2018-12-06] MEDS: CEFAZOLIN SOD 1 GM/NS 50ML 50 ML IV SCH (22:00)
[2018-12-06] MEDS: ZOLPIDEM TARTRATE 10 MG TAB PO SCH (22:15)
[2018-12-07] VITALS (8 sets, daily range): BP systolic 104–122; BP diastolic 56–75
[2018-12-07 05:40] LABS: BASOPHILS % 0.1 % (0.0-1.0); HEMOGLOBIN 10.2 g/dL (12.0-16.0); LYMPHOCYTES # (AUTO) 0.4 (1.0-3.2); LYMPHOCYTES % 5.2 % (18.0-39.1); MEAN CORPUSCULAR HEMOGLOBIN 28.3 pg (28-32); MEAN CORPUSCULAR VOLUME 94.4 fL (81-99); MONOCYTES # (AUTO) 0.1 (0.2-0.8); MONOCYTES % 1.5 % (4.4-11.3); NEUTROPHILS % 92.7 % (38.7-80.0); PLATELET COUNT 193 x10e3/uL (140-360); RED CELL DISTRIBUTION WIDTH 16.2 % (11.7-14.4)
[2018-12-07 06:14] LABS: ANION GAP 14.9 mmol/L (8-16); BLOOD UREA NITROGEN 15 mg/dL (7-26); BUN/CREATININE RATIO 18 (6-25); CALCIUM 10.5 mg/dL (8.4-10.2); CARBON DIOXIDE 25 mmol/L (22-29); CHLORIDE 103 mmol/L (98-107); CREATININE, SERUM 0.83 mg/dL (0.57-1.11); EST GLOMERULAR FILTRATION RATE > 60 ML/MIN (60-); GLUCOSE 157 mg/dL (74-118); POTASSIUM 4.9 mmol/L (3.5-5.1); SODIUM 138 mmol/L (136-145)
[2018-12-07] MEDS: CEFAZOLIN SOD 1 GM/NS 50ML 50 ML IV SCH ×3 (06:15→21:36)
[2018-12-07 06:47] LABS: CREATINE KINASE MB 3.9 ng/mL (0-5.0)
--- NOTE | 2018-12-07 07:00 | NUR ---
RCD PT AT BED PT IS ALERT AND ORIENTED RESTING ON BED NO SIGNS OF ANY DISTRESS NOTED IV PATENT BED LOW AND LOCKED CALL LIGHT IN REACH
[2018-12-07] MEDS: INSULIN REGULAR, HUMAN 100 UNIT/1 ML 3ML VIAL SQ SCH ×4 (07:30→19:26)
[2018-12-07] MEDS: ALBUTEROL/IPRATROPIUM 3 ML NEB NEB SCH ×3 (07:40→20:00)
[2018-12-07] MEDS: PANTOPRAZOLE SOD 40 MG TABEC PO SCH (09:00)
[2018-12-07] MEDS: METHYLPREDNISOLONE 4 MG TAB PO SCH (09:00)
[2018-12-07] MEDS: POTASSIUM CHLORIDE 20 MEQ TAB CR PO SCH (09:00)
[2018-12-07] MEDS: GABAPENTIN 100 MG CAP PO SCH ×2 (09:00→16:10)
[2018-12-07] MEDS: HEPARIN SOD (PORCINE) 5,000 UNIT/ML VIAL SC SCH ×2 (09:00→21:30)
[2018-12-07] MEDS: ALBUTEROL SULFATE 2 MG TAB PO SCH (09:00)
[2018-12-07] MEDS ORDERED: ALPRAZOLAM 0.25 MG TAB PO PRN (11:30)
[2018-12-07] MEDS: MUPIROCIN 2% OINT 22 GM TUBE TOP SCH (16:10)
[2018-12-07 17:35] LABS: BILIRUBIN,URINE NEGATIVE (NEGATIVE); CLARITY,URINE CLEAR (CLEAR); COLOR,URINE YELLOW (YELLOW); KETONES,URINE NEGATIVE (NEGATIVE); LEUKOCYTE ESTERASE ,URINE NEGATIVE (NEGATIVE); NITRITE,URINE NEGATIVE (NEGATIVE); PROTEIN,URINE DIPSTICK NEGATIVE (NEGATIVE); URINE UROBILINOGEN 0.2 mg/dL (0.2 - 1)
[2018-12-07 17:46] LABS: BACTERIA,URINE MODERATE /HPF
[2018-12-07 17:47] LABS: EPITHELIAL CELLS,URINE MANY /LPF; TRANSITIONAL EPI CELLS,URINE FEW
--- NOTE | 2018-12-07 18:41 | History and Physical ---
The patient of [facility], Dr. Bansal, admitted with fever, minor cough, history of total knee replacement, left knee 10/14. Apparently closure was difficult and the patient had a wound VAC for approximately 15 days. After surgery, she went to [facility] for rehabilitation. She has a history of macular degeneration, which she blames on Plaquenil. She has a history of smoking for many years, quit 15 years ago. She is being evaluated for possible lung transplant. She has had good gastric segmentation in the past, cataract surgery. Allergic to demeclocycline, prednisone causes HAND KISS SETTER affects, but less so with Medrol. Recently on Augmentin and Bactrim by the Orthopedic Surgeon. History of COPD, frequent urinary infections, wound, left knee; no heart problems, history of lupus, Raynaud, skin cancer, slow healing. PHYSICAL EXAMINATION: GENERAL: She is a well-developed white female, in no acute distress, looking her stated age. VITAL SIGNS: Temperature max 100.1 in the ER. HEAD: Normocephalic, atraumatic. LUNGS: Few rhonchi. HEART: Regular rhythm. ABDOMEN: Nontender. Wound, left knee with minimal drainage under an occlusive dressing. PLAN: To continue Ancef and Levaquin. ID opinion. The patient is requesting discharge to see her Orthopedic Surgeon in the morning. We will discuss with Infectious Disease doctor. Continue Levaquin and Ancef at this time. MD RAIMUNDO Serrano/CARLOS /[id number]
--- NOTE | 2018-12-07 19:10 | NUR ---
PT RESTING ON BED BED SIDE REPORT GIVEN TO ONCOMING NURSE
[2018-12-07] MEDS: LEVOFLOXACIN 250MG/D5W 50ML 50 ML IV SCH (19:45)
[2018-12-07] MEDS: GABAPENTIN 300 MG CAP PO SCH (21:36)
[2018-12-07] MEDS: MONTELUKAST SODIUM 10 MG TAB PO SCH (21:36)
--- NOTE | 2018-12-07 21:39 | NUR ---
Patient c/o pain to L shoulder. No pain med on file. Paged Dr. Little.
--- NOTE | 2018-12-07 21:40 | NUR ---
Spoke to Dr. Little and received order for Tylenol #3.
[2018-12-07] MEDS: ACETAMINOPHEN/CODEINE 300MG - 30MG TAB PO PRN (21:50)
[2018-12-07] MEDS: ZOLPIDEM TARTRATE 10 MG TAB PO SCH (22:07)
[2018-12-08] VITALS (7 sets, daily range): BP systolic 93–113; BP diastolic 58–71
[2018-12-08] MEDS: ALBUTEROL/IPRATROPIUM 3 ML NEB NEB SCH ×4 (01:00→19:43)
[2018-12-08 05:23] LABS: BASOPHILS % 0.1 % (0.0-1.0); EOSINOPHILS % 0.4 % (0.0-6.0); HEMATOCRIT 34.7 % (34.2-44.1); HEMOGLOBIN 10.2 g/dL (12.0-16.0); LYMPHOCYTES # (AUTO) 0.9 (1.0-3.2); LYMPHOCYTES % 12.6 % (18.0-39.1); MEAN CORPUSCULAR HEMOGLOBIN 28.2 pg (28-32); MEAN CORPUSCULAR HGB CONC 29.4 g/dL (31-35); MEAN CORPUSCULAR VOLUME 95.9 fL (81-99); MONOCYTES # (AUTO) 0.5 (0.2-0.8); MONOCYTES % 7.3 % (4.4-11.3); NEUTROPHILS # (AUTO) 5.9 (2.1-6.9); NEUTROPHILS % 79.2 % (38.7-80.0); PLATELET COUNT 210 x10e3/uL (140-360); RED BLOOD COUNT 3.62 x10e6/uL (3.6-5.1); RED CELL DISTRIBUTION WIDTH 16.6 % (11.7-14.4)
[2018-12-08] MEDS: CEFAZOLIN SOD 1 GM/NS 50ML 50 ML IV SCH (05:26)
[2018-12-08] MEDS: INSULIN REGULAR, HUMAN 100 UNIT/1 ML 3ML VIAL SQ SCH ×4 (07:30→21:00)
--- NOTE | 2018-12-08 07:52 | NUR ---
The pt.'s blood sugar was missed because of miscommunication and the pt. had already eaten breakfast when the error was discovered.
[2018-12-08] MEDS: GABAPENTIN 100 MG CAP PO SCH ×2 (08:30→17:16)
[2018-12-08] MEDS: METHYLPREDNISOLONE 4 MG TAB PO SCH (08:30)
[2018-12-08] MEDS: POTASSIUM CHLORIDE 20 MEQ TAB CR PO SCH (08:30)
[2018-12-08] MEDS: PANTOPRAZOLE SOD 40 MG TABEC PO SCH (08:30)
[2018-12-08] MEDS: MUPIROCIN 2% OINT 22 GM TUBE TOP SCH ×2 (08:31→17:17)
[2018-12-08] MEDS: HEPARIN SOD (PORCINE) 5,000 UNIT/ML VIAL SC SCH ×2 (08:31→22:30)
[2018-12-08] MEDS: ALBUTEROL SULFATE 2 MG TAB PO SCH (08:36)
[2018-12-08] MEDS: ACETAMINOPHEN/CODEINE 300MG - 30MG TAB PO PRN (08:45)
--- NOTE | 2018-12-08 13:00 | Progress Note ---
DATE: 12/08/2018 SUBJECTIVE: Ms. Hui Galvez is doing better today. There are no complaints. REVIEW OF SYSTEMS: HEENT: Negative. PULMONARY: Negative. CARDIAC: Negative. : Negative. GI: Negative. SKIN: No rash and no complaints. PHYSICAL EXAMINATION: GENERAL: She is currently alert, oriented, does not seem in acute distress. VITAL SIGNS: Stable, currently afebrile. HEENT: She is not icteric. NECK: Supple. No JVD. No lymphadenopathy. No thyromegaly. CHEST: Clear bilaterally. HEART: S1, S2. No S3, S4. No murmurs. ABDOMEN: Soft. Bowel sounds present. No tenderness. EXTREMITIES: No edema. SKIN: No rash. LABORATORY DATA: Her review of lab revealed that she had gram-negative rods in the urine. IMPRESSION: Concerned about urinary tract infection. Await culture and sensitivity. I am going to put her on meropenem since she has been on several antibiotics and we will modify after that. Discussed with the patient as well as Dr. Little. MD MILAN Patel/CARLOS /[id number]
[2018-12-08] MEDS: MEROPENEM 1GM 100 ML IV SCH ×2 (15:30→22:30)
--- NOTE | 2018-12-08 17:15 | Consultation ---
DATE OF CONSULTATION: 12/07/2018 REASON FOR CONSULTATION: Fever. HISTORY OF PRESENT ILLNESS: Thank you so much for asking me to see this patient. This is a very pleasant 63-year-old white female, history of COPD, history of osteoarthritis, a month ago or so underwent total knee replacement on the left on 10/14/2018, was done at different facility. Up on followup, apparently, she had a wound VAC and then she had dehiscence of her wound. She received oral antibiotic, but she was also diagnosed with UTI and she was telling me she has been on 2 different kind of courses of oral antibiotic. She has been on nitrofurantoin. She has been on Keflex. More recently, she has been on Bactrim for the last week for UTI. Her primary care physician told her she had. She is coming to the hospital with fever and chills and not feeling well, but there is no other complaint. When I saw the patient, she was alert, oriented, lying in bed comfortably. The patient was seen and examined, discussed with Internal Medicine. When I saw the patient, she was alert, oriented, no complaints. PAST MEDICAL HISTORY: She has COPD, osteoarthritis, neuropathy, and diabetes. PAST SURGICAL HISTORY: Total knee replacement. ALLERGIES: DOXYCYCLINE. SOCIAL HISTORY: There is no smoking, drug abuse, or alcohol abuse. FAMILY HISTORY: Noncontributory. HOME MEDICATIONS: She is on Tylenol No. 3. She is on Proventil. Mupirocin, heparin, potassium supplement, Protonix, Neurontin, Xanax. REVIEW OF SYSTEMS: A 14-point reviewed with the patient. HEENT: There is no headache, visual changes, or hearing changes. GI: There is no nausea, no vomiting, no diarrhea. CARDIAC: There is no arrhythmia. NEURO: No seizure activity. SKIN: There is no rash. EXTREMITIES: The knee joint is doing good. PHYSICAL EXAMINATION: GENERAL: She is currently alert, oriented, does not seem to be in acute distress. VITAL SIGNS: Stable, currently afebrile. HEENT: She is not icteric. NECK: Supple. CHEST: Clear. HEART: S1, S2. ABDOMEN: Soft. EXTREMITIES: No edema. SKIN: There is no rash. All other symptoms within normal limits at present time. LABORATORY DATA: Her chart reviewed. Laboratory data reviewed. Discussed with Dr. Little at length. Her white count is 18.1 on admission, hemoglobin 11.9, hematocrit 39. Her sodium 137, potassium 4.7, creatinine 0.93. IMPRESSION: Fever, clinically stable. It could be drug related from Bactrim. I will suggest to discontinue antibiotic. Considering that she also had a white count, which could be drug related, but also possibility of urinary tract infection need to be ruled out. Agree with blood cultures, urine cultures. Agree with [facility] for the time being. Further recommendations to follow. Recheck CBC with diff. Discussed with the patient in terms of the need her physical examination does not reveal infection at the present time. Discussed with the patient there is a small dehiscence on the wound, which probably can do just local care and local antibiotic ointment. Discussed with the patient. We will follow. Discussed with Dr. Little. The patient would like to go home early, but I told she can hold on for a couple of days to make sure there is no infection until we get the blood cultures and urine cultures and she agreed. MD MILAN Patel/CARLOS /[id number]
[2018-12-08] MEDS: ZOLPIDEM TARTRATE 10 MG TAB PO SCH (22:30)
[2018-12-08] MEDS: GABAPENTIN 300 MG CAP PO SCH (22:30)
[2018-12-08] MEDS: MONTELUKAST SODIUM 10 MG TAB PO SCH (22:30)
[2018-12-09] VITALS: BP 113/59
[2018-12-09] MEDS: ALBUTEROL/IPRATROPIUM 3 ML NEB NEB SCH ×2 (01:25→06:45)
[2018-12-09 04:00] VITALS: BP 108/67
[2018-12-09] MEDS: MEROPENEM 1GM 100 ML IV SCH (06:14)
[2018-12-09] MEDS: ACETAMINOPHEN/CODEINE 300MG - 30MG TAB PO PRN (06:23)
[2018-12-09] MEDS: INSULIN REGULAR, HUMAN 100 UNIT/1 ML 3ML VIAL SQ SCH (07:30)
--- NOTE | 2018-12-09 07:30 | NUR ---
The pt. is in bed awake at rounds and bed rails are up times 2.
[2018-12-09 08:10] VITALS: BP 101/55
[2018-12-09] MEDS: PANTOPRAZOLE SOD 40 MG TABEC PO SCH (08:11)
[2018-12-09] MEDS: ALBUTEROL SULFATE 2 MG TAB PO SCH (08:11)
[2018-12-09] MEDS: POTASSIUM CHLORIDE 20 MEQ TAB CR PO SCH (08:11)
[2018-12-09] MEDS: GABAPENTIN 100 MG CAP PO SCH (08:11)
[2018-12-09] MEDS: MUPIROCIN 2% OINT 22 GM TUBE TOP SCH (08:12)
[2018-12-09] MEDS: HEPARIN SOD (PORCINE) 5,000 UNIT/ML VIAL SC SCH (09:00)
[2018-12-09] MEDS ORDERED: KEFLEX500 MG PO (09:27)
[2018-12-09] MEDS ORDERED: DIFLUCAN150 MG PO (09:29)
--- NOTE | 2018-12-09 12:00 | NUR ---
The pt. was discharged home in stable condition post scripts and discharge instructions were given. The pt. was escorted to private car and placed into the care of here family.
[2018-12-09 12:07] VITALS: BP 105/86
--- NOTE | 2018-12-09 12:20 | NUR ---
CM SPOKE TO PATIENT AT BEDSIDE REGARDING HOME HEALTH RESUMPTION ORDER. PATIENT CHOSE TO CONTINUE HOME HEALTH WITH HOME [facility]. CHOICE LETTER SIGNED AND PLACED IN CHART. CLINICAL AND RESUMPTION ORDER SENT TO [address] (P) [phone] (F) [phone] PATIENT INFORMED TO KEEP PHONE CLOSE TO RECEIVE AVAILABILITY CALL FROM [facility].
--- NOTE | 2018-12-09 12:22 | NUR ---
CM SPOKE TO PATIENT AT BEDSIDE REGARDING IMM LETTER. IMM LETTER GIVEN WITH EXPLANATION BASED ON ANTICIPATED DISCHARGE DATE. ORIGINAL SIGNED AND PLACED IN CHART; COPY OF ORIGINAL DOCUMENT GIVEN TO PATIENT AT BEDSIDE AND PLACED IN CARE TRANSITION FOLDER. CM CONTACT INFORMATION GIVEN TO PATIENT FOR ANY NEEDS OR CONCERNS. PATIENT WITH NO FURTHER QUESTIONS.
--- NOTE | 2018-12-09 14:06 | Discharge Summary ---
cc HOSPITAL COURSE: Charming, but unfortunate 63-year-old woman with recent total knee replacement, admitted with fever of 102.7 at home. She has a history of COPD, systemic lupus, macular degeneration which she attributes to Plaquenil, gastric segmentation in the past. She has been treated recently with Bactrim and was felt to have a drug fever, but urine grew E coli though there was no evidence of pyuria so recommendation of the Infectious Disease golf tournament consultant to discharge the patient on Keflex and was treated with Ancef and meropenem in the hospital. She did have a superficial wound to the knee, which was treated with topical therapy. Discharged on Keflex with Diflucan should she develop yeast infection, she anticipates. Continue on Tylenol No.3, albuterol tablets, DuoNeb, Xanax, Tessalon Perles, Neurontin, montelukast, Protonix, and Zolpidem. She has an impacted left shoulder fracture, which is slowly healing. She is advised to follow up with her grain processor and her orthopedic surgeon in the next week. She is discharged, much improved. She will resume home oxygen and resume home health. MD RAIMUNDO Serrano/CARLOS /[id number] cc dr khoury MTDD
== END 2018-12-09 12:15 | disposition home or self-care (01) | DRG 194 ==
LOC: FSED 11:41 → ERHOLD 14:29 → MED/SURG2 17:38
PROVIDERS: ADMIT Internal Medicine Pulmonary Disease; ATTEND Internal Medicine Pulmonary Disease
DX: J18.9 Pneumonia, unspecified organism (principal); N39.0 Urinary tract infection, site not specified; B96.20 Unspecified Escherichia coli [E. coli] as the cause of diseases classified elsewhere; E66.9 Obesity, unspecified; Z68.31 Body mass index [BMI] 31.0-31.9, adult; G62.9 Polyneuropathy, unspecified; H35.30 Unspecified macular degeneration; Z96.659 Presence of unspecified artificial knee joint; T50.905A Adverse effect of unspecified drugs, medicaments and biological substances, initial encounter
CPT/HCPCS: 36415; 71046; 80048; 80053; 81001; 81003; 82550; 82553; 82948; 83605; 84484; 85025; 87040; 87086; 87186; 93005; 94640; 99284; J0690; J1644; J1817; J1956; J2930; J7050; J7509

== ENCOUNTER 2019-01-02 09:00 | Outpatient (RCR) | payer MEDICARE, OTHER ==
[~2019-01-02 09:00] MED LIST changes: +BUPROPION HCL150 M2 PO; +DIFLUCAN150 MG PO; +GABAPENTIN100 MG; +GABAPENTIN400 MG PO; +KEFLEX500 MG PO
== END 2019-01-10 ==
LOC: RESP 09:00
PROVIDERS: ATTEND Internal Medicine Pulmonary Disease
DX: J44.9 Chronic obstructive pulmonary disease, unspecified (principal)
CPT/HCPCS: G0238 ×4; G0424 ×4

== ENCOUNTER 2019-01-23 09:00 | Outpatient (RCR) | payer MEDICARE, OTHER | END 2019-02-09 | LOC: RESP 09:00 | PROVIDERS: ATTEND Internal Medicine Pulmonary Disease | DX: J44.9 Chronic obstructive pulmonary disease, unspecified (principal); R60.0 Localized edema | CPT/HCPCS: G0238 ×8; G0424 ×8 ==

== ENCOUNTER 2019-02-18 08:00 | Outpatient (RCR) | payer MEDICARE, OTHER | END 2019-03-12 | LOC: RESP 08:00 | PROVIDERS: ATTEND Internal Medicine Pulmonary Disease | DX: J44.9 Chronic obstructive pulmonary disease, unspecified (principal) | CPT/HCPCS: G0238 ×10; G0424 ×10 ==

== ENCOUNTER 2019-04-08 08:43 | Outpatient (RCR) | payer MEDICARE, OTHER | END 2019-04-11 | LOC: RESP 08:43 | PROVIDERS: ATTEND Internal Medicine Pulmonary Disease | DX: J44.9 Chronic obstructive pulmonary disease, unspecified (principal) | CPT/HCPCS: G0238 ×11; G0424 ×11 ==

== ENCOUNTER → 2020-05-23 | Outpatient (CLI) | payer MEDICARE ==
[2020-05-23 17:08] LABS: ABG HCO3 31 mmol/L (22-26); ABG PCO2 52 mmHg (35-45); ABG PH 7.38 (7.35-7.45); ABG PO2 120 mmHg (80-105); ABG TCO2 32
== END ==
LOC: LAB 14:34
PROVIDERS: ATTEND Internal Medicine Pulmonary Disease
DX: R06.02 Shortness of breath (principal)
CPT/HCPCS: 36415; 82805

== ENCOUNTER 2020-09-17 11:04 | Emergency (ER) | payer MEDICARE ==
[~2020-09-17] VITALS: Ht 167.6 cm; Wt 80.7 kg
[2020-09-17] MEDS ORDERED: METOCLOPRAMIDE HCL 10 MG/2ML VIAL IV STA (11:40)
[2020-09-17] MEDS ORDERED: SODIUM CHLORIDE 0.9% 1000ML 1,000 ML IV STA (11:40)
[2020-09-17] MEDS ORDERED: DIPHENHYDRAMINE HCL INJ 50 MG/ML VIAL IV STA (11:40)
[2020-09-17] MEDS ORDERED: KETOROLAC TROMETHAMINE 30 MG/ML VIAL IV STA (11:40)
[2020-09-17] MEDS ORDERED: METOCLOPRAMIDE HCL 10 MG/2ML VIAL ONE (12:34)
[2020-09-17] MEDS ORDERED: KETOROLAC TROMETHAMINE 30 MG/ML VIAL ONE (12:34)
[2020-09-17] MEDS ORDERED: DIPHENHYDRAMINE HCL INJ 50 MG/ML VIAL ONE (12:34)
[2020-09-17] MEDS ORDERED: SODIUM CHLORIDE 0.9% 1000ML 1,000 ML ONE (12:35)
[2020-09-17] MEDS ORDERED: HYDROCODONE/APAP 5MG-325MG TAB PO ONE (13:00)
[2020-09-17] MEDS ORDERED: FIORICET 50-301 EACH PO (13:00)
[2020-09-17] MEDS ORDERED: ONDANSETRON ODT4 MG PO (13:03)
[2020-09-17] MEDS ORDERED: ONDANSETRON HCL INJ 2MG/ML 2ML 2 MG/ML VIAL IV STA (13:24)
[2020-09-17] MEDS ORDERED: HYDROCODONE/APAP 5MG-325MG TAB ONE (13:35)
== END 2020-09-17 13:10 | disposition home or self-care (01) ==
LOC: FSED 11:36
DX: R51.9 Headache, unspecified (principal); J44.9 Chronic obstructive pulmonary disease, unspecified; F41.9 Anxiety disorder, unspecified; F32.9 Major depressive disorder, single episode, unspecified
CPT/HCPCS: 70450; 99284; J1200; J1885; J2405; J2765; J7030